=== PATIENT | female | born 1965 | race Caucasian/White ===

== ENCOUNTER → 2018-06-18 17:26 | Outpatient (CLI) | payer OTHER, SELFPAY ==
[2018-06-18 18:50] LABS: Basophils # 0.1 K/mm3 (0-0.2); Eosinophils # 0.2 K/mm3 (0.0-0.4); Eosinophils % 2.3 % (0.1-12.0); Hematocrit 49.1 % (37.0-47.0); Hemoglobin 15.5 g/dL (12.2-16.2); Lymphocytes # 2.6 K/mm3 (0.7-4.5); Lymphocytes % 29.4 % (10-50); Mean Corpuscular HGB Conc 31.7 g/dL (31.8-35.4); Mean Corpuscular Hemoglobin 27.5 pg (27.0-31.2); Mean Corpuscular Volume 86.7 fl (81-99); Mean Platelet Volume 9.8 fl (7.4-10.4); Monocytes # 0.4 K/mm3 (0.1-1.0); Monocytes % 4.1 % (1.7-9.3); Neutrophils # 5.6 K/mm3 (1.8-7.8); Neutrophils % 63.1 % (37.0-80.0); Platelet Count 267 K/mm3 (142-424); Red Blood Count 5.66 M/mm3 (4.20-5.40); Red Cell Distribution Width 13.9 % (11.5-17.5); White Blood Count 8.9 K/mm3 (4.8-10.8)
[2018-06-18 19:10] LABS: Alanine Aminotransferase 23 U/L (12-78); Albumin Level 4.3 gm/dL (3.4-5.0); Albumin/Globulin Ratio 1.2 (1.1-1.8); Alkaline Phosphatase 93 U/L (46-116); Anion Gap 15.3 mEq/L (5-15); Aspartate Amino Transferase 7 U/L (15-37); Bilirubin,Total 0.3 mg/dL (0.2-1.0); Blood Urea Nitrogen 13 mg/dL (7-18); C-Reactive Protein 0.7 mg/L (0.0-0.9); Calcium 9.2 mg/dL (8.5-10.1); Carbon Dioxide 29 mmol/L (21.0-32.0); Chloride 100 mmol/L (98-107); Cholesterol 202 mg/dL (140-200); Creatinine,Serum 0.73 mg/dL (0.55-1.02); Estimated Glomerular Filt Rate 83 ml/min (>60); Free T4 (Free Thyroxine) 1.04 ng/dl (0.76-1.46); GFR (African American) 101 ML/MIN (>60); Globulin 3.5 gm/dl (1.3-3.2); Glucose 96 mg/dL (74-106); HDL Cholesterol 29 mg/dL (29-89); LDL Cholesterol 127 mg/dL (0-130); Potassium 4.3 mmoL/L (3.5-5.1); Sodium 140 mmol/L (136-145); Total Protein,Serum 7.8 gm/dL (6.4-8.2); Triglycerides 232 mg/dL (30-200); VLDL Cholesterol 46 mg/dL (0-40)
[2018-06-18 19:45] LABS: Erythrocyte Sedimentation Rate 9 mm/hr (0-30)
[2018-06-22 09:33] LABS: Vitamin D 25 Hydroxy 10.1 ng/mL (30.0-100.0)
[2018-06-22 10:33] LABS: Anti-Cyclic Citrullinated Pept 10 units (0-19)
== END ==
PROVIDERS: Visit Provider Physician Assistant
DX: M25.9 Joint disorder, unspecified (principal); R53.83 Other fatigue; E55.9 Vitamin D deficiency, unspecified
CPT/HCPCS: 80053; 80061; 82652; 84439; 84443; 85025; 85651; 86140; 86200; 86431

== ENCOUNTER → 2019-11-04 15:31 | Outpatient (CLI) | payer OTHER, SELFPAY ==
[2019-11-04 16:31] LABS: Chloride 99 mmol/L (98-107)
[2019-11-04 16:32] LABS: Potassium 4.4 mmoL/L (3.5-5.1)
[2019-11-04 16:34] LABS: Alanine Aminotransferase 18 U/L (12-78); Alkaline Phosphatase 68 U/L (38-126); Aspartate Amino Transferase 25 U/L (14-36); Bilirubin,Total 0.3 mg/dl (0.2-1.3); Blood Urea Nitrogen 15 mg/dl (7-17); Estimated Glomerular Filt Rate 75 ml/min (>60); GFR (African American) 90 ML/MIN (>60)
[2019-11-04 16:35] LABS: Albumin Level 4.5 g/dl (3.5-5.0); Albumin/Globulin Ratio 1.5 (1.1-1.8); Calcium 10.2 mg/dl (8.4-10.2); Carbon Dioxide 30 mmol/L (22.0-30.0); Chol/HDL Ratio 7.2 (1-3.5); Cholesterol 217 mg/dl (140-200); Glucose 110 mg/dl (74-100); HDL Cholesterol 30 mg/dl (40-60); Total Protein,Serum 7.5 g/dl (6.3-8.2); Triglycerides 195 mg/dl (30-150); VLDL Cholesterol 39 mg/dL (0-40)
[2019-11-04 16:46] LABS: Direct LDL Cholesterol 180.07 mg/dL (100-129)
[2019-11-04 17:14] LABS: Anion Gap 12.4 mEq/L (5-15); Sodium 137 mmol/L (136-145)
== END ==
LOC: LAB 15:34 → LAB.DROPOF 15:36
PROVIDERS: Visit Provider Physician Assistant
DX: M06.9 Rheumatoid arthritis, unspecified (principal)
CPT/HCPCS: 80053; 80061; 82652; 84443

== ENCOUNTER → 2019-11-12 16:02 | Outpatient (CLI) | payer OTHER, SELFPAY ==
[2019-11-12 16:15] LABS: Basophils # 0.3 K/mm3 (0-0.2); Basophils % 2.9 % (0.1-2.0); Eosinophils # 0.2 K/mm3 (0.0-0.4); Eosinophils % 2.5 % (0.1-12.0); Hematocrit 43.3 % (37.0-47.0); Hemoglobin 14.3 g/dL (12.2-16.2); Lymphocytes # 2.4 K/mm3 (0.7-4.5); Lymphocytes % 26.1 % (10-50); Mean Corpuscular Hemoglobin 27.9 pg (27.0-31.2); Mean Corpuscular Volume 84.6 fl (81-99); Mean Platelet Volume 9.1 fl (7.4-10.4); Monocytes # 0.4 K/mm3 (0.1-1.0); Neutrophils # 5.9 K/mm3 (1.8-7.8); Neutrophils % 64.5 % (37.0-80.0); Platelet Count 260 K/mm3 (142-424); Red Blood Count 5.12 M/mm3 (4.20-5.40); Red Cell Distribution Width 14.5 % (11.5-17.5); White Blood Count 9.1 K/mm3 (4.8-10.8)
== END ==
PROVIDERS: Visit Provider Physician Assistant
DX: I10 Essential (primary) hypertension (principal)
CPT/HCPCS: 85025

== ENCOUNTER → 2020-01-05 12:06 | Outpatient (CLI) | payer OTHER, SELFPAY ==
--- NOTE | 2020-01-05 12:13 | XR_ITS ---
PROCEDURE: XR CHEST 2V CLINICAL HISTORY: PICC placement COMPARISON: CXR CHEST(2 VIEWS-NOT PORTABLE) from 09/13/2015 FINDINGS: Right upper extremity PICC line is present. The tip is in the region of the superior vena cava/right atrial junction. Normal heart size. Mediastinal widening consistent with mediastinal adenopathy. Right upper lobe mass is present posteriorly measuring 6 cm. Left lung is clear. No acute bony findings. IMPRESSION: Right upper lobe mass with extensive mediastinal adenopathy consistent with carcinoma. PICC line is present with tip in the region the caval atrial junction Dictated by: Rommel áVsquez MD 01/05/2020 14:22 Electronically signed by Rommel Vásquez MD in [place] 01/05/2020 14:22
== END ==
PROVIDERS: PCP Emergency Medicine; Visit Provider Physician Assistant
DX: Z95.828 Presence of other vascular implants and grafts (principal)
CPT/HCPCS: 71046

== ENCOUNTER → 2020-01-26 09:45 | Outpatient (CLI) | payer OTHER, SELFPAY ==
[2020-01-26 09:47] LABS: Adenovirus F 40/41, stool Not Detected (NotDetected); Astrovirus Not Detected (NotDetected); Campylobacter Not Detected (NotDetected); Clostridium Difficile A/B, PCR Not Detected (NotDetected); Cryptosporidium Not Detected (NotDetected); Cyclospora Cayetanesis Not Detected (NotDetected); Entamoeba histolytica Not Detected (NotDetected); Enteroaggregative E coli Not Detected (NotDetected); Enteropathogenic E coli Not Detected (NotDetected); Enterotoxigenic E coli Not Detected (NotDetected); Giardia lamblia Not Detected (NotDetected); Norovirus Not Detected (NotDetected); Plesimonas Shigalloides, PCR Not Detected (NotDetected); Rotavirus A Not Detected (NotDetected); Salmonella, PCR Not Detected (NotDetected); Sapovirus Not Detected (NotDetected); Shiga-like toxin E coli Not Detected (NotDetected); Shigella Enterovasive E coli Not Detected (NotDetected); Vibrio Cholerae Not Detected (NotDetected); Vibrio, PCR Not Detected (NotDetected); Yersinia Entercolitica, PCR Not Detected (NotDetected)
== END ==
PROVIDERS: Visit Provider Physician Assistant
DX: R19.7 Diarrhea, unspecified (principal)
CPT/HCPCS: 87507

== ENCOUNTER → 2020-10-19 13:46 | Outpatient (CLI) | payer OTHER, SELFPAY ==
[2020-10-19 14:00] LABS: Chloride 103 mmol/L (98-107); Potassium 4.1 mmoL/L (3.5-5.1); Sodium 140 mmol/L (136-145)
[2020-10-19 14:02] LABS: Alanine Aminotransferase 10 U/L (12-78); Blood Urea Nitrogen 12 mg/dl (7-17); Estimated Glomerular Filt Rate 104 ml/min (>60); GFR (African American) 126 ML/MIN (>60)
[2020-10-19 14:03] LABS: Albumin Level 4.5 g/dl (3.5-5.0); Albumin/Globulin Ratio 1.6 (1.1-1.8); Alkaline Phosphatase 82 U/L (38-126); Anion Gap 9.1 mEq/L (5-15); Aspartate Amino Transferase 19 U/L (14-36); Bilirubin,Total 0.4 mg/dl (0.2-1.3); Carbon Dioxide 32 mmol/L (22.0-30.0); Cholesterol 221 mg/dl (140-200); Globulin 2.8 g/dL (1.3-3.2); Total Protein,Serum 7.3 g/dl (6.3-8.2); Triglycerides 199 mg/dl (30-150); VLDL Cholesterol 40 mg/dL (0-40)
[2020-10-19 14:06] LABS: Calcium 9.8 mg/dl (8.4-10.2); Chol/HDL Ratio 9.6 (1-3.5); Glucose 84 mg/dl (74-100); HDL Cholesterol 23 mg/dl (40-60)
[2020-10-19 14:11] LABS: Basophils % 0.6 % (0.1-2.0); Eosinophils # 0.2 K/mm3 (0.0-0.4); Eosinophils % 2.2 % (0.1-12.0); Hematocrit 42.2 % (37.0-47.0); Hemoglobin 13.7 g/dL (12.2-16.2); Lymphocytes # 1.3 K/mm3 (0.7-4.5); Lymphocytes % 18.9 % (10-50); Mean Corpuscular HGB Conc 32.4 g/dL (31.8-35.4); Mean Corpuscular Volume 89.4 fl (81-99); Mean Platelet Volume 8.7 fl (7.4-10.4); Monocytes # 0.3 K/mm3 (0.1-1.0); Monocytes % 4.6 % (1.7-9.3); Neutrophils # 5.1 K/mm3 (1.8-7.8); Neutrophils % 73.8 % (37.0-80.0); Platelet Count 283 K/mm3 (142-424); Red Blood Count 4.72 M/mm3 (4.20-5.40); Red Cell Distribution Width 14.9 % (11.5-17.5); White Blood Count 6.9 K/mm3 (4.8-10.8)
[2020-10-19 14:14] LABS: Direct LDL Cholesterol 156.48 mg/dL (100-129)
[2020-10-19 14:23] LABS: T4 (Thyroxine) 7.9 ug/dl (5.53-11.0)
[2020-10-19 14:37] LABS: Thyroid Stimulating Hormone 1.79 uIU/mL (0.465-4.68)
== END ==
PROVIDERS: Visit Provider Nurse Practitioner Family
DX: Z00.00 Encounter for general adult medical examination without abnormal findings (principal); E78.5 Hyperlipidemia, unspecified; I10 Essential (primary) hypertension; E55.9 Vitamin D deficiency, unspecified
CPT/HCPCS: 80053; 80061; 82306; 84436; 84443; 85025

== ENCOUNTER → 2021-02-01 14:34 | Outpatient (CLI) | payer OTHER, SELFPAY ==
[2021-02-01 14:51] LABS: Alanine Aminotransferase 15 U/L (12-78); Albumin Level 4.5 g/dl (3.5-5.0); Albumin/Globulin Ratio 1.7 (1.1-1.8); Alkaline Phosphatase 67 U/L (38-126); Anion Gap 13.1 mEq/L (5-15); Aspartate Amino Transferase 19 U/L (14-36); Bilirubin,Total 0.5 mg/dl (0.2-1.3); Blood Urea Nitrogen 8 mg/dl (7-17); Calcium 9.7 mg/dl (8.4-10.2); Carbon Dioxide 29 mmol/L (22.0-30.0); Chloride 100 mmol/L (98-107); Chol/HDL Ratio 10.1 (1-3.5); Cholesterol 212 mg/dl (140-200); Estimated Glomerular Filt Rate 104 ml/min (>60); GFR (African American) 126 ML/MIN (>60); Globulin 2.6 g/dL (1.3-3.2); Glucose 159 mg/dl (74-100); HDL Cholesterol 21 mg/dl (40-60); Potassium 4.1 mmoL/L (3.5-5.1); Sodium 138 mmol/L (136-145); Total Protein,Serum 7.1 g/dl (6.3-8.2); Triglycerides 180 mg/dl (30-150); VLDL Cholesterol 36 mg/dL (0-40)
[2021-02-01 15:03] LABS: Direct LDL Cholesterol 157.05 mg/dL (100-129)
[2021-02-01 15:06] LABS: Basophils # 0.1 K/mm3 (0-0.2); Basophils % 1.3 % (0.1-2.0); Eosinophils # 0.1 K/mm3 (0.0-0.4); Eosinophils % 1.2 % (0.1-12.0); Hematocrit 41.1 % (37.0-47.0); Lymphocytes # 1.3 K/mm3 (0.7-4.5); Lymphocytes % 19.6 % (10-50); Mean Corpuscular HGB Conc 34.1 g/dL (31.8-35.4); Mean Corpuscular Hemoglobin 28.9 pg (27.0-31.2); Mean Corpuscular Volume 84.9 fl (81-99); Mean Platelet Volume 8.8 fl (7.4-10.4); Monocytes # 0.2 K/mm3 (0.1-1.0); Monocytes % 3.2 % (1.7-9.3); Neutrophils % 74.7 % (37.0-80.0); Platelet Count 252 K/mm3 (142-424); Red Blood Count 4.84 M/mm3 (4.20-5.40); Red Cell Distribution Width 15.5 % (11.5-17.5); White Blood Count 6.7 K/mm3 (4.8-10.8)
[2021-02-01 15:08] LABS: 25-OH Vitamin D, Total 65.6 ng/mL (30-100)
[2021-02-01 15:23] LABS: Thyroid Stimulating Hormone 1.01 uIU/mL (0.465-4.68)
[2021-02-01 16:10] LABS: Hemoglobin A1C 5.9 % (4.0-6.0)
== END ==
PROVIDERS: Visit Provider Nurse Practitioner Family
DX: Z00.00 Encounter for general adult medical examination without abnormal findings (principal); R73.09 Other abnormal glucose; E66.3 Overweight; Z68.34 Body mass index [BMI] 34.0-34.9, adult; Z79.899 Other long term (current) drug therapy
CPT/HCPCS: 80053; 80061; 82306; 83036; 84443; 85025

== ENCOUNTER → 2021-03-09 09:45 | Outpatient (CLI) | payer OTHER, SELFPAY | PROVIDERS: Visit Provider Surgery | DX: Z20.822 Contact with and (suspected) exposure to COVID-19 (principal) | CPT/HCPCS: U0003 ==

== ENCOUNTER 2021-06-27 09:04 | Emergency (ER) | payer OTHER, SELFPAY ==
--- NOTE | 2021-06-27 | ECG_ITS ---
APPROVED REPORT Exam: Resting ECG HR:104 bpm ECG Measurements Heart Rate 104 AXES SD 174 P 75 QRSd 96 QRS 74 QT 350 T 70 QTc 460 Conclusion Sinus tachycardia with frequent premature ventricular complexes Possible Left atrial enlargement Low voltage QRS Incomplete right bundle branch block Abnormal ECG Electronically signed by : Liborio Wakefield MD 06/30/2021 08:49:25
--- NOTE | 2021-06-27 09:24 | XR_ITS ---
PROCEDURE: XR CHEST PORTABLE CLINICAL HISTORY: Chest Pain COMPARISON: CR CXR CHEST(2 VIEWS-NOT PORTABLE) from 09/13/2015 CR XR CHEST 2V from 01/05/2020 FINDINGS: The cardiomediastinal silhouette and pulmonary vascularity are within normal limits. Mild scarring in the right upper lobe with mild prominence of the suprahilar region on the right. No lobar consolidation or collapse. No acute bony abnormalities. IMPRESSION: Mild prominence of the suprahilar region on the right. This could be vascular in nature. Upright PA and lateral chest may provide further evaluation. Previously there was an area of lobar pneumonia in the right upper lobe posteriorly which has resolved with some mild scarring in the right upper lobe. Dictated by: Rommel Vásquez MD 06/27/2021 10:27 Rommel Vásquez MD in [place] 06/27/2021 10:27
[2021-06-27 09:25] VITALS: BP 115/63; PULSE 105; RESP 18; TEMP 36.7; O2SAT 96; BMI 32.1
--- NOTE | 2021-06-27 09:25 | PC.NURSE ---
Called respitory for treatment
[2021-06-27 09:30] VITALS: BP 119/59; PULSE 66; O2SAT 92
--- NOTE | 2021-06-27 09:34 | PC.NURSE ---
Called RAD for chest xray spoke with marija
--- NOTE | 2021-06-27 09:35 | PC.NURSE ---
RT giving breathing treatment
[2021-06-27 09:48] LABS: Basophils # 0.1 K/mm3 (0-0.2); Basophils % 0.6 % (0.1-2.0); Eosinophils # 0.1 K/mm3 (0.0-0.4); Eosinophils % 1.8 % (0.1-12.0); Hematocrit 39.8 % (37.0-47.0); Hemoglobin 13.5 g/dL (12.2-16.2); Lymphocytes # 1.4 K/mm3 (0.7-4.5); Lymphocytes % 16.8 % (10-50); Mean Corpuscular Hemoglobin 29.6 pg (27.0-31.2); Mean Corpuscular Volume 86.9 fl (81-99); Mean Platelet Volume 8.2 fl (7.4-10.4); Monocytes # 0.4 K/mm3 (0.1-1.0); Neutrophils # 6.2 K/mm3 (1.8-7.8); Neutrophils % 75.9 % (37.0-80.0); Platelet Count 308 K/mm3 (142-424); Red Blood Count 4.58 M/mm3 (4.20-5.40); Red Cell Distribution Width 14.2 % (11.5-17.5); White Blood Count 8.2 K/mm3 (4.8-10.8)
[2021-06-27 09:49] LABS: Coronavirus 19, PCR Not Detected (NotDetected); Influenza A, PCR Not Detected (NotDetected); Influenza B, PCR Not Detected (NotDetected)
[2021-06-27 10:01] VITALS: BP 127/76; PULSE 117; O2SAT 90
--- NOTE | 2021-06-27 10:02 | PC.NURSE ---
RAD in room from chest xray
--- NOTE | 2021-06-27 10:19 | HMH.EDSOB ---
ED Disposition Clinical Impression: Acute exacerbation of chronic obstructive airways disease Disposition: Home, Self-Care Condition on Discharge: Fair Prescriptions: predniSONE [Deltasone 20mg tablet] 40 mg PO DAILY 5 Days #10 tab Transmission Status: Pending to [facility] Doxycycline Hyclate [Doxycycline Hyclate 100mg Tablet] 100 mg PO BID 5 Days #10 tab Transmission Status: Pending to [facility] Referrals: Bishop Aguilar APRN [Primary Care Provider] - - Critical Care Critical Care Time: No Attestation: On 06/27/21, the high probability of a clinically significant, sudden or life threatening deterioration of the following system(s) required my full and direct attention, intervention and personal management. The time I documented below is in addition to time spent performing reported procedures but includes the following listed in this critical care notation. Medical Decision Making - Medical Records Medical records reviewed: Yes: I reviewed the patient's medical records. - Jonathon Inquiry Pt receiving controlled substance: No Jonathon was queried for this patient: No Vital Signs: 06/27/21 09:25 06/27/21 09:30 06/27/21 10:01 Temperature 98.0 F Temperature Source Oral Pulse Rate 66 117 H Pulse Rate [Right Radial] 105 H Respiratory Rate 18 Blood Pressure 119/59 L 127/76 Blood Pressure [Right Arm] 115/63 Blood Pressure Mean 79 93 Blood Pressure Mean [Right Arm] 80 Blood Pressure Source [Right Arm] Automatic Cuff Blood Pressure Position [Right Arm] Sitting 02 Sat by Pulse Oximetry 96 92 L 90 L Oxygen Delivery Method Room Air - Lab Data Lab Results 06/27/21 09:15: WBC 8.2, RBC 4.58, Hgb 13.5, Hct 39.8, MCV 86.9, MCH 29.6, MCHC 34.0, RDW 14.2, Plt Count 308, MPV 8.2, Neut % (Auto) 75.9, Lymph % (Auto) 16.8, Franklin % (Auto) 5.0, Eos % (Auto) 1.8, Baso % (Auto) 0.6, Neut # (Auto) 6.2, Lymph # (Auto) 1.4, Franklin # (Auto) 0.4, Eos # (Auto) 0.1, Baso # (Auto) 0.1 06/27/21 09:15: Sodium 135 L, Potassium 3.4 L, Chloride 98, Carbon Dioxide 33 H, Anion Gap 7.4, BUN 11, Creatinine 0.70, Estimated Creat Clear 113, Estimated GFR 87, Est GFR ( Amer) 105, Glucose 102 H, Calcium 9.8, Total Bilirubin 0.2, AST 21, ALT 13, Alkaline Phosphatase 90, Troponin I < 0.01, Total Protein 7.5, Albumin 4.3, Globulin 3.2, Albumin/Globulin Ratio 1.3 06/27/21 09:15: SARS-CoV-2 (PCR) Not detected, Influenza A Untype (PCR) Not detected, Influenza Type B (PCR) Not detected Result diagrams: 06/27/21 09:15 06/27/21 09:15 Orders (Tests/Meds): ORDERS Category Date Time Status Troponin I Q3H Lab 06/27/21 12:30 Ordered Troponin I Q3H Lab 06/27/21 15:30 Ordered Medical Decision Narrative: Patient is a 56-year-old female with past medical history of lung cancer status post chemotherapy in remission, COPD, diabetes, hypertension presenting to the ED for shortness of breath and a increased cough. Patient is awake, alert, not in acute respiratory distress. Patient is hemodynamically stable, afebrile. Physical exam remarkable for mild expiratory wheezes bilaterally otherwise physical exam is benign. Includes but is not limited to COPD exacerbation, pneumonia, viral pneumonia, low concern for a pulmonary embolism. Get patient is given neb which greatly helps patient's symptoms. Patient states that she is feeling much better. Basic lab work is unremarkable, chest x-ray shows perihilar thickening otherwise is benign. Patient is written for 5-day course of steroid and antibiotics. She is to follow-up with her primary care physician on Friday. Resp/SOB HPI - General Chief Complaint: Shortness of Breath/Dyspnea Stated Complaint: cough,lung pain Time Seen by Provider: 06/27/21 10:19 Mode of Arrival: Ambulatory Limitations: No Limitations Description of Symptoms (Recalled from ER Triage Doc. by RN): Pt has a hx of lung cancer and is in remission. She stated that a wk she s
[2021-06-27 10:35] LABS: Alanine Aminotransferase 13 U/L (12-78); Albumin Level 4.3 g/dl (3.5-5.0); Albumin/Globulin Ratio 1.3 (1.1-1.8); Alkaline Phosphatase 90 U/L (38-126); Anion Gap 7.4 mEq/L (5-15); Aspartate Amino Transferase 21 U/L (14-36); Bilirubin,Total 0.2 mg/dl (0.2-1.3); Blood Urea Nitrogen 11 mg/dl (7-17); Calcium 9.8 mg/dl (8.4-10.2); Carbon Dioxide 33 mmol/L (22.0-30.0); Chloride 98 mmol/L (98-107); Creatinine Clearance Estimated 113 mL/min (50-200); Estimated Glomerular Filt Rate 87 ml/min (>60); GFR (African American) 105 ML/MIN (>60); Globulin 3.2 g/dL (1.3-3.2); Glucose 102 mg/dl (74-100); Potassium 3.4 mmoL/L (3.5-5.1); Sodium 135 mmol/L (136-145); Total Protein,Serum 7.5 g/dl (6.3-8.2)
[2021-06-27 10:47] LABS: Troponin I < 0.01 ng/ml (0.00-0.034)
[2021-06-27 11:10] VITALS: BP 111/63; PULSE 104; RESP 18; TEMP 36.8; O2SAT 94
== END 2021-06-27 11:10 | disposition home or self-care (01) ==
PROVIDERS: Emergency Provider Emergency Medicine; PCP Nurse Practitioner Family
DX: J44.1 Chronic obstructive pulmonary disease with (acute) exacerbation (principal); E11.9 Type 2 diabetes mellitus without complications; I10 Essential (primary) hypertension
CPT/HCPCS: 71045; 80053; 84484; 85025; 93005; 99283; C9803; U0003; U0005

== ENCOUNTER → 2021-07-06 18:50 | Outpatient (CLI) | payer OTHER, SELFPAY ==
[2021-07-06 19:19] LABS: Basophils # 0.1 K/mm3 (0-0.2); Basophils % 0.7 % (0.1-2.0); Eosinophils # 0.2 K/mm3 (0.0-0.4); Eosinophils % 2.3 % (0.1-12.0); Hematocrit 40.8 % (37.0-47.0); Hemoglobin 13.7 g/dL (12.2-16.2); Lymphocytes # 1.6 K/mm3 (0.7-4.5); Lymphocytes % 16.8 % (10-50); Mean Corpuscular HGB Conc 33.7 g/dL (31.8-35.4); Mean Corpuscular Hemoglobin 29.5 pg (27.0-31.2); Mean Corpuscular Volume 87.6 fl (81-99); Mean Platelet Volume 8.8 fl (7.4-10.4); Monocytes # 0.3 K/mm3 (0.1-1.0); Monocytes % 3.5 % (1.7-9.3); Neutrophils # 7.1 K/mm3 (1.8-7.8); Neutrophils % 76.8 % (37.0-80.0); Platelet Count 362 K/mm3 (142-424); Red Blood Count 4.65 M/mm3 (4.20-5.40); Red Cell Distribution Width 14.8 % (11.5-17.5); White Blood Count 9.3 K/mm3 (4.8-10.8)
[2021-07-06 19:31] LABS: Alanine Aminotransferase 14 U/L (12-78); Albumin Level 4.2 g/dl (3.5-5.0); Albumin/Globulin Ratio 1.8 (1.1-1.8); Alkaline Phosphatase 76 U/L (38-126); Anion Gap 12.7 mEq/L (5-15); Aspartate Amino Transferase 23 U/L (14-36); Bilirubin,Total 0.2 mg/dl (0.2-1.3); Blood Urea Nitrogen 11 mg/dl (7-17); Calcium 9.5 mg/dl (8.4-10.2); Carbon Dioxide 30 mmol/L (22.0-30.0); Chloride 99 mmol/L (98-107); Chol/HDL Ratio 6.5 (1-3.5); Cholesterol 196 mg/dl (140-200); Estimated Glomerular Filt Rate 103 ml/min (>60); GFR (African American) 125 ML/MIN (>60); Globulin 2.4 g/dL (1.3-3.2); Glucose 113 mg/dl (74-100); HDL Cholesterol 30 mg/dl (40-60); Potassium 3.7 mmoL/L (3.5-5.1); Sodium 138 mmol/L (136-145); Total Protein,Serum 6.6 g/dl (6.3-8.2); Triglycerides 239 mg/dl (30-150); VLDL Cholesterol 48 mg/dL (0-40)
[2021-07-06 19:35] LABS: Hemoglobin A1C 5.9 % (4.0-6.0)
[2021-07-06 19:42] LABS: Direct LDL Cholesterol 150.31 mg/dL (100-129)
[2021-07-06 19:50] LABS: 25-OH Vitamin D, Total 62.5 ng/mL (30-100)
[2021-07-06 19:51] LABS: T4 (Thyroxine) 8.9 ug/dl (5.53-11.0)
[2021-07-06 20:04] LABS: Thyroid Stimulating Hormone 1.44 uIU/mL (0.465-4.68)
== END ==
PROVIDERS: Visit Provider Nurse Practitioner Family
DX: C34.90 Malignant neoplasm of unspecified part of unspecified bronchus or lung (principal); E55.9 Vitamin D deficiency, unspecified; E78.5 Hyperlipidemia, unspecified; I10 Essential (primary) hypertension; J44.9 Chronic obstructive pulmonary disease, unspecified; R73.03 Prediabetes
CPT/HCPCS: 80053; 80061; 82306; 83036; 84436; 84443; 85025

== ENCOUNTER → 2021-12-10 13:04 | Outpatient (CLI) | payer OTHER, SELFPAY ==
[2021-12-10 14:17] LABS: Basophils # 0.3 K/mm3 (0-0.2); Basophils % 3.7 % (0.1-2.0); Eosinophils # 0.1 K/mm3 (0.0-0.4); Hemoglobin 13.9 g/dL (12.2-16.2); Lymphocytes # 1.2 K/mm3 (0.7-4.5); Lymphocytes % 17.8 % (10-50); Mean Corpuscular Volume 87.8 fl (81-99); Mean Platelet Volume 8.5 fl (7.4-10.4); Monocytes # 0.3 K/mm3 (0.1-1.0); Monocytes % 3.8 % (1.7-9.3); Neutrophils # 4.8 K/mm3 (1.8-7.8); Neutrophils % 72.6 % (37.0-80.0); Platelet Count 306 K/mm3 (142-424); Red Blood Count 4.78 M/mm3 (4.20-5.40); Red Cell Distribution Width 15.1 % (11.5-17.5); White Blood Count 6.6 K/mm3 (4.8-10.8)
[2021-12-10 14:34] LABS: Alanine Aminotransferase 12 U/L (12-78); Albumin Level 4.3 g/dl (3.5-5.0); Albumin/Globulin Ratio 1.9 (1.1-1.8); Alkaline Phosphatase 75 U/L (38-126); Aspartate Amino Transferase 18 U/L (14-36); Blood Urea Nitrogen 11 mg/dl (7-17); Calcium 9.3 mg/dl (8.4-10.2); Carbon Dioxide 31 mmol/L (22.0-30.0); Chloride 101 mmol/L (98-107); Cholesterol 202 mg/dl (140-200); Estimated Glomerular Filt Rate 87 ml/min (>60); GFR (African American) 105 ML/MIN (>60); Globulin 2.3 g/dL (1.3-3.2); Glucose 102 mg/dl (74-100); HDL Cholesterol 25 mg/dl (40-60); Sodium 138 mmol/L (136-145); Total Protein,Serum 6.6 g/dl (6.3-8.2); Triglycerides 162 mg/dl (30-150); VLDL Cholesterol 32 mg/dL (0-40)
[2021-12-10 14:35] LABS: Bilirubin,Total < 0.1 mg/dl (0.2-1.3)
[2021-12-10 14:44] LABS: Direct LDL Cholesterol 157.85 mg/dL (100-129)
[2021-12-10 14:48] LABS: 25-OH Vitamin D, Total 74.7 ng/mL (30-100)
[2021-12-10 14:49] LABS: T4 (Thyroxine) 8.7 ug/dl (5.53-11.0)
[2021-12-10 15:02] LABS: Thyroid Stimulating Hormone 0.11 uIU/mL (0.465-4.68)
[2021-12-10 21:31] LABS: Hemoglobin A1C 5.9 % (4.0-6.0)
[2021-12-10 21:37] LABS: Chol/HDL Ratio 8.1 (1-3.5)
[2021-12-12 12:40] LABS: C-Peptide 2.3 ng/mL (1.1-4.4)
== END ==
PROVIDERS: PCP Nurse Practitioner Family; Visit Provider Nurse Practitioner Family
DX: R73.03 Prediabetes (principal); I10 Essential (primary) hypertension; E66.9 Obesity, unspecified; Z68.31 Body mass index [BMI] 31.0-31.9, adult
CPT/HCPCS: 80053; 80061; 82306; 83036; 84436; 84443; 84681; 85025

== ENCOUNTER 2022-07-31 09:17 | Emergency (ER) | payer OTHER, SELFPAY ==
[2022-07-31 09:32] VITALS: BP 154/94; PULSE 101; RESP 22; TEMP 36.8; O2SAT 94; BMI 30.9
--- NOTE | 2022-07-31 09:38 | XR_ITS ---
FINAL REPORT CLINICAL HISTORY: cough/soa COMPARISON: Report dated 06/27/2021 FINDINGS: SINGLE-VIEW CHEST The heart size is normal. There is right hilar and suprahilar prominence of uncertain significance but was mention on the prior report, may represent scar. There are mild right base opacities, may represent atelectasis or scar There is no pneumothorax. IMPRESSION: Right hilar and suprahilar prominence as detailed above. CT chest with contrast could further evaluate. Right base atelectasis or scar. Reviewed, Interpreted and Dictated by Dylan Vail III, MD Transcribed by Clau Tay Authenticated and [facility]
--- NOTE | 2022-07-31 10:10 | HMH.EDGENADL ---
Discharge Plan Disposition Patient Disposition: Home, Self-Care Condition: Good Prescriptions Prescriptions: New levofloxacin 750 mg tablet 750 mg PO DAILY 5 Days Qty: 5 0RF benzonatate 100 mg capsule 100 mg PO TID PRN (Reason: Cough) Qty: 10 0RF prednisone 20 mg tablet 20 mg PO BID Qty: 10 0RF No Action gabapentin 100 mg capsule 200 mg PO QHS vitamin B complex [Super B-50 Complex] Capsule 1 cap PO DAILY omega-3 fatty acids 1,000 mg capsule 2,000 mg PO BID cyclobenzaprine 10 mg tablet 10 mg PO TID PRN (Reason: unknown) Breo Ellipta 100-25 mcg/dose blister with device 1 inh INHALATION DAILY Qty: 28 2RF albuterol sulfate 90 mcg/actuation HFA aerosol inhaler See Rx Instructions .ROUTE .COMPLEX Qty: 18 0RF Dose Instruction: INHALE 2 PUFFS BY MOUTH EVERY 6 HOURS NEEDED FOR SHORTNESS OF BREATH OR WHEEZING Rx Instructions: INHALE 2 PUFFS BY MOUTH EVERY 6 HOURS NEEDED FOR SHORTNESS OF BREATH OR WHEEZING ergocalciferol (vitamin D2) 1,250 mcg (50,000 unit) capsule See Rx Instructions .ROUTE .COMPLEX Qty: 12 0RF Dose Instruction: TAKE ONE CAPSULE BY MOUTH ONCE A WEEK ON THE SAME DAY OF EACH WEEK Rx Instructions: TAKE ONE CAPSULE BY MOUTH ONCE A WEEK ON THE SAME DAY OF EACH WEEK cholecalciferol (vitamin D3) 25 mcg (1,000 unit) capsule 1,000 unit PO DAILY 90 Days Qty: 90 3RF Rx Instructions: administer with meals sertraline 25 mg tablet See Rx Instructions .ROUTE .COMPLEX Qty: 30 2RF Dose Instruction: TAKE ONE TABLET BY MOUTH ONCE A DAY WITH 50MG TABLET (TOTAL DOSE 75MG) Rx Instructions: TAKE ONE TABLET BY MOUTH ONCE A DAY WITH 50MG TABLET (TOTAL DOSE 75MG) cetirizine 10 mg tablet See Rx Instructions .ROUTE .COMPLEX Qty: 30 2RF Dose Instruction: TAKE ONE TABLET BY MOUTH ONCE A DAY Rx Instructions: TAKE ONE TABLET BY MOUTH ONCE A DAY lisinopril-hydrochlorothiazide 20-25 mg tablet See Rx Instructions .ROUTE .COMPLEX Qty: 30 2RF Dose Instruction: TAKE ONE TABLET BY MOUTH ONCE A DAY Rx Instructions: TAKE ONE TABLET BY MOUTH ONCE A DAY albuterol sulfate 2.5 mg /3 mL (0.083 %) solution for nebulization 2.5 mg IH Q6H PRN (Reason: shortness of breath or wheezing) Qty: 180 2RF metformin 500 mg tablet extended release 24 hr See Rx Instructions .ROUTE .COMPLEX Qty: 30 0RF Dose Instruction: TAKE 1 TABLET BY MOUTH EVERY DAY Rx Instructions: TAKE 1 TABLET BY MOUTH EVERY DAY sertraline 50 mg tablet See Rx Instructions .ROUTE .COMPLEX Qty: 30 0RF Dose Instruction: TAKE ONE TABLET BY MOUTH ONCE A DAY WITH 25MG (TOTAL DOSE 75MG) Rx Instructions: TAKE ONE TABLET BY MOUTH ONCE A DAY WITH 25MG (TOTAL DOSE 75MG) Referrals Follow up/Referrals: Bishop Aguilar APRN [Primary Care Provider] - See instructions Activity Restrictions/Add. Instructions Additional Instructions/Restrictions: Take antibiotic and prednisone as prescribed. Follow-up with primary care provider, call for appointment. Return emergency department if worsening symptoms. Clinical Impressions Clinical Impression: COVID-19 virus infection, Acute bronchitis Instructions Patient Instructions: DI for COVID-19 (Suspected or Confirmed ), DI for Acute Bronchitis Discharge ED Provider: Shin Kirkpatrick General Adult HPI General Chief complaint: Shortness of Breath/Dyspnea Stated complaint: SOA, RT lung pain Time Seen by Provider: 07/31/22 10:00 Mode of Arrival: Ambulatory Source of Information: Patient Limitations: No Limitations Description of Symptoms (Recalled from ER Triage Doc. by RN): pt to ed c/o cough and soa. pt reports she has been having respiratory symptoms x2 weeks. pt states she took a home covid test x6 days ago and it was positive. pt reports she has copd and her noral prn o2 at home has not been helping her breathe. History of Present Illness HPI narrative:
[2022-07-31 10:25] VITALS: BP 129/84; PULSE 92; O2SAT 92
[2022-07-31 10:30] VITALS: BP 133/97; PULSE 99; O2SAT 93
[2022-07-31 10:33] LABS: Basophils # 0.1 K/mm3 (0-0.2); Basophils % 0.7 % (0.1-2.0); Eosinophils # 0.1 K/mm3 (0.0-0.4); Hematocrit 38.3 % (37.0-47.0); Hemoglobin 12.6 g/dL (12.2-16.2); Lymphocytes # 0.9 K/mm3 (0.7-4.5); Lymphocytes % 12.5 % (10-50); Mean Corpuscular HGB Conc 32.9 g/dL (31.8-35.4); Mean Corpuscular Hemoglobin 29.3 pg (27.0-31.2); Mean Corpuscular Volume 89.1 fl (81-99); Mean Platelet Volume 8.7 fl (7.4-10.4); Monocytes # 0.3 K/mm3 (0.1-1.0); Monocytes % 4.6 % (1.7-9.3); Neutrophils # 5.6 K/mm3 (1.8-7.8); Neutrophils % 81.2 % (37.0-80.0); Platelet Count 283 K/mm3 (142-424); Red Cell Distribution Width 14.4 % (11.5-17.5); White Blood Count 6.9 K/mm3 (4.8-10.8)
[2022-07-31 10:35] LABS: Alanine Aminotransferase 23 U/L (12-78); Albumin Level 3.8 g/dl (3.5-5.0); Albumin/Globulin Ratio 1.2 (1.1-1.8); Alkaline Phosphatase 126 U/L (38-126); Anion Gap 9.2 mEq/L (5-15); Aspartate Amino Transferase 24 U/L (14-36); Bilirubin,Total 0.3 mg/dl (0.2-1.3); Blood Urea Nitrogen 6 mg/dl (7-17); Calcium 8.8 mg/dl (8.4-10.2); Carbon Dioxide 33 mmol/L (22.0-30.0); Chloride 100 mmol/L (98-107); Creatinine Clearance Estimated 125 mL/min (50-200); Estimated Glomerular Filt Rate 103 ml/min (>60); GFR (African American) 125 ML/MIN (>60); Globulin 3.3 g/dL (1.3-3.2); Glucose 96 mg/dl (74-100); Potassium 3.2 mmoL/L (3.5-5.1); Sodium 139 mmol/L (136-145); Total Protein,Serum 7.1 g/dl (6.3-8.2)
[2022-07-31 10:36] LABS: Lactic Acid 0.8 mmol/L (0.7-2.1)
--- NOTE | 2022-07-31 10:36 | PC.NURSE ---
rounded on pt at this time, given glass of ice water.
[2022-07-31 10:40] LABS: D-Dimer 1.02 ug/mL (0.0-0.5)
--- NOTE | 2022-07-31 10:44 | CT_ITS ---
FINAL REPORT CLINICAL HISTORY: pleuritic pain, elev d-dimer FINDINGS: Thin section axial CT images of the chest were obtained with contrast. 3D reformatted images were also obtained. This study was performed with techniques to keep radiation doses as low as reasonably achievable (ALARA). Individualized dose reduction techniques using automated exposure control or adjustment of mA and/or kV according to the patient''s size were employed. There is no evidence of pulmonary embolism. There is no evidence of thoracic aortic aneurysm or dissection. There is a small pericardial effusion. There is abnormal soft tissue in the mediastinum, right hilum, and medial right thorax of uncertain etiology, favor postinflammatory change management analyst neoplastic involvement. There is right peribronchial thickening. Multiple nodules are seen in the right lung, likely inflammatory or could represent mild bacterial/fungal diseases or other inflammatory process. There is a calcified granuloma in the left lower lobe. Limited images of the upper abdomen reveal a left adrenal nodule, likely an adenoma. IMPRESSION: No evidence of pulmonary embolism. Abnormal soft tissue in the mediastinum, right hilum, and medial right thorax of uncertain etiology, favor postinflammatory change management analyst neoplastic involvement. Reviewed, Interpreted and Dictated by Dylan Vail III, MD Transcribed by Clau Tay Authenticated and [facility]
[2022-07-31 11:08] LABS: Coronavirus 19, PCR Detected (NotDetected); Influenza A, PCR Not Detected (NotDetected); Influenza B, PCR Not Detected (NotDetected)
--- NOTE | 2022-07-31 11:37 | PC.NURSE ---
rounded on pt to see if they had any needs and pt asked to go to the bathroom. assisted her to the bathroom and then back to the room when done. pt had no other needs at this time.
[2022-07-31 12:45] VITALS: BP 112/76; PULSE 90; RESP 18; TEMP 36.7; O2SAT 95
== END 2022-07-31 12:45 | disposition home or self-care (01) ==
PROVIDERS: Emergency Provider Emergency Medicine; PCP Nurse Practitioner Family
DX: U07.1 COVID-19 (principal); J20.9 Acute bronchitis, unspecified; J44.9 Chronic obstructive pulmonary disease, unspecified; M79.7 Fibromyalgia; C34.90 Malignant neoplasm of unspecified part of unspecified bronchus or lung; I10 Essential (primary) hypertension; M32.9 Systemic lupus erythematosus, unspecified; R73.03 Prediabetes; E55.9 Vitamin D deficiency, unspecified; M06.9 Rheumatoid arthritis, unspecified; F17.210 Nicotine dependence, cigarettes, uncomplicated; Z20.822 Contact with and (suspected) exposure to COVID-19
CPT/HCPCS: 71045; 71275; 80053; 83605; 85025; 85378; 87040; 96374; 99285; C9803; J1956; Q9967; U0003; U0005

== ENCOUNTER → 2022-10-14 07:48 | Outpatient (CLI) | payer OTHER, SELFPAY ==
--- NOTE | 2022-10-14 07:57 | NM_ITS ---
APPROVED REPORT Exam: Nuclear Stress Test Indication: OBESITY, HYPERTENSION, DM, HYPERLIPIDEMIA, TOB USE, FM HX, C.P., SOB Patient Location: Outpatient Stress Tech: Fatmata Dallas [place] Tech:Alyson Strauss, DONAL RT (R)(N)(M) Ht: 5 ft 2 in Wt: 172 lbs Bra Size: D HR: 92 bpm BP: 162/90 mmHg BSA: 1.79 m2 TID: 1.33 BMI: 31.4 History: OBESITY, HYPERTENSION, DM, HYPERLIPIDEMIA, TOB USE, FM HX, C.P., SOB Procedure: Patient exercised on Lucho protocol 2:16 minutes and sec, resting heart rate 92 bpm, resting blood pressure 162/90 mmHg, with exercise maximum heart rate achived was 138 bpm which is 85 % of the maximum predicted heart rate and blood pressure was 199/95 mmHg. Test was stopped due to SOA, FATIGUE. Patient has Poor exercise capacity, achieved 4.6 METs of workload on treadmill, the blood pressure response to exercise was Adequate. Electrocardiogram Resting electrocardiogram shows sinus rhythm right ventricular conduction delay, with exercise there is less than 1.[address] segment depression noted from the baseline EKG. The EKG portion of the exercise Myoview is negative for ischemia. Cardiac Stress and Resting SPECT Images: Cardiac Stress and Resting SPECT images were obtained using technetium 99m Myoview 30.8 mCi stress and 9.93 mCi at rest. Gated SPECT analysis of segmental wall motion and calculation of the ejection fraction also done. Prone images were also obtained. Cardiac stress and rest SPECT images show uniform myocardial activity without segmental perfusion abnormality, computer derived ejection fraction is 60% with no regional wall motion abnormality, however there is transient ischemic dilatation of the left ventricle noted. Conclusion: 1. The EKG portion of the exercise Myoview is negative for ischemia, patient has poor exercise capacity achieved 4.6 METS of workload on treadmill, the blood pressure response to exercise was adequate, there was no exercise-induced chest discomfort. 2. No scintigraphic evidence of reversible ischemia seen at this level of exercise, computer derived ejection fraction is 60% with no regional wall motion abnormality, however there is transient ischemic dilatation of the left ventricle seen of questionable significance. 3. Likely normal exercise Myoview study however patient has very poor exercise tolerance. Clinical correlation is recommended. Electronically signed by : Sanya Lopez MD 10/14/2022 11:02:47
--- NOTE | 2022-10-14 08:51 | CA_ITS ---
APPROVED REPORT Exam: Exercise Treadmill Technologist: Fatmata Dallas Ht: 5 ft 2 in Wt: 176 lbs BSA: 1.81 m2 HR: 92 bpm BP: 162/90 mmHg Indications: Chest pain Medical History Medications: Simvastatin,,,,, Metformin,,,,, Gabapentin,,,,, Vitamin D3,,,,, Lisinopril/HCTZ,,,,, Albuterol,,,,, Sertraline,,,,, Vitamin D2,,,,, CetIRIZINE,,,,, OmeGA3,,,,, B COMPLEX,,,,, Cyclobenzeprine,,,,, Stress Test Details Test: Lucho HR Resting HR: 91 bpm Max Heart Rate (APMHR): 163.176258 bpm Max HR Achieved: 138 bpm Target HR (85% APMHR): 138.009321 bpm % of APMHR: 84.66 Recovery HR: 97 bpm BP Resting BP: 162.0/90.0 mmHg Max BP: 199.0/95.0 mmHg Recovery BP: 177.0/89.0 mmHg ECG Clinical Exercise duration: 02:16 min Highest Stage Achieved: Exercise capacity: 4.6 METs Stress ECG Conclusion Injected at 1:37 due to shortness of air, heart rate 133. Symptoms: Shortness of air Arrhythmias/Ectopy: Occasional PAC/PVC ST-T Changes: < 1.[address] changes Test Summary REST . . . . . . . Resting REST . . . . . . . Standing REST 16:26 0.0 0.0 91 . 162/ 90 . . Stage 1 01:00 10.0 1.7 119 . . . . Stage 1 . . . . . . . Myoview Injected Stage 1 02:00 10.0 1.7 135 . . . . Stage 1 02:16 10.0 1.7 135 . . . Stop exercise at 02:16 RECOVERY 01:00 0.0 0.0 129 . . . . RECOVERY 02:00 0.0 0.0 113 . . . . RECOVERY 03:00 0.0 0.0 105 . 199/ 95 . . RECOVERY 04:00 0.0 0.0 98 . 199/ 95 . . RECOVERY 04:13 0.0 0.0 98 . 177/ 89 . . Electronically signed by : Sanya Lopez MD 10/14/2022 10:53:41
--- NOTE | 2022-10-14 08:52 | CA_ITS ---
APPROVED REPORT EXAM: Comprehensive 2D, Doppler, and color-flow Echocardiogram Pesticide Chemist: Dina Mesa RDCS Ht: 5 ft 2 in Wt: 176lbs BSA: 1.81 BP: 133/70 mmHg Indications: CP,COPD,DM,SMOKER,SOA,ALFORD 2D Dimensions LVOT 1.90 cm (M/F) 1.5-2.5 M-Mode Dimensions RVDd 3.17 cm (0.9-2.6) LA Diam 2.69 cm (1.9-4.0) LVDd 4.15 cm (3.5-5.7) Ao Diam 2.96 cm (2.0-3.7) LVDs 2.90 cm (3.5-5.7) IVSd 0.76 cm (0.6-1.1) PWd 1.03 cm (0.6-1.1) EF (Teich) 57.90% FS 30.10% EDV (Teich) 76.40 mL TAPSE 2.18 (<1.7) ESV (Teich) 32.20 mL LV Diastology E Decel Time 130.00 (160-240 msec) E/A Ratio 0.8 MED E' 6.80 (< 7 cm/sec) E'/MED E' Ratio 8.69 (>14) LAT E' 10.80 (<10 cm/sec) E/LAT E' Ratio 5.47 (>14) Mitral Valve MV E Max Israel. 59.00 (40-130 cm/s) MV A Velocity 72.00 (40-130 cm/s) E/A Ratio 0.82 MV Decel. Time 130.00 (160-240 ms) MV PHT 38.00 ms Left Ventricle Technically difficult study because of the patient factors and poor acoustic windows. Left atrium is mildly enlarged, left ventricle is normal size, mild concentric left ventricular hypertrophy, estimated ejection fraction 50% with no obvious regional wall motion abnormality, endocardial surfaces are poorly visualized. Diastolic parameters are inconclusive. Right Ventricle Right atrium and right ventricular mildly enlarged with normal contractility, there is echodensity seen in the right ventricular chamber, whether this is an artifact or a thrombus cannot be determined by the study, clinical correlation is recommended. Contractility of the right ventricle is normal. Aortic Valve Aortic valve is minimally thickened and fibrosed there is no aortic stenosis aortic insufficiency. Mitral Valve Mitral valve is grossly normal, there is trace mitral regurgitation. Tricuspid Valve Tricuspid valve grossly normal, there is trace tricuspid regurgitation, tricuspid regurgitation jet plus is inadequate for calculation of the right ventricular systolic pressure. Pulmonic Valve Pulmonic valve is poorly visualized. Great Vessels Aortic root is normal size. Inferior vena cava is mildly dilated with less than 50% inspiratory collapse. Pericardium No significant pericardial effusion noted. Conclusion 1. Technically difficult study because of the patient factors and poor acoustic windows. Mild biatrial enlargement, normal left ventricular size, mild concentric left ventricular hypertrophy, estimated ejection fraction 50% with no regional wall motion abnormality, diastolic parameters are inconclusive. 2. Mildly enlarged right ventricle with normal contractility, echodensity as described above seen in right ventricle whether this represents thrombus or an artifact cannot be determined with this study. Clinical correlation is recommended. 3. Trace mitral and tricuspid regurgitation. 4. No significant pericardial effusion noted. 5. Inferior vena cava is mildly dilated with less than 50% inspiratory collapse. Electronically signed by : Sanya Lopez MD 10/15/2022 06:19:15
== END ==
LOC: RAD 07:49
PROVIDERS: PCP Nurse Practitioner Family; Visit Provider Physician Assistant
DX: R07.89 Other chest pain (principal)
CPT/HCPCS: 78452; 93017; 93306; A9503

== ENCOUNTER 2023-07-09 12:16 | Inpatient (IN) | payer OTHER, SELFPAY ==
[2023-07-09] VITALS (12 sets, daily range): BP systolic 109–152; BP diastolic 72–100; PULSE 52–93; RESP 14–23; TEMP 36.4–36.8; O2SAT 90–100; BMI 29.6; BMI 30.2; BMI 29.8
--- NOTE | 2023-07-09 12:16 | ECG_ITS ---
APPROVED REPORT Exam: Resting ECG HR:79 bpm ECG Measurements Heart Rate 79 AXES MI 196 P 57 QRSd 116 QRS 86 QT 375 T 63 QTc 409 Conclusion SINUS RHYTHM INDETERMINATE AXIS LOW QRS VOLTAGE IN PRECORDIAL LEADS [QRS DEFLECTION < 1.0 mV IN CHEST LEADS] MODERATE INTRAVENTRICULAR CONDUCTION DELAY [110+ ms QRS DURATION] BORDERLINE ECG UNCONFIRMED REPORT Electronically signed by : Liborio Wakefield MD 07/10/2023 19:48:14
--- NOTE | 2023-07-09 12:59 | XR_ITS ---
FINAL REPORT CLINICAL HISTORY: Shortness of breath COMPARISON: 07/31/2022 FINDINGS: The heart size is normal. The mediastinum is normal. Abnormal opacity in the right suprahilar region is stable. There is associated linear scarring. The left lung is clear. There are no pleural effusions. There is no pneumothorax. There is no osseous abnormality. IMPRESSION: Stable opacity right suprahilar region. Reviewed, Interpreted and Dictated by Azael Johnson MD Transcribed by Pau Heath Authenticated and . [facility]
--- NOTE | 2023-07-09 13:01 | ED_ITS ---
Discharge Plan Disposition Patient Disposition: Admitted Condition: Good Clinical Impressions Clinical Impression: Chest pain, Non-ST elevation MA (NSTEMI) Discharge ED Provider: Laurie Kim HPI <J Karl Triplett MD - Last Filed: 07/09/23 13:36> General Chief Complaint: Chest Pain Stated Complaint: Chest Pain Time Seen by Provider: 07/09/23 12:51 Mode of Arrival: Ambulatory Source of Information: Patient Limitations: No Limitations Description of Symptoms (Recalled from ER Triage Doc. by RN): c/o center chest pain that started about 1 hr prior to arrival, denies any soa, states pain got better aspirin. History of Present Illness HPI narrative: Patient is a 58-year-old female present today with chest pain. States the symptoms began suddenly in the substernal and epigastric region at about 11 AM lasted for 1 hour and have subsequently stopped. At the moment she denies any discomfort. During this episode she states that she was clammy and diaphoretic with no shortness of breath or exertional component to this or any radiation. Denies any history of coronary artery disease. Specifically denies any chest pain or shortness of breath at the moment. Had a stress test many years ago but has not had a recent stress or heart cath. Only other cardiopulmonary history she has is a history of lung cancer but has been in remission. Related Data Home Medications Medication Instructions Recorded Confirmed gabapentin 100 mg capsule 200 mg PO QHS 01/11/19 10/15/22 cyclobenzaprine 10 mg tablet 10 mg PO TID PRN unknown 10/19/20 10/15/22 omega-3 fatty acids 1,000 mg 2,000 mg PO BID 10/19/20 10/15/22 capsule vitamin B complex (Super B-50 1 cap PO DAILY 10/19/20 10/15/22 Complex capsule) cyclobenzaprine 5 mg tablet 5 mg PO DAILY 09/23/22 10/15/22 lisinopril 10 1 tab PO DAILY 09/23/22 10/15/22 mg-hydrochlorothiazide 12.5 mg tablet simvastatin 5 mg tablet 5 mg PO DAILY 09/23/22 10/15/22 Previous Rx's Medication Instructions Recorded albuterol sulfate 90 mcg/actuation See Rx Instructions .Route 11/27/20 aerosol inhaler .COMPLEX #18 grams fluticasone furoate 100 1 inh inhalation DAILY #28 ea 01/03/21 mcg-vilanterol 25 mcg/dose inhalation powder (Breo Ellipta) cholecalciferol (vitamin D3) 25 1,000 unit PO DAILY 90 days #90 10/04/21 mcg (1,000 unit) capsule caps ergocalciferol (vitamin D2) 1,250 See Rx Instructions .Route 10/04/21 mcg (50,000 unit) capsule .COMPLEX #12 caps sertraline 25 mg tablet See Rx Instructions .Route 10/22/21 .COMPLEX #30 tabs cetirizine 10 mg tablet See Rx Instructions .Route 11/22/21 .COMPLEX #30 tabs albuterol sulfate 2.5 mg/3 mL 2.5 mg (3 mL) inhalation Q6H PRN 12/21/21 (0.083 %) solution for nebulization shortness of breath or wheezing #180 mL metformin 500 mg tablet,extended See Rx Instructions .Route 01/17/22 release 24 hr .COMPLEX #30 tabs sertraline 50 mg tablet See Rx Instructions .Route 01/17/22 .COMPLEX #30 tabs Allergies Allergy/AdvReac Type Severity Reaction Status Date / Time atorvastatin Allergy Mild shortness Verified 10/15/22 12:13 of breath Sulfa (Sulfonamide Allergy Mild Verified 10/15/22 12:13 Antibiotics) [facility] <Amy Triplett MD - Last Filed: 07/09/23 13:36> [facility] Disclaimer: The information contained in this section may have been updated after the patient was seen, as this information can be updated by other users. Medical History COPD (chronic obstructive pulmonary disease) Fibromyalgia Hypertension Lupus Non-small cell lung cancer Pre-diabetes Rheumatoid arthritis Vitamin D deficiency Social History Smoking Status: Current every day smoker tobacco type: cigarettes packs per day : 1 alcohol intake: never substance use type: denies use current occupational status: other Travel in the last 8 weeks: None <Amy Triplett MD - Last Filed: 07/09/23 13:36> ROS Obtained: Yes All systems reviewed & no additional complaints except as documented Physical Exam <Amy Triplett MD - Last Filed: 07/09/23 13:36> General General appearance: alert Respiratory Respiratory exam: Present normal lung sounds bilaterally; Absent respiratory distress or wheezes Cardiovascular Cardiovascular exam: Present regular rate; Absent tachycardia Abdominal Exam Abdominal exam: Present soft; Absent distention or tenderness Neurological Exam Neurological exam: Present alert HEART Score <Amy Triplett MD - Last Filed: 07/09/23 13:36> HEART Score HEART Score assessment performed?: Yes History (anamnesis): Slightly suspicious ECG: Normal Age: 45-65 years Risk factors: 1-2 risk factors Troponin: </= normal limit HEART Score: 2 <Laurie Kim DO - Last Filed: 07/09/23 17:38> HEART Score HEART Score: 2 Critical Care <Amy Triplett MD - Last Filed: 07/09/23 13:36> Critical Care Time Critical Care Time: No Medical Decision Making <Amy Triplett MD - Last Filed: 07/09/23 13:36> Jonathon Inquiry Pt receiving controlled substance: No Vital Signs Vital Signs: 07/09/23 12:20 07/09/23 13:00 07/09/23 13:30 Temperature 98.2 F Temperature Source Oral Pulse Rate 80 89 Pulse Rate [Left Radial] 77 Respiratory Rate 18 14 21 Blood Pressure 109/78 L 129/83 Blood Pressure [Right Arm] 124/75 Blood Pressure Mean [Right Arm] 91 Blood Pressure Source [Right Arm] Automatic Cuff Blood Pressure Position [Right Arm] Sitting 02 Sat by Pulse Oximetry 100 99 92 L Oxygen Delivery Method Room Air 07/09/23 14:01 07/09/23 14:30 07/09/23 15:00 Temperature Temperature Source Pulse Rate 86 86 81 Pulse Rate [Left Radial] Respiratory Rate 21 21 20 Blood Pressure 136/83 133/89 139/83 Blood Pressure [Right Arm] Blood Pressure Mean [Right Arm] Blood Pressure Source [Right Arm] Blood Pressure Position [Right Arm] 02 Sat by Pulse Oximetry 91 L 90 L 94 L Oxygen Delivery Method 07/09/23 15:31 07/09/23 16:01 07/09/23 16:30 Temperature Temperature Source Pulse Rate 93 H 83 53 L Pulse Rate [Left Radial] Respiratory Rate 20 22 23 Blood Pressure 144/83 H 149/72 H 146/100 H Blood Pressure [Right Arm] Blood Pressure Mean [Right Arm] Blood Pressure Source [Right Arm] Blood Pressure Position [Right Arm] 02 Sat by Pulse Oximetry 92 L 92 L 91 L Oxygen Delivery Method 07/09/23 17:28 Temperature 98.2 F Temperature Source Pulse Rate 78 Pulse Rate [Left Radial] Respiratory Rate 20 Blood Pressure 145/75 H Blood Pressure [Right Arm] Blood Pressure Mean [Right Arm] Blood Pressure Source [Right Arm] Blood Pressure Position [Right Arm] 02 Sat by Pulse Oximetry Oxygen Delivery Method Room Air Lab Data Lab results reviewed: Yes I reviewed the patient's lab results. Labs: Lab Results 07/09/23 12:20: WBC 8.2, RBC 5.03, Hgb 14.3, Hct 43.0, MCV 85.5, MCH 28.4, MCHC 33.2, RDW 15.5, Plt Count 249, MPV 7.7, Neut % (Auto) 66.3, Lymph % (Auto) 27.6, Converse % (Auto) 4.2, Eos % (Auto) 1.6, Baso % (Auto) 0.3, Neut # (Auto) 5.4, Lymph # (Auto) 2.3, Converse # (Auto) 0.3, Eos # (Auto) 0.1, Baso # (Auto) 0.0, Sodium 138, Potassium 3.2 L, Chloride 99, Carbon Dioxide 29, Anion Gap 13.2, BUN 17, Creatinine 0.80, Estimated Creat Clear 91, Estimated GFR 74, Est GFR ( Amer) 89, Glucose 119 H, Calcium 9.2, Total Bilirubin 0.4, AST 31, ALT 22, Al kaline Phosphatase 76, Troponin I 0.02, Total Protein 7.8, Albumin 4.6, Globulin 3.2, Albumin/Globulin Ratio 1.4, Lipase 78 07/09/23 15:32: Troponin I 0.90 H 07/09/23 12:20 07/09/23 12:20 Response Orders (Tests/Meds): ED MEDICATIONS Generic Name Dose Route Start Last Admin Trade Name Freq PRN Reason Stop Dose Admin Enoxaparin Sodium 80 mg 07/09/23 17:00 Enoxaparin 80mg/0.8ml Syringe SQ 08/08/23 16:59 Q12H BETTIE Metoprolol Tartrate 25 mg 07/09/23 21:00 Metoprolol Tartrate 25mg Tablet PO 08/08/23 20:59 BID BETTIE Sodium Chloride 10 ml 07/09/23 12:28 07/09/23 16:35 Sodium Chloride 0.9% 10ml Flush Syringe IV 08/08/23 12:27 10 ml NEEDED PRN Administration Maintain IV Site Discontinued Medications Generic Name Dose Route Start Last Admin Trade Name Freq PRN Reason Stop Dose Admin Aspirin 243 mg 07/09/23 13:05 07/09/23 13:30 Aspirin 81mg Chewable Tablet PO 07/09/23 13:06 243 mg ONCE ONE Administration Potassium Chloride 40 meq 07/09/23 15:32 07/09/23 16:33 Potassium Chloride 20meq Tab PO 07/09/23 15:33 40 meq ONCE ONE Administration ORDERS Category Date Time Status Consult to Cardiology [CONS] Routine Cons 07/09/23 16:50 Active CXR --portable [XR chest portable] Stat Exams 07/09/23 12:59 Completed CBC w/Auto Diff [Complete Blood Count Auto Diff] Stat Lab 07/09/23 12:20 Completed CMP [Comprehensive Metabolic Panel] Stat Lab 07/09/23 12:20 Completed Lipase Stat Lab 07/09/23 12:20 Completed Trop I [Troponin I] Stat Lab 07/09/23 12:20 Completed Troponin I Q3H Lab 07/09/23 15:32 Completed Troponin I Q3H Lab 07/09/23 19:00 Ordered MDM Narrative Medical Decision Narrative: Asymptomatic 58-year-old presents today with 1 hour of epigastric/chest discomfort which has since resolved. This is not consistent with a pulmonary embolism will not further evaluate the patient with a D-dimer or CT PE. It is possible this was an acute myocardial injury or acute coronary syndrome but will require serial troponins to rule this out. EKG initially performed which I personally interpreted shows a ventricular rate of 79 normal axis no acute ischemic changes noted or any conduction abnormalities noted. This is nondiagnostic from emergency standpoint. Given the fact that the patient will require serial troponins for final disposition we will place the patient in observation status in the emergency department. Will reassess after initial workup is complete. She took 81 mg of aspirin prior to arrival. Will give an additional 3 baby aspirin's. X-ray performed in person interpreted which shows no acute cardiopulmonary emergency. Radiology read pending first troponin undetectably low second troponin will be drawn at 3:30 PM care will be transitioned to Dr. Laurie Kim at 3 PM. <Laurie Kim, DO - Last Filed: 07/09/23 17:38> Vital Signs Vital Signs: 07/09/23 12:20 07/09/23 13:00 07/09/23 13:30 Temperature 98.2 F Temperature Source Oral Pulse Rate 80 89 Pulse Rate [Left Radial] 77 Respiratory Rate 18 14 21 Blood Pressure 109/78 L 129/83 Blood Pressure [Right Arm] 124/75 Blood Pressure Mean [Right Arm] 91 Blood Pressure Source [Right Arm] Automatic Cuff Blood Pressure Position [Right Arm] Sitting 02 Sat by Pulse Oximetry 100 99 92 L Oxygen Delivery Method Room Air 07/09/23 14:01 07/09/23 14:30 07/09/23 15:00 Temperature Temperature Source Pulse Rate 86 86 81 Pulse Rate [Left Radial] Respiratory Rate 21 21 20 Blood Pressure 136/83 133/89 139/83 Blood Pressure [Right Arm] Blood Pressure Mean [Right Arm] Blood Pressure Source [Right Arm] Blood Pressure Position [Right Arm] 02 Sat by Pulse Oximetry 91 L 90 L 94 L Oxygen Delivery Method 07/09/23 15:31 07/09/23 16:01 07/09/23 16:30 Temperature Temperature Source Pulse Rate 93 H 83 53 L Pulse Rate [Left Radial] Respiratory Rate 20 22 23 Blood Pressure 144/83 H 149/72 H 146/100 H Blood Pressure [Right Arm] Blood Pressure Mean [Right Arm] Blood Pressure Source [Right Arm] Blood Pressure Position [Right Arm] 02 Sat by Pulse Oximetry 92 L 92 L 91 L Oxygen Delivery Method 07/09/23 17:28 Temperature 98.2 F Temperature Source Pulse Rate 78 Pulse Rate [Left Radial] Respiratory Rate 20 Blood Pressure 145/75 H Blood Pressure [Right Arm] Blood Pressure Mean [Right Arm] Blood Pressure Source [Right Arm] Blood Pressure Position [Right Arm] 02 Sat by Pulse Oximetry Oxygen Delivery Method Room Air Lab Data Labs: Lab Results 07/09/23 12:20: WBC 8.2, RBC 5.03, Hgb 14.3, Hct 43.0, MCV 85.5, MCH 28.4, MCHC 33.2, RDW 15.5, Plt Count 249, MPV 7.7, Neut % (Auto) 66.3, Lymph % (Auto) 27.6, Converse % (Auto) 4.2, Eos % (Auto) 1.6, Baso % (Auto) 0.3, Neut # (Auto) 5.4, Lymph # (Auto) 2.3, Converse # (Auto) 0.3, Eos # (Auto) 0.1, Baso # (Auto) 0.0, Sodium 138, Potassium 3.2 L, Chloride 99, Carbon Dioxide 29, Anion Gap 13.2, BUN 17, Creatinine 0.80, Estimated Creat Clear 91, Estimated GFR 74, Est GFR ( Amer) 89, Glucose 119 H, Calcium 9.2, Total Bilirubin 0.4, AST 31, ALT 22, Al kaline Phosphatase 76, Troponin I 0.02, Total Protein 7.8, Albumin 4.6, Globulin 3.2, Albumin/Globulin Ratio 1.4, Lipase 78 07/09/23 15:32: Troponin I 0.90 H Response Orders (Tests/Meds): ED MEDICATIONS Generic Name Dose Route Start Last Admin Trade Name Freq PRN Reason Stop Dose Admin Enoxaparin Sodium 80 mg 07/09/23 17:00 Enoxaparin 80mg/0.8ml Syringe SQ 08/08/23 16:59 Q12H BETTIE Metoprolol Tartrate 25 mg 07/09/23 21:00 Metoprolol Tartrate 25mg Tablet PO 08/08/23 20:59 BID BETTIE Sodium Chloride 10 ml 07/09/23 12:28 07/09/23 16:35 Sodium Chloride 0.9% 10ml Flush Syringe IV 08/08/23 12:27 10 ml NEEDED PRN Administration Maintain IV Site Discontinued Medications Generic Name Dose Route Start Last Admin Trade Name Freq PRN Reason Stop Dose Admin Aspirin 243 mg 07/09/23 13:05 07/09/23 13:30 Aspirin 81mg Chewable Tablet PO 07/09/23 13:06 243 mg ONCE ONE Administration Potassium Chloride 40 meq 07/09/23 15:32 07/09/23 16:33 Potassium Chloride 20meq Tab PO 07/09/23 15:33 40 meq ONCE ONE Administration ORDERS Category Date Time Status Consult to Cardiology [CONS] Routine Cons 07/09/23 16:50 Active CXR --portable [XR chest portable] Stat Exams 07/09/23 12:59 Completed CBC w/Auto Diff [Complete Blood Count Auto Diff] Stat Lab 07/09/23 12:20 Completed CMP [Comprehensive Metabolic Panel] Stat Lab 07/09/23 12:20 Completed Lipase Stat Lab 07/09/23 12:20 Completed Trop I [Troponin I] Stat Lab 07/09/23 12:20 Completed Troponin I Q3H Lab 07/09/23 15:32 Completed Troponin I Q3H Lab 07/09/23 19:00 Ordered ECG Data Tracing #2: Attestation: I reviewed this ECG and interpreted as documented below: ECG Narrative: Sinus rhythm with a ventricular rate of 91 bpm. Frequent PVCs noted. No changes in ST segments from prior EKG from arrival ECG initial impression date: 07/09/23 ECG initial impression time: 16:30 MDM Narrative Medical Decision Narrative: Asymptomatic 58-year-old presents today with 1 hour of epigastric/chest discomfort which has since resolved. This is not consistent with a pulmonary embolism will not further evaluate the patient with a D-dimer or CT PE. It is possible this was an acute myocardial injury or acute coronary syndrome but will require serial troponins to rule this out. EKG initially performed which I personally interpreted shows a ventricular rate of 79 normal axis no acute ischemic changes noted or any conduction abnormalities noted. This is nondiagnostic from emergency standpoint. Given the fact that the patient will require serial troponins for final disposition we will place the patient in observation status in the emergency department. Will reassess after initial workup is complete. She took 81 mg of aspirin prior to arrival. Will give an additional 3 baby aspirin's. X-ray performed in person interpreted which shows no acute cardiopulmonary emergency. Radiology read pending first troponin undetectably low second troponin will be drawn at 3:30 PM care will be transitioned to Dr. Laurie Kim at 3 PM. Julio, DO: On my assessment of the patient, she is resting company without concerns or complaints at this time. She states she is feeling much better. Troponin went from 0.02-0.9, consistent with NSTEMI. Repeat EKG was obtained that demonstrated frequent PVCs, but otherwise no acutely concerning ab normalities. I called and had an interactive discussion with Dr. Day with cardiology who advised starting the patient on 25 mg metoprolol tartrate twice daily as well as 1 mg/kg Lovenox twice daily. This was ordered. I called and had an interactive discussion with the hospitalist who agreed to admit the patient for further evaluation and management of NSTEMI. The patient was admitted in stable condition.
[2023-07-09 13:15] LABS: Chloride 99 mmol/L (98-107); Potassium 3.2 mmoL/L (3.5-5.1); Sodium 138 mmol/L (136-145)
[2023-07-09 13:17] LABS: Alanine Aminotransferase 22 U/L (12-78); Aspartate Amino Transferase 31 U/L (14-36); Blood Urea Nitrogen 17 mg/dl (7-17); Creatinine Clearance Estimated 91 mL/min (50-200); Estimated Glomerular Filt Rate 74 ml/min (>60); GFR (African American) 89 ML/MIN (>60)
[2023-07-09 13:18] LABS: Albumin Level 4.6 g/dl (3.5-5.0); Albumin/Globulin Ratio 1.4 (1.1-1.8); Alkaline Phosphatase 76 U/L (38-126); Anion Gap 13.2 mEq/L (5-15); Bilirubin,Total 0.4 mg/dl (0.2-1.3); Calcium 9.2 mg/dl (8.4-10.2); Carbon Dioxide 29 mmol/L (22.0-30.0); Globulin 3.2 g/dL (1.3-3.2); Glucose 119 mg/dl (74-100); Lipase 78 U/L (23-300); Total Protein,Serum 7.8 g/dl (6.3-8.2)
[2023-07-09 13:21] LABS: Basophils % 0.3 % (0.1-2.0); Eosinophils # 0.1 K/mm3 (0.0-0.4); Eosinophils % 1.6 % (0.1-12.0); Hemoglobin 14.3 g/dL (12.2-16.2); Lymphocytes # 2.3 K/mm3 (0.7-4.5); Lymphocytes % 27.6 % (10-50); Mean Corpuscular HGB Conc 33.2 g/dL (31.8-35.4); Mean Corpuscular Hemoglobin 28.4 pg (27.0-31.2); Mean Corpuscular Volume 85.5 fl (81-99); Mean Platelet Volume 7.7 fl (7.4-10.4); Monocytes # 0.3 K/mm3 (0.1-1.0); Monocytes % 4.2 % (1.7-9.3); Neutrophils # 5.4 K/mm3 (1.8-7.8); Neutrophils % 66.3 % (37.0-80.0); Platelet Count 249 K/mm3 (142-424); Red Blood Count 5.03 M/mm3 (4.20-5.40); Red Cell Distribution Width 15.5 % (11.5-17.5); White Blood Count 8.2 K/mm3 (4.8-10.8)
[2023-07-09 13:30] LABS: Troponin I 0.02 ng/ml (0.00-0.034)
[2023-07-09] MEDS: ASPIRIN 81MG CHEWABLE TABLET 243 MG PO (13:30)
--- NOTE | 2023-07-09 15:33 | PC.NURSE ---
checked on pt was given a water no other needs at this time, at bs
--- NOTE | 2023-07-09 16:23 | PC.NURSE ---
Dr. Kim notified of critical troponin result
--- NOTE | 2023-07-09 16:28 | ECG_ITS ---
APPROVED REPORT Exam: Resting ECG HR:91 bpm ECG Measurements Heart Rate 91 AXES NC 179 P 58 QRSd 110 QRS 89 QT 369 T 56 QTc 418 Conclusion SINUS RHYTHM WITH FREQUENT VENTRICULAR PREMATURE COMPLEXES LOW QRS VOLTAGE IN PRECORDIAL LEADS [QRS DEFLECTION < 1.0 mV IN CHEST LEADS] ABNORMAL RHYTHM ECG UNCONFIRMED REPORT Electronically signed by : Liborio Wakefield MD 07/10/2023 19:47:15
[2023-07-09] MEDS: POTASSIUM CHLORIDE 20MEQ TAB 40 MEQ PO (16:33)
[2023-07-09] MEDS: SODIUM CHLORIDE 0.9% 10ML FLUSH SYRINGE 10 ML IV (16:35)
--- NOTE | 2023-07-09 16:51 | PC.NURSE ---
admitting for NSTEMI, house aware
--- NOTE | 2023-07-09 17:22 | PC.NURSE ---
Gave report to Azael Hernandez RN on Med/Surg
[2023-07-09] MEDS: ENOXAPARIN 80MG/0.8ML SYRINGE 80 MG SQ (17:36)
--- NOTE | 2023-07-09 17:41 | PC.NURSE ---
arrived to floor from ED by w/c
--- NOTE | 2023-07-09 17:43 | PC.NURSE ---
Pt requesting dinner tray with soft foods, notified dietary to send tray to room [address]. Per Dr[address] Julio choi to have cardiac diet for dinner
--- NOTE | 2023-07-09 19:00 | PC.NURSE ---
PATIENT UNABLE TO COMPLETE MED REC. FAMILY TO BRING IN MEDICATION LIST
--- NOTE | 2023-07-09 19:39 | EXP.HP ---
History of Present Illness *Admission Date: 07/09/23 *Reason for visit:: CP *History of present illness: This is a 58-year-old female with PMHx of SLE, RA, COPD, longstanding heavy smoker and lung cancer s/p chemotherapy in remission presented today with chest pain that began suddenly in the substernal and epigastric region at about 11 AM. Patient stated she took a baby aspirin and pain have subsequently stopped after 1 hr. Patient decided to come to ER for evaluation. On arrival there was no symptoms. During this episode she stated that she was clammy and diaphoretic with no shortness of breath or exertional component to this or any radiation. Denied any history of coronary artery disease, however was seen as outpatient earlier this year for abnormal EKG and underwent stress test. Stated work up was inconclusive. Admitted for further investigation and management. [facility] Disclaimer: The information contained in this section may have been updated after the patient was seen, as this information can be updated by other users. Medical History COPD (chronic obstructive pulmonary disease) Fibromyalgia Hypertension Lupus Non-small cell lung cancer Pre-diabetes Rheumatoid arthritis Vitamin D deficiency Social History Smoking Status: Current every day smoker tobacco type: cigarettes packs per day: 1 alcohol intake: never substance use type: denies use current occupational status: other Travel in the last 8 weeks: None Review of Systems Review of Systems Review of systems:: pertinent systems reviewed and negative unless documented below Meds Home Medications and Allergies Home Medications Medication Instructions Recorded Confirmed Type vitamin B complex (Super B-50 1 cap PO DAILY 10/19/20 07/09/23 History Complex capsule) albuterol sulfate 90 mcg/actuation See Rx Instructions .Route 11/27/20 07/09/23 Rx aerosol inhaler .COMPLEX #18 grams fluticasone furoate 100 1 inh inhalation DAILY #28 ea 01/03/21 07/09/23 Rx mcg-vilanterol 25 mcg/dose inhalation powder (Breo Ellipta) cholecalciferol (vitamin D3) 25 1,000 unit PO DAILY 90 days #90 10/04/21 07/09/23 Rx mcg (1,000 unit) capsule caps ergocalciferol (vitamin D2) 1,250 See Rx Instructions .Route 10/04/21 07/09/23 Rx mcg (50,000 unit) capsule .COMPLEX #12 caps sertraline 25 mg tablet See Rx Instructions .Route 10/22/21 07/09/23 Rx .COMPLEX #30 tabs albuterol sulfate 2.5 mg/3 mL 2.5 mg (3 mL) inhalation Q6H PRN 12/21/21 07/09/23 Rx (0.083 %) solution for nebulization shortness of breath or wheezing #180 mL metformin 500 mg tablet,extended See Rx Instructions .Route 01/17/22 07/09/23 Rx release 24 hr .COMPLEX #30 tabs sertraline 50 mg tablet See Rx Instructions .Route 01/17/22 07/09/23 Rx .COMPLEX #30 tabs cyclobenzaprine 5 mg tablet 5 mg PO DAILY 09/23/22 07/09/23 History lisinopril 10 1 tab PO DAILY 09/23/22 07/09/23 History mg-hydrochlorothiazide 12.5 mg tablet simvastatin 5 mg tablet 5 mg PO DAILY 09/23/22 07/09/23 History ergocalciferol (vitamin D2) 1,250 1 unit PO WEEKLY 07/09/23 07/09/23 History mcg (50,000 unit) capsule sulfamethoxazole 800 1 tab PO BID 07/09/23 07/09/23 History mg-trimethoprim 160 mg tablet sulfamethoxazole 800 1 tab PO BID abscess 07/09/23 07/09/23 History mg-trimethoprim 160 mg tablet New Prescriptions to Start Prescriptions: Allergies Allergy/AdvReac Type Severity Reaction Status Date / Time atorvastatin Allergy Mild shortness Verified 10/15/22 12:13 of breath Sulfa (Sulfonamide Allergy Mild Verified 10/15/22 12:13 Antibiotics) Exam Data for Last 24 hours Vital signs and Labs for Last 24 Hours: Temp Pulse Resp BP Pulse Ox O2 Del Method 97.5 F L 87 18 152/93 H 92 L Room Air 07/09/23 17:41 07/09/23 17:41 07/09/23 17:41 07/09/23 17:41 07/09/23 17:41 07/09/23 17:41 Laboratory Results - last 24 hr 07/09/23 12:20: WBC 8.2, RBC 5.03, Hgb 14.3, Hct 43.0, MCV 85.5, MCH 28.4, MCHC 33.2, RDW 15.5, Plt Count 249, MPV 7.7, Neut % (Auto) 66.3, Lymph % (Auto) 27.6, [place] % (Auto) 4.2, Eos % (Auto) 1.6, Baso % (Auto) 0.3, Neut # (Auto) 5.4, Lymph # (Auto) 2.3, [place] # (Auto) 0.3, Eos # (Auto) 0.1, Baso # (Auto) 0.0, Sodium 138, Potassium 3.2 L, Chloride 99, Carbon Dioxide 29, Anion Gap 13.2, BUN 17, Creatinine 0.80, Estimated Creat Clear 91, Estimated GFR 74, Est GFR ( Amer) 89, Glucose 119 H, Calcium 9.2, Total Bilirubin 0.4, AST 31, ALT 22, Alkaline Phosphatase 76, Troponin I 0.02, Total Protein 7.8, Albumin 4.6, Globulin 3.2, Albumin/Globulin Ratio 1.4, Lipase 78 07/09/23 15:32: Troponin I 0.90 H I & O for Last 24 hours: Intake & Output 07/06/23 07/07/23 07/08/23 07/09/23 23:59 23:59 23:59 23:59 Weight 73.482 kg Constitutional Constitutional: mild distress, obese and cooperative *Routine HEENT Exam Head: Present normocephalic and atraumatic Eye: Present EOMI, PERRL and normal accommodation ENT: Present mucous membranes moist *Routine Neck Exam Neck: Present supple, full ROM and trachea midline *Routine Respiratory Exam Respiratory: Present normal respiratory effort, able to speak in complete sentences and symmetric chest movement *Routine Cardiovascular Exam Cardiovascular: Present RRR, Normal S1 and Normal S2 *Routine Abdominal Exam Abdominal: Present soft and normoactive bowel sounds; Absent organomegaly *Routine Rectal Exam Rectal:: deferred *Routine Genitalia Exam Genitalia:: deferred *Routine Extremities Exam Extremities: Present full ROM and pulses intact; Absent cyanosis, clubbing or edema *Routine Skin Exam Skin: Present intact, dry and warm *Routine Neurological Exam Neurological: Present alert, oriented X3, normal reflexes, moving all extremities and normal speech Routine Psychiatric Exam Psychiatric: Present normal thought process, cooperative, good judgment and anxious H&P: Result Imaging and Cardiology EKG: Status: image reviewed by me, Preliminary report and final report Chest x-ray: Status: image reviewed by me, Preliminary report and final report Assessment and Plan *Assessment and plan (1) Chest pain: Status: Acute Qualifiers: Chest pain type: unspecified Qualified Code(s): R07.9 - Chest pain, unspecified Category: Medical Code(s): R07.9 - Chest pain, unspecified (2) Non-ST elevation [place] (NSTEMI): Status: Acute Category: Medical Code(s): I21.4 - Non-ST elevation (NSTEMI) myocardial infarction (3) Abnormal electrocardiogram [ECG] [EKG]: Status: Acute Category: Medical Code(s): R94.31 - Abnormal electrocardiogram [ECG] [EKG] (4) Diabetes mellitus: Status: Acute Qualifiers: Diabetes mellitus complication status: with other specified complication Diabetes mellitus nursing home insulin use: unspecified nursing home insulin use status Diabetes mellitus type: type 2 Qualified Code(s): E11.69 - Type 2 diabetes mellitus with other specified complication Category: Medical Code(s): E11.9 - Type 2 diabetes mellitus without complications (5) COPD (chronic obstructive pulmonary disease): Status: Chronic Qualifiers: COPD type: unspecified COPD Qualified Code(s): J44.9 - Chronic obstructive pulmonary disease, unspecified Category: Medical Code(s): J44.9 - Chronic obstructive pulmonary disease, unspecified (6) Hyperlipidemia: Status: Acute Qualifiers: Hyperlipidemia type: unspecified Qualified Code(s): E78.5 - Hyperlipidemia, unspecified Category: Medical Code(s): E78.5 - Hyperlipidemia, unspecified (7) Non-small cell lung cancer: Status: Chronic Qualifiers: Laterality: unspecified laterality Qualified Code(s): C34.90 - Malignant neoplasm of unspecified part of unspecified bronchus or lung Category: Medical Code(s): C34.90 - Malignant neoplasm of unspecified part of unspecified bronchus or lung (8) On methotrexate therapy: Status: Acute Category: Medical Code(s): Z79.899 - Other long term care administrator (current) drug therapy (9) Tobacco use: Status: Acute Category: Social Hx Code(s): Z72.0 - Tobacco use Plan 58-year-old female with PMHx of SLE, RA, COPD, longstanding heavy smoker and lung cancer s/p chemotherapy in remission presented today with chest pain that began suddenly in the substernal and epigastric region. Pain lasted for about an hr and was accompanied with clammy and diaphoresis sensation. patient took an 81 mg aspirin. Three more was given on arrival. At ER EKG was obtained. There is no specific ischemic changes. Because strong cardiac family history and high cardiovascular risk patient admitted. Labs are unremarkable. Only mild hypokalemia. Initial troponin was normal, however, started increasing after the second of the serial of three. Discussed with ER and cardiology. Plan as follow: -chest pain. improved. elavated troponin. likely NSTEMI. to rule out ACS. abnormal EK. no ST changes. Admit patient for continuous cardiac telemetry cardiac consul serial troponin nitro SL and morphine PRN if CP EKG reviewed. May get STAT as needed if CP. Continuous monitoring including VS, HR and rhythms on aspirin, statin keep NPO after midnight for possible cardiac intervention in the morning -Hx of diabetes. monitor BS. obtain A1c -COPD: maximize O2 sat. Oxygen PRN resume home regimen Others chronic conditon. Reviewed and stables. Hx of lung cancer in remission -current tobacco user: Education provided on smoking cessation. no interesting in quitting. Refused nicotine patch Lovenox full dose. on protonix Full code
[2023-07-09 19:54] LABS: Troponin I 5.88 ng/ml (0.00-0.034)
--- NOTE | 2023-07-09 20:53 | ECG_ITS ---
APPROVED REPORT Exam: Resting ECG HR:86 bpm ECG Measurements Heart Rate 86 AXES ND 192 P 67 QRSd 110 QRS 91 QT 360 T 88 QTc 403 Conclusion SINUS RHYTHM WITH FREQUENT VENTRICULAR PREMATURE COMPLEXES BORDERLINE RIGHT AXIS DEVIATION [QRS AXIS > 90] LOW QRS VOLTAGE IN PRECORDIAL LEADS [QRS DEFLECTION < 1.0 mV IN CHEST LEADS] INCOMPLETE RIGHT BUNDLE BRANCH BLOCK [90+ ms QRS DURATION, TERMINAL R IN V1/V2, 40+ ms S IN I/aVL/V4/V5/V6] ABNORMAL RHYTHM ECG UNCONFIRMED REPORT Electronically signed by : Liborio Wakefield MD 07/10/2023 19:45:18
[2023-07-09] MEDS: METOPROLOL TARTRATE 25MG TABLET 25 MG PO (22:03)
[2023-07-09 22:52] LABS: Troponin I 9.83 ng/ml (0.00-0.034)
[2023-07-10] VITALS (22 sets, daily range): BP systolic 102–151; BP diastolic 57–88; PULSE 46–94; RESP 15–20; TEMP 36.4–37.2; O2SAT 92–98; BMI 29.9
[2023-07-10 03:46] LABS: Troponin I 8.75 ng/ml (0.00-0.034)
[2023-07-10 06:10] LABS: Basophils # 0.1 K/mm3 (0-0.2); Basophils % 0.8 % (0.1-2.0); Eosinophils # 0.1 K/mm3 (0.0-0.4); Eosinophils % 1.4 % (0.1-12.0); Hematocrit 41.6 % (37.0-47.0); Hemoglobin 14.3 g/dL (12.2-16.2); Lymphocytes # 1.5 K/mm3 (0.7-4.5); Lymphocytes % 23.1 % (10-50); Mean Corpuscular HGB Conc 34.4 g/dL (31.8-35.4); Mean Corpuscular Hemoglobin 28.7 pg (27.0-31.2); Mean Corpuscular Volume 83.3 fl (81-99); Mean Platelet Volume 8.4 fl (7.4-10.4); Monocytes # 0.3 K/mm3 (0.1-1.0); Monocytes % 4.9 % (1.7-9.3); Neutrophils # 4.6 K/mm3 (1.8-7.8); Neutrophils % 69.9 % (37.0-80.0); Platelet Count 218 K/mm3 (142-424); Red Blood Count 4.99 M/mm3 (4.20-5.40); Red Cell Distribution Width 15.7 % (11.5-17.5); White Blood Count 6.6 K/mm3 (4.8-10.8)
[2023-07-10 06:13] LABS: Chloride 104 mmol/L (98-107); Sodium 137 mmol/L (136-145)
[2023-07-10 06:16] LABS: Alanine Aminotransferase 20 U/L (12-78); Albumin Level 4.1 g/dl (3.5-5.0); Albumin/Globulin Ratio 1.5 (1.1-1.8); Alkaline Phosphatase 72 U/L (38-126); Aspartate Amino Transferase 69 U/L (14-36); Bilirubin,Total 0.5 mg/dl (0.2-1.3); Blood Urea Nitrogen 9 mg/dl (7-17); Carbon Dioxide 27 mmol/L (22.0-30.0); Cholesterol 202 mg/dl (140-200); Creatinine Clearance Estimated 102 mL/min (50-200); Estimated Glomerular Filt Rate 86 ml/min (>60); GFR (African American) 104 ML/MIN (>60); Globulin 2.8 g/dL (1.3-3.2); Hemoglobin A1C 6.1 % (4.0-6.0); INR 1.03 (0.9-1.1); Prothrombin Time 11.1 seconds (10.1-12.5); Total Protein,Serum 6.9 g/dl (6.3-8.2); Triglycerides 191 mg/dl (30-150); VLDL Cholesterol 38 mg/dL (0-40)
[2023-07-10 06:17] LABS: Calcium 8.7 mg/dl (8.4-10.2); Chol/HDL Ratio 8.8 (1-3.5); Glucose 103 mg/dl (74-100); HDL Cholesterol 23 mg/dl (40-60)
[2023-07-10 06:54] LABS: Direct LDL Cholesterol 136.14 mg/dL (100-129)
--- NOTE | 2023-07-10 08:30 | CA_ITS ---
APPROVED REPORT EXAM: Comprehensive 2D, Doppler, and color-flow Echocardiogram Porter Baggage: Zully Lutz RT(R) Ht: 5 ft 2 in Wt: 162lbs BSA: 1.75 BP: 143/59 mmHg Indications: NSTEMI, CP, HTN, hx lung ca, lupus, SOB 2D Dimensions LVEF (Schulz's) 45.90 % F: 54 - 74 LV Volume 70.00 mL F: 46 - 106 LV Volume Index 40.0 mL/m2 F: 29 - 61 LA Volume 18.80 mL LA Volume Index 10.74 mL/m2 (M/F) 16-34 EF AP4 36.30 % EF AP2 49.6 % EF BP 45.9 % GL Strain -8.4 % M-Mode Dimensions RVDd 2.09 cm (0.9-2.6) LA Diam 2.54 cm (1.9-4.0) LVDd 6.26 cm (3.5-5.7) LVDs 5.01 cm (3.5-5.7) IVSd 0.80 cm (0.6-1.1) PWd 0.96 cm (0.6-1.1) EF (Teich) 40.10% FS 20.00% EDV (Teich) 198.30 mL ESV (Teich) 118.80 mL Left Ventricle The left ventricle is normal size. The left ventricular systolic function is low normal. There is increased LV wall thickness. There is borderline global hypokinesis present. The left ventricular diastolic function is normal. LVEF is 50%. Right Ventricle The right ventricle is normal size. The right ventricular systolic function is normal. Atria The left atrium size is normal. The right atrium size is normal. There is no Doppler evidence of interatrial shunt. Aortic Valve The aortic valve opens well. There is no aortic valvular stenosis. Trace aortic regurgitation. Mitral Valve The mitral valve is normal in structure. No evidence of mitral valve stenosis. Trace mitral regurgitation. Tricuspid Valve The tricuspid valve leaflets are thin and pliable. Trace tricuspid regurgitation. There is insufficient TR jet to estimate RVSP. There is significant transvalvular flow across the tricuspid valve with respirophasic variation. Pulmonic Valve The pulmonary valve is normal in structure. Trace pulmonic regurgitation. Great Vessels The aortic root is normal in size. The ascending aorta is well-visualized. IVC is normal in size and collapses >50% with inspiration. Pericardium There is a small sized, anterior pericardial effusion. The largest pocket measures 0.5 cm in diastole. There are no echo indications of tamponade. Other Information Study Quality: Fair Conclusion Low normal LV systolic function (LVEF 50%). No significant valvular stenosis or regurgitation. Small sized, anterior pericardial effusion. The largest pocket measures 0.5 cm in diastole. There is significant transvalvular flow across the tricuspid valve with respirophasic variation, but otherwise no clear indications of tamponade. Serial assessment of limited TTE to evaluate for pericardial effusion progression is recommended. Electronically signed by : Kiara Garcia MD 07/14/2023 23:46:39
--- NOTE | 2023-07-10 08:48 | P.CONPHA_ITS ---
[facility] Pharmacy Heparin Dosing Demographic Data Admission date:: 07/10/23 Date: 07/10/23 Time: 08:49 Allergies Allergy/AdvReac Type Severity Reaction Status Date / Time atorvastatin Allergy Mild shortness Verified 10/15/22 12:13 of breath Sulfa (Sulfonamide Allergy Mild Verified 10/15/22 12:13 Antibiotics) Height: 1.57 m Weight: 73.7 kg Indication Medication therapy:: Heparin Current Active Problems (Updated 07/10/23 @ 09:21 by JON Jhaveri) History of lung cancer (Acute) Chest pain (Acute) Non-ST elevation [place] (NSTEMI) (Acute) Abnormal electrocardiogram [ECG] [EKG] (Acute) Diabetes mellitus (Acute) COPD (chronic obstructive pulmonary disease) (Chronic) Non-small cell lung cancer (Chronic) Hyperlipidemia (Acute) Tobacco use (Acute) SLE (systemic lupus erythematosus) (Acute) Hypertension (Chronic) On methotrexate therapy (Acute) CVA?: No Bleeding problem?: No Kidney disease?: No [place]?: Yes Desired PTT range:: 50-75 seconds Labs Anticoagulation Lab Results:: 07/09/23 07/10/23 12:20 05:45 Hgb 14.3 14.3 Hct 43.0 41.6 Plt Count 249 218 Monitoring Dose Monitor 1: Date: 07/10/23 Time: 08:49 PTT Result:: 31.7 Infusion Rate:: 900 UNITS/HR (18 ML/HR), BOLUS OF 4000 UNITS, PLT 218K Comment:: STOPPED IN HEMODIALYSIS TECHNICIAN Core Measures Is INR > or = 2 at discharge?: No Most Recent Labs:: Laboratory Results - last 24 hr 07/09/23 12:20: WBC 8.2, RBC 5.03, Hgb 14.3, Hct 43.0, MCV 85.5, MCH 28.4, MCHC 33.2, RDW 15.5, Plt Count 249, MPV 7.7, Neut % (Auto) 66.3, Lymph % (Auto) 27.6, Power % (Auto) 4.2, Eos % (Auto) 1.6, Baso % (Auto) 0.3, Neut # (Auto) 5.4, Lymph # (Auto) 2.3, Power # (Auto) 0.3, Eos # (Auto) 0.1, Baso # (Auto) 0.0, Sodium 138, Potassium 3.2 L, Chloride 99, Carbon Dioxide 29, Anion Gap 13.2, BUN 17, Creatinine 0.80, Estimated Creat Clear 91, Estimated GFR 74, Est GFR ( Amer) 89, Glucose 119 H, Calcium 9.2, Total Bilirubin 0.4, AST 31, ALT 22, Alkaline Phosphatase 76, Troponin I 0.02, Total Protein 7.8, Albumin 4.6, Globulin 3.2, Albumin/Globulin Ratio 1.4, Lipase 78 07/09/23 15:32: Troponin I 0.90 H 07/09/23 19:10: Troponin I 5.88 H 07/09/23 22:00: Troponin I 9.83 H 07/10/23 03:17: Troponin I 8.75 H 07/10/23 05:45: WBC 6.6, RBC 4.99, Hgb 14.3, Hct 41.6, MCV 83.3, MCH 28.7, MCHC 34.4, RDW 15.7, Plt Count 218, MPV 8.4, Neut % (Auto) 69.9, Lymph % (Auto) 23.1, Power % (Auto) 4.9, Eos % (Auto) 1.4, Baso % (Auto) 0.8, Neut # (Auto) 4.6, Lymph # (Auto) 1.5, Power # (Auto) 0.3, Eos # (Auto) 0.1, Baso # (Auto) 0.1, PT 11.1, INR 1.03, Sodium 137, Potassium 4.0 D, Chloride 104, Carbon Dioxide 27, Anion Gap 10.0, BUN 9 D, Creatinine 0.70, Estimated Creat Clear 102, Estimated GFR 86, Est GFR ( Amer) 104, Glucose 103 H, Hemoglobin A1c 6.1 H, Calcium 8.7, Total Bilirubin 0.5, AST 69 H D, ALT 20, Alkaline Phosphatase 72, Total Protein 6.9, Albumin 4.1 D, Globulin 2.8, Albumin/Globulin Ratio 1.5, T riglycerides 191 H, Cholesterol 202 H, LDL Cholesterol Direct 136.14 H, VLDL Cholesterol 38, HDL Cholesterol 23 L, Cholesterol/HDL Ratio 8.8 H If INR was < than 2.0 why was therapy stopped?: HEPARIN STOPPED Were Heparin and Warfarin started on the same day?: No If not, why?: HEPARIN STOPPED POST CATH
[2023-07-10] MEDS: HEPARIN SODIUM,PORCINE/D5W 500 ML 18 UNIT IV (08:53)
[2023-07-10] MEDS: HEPARIN SODIUM 5,000 UNIT/ML VIAL 4000 UNIT IV (08:53)
--- NOTE | 2023-07-10 09:04 | PC.NURSE ---
Home Medications Cintia Buckley Medication Instructions Recorded Confirmed vitamin B complex (Super B-50 1 cap PO DAILY 10/19/20 07/09/23 Complex capsule) cyclobenzaprine 5 mg tablet 5 mg PO DAILY 09/23/22 07/09/23 lisinopril 10 1 tab PO DAILY 09/23/22 07/09/23 mg-hydrochlorothiazide 12.5 mg tablet simvastatin 5 mg tablet 5 mg PO DAILY 09/23/22 07/09/23 ergocalciferol (vitamin D2) 1,250 1 unit PO WEEKLY 07/09/23 07/09/23 mcg (50,000 unit) capsule sulfamethoxazole 800 1 tab PO BID 07/09/23 07/09/23 mg-trimethoprim 160 mg tablet sulfamethoxazole 800 1 tab PO BID abscess 07/09/23 07/09/23 mg-trimethoprim 160 mg tablet Previous Rx's Medication Instructions Recorded albuterol sulfate 90 mcg/actuation See Rx Instructions .Route 11/27/20 aerosol inhaler .COMPLEX #18 grams fluticasone furoate 100 1 inh inhalation DAILY #28 ea 01/03/21 mcg-vilanterol 25 mcg/dose inhalation powder (Breo Ellipta) cholecalciferol (vitamin D3) 25 1,000 unit PO DAILY 90 days #90 10/04/21 mcg (1,000 unit) capsule caps ergocalciferol (vitamin D2) 1,250 See Rx Instructions .Route 10/04/21 mcg (50,000 unit) capsule .COMPLEX #12 caps sertraline 25 mg tablet See Rx Instructions .Route 10/22/21 .COMPLEX #30 tabs albuterol sulfate 2.5 mg/3 mL 2.5 mg (3 mL) inhalation Q6H PRN 12/21/21 (0.083 %) solution for nebulization shortness of breath or wheezing #180 mL metformin 500 mg tablet,extended See Rx Instructions .Route 01/17/22 release 24 hr .COMPLEX #30 tabs sertraline 50 mg tablet See Rx Instructions .Route 01/17/22 .COMPLEX #30 tabs
[2023-07-10 09:07] LABS: PTT Heparin (inpatient only) 31.7 Seconds (23.6-34.0)
[2023-07-10] MEDS: FLUTICASONE/SALMETEROL 250/50MCG DISKUS 1 PUFF IH ×2 (09:08→18:14)
--- NOTE | 2023-07-10 09:08 | IR_ITS ---
APPROVED REPORT Patient Location: Inpatient Energy Control Officer: DONAL Jacobs RT (R) PROCEDURES Left heart catheterization Left ventriculogram Selective coronary angiogram INDICATION Acute non-ST elevation myocardial infarction Informed consent was obtained prior to the procedure. COMPLICATIONS None Estimated Blood Loss: Less than 10 mls TECHNIQUE One percent lidocaine used to anesthetize the right anterior aspect of the wrist. The right radial artery was accessed via the Seldinger technique. A 6 Indian sheath was placed in the right radial artery. 2.5 mg of Verapamil, 800 mcg of nitroglycerin, 1mg Lidocaine and 5000 U Heparin were given through the arterial sheath. The papa catheter was also used to perform left heart catheterization, left ventriculogram and selective coronary angiogram. At the end of the procedure the sheath was removed good hemostasis was achieved using Traclet band, patient was transferred to the postop holding area in stable condition. ANGIOGRAPHIC RESULTS The left main artery Normal The left anterior descending artery Has proximal 10 to 20% stenoses with mid vessel diffuse 30% stenoses. A large first diagonal artery has proximal and mid vessel 30% stenosis with a distal thrombus. Distal to the thrombus is ZENA II flow. The circumflex artery Gives rise to a large ramus intermedius which has proximal 30 and 40% stenoses. The circumflex artery has proximal 30 to 40% stenoses The right coronary artery Is a dominant vessel and has mid vessel tandem 40% stenoses with distal diffuse 20% stenoses The CURRIE ventriculogram reveals Normal 65% The left ventricular end-diastolic pressure 10 mmHg IMPRESSION Diffuse moderate coronary disease as described above Active thrombus in the distal large first diagonal artery Normal ejection fraction Normal left ventricular diastolic pressure PLAN 1. Recommend 48 hours of Integrilin along with heparin 2. Continue dual antiplatelet therapy for 1 year 3. LDL less than 55 to be achieved with high intensity statin 4. Avoidance of tobacco products 5. Risk factor modification 6. Standard therapy for ischemic heart disease Electronically signed by : Rodo Day MD 07/10/2023 14:44:16
--- NOTE | 2023-07-10 09:16 | EXP.CARD.CON ---
History of Present Illness History of Present Illness Consult date: 07/10/23 Requesting physician: Laurie Kim Consult reason: chest pain Chief complaint: Chest pain History of present illness: 58-year-old white female without known cardiovascular disease previously seen in our office earlier this year with chest discomfort. She had normal echo but had a stress test with reduced exercise capacity so interpret was limited. She was kept on medical therapy at that time and advised to inform us with any symptom changes. Of note she also has history of lung cancer with what she states was a tumor pressing on the ventricle of her heart. This was treated with chemo and radiation at [facility]. Last seen 6 months ago and was told she was in remission and tumor was not visible. We are requesting records. Patient states she has had mild occasional episodic chest discomfort for several months. Yesterday while doing light housework she developed a severe epigastric chest tightness described as squeezing sensation with no radiation. She became diaphoretic and clammy. Symptoms lasted approximately 45 minutes and relieved with single dose of aspirin at home. She presented to the emergency room thinking she was having ND. EKG shows frequent PVCs. Troponin initially 0.02 then trended up to max of 9.8. She was admitted overnight for ACS observation. Her chest x-ray is clear. She denies any symptoms since admission. [facility] Disclaimer: The information contained in this section may have been updated after the patient was seen, as this information can be updated by other users. Medical History COPD (chronic obstructive pulmonary disease) Fibromyalgia Hypertension Lupus Non-small cell lung cancer Pre-diabetes Rheumatoid arthritis Vitamin D deficiency Social History Smoking Status: Current every day smoker tobacco type: cigarettes packs per day: 1 alcohol intake: never substance use type: denies use current occupational status: other Travel in the last 8 weeks: None Review of Systems Constitutional Constitutional: Denies fatigue and Denies weakness Eyes Eyes: Denies loss of vision ENT Ears, Nose, Mouth, and Throat: Denies hearing loss and Denies vertigo *Cardiovascular Cardiovascular: Reports chest pain, Denies dyspnea and Denies syncope *Respiratory Respiratory: Denies cough and Denies dyspnea *Gastrointestinal Gastrointestinal: Denies change in stool character, Denies nausea and Denies vomiting *Musculoskeletal Musculoskeletal: Denies muscle weakness Integumentary/Breasts Skin/Breast: Denies changing lesions *Neurologic Neurologic: Denies loss of vision, Denies syncope, Denies vertigo and Denies weakness Endocrine Endocrine: Denies fatigue Exam Data for Last 24 hours Vital signs and Labs for Last 24 Hours: Temp Pulse Resp BP Pulse Ox O2 Del Method 97.8 F 46 L 19 142/61 H 95 Room Air 07/10/23 08:00 07/10/23 08:00 07/10/23 08:00 07/10/23 08:00 07/10/23 09:09 07/10/23 09:09 Laboratory Results - last 24 hr 07/09/23 12:20: WBC 8.2, RBC 5.03, Hgb 14.3, Hct 43.0, MCV 85.5, MCH 28.4, MCHC 33.2, RDW 15.5, Plt Count 249, MPV 7.7, Neut % (Auto) 66.3, Lymph % (Auto) 27.6, [place] % (Auto) 4.2, Eos % (Auto) 1.6, Baso % (Auto) 0.3, Neut # (Auto) 5.4, Lymph # (Auto) 2.3, [place] # (Auto) 0.3, Eos # (Auto) 0.1, Baso # (Auto) 0.0, Sodium 138, Potassium 3.2 L, Chloride 99, Carbon Dioxide 29, Anion Gap 13.2, BUN 17, Creatinine 0.80, Estimated Creat Clear 91, Estimated GFR 74, Est GFR ( Amer) 89, Glucose 119 H, Calcium 9.2, Total Bilirubin 0.4, AST 31, ALT 22, Alkaline Phosphatase 76, Troponin I 0.02, Total Protein 7.8, Albumin 4.6, Globulin 3.2, Albumin/Globulin Ratio 1.4, Lipase 78 07/09/23 15:32: Troponin I 0.90 H 07/09/23 19:10: Troponin I 5.88 H 07/09/23 22:00: Troponin I 9.83 H 07/10/23 03:17: Troponin I 8.75 H 07/10/23 05:45: WBC 6.6, RBC 4.99, Hgb 14.3, Hct 41.6, MCV 83.3, MCH 28.7, MCHC 34.4, RDW 15.7, Plt Count 218, MPV 8.4, Neut % (Auto) 69.9, Lymph % (Auto) 23.1, [place] % (Auto) 4.9, Eos % (Auto) 1.4, Baso % (Auto) 0.8, Neut # (Auto) 4.6, Lymph # (Auto) 1.5, [place] # (Auto) 0.3, Eos # (Auto) 0.1, Baso # (Auto) 0.1, PT 11.1, INR 1.03, Sodium 137, Potassium 4.0 D, Chloride 104, Carbon Dioxide 27, Anion Gap 10.0, BUN 9 D, Creatinine 0.70, Estimated Creat Clear 102, Estimated GFR 86, Est GFR ( Amer) 104, Glucose 103 H, Hemoglobin A1c 6.1 H, Calcium 8.7, Total Bilirubin 0.5, AST 69 H D, ALT 20, Alkaline Phosphatase 72, Total Protein 6.9, Albumin 4.1 D, Globulin 2.8, Albumin/Globulin Ratio 1.5, Triglycerides 191 H, Cholesterol 202 H, LDL Cholesterol Direct 136.14 H, VLDL Cholesterol 38, HDL Cholesterol 23 L, Cholesterol/HDL Ratio 8.8 H 07/10/23 08:35: APTT 31.7 I & O for Last 24 hours: Intake & Output 07/07/23 07/08/23 07/09/23 07/10/23 23:59 23:59 23:59 23:59 Intake Total 120 / 120 Output Total 0 / 0 0 / 0 Balance 0 / 0 120 / 120 Weight 162 lb 0.001 oz 162 lb 7.691 oz Constitutional Constitutional: no acute distress and cooperative *Routine HEENT Exam Eye: Present PERRL *Routine Respiratory Exam Respiratory: Present CTA bilaterally; Absent accessory muscle use, wheezes or crackles *Routine Cardiovascular Exam Cardiovascular: Present RRR, Normal S1 and Normal S2; Absent murmur, gallop or rubs *Routine Abdominal Exam Abdominal: Present soft; Absent tenderness *Routine Extremities Exam Extremities: Present pulses intact; Absent cyanosis or edema *Routine Skin Exam Skin: Present intact; Absent erythema or wounds *Routine Neurological Exam Neurological: Present alert and oriented X3 Routine Psychiatric Exam Psychiatric: Present cooperative Meds Home Medications and Allergies Home Medications Medication Instructions Recorded Confirmed Type vitamin B complex (Super B-50 1 cap PO DAILY 10/19/20 07/10/23 History Complex capsule) cholecalciferol (vitamin D3) 25 1,000 unit PO DAILY 90 days #90 10/04/21 07/10/23 Rx mcg (1,000 unit) capsule caps albuterol sulfate 2.5 mg/3 mL 2.5 mg (3 mL) inhalation Q6H PRN 12/21/21 07/10/23 Rx (0.083 %) solution for nebulization shortness of breath or wheezing #180 mL cyclobenzaprine 5 mg tablet 5 mg PO DAILY 09/23/22 07/09/23 History lisinopril 10 1 tab PO DAILY 09/23/22 07/09/23 History mg-hydrochlorothiazide 12.5 mg tablet simvastatin 5 mg tablet 5 mg PO DAILY 09/23/22 07/09/23 History ergocalciferol (vitamin D2) 1,250 1 unit PO WEEKLY 07/09/23 07/10/23 History mcg (50,000 unit) capsule albuterol sulfate 90 mcg/actuation 2 puff inhalation Q6HP PRN 07/10/23 07/10/23 History aerosol inhaler Shortness Of Breath Or Wheezing metformin 500 mg tablet,extended 500 mg PO DAILY 07/10/23 07/10/23 History release 24 hr sertraline 25 mg tablet 25 mg PO DAILY 07/10/23 07/10/23 History sertraline 50 mg tablet 50 mg PO DAILY 07/10/23 07/10/23 History New Prescriptions to Start Prescriptions: Allergies Allergy/AdvReac Type Severity Reaction Status Date / Time atorvastatin Allergy Mild shortness Verified 10/15/22 12:13 of breath Sulfa (Sulfonamide Allergy Mild Verified 10/15/22 12:13 Antibiotics) Assessment and Plan *Assessment and plan (1) Non-ST elevation ND (NSTEMI): Status: Acute Category: Medical Code(s): I21.4 - Non-ST elevation (NSTEMI) myocardial infarction (2) History of lung cancer: Status: Acute Category: Medical Code(s): Z85.118 - Personal history of other malignant neoplasm of bronchus and lung (3) SLE (systemic lupus erythematosus): Status: Acute Qualifiers: Systemic lupus erythematosus organ involvement: unspecified Systemic lupus erythematosus type: unspecified Qualified Code(s): M32.9 - Systemic lupus erythematosus, unspecified Category: Medical Code(s): M32.9 - Systemic lupus erythematosus, unspecified (4) Hypertension: Status: Chronic Qualifiers: Hypertension type: essential hypertension Qualified Code(s): I10 - Essential (primary) hypertension Category: Medical Code(s): I10 - Essential (primary) hypertension Plan NSTEMI - sudden onset severe substernal/epigastric pressure with freq PVCs on EKG and rising serial Trop to max of 9.8 - currently symptom free - Start ASA, Effient, Heparin Drip, BB, MARTIN, Statin, Imdur - Check 2D ECHO - Pt agreeble to [facility] today Hx of Lung Cancer - details unclear, pt reports tumor was pressing against ventricle of her heart so not surgical candidate - she is s/p chemo/radiation at [facility] and was told 6 mo ago she was in remission with non visible tumor. CXR here is clear. ECHO here pending - will gather records from [facility] - well controlled here - MARTIN, BB Chol - increase to high dose statin SLE/RA - noted 07/10 summary: Agree with NSTEMI dx, meds adjusted, ECHO pending, plan for [facility] today
--- NOTE | 2023-07-10 09:43 | ECG_ITS ---
APPROVED REPORT Exam: Resting ECG HR:87 bpm ECG Measurements Heart Rate 87 AXES NC 197 P 67 QRSd 91 QRS 82 QT 342 T 88 QTc 386 Conclusion SINUS RHYTHM LOW QRS VOLTAGE IN PRECORDIAL LEADS [QRS DEFLECTION < 1.0 mV IN CHEST LEADS] INCOMPLETE RIGHT BUNDLE BRANCH BLOCK [90+ ms QRS DURATION, TERMINAL R IN V1/V2, 40+ ms S IN I/aVL/V4/V5/V6] SEPTAL MYOCARDIAL INFARCTION , OF INDETERMINATE AGE [40+ ms Q WAVE IN V1/V2] ABNORMAL ECG UNCONFIRMED REPORT Electronically signed by : Liborio Wakefield MD 07/10/2023 19:44:23
[2023-07-10] MEDS: PRASUGREL 10MG TAB 60 MG PO (09:57)
[2023-07-10] MEDS: METOPROLOL TARTRATE 25MG TABLET 25 MG PO ×2 (09:59→20:07)
[2023-07-10] MEDS: ISOSORBIDE MONO 30MG TAB.ER.24H 30 MG PO (09:59)
[2023-07-10] MEDS: ASPIRIN EC 81MG TABLET 81 MG PO (09:59)
[2023-07-10] MEDS: LISINOPRIL/HCTZ 10-12.5MG TABLET 1 EACH PO (09:59)
[2023-07-10] MEDS: CYCLOBENZAPRINE 10MG TABLET 5 MG PO (10:00)
--- NOTE | 2023-07-10 10:26 | HMH.PHAINT1 ---
Pharmacy Intervention Comments: Verified home med list with patient at bedside and with external pharmacy list.
[2023-07-10] MEDS: diphenhydrAMINE 50MG/ML VIAL 50 MG IV (14:13)
[2023-07-10] MEDS: VERAPAMIL 2.5MG/ML 2ML VIAL 2.5 MG IV (14:16)
[2023-07-10] MEDS: HEPARIN 1,000 UNITS/ML 10ML VIAL (CATH LAB) 10000 UNIT IV (14:16)
[2023-07-10] MEDS: LIDOCAINE 1% 10ML MDV 20 ML IJ (14:16)
[2023-07-10] MEDS: 0.9 % SODIUM CHLORIDE 500 ML 25 ML IV (14:17)
[2023-07-10] MEDS: NITROGLYCERIN 800MCG/8ML SYR (CATH LAB) 800 MCG IA (14:17)
[2023-07-10] MEDS: HEPARIN 1,000 UNITS/500ML NS (CATH LAB) 3000 UNIT IV (14:17)
[2023-07-10] MEDS: MIDAZOLAM HCL 1MG/1ML 5ML VIAL 1 MG IV (14:45)
[2023-07-10] MEDS: FENTANYL 100MCG/2ML VIAL 50 MCG IV (14:45)
[2023-07-10] MEDS: EPTIFIBATIDE 75MG/100ML BOTTLE 18 MG IV (15:39)
[2023-07-10] MEDS: EPTIFIBATIDE 75 MG/100 ML VIAL 11.7919999999999998 MG IV ×2 (15:45→20:07)
--- NOTE | 2023-07-10 16:40 | EXP.PN ---
Subjective *Date: 07/10/23 *Time: 16:40 Interval history: patient was seen and evaluated at the bedside. plan for cardiac cath today, No reported acute events overnight, denies chest pain, shortness of breath, nausea, vomiting, abdominal pain. Exam Data for Last 24 hours Vital signs and Labs for Last 24 Hours: Temp Pulse Resp BP Pulse Ox O2 Del Method 97.8 F 80 18 135/77 94 L Room Air 07/10/23 11:41 07/10/23 15:58 07/10/23 15:58 07/10/23 15:58 07/10/23 15:58 07/10/23 15:58 Laboratory Results - last 24 hr 07/09/23 19:10: Troponin I 5.88 H 07/09/23 22:00: Troponin I 9.83 H 07/10/23 03:17: Troponin I 8.75 H 07/10/23 05:45: WBC 6.6, RBC 4.99, Hgb 14.3, Hct 41.6, MCV 83.3, MCH 28.7, MCHC 34.4, RDW 15.7, Plt Count 218, MPV 8.4, Neut % (Auto) 69.9, Lymph % (Auto) 23.1, [place] % (Auto) 4.9, Eos % (Auto) 1.4, Baso % (Auto) 0.8, Neut # (Auto) 4.6, Lymph # (Auto) 1.5, [place] # (Auto) 0.3, Eos # (Auto) 0.1, Baso # (Auto) 0.1, PT 11.1, INR 1.03, Sodium 137, Potassium 4.0 D, Chloride 104, Carbon Dioxide 27, Anion Gap 10.0, BUN 9 D, Creatinine 0.70, Estimated Creat Clear 102, Estimated GFR 86, Est GFR ( Amer) 104, Glucose 103 H, Hemoglobin A1c 6.1 H, Calcium 8.7, Total Bilirubin 0.5, AST 69 H D, ALT 20, Alkaline Phosphatase 72, Total Protein 6.9, Albumin 4.1 D, Globulin 2.8, Albumin/Globulin Ratio 1.5, Triglycerides 191 H, Cholesterol 202 H, LDL Cholesterol Direct 136.14 H, VLDL Cholesterol 38, HDL Cholesterol 23 L, Cholesterol/HDL Ratio 8.8 H 07/10/23 08:35: APTT 31.7 I & O for Last 24 hours: Intake & Output 07/07/23 07/08/23 07/09/23 07/10/23 23:59 23:59 23:59 23:59 Intake Total 120 / 120 Output Total 0 / 0 0 / 0 Balance 0 / 0 120 / 120 Weight 73.482 kg 73.7 kg Constitutional Constitutional: no acute distress *Routine HEENT Exam Head: Present normocephalic Eye: Present EOMI and PERRL ENT: Present mucous membranes moist *Routine Neck Exam Neck: Present supple; Absent lymphadenopathy *Routine Respiratory Exam Respiratory: Present CTA bilaterally *Routine Cardiovascular Exam Cardiovascular: Present RRR *Routine Abdominal Exam Abdominal: Present soft and normoactive bowel sounds; Absent tenderness *Routine Extremities Exam Extremities: Absent cyanosis, clubbing or edema *Routine Skin Exam Skin: Present warm; Absent rash *Routine Neurological Exam Neurological: Present alert and oriented X3 Assessment and Plan *Assessment and plan (1) Chest pain: Status: Acute Qualifiers: Chest pain type: unspecified Qualified Code(s): R07.9 - Chest pain, unspecified Category: Medical Code(s): R07.9 - Chest pain, unspecified (2) Non-ST elevation [place] (NSTEMI): Status: Acute Category: Medical Code(s): I21.4 - Non-ST elevation (NSTEMI) myocardial infarction (3) Abnormal electrocardiogram [ECG] [EKG]: Status: Acute Category: Medical Code(s): R94.31 - Abnormal electrocardiogram [ECG] [EKG] (4) Diabetes mellitus: Status: Acute Qualifiers: Diabetes mellitus type: type 2 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 use: unspecified skilled nursing insulin use status Diabetes mellitus complication status: with other specified complication Qualified Code(s): E11.69 - Type 2 diabetes mellitus with other specified complication Category: Medical Code(s): E11.9 - Type 2 diabetes mellitus without complications (5) COPD (chronic obstructive pulmonary disease): Status: Chronic Qualifiers: COPD type: unspecified COPD Qualified Code(s): J44.9 - Chronic obstructive pulmonary disease, unspecified Category: Medical Code(s): J44.9 - Chronic obstructive pulmonary disease, unspecified (6) Hyperlipidemia: Status: Acute Qualifiers: Hyperlipidemia type: unspecified Qualified Code(s): E78.5 - Hyperlipidemia, unspecified Category: Medical Code(s): E78.5 - Hyperlipidemia, unspecified (7) Non-small cell lung cancer: Status: Chronic Qualifiers: Laterality: unspecified laterality Qualified Code(s): C34.90 - Malignant neoplasm of unspecified part of unspecified bronchus or lung Category: Medical Code(s): C34.90 - Malignant neoplasm of unspecified part of unspecified bronchus or lung (8) On methotrexate therapy: Status: Acute Category: Medical Code(s): Z79.899 - Other sales representative livestock (current) drug therapy (9) Tobacco use: Status: Acute Category: Social Hx Code(s): Z72.0 - Tobacco use Plan 58-year-old female with PMHx of SLE, RA, COPD, longstanding heavy smoker and lung cancer s/p chemotherapy in remission presented today with chest pain that began suddenly in the substernal and epigastric region. Pain lasted for about an hr and was accompanied with clammy and diaphoresis sensation. patient took an 81 mg aspirin. Three more was given on arrival. At ER EKG was obtained. There is no specific ischemic changes. Because strong cardiac family history and high cardiovascular risk patient admitted. Labs are unremarkable. Only mild hypokalemia. Initial troponin was normal, however, started increasing after the second of the serial of three. Discussed with ER and cardiology. Plan as follow: -chest pain. improved. elavated troponin. likely NSTEMI. to rule out ACS. abnormal EK. no ST changes. S/p cardiac cath plan for intergrilin gtt for 48 hrs -Hx of diabetes. monitor BS. ISS -COPD: maximize O2 sat. Oxygen PRN resume home regimen Others chronic conditon. Reviewed and stables. Hx of lung cancer in remission -current tobacco user: Education provided on smoking cessation. no interesting in quitting. Refused nicotine patch Lovenox full dose. on protonix Full code monitor inpatient per cardiology recs
[2023-07-10] MEDS: IOPAMIDOL-370 (76%);100ML BOTTLE 60 ML IV (17:24)
[2023-07-10 17:28] LABS: POC Glucose,Bedside 97 (70-110)
[2023-07-10] MEDS: PRAVASTATIN 40MG TAB 80 MG PO (20:07)
[2023-07-10 20:24] LABS: POC Glucose,Bedside 84 (70-110)
[2023-07-11] VITALS (12 sets, daily range): BP systolic 102–136; BP diastolic 48–81; PULSE 72–101; RESP 16–20; TEMP 36.5–37.1; O2SAT 91–98; BMI 24.5
[2023-07-11] MEDS: EPTIFIBATIDE 75 MG/100 ML VIAL 11.7919999999999998 MG IV (05:04)
--- NOTE | 2023-07-11 05:52 | PC.NURSE ---
Shift Summary: Pt AOx4 throughout shift. Integrilin gtt remained at 11.792 mL/hr throughout shift. R radial site maintained with gauze and Tegaderm. Denies any pain, numbness, or tingling or bleeding at site. VSS stable, no acute events or issues overnight.
[2023-07-11] MEDS: FLUTICASONE/SALMETEROL 250/50MCG DISKUS 1 PUFF IH (06:11)
[2023-07-11 06:26] LABS: POC Glucose,Bedside 102 (70-110)
[2023-07-11] MEDS: PRASUGREL 10MG TAB 10 MG PO (08:21)
[2023-07-11] MEDS: LISINOPRIL/HCTZ 10-12.5MG TABLET 1 EACH PO (08:21)
[2023-07-11] MEDS: CYCLOBENZAPRINE 10MG TABLET 5 MG PO (08:21)
[2023-07-11] MEDS: ISOSORBIDE MONO 30MG TAB.ER.24H 30 MG PO (08:21)
[2023-07-11] MEDS: ASPIRIN EC 81MG TABLET 81 MG PO (08:21)
[2023-07-11] MEDS: METOPROLOL TARTRATE 25MG TABLET 25 MG PO ×2 (08:22→20:49)
[2023-07-11 09:53] LABS: Basophils # 0.1 K/mm3 (0-0.2); Basophils % 0.6 % (0.1-2.0); Eosinophils # 0.1 K/mm3 (0.0-0.4); Eosinophils % 0.6 % (0.1-12.0); Hematocrit 42.4 % (37.0-47.0); Hemoglobin 14.3 g/dL (12.2-16.2); Lymphocytes # 1.5 K/mm3 (0.7-4.5); Lymphocytes % 17.8 % (10-50); Mean Corpuscular HGB Conc 33.7 g/dL (31.8-35.4); Mean Corpuscular Hemoglobin 28.6 pg (27.0-31.2); Mean Corpuscular Volume 84.7 fl (81-99); Mean Platelet Volume 8.5 fl (7.4-10.4); Monocytes # 0.3 K/mm3 (0.1-1.0); Monocytes % 4.2 % (1.7-9.3); Neutrophils # 6.2 K/mm3 (1.8-7.8); Neutrophils % 76.7 % (37.0-80.0); Platelet Count 227 K/mm3 (142-424); Red Cell Distribution Width 15.6 % (11.5-17.5); White Blood Count 8.1 K/mm3 (4.8-10.8)
[2023-07-11 10:04] LABS: Chloride 100 mmol/L (98-107)
[2023-07-11 10:05] LABS: Potassium 3.7 mmoL/L (3.5-5.1); Sodium 137 mmol/L (136-145)
[2023-07-11 10:08] LABS: Anion Gap 14.7 mEq/L (5-15); Blood Urea Nitrogen 14 mg/dl (7-17); Calcium 9.1 mg/dl (8.4-10.2); Carbon Dioxide 26 mmol/L (22.0-30.0); Creatinine Clearance Estimated 91 mL/min (50-200); Estimated Glomerular Filt Rate 74 ml/min (>60); GFR (African American) 89 ML/MIN (>60); Glucose 119 mg/dl (74-100)
[2023-07-11 11:09] LABS: POC Glucose,Bedside 109 (70-110)
--- NOTE | 2023-07-11 11:09 | EXP.CARD.PN ---
Subjective Subjective Date: 07/11/23 Time: 09:00 Principal diagnosis: Non-STEMI Interval history: This is a 58-year-old female who has a past medical history of COPD, lung cancer status postchemotherapy in remission, and rheumatoid arthritis. The patient had sudden onset of substernal chest pain and epigastric pain around 11 AM that persisted for approximately an hour. The patient came to the emergency department here was found to have a non-STEMI. She underwent left cardiac catheterization yesterday and was found to have moderate diffuse coronary artery disease with an active thrombus in the distal large first diagonal artery. The artery was too distal and too small to intervene on. She has been getting Integrilin since the left heart cath. She is also on dual antiplatelet therapy with Effient and aspirin. This morning she denies any chest pain or pressure. She denies any shortness of breath or edema. She denies any fever, chills, nausea, vomiting, diarrhea, PND or orthopnea. Exam Data for Last 24 hours Vital signs and Labs for Last 24 Hours: Temp Pulse Resp BP Pulse Ox O2 Del Method 97.9 F 86 16 110/59 L 95 Room Air 07/11/23 08:00 07/11/23 10:00 07/11/23 10:00 07/11/23 10:00 07/11/23 10:00 07/11/23 10:50 Laboratory Results - last 24 hr 07/10/23 17:21: POC Glucose 97 07/10/23 20:05: POC Glucose 84 07/11/23 06:17: POC Glucose 102 07/11/23 09:14: WBC 8.1, RBC 5.00, Hgb 14.3, Hct 42.4, MCV 84.7, MCH 28.6, MCHC 33.7, RDW 15.6, Plt Count 227, MPV 8.5, Neut % (Auto) 76.7, Lymph % (Auto) 17.8, [place] % (Auto) 4.2, Eos % (Auto) 0.6, Baso % (Auto) 0.6, Neut # (Auto) 6.2, Lymph # (Auto) 1.5, [place] # (Auto) 0.3, Eos # (Auto) 0.1, Baso # (Auto) 0.1, Sodium 137, Potassium 3.7, Chloride 100, Carbon Dioxide 26, Anion Gap 14.7, BUN 14 D, Creatinine 0.80, Estimated Creat Clear 91, Estimated GFR 74, Est GFR ( Amer) 89, Glucose 119 H, Calcium 9.1 I & O for Last 24 hours: Intake & Output 07/08/23 07/09/23 07/10/23 07/11/23 23:59 23:59 23:59 23:59 Intake Total 520 / 846 734 / 734 Output Total 0 / 0 0 / 0 0 / 0 Balance 0 / 0 520 / 846 734 / 734 Weight 162 lb 0.001 oz 162 lb 7.691 oz 165 lb 11.2 oz Constitutional Constitutional: no acute distress and average body habitus *Routine HEENT Exam Head: Present normocephalic and atraumatic ENT: Present mucous membranes moist *Routine Neck Exam Neck: Present supple, full ROM and normal carotid upstroke; Absent JVD, carotid bruit or lymphadenopathy *Routine Respiratory Exam Respiratory: Present CTA bilaterally, normal respiratory effort, able to speak in complete sentences and symmetric chest movement *Routine Cardiovascular Exam Cardiovascular: Present RRR, Normal S1 and Normal S2; Absent murmur or gallop *Routine Abdominal Exam Abdominal: Present soft and normoactive bowel sounds; Absent tenderness, distended or organomegaly *Routine Extremities Exam Extremities: Present full ROM, pulses intact and normal capillary refill; Absent cyanosis, clubbing or edema *Routine Skin Exam Skin: Present intact and warm; Absent erythema *Routine Neurological Exam Neurological: Present alert, oriented X3 and CN II-XII intact; Absent sensory deficit or motor deficit Routine Psychiatric Exam Psychiatric: Present normal affect Progress Note: A&P Assessment and plan (1) Non-ST elevation [place] (NSTEMI): Status: Acute (2) Abnormal electrocardiogram [ECG] [EKG]: Status: Acute (3) Diabetes mellitus: Status: Acute (4) COPD (chronic obstructive pulmonary disease): Status: Chronic (5) Hyperlipidemia: Status: Acute (6) Non-small cell lung cancer: Status: Chronic (7) On methotrexate therapy: Status: Acute (8) Tobacco use: Status: Acute (9) Coronary artery disease: Status: Acute Assessment and Plan Assessment and Plan for All Diagnoses:: Plan: 1. This is a 58-year-old female who presented to the emergency department was found to have a non-STEMI. The patient underwent left cardiac catheterization was found to have moderate diffuse coronary artery disease. She also had a thrombus in her distal first diagonal artery. This was too small and too distal to intervene on. The patient has been on Integrilin since left cardiac catheterization yesterday as well as dual antiplatelet therapy with Effient and aspirin. She denies any chest pain or pressure this morning. 2. Initially Dr. Day wanted the patient on an Integrilin drip for 48 hours post event. However after further review of the images the thrombus is very small and the Integrilin can be stopped 18 hours post heart cath. Will go ahead and stop the Integrilin drip at this time. 3. The patient will remain on Effient and aspirin for dual antiplatelet therapy for at least 1 year. 4. Coronary artery disease is likely stable at this time. 5. Her blood pressure is well-controlled. 6. Her LDL goal is less than 55. Her LDL is 136. We recommend stopping Zocor and switching her to atorvastatin 80 mg p.o. nightly. The patient is listed as having an atorvastatin allergy but she says that she is not aware that she is allergic to this medication and is willing to retry it at this time. 7. Continue lisinopril and metoprolol due to non-STEMI and CAD. 8. The patient does have COPD. Will defer management this to the hospitalist. 9. As mentioned above we will stop her Integrilin drip today. Continue Effient and aspirin. The patient can be discharged home tomorrow as long as her hospital stay is unremarkable overnight. Upon discharge tomorrow she will need to go home on the following cardiac medications: Aspirin 81 mg daily, Effient 10 mg daily, Imdur 30 mg daily, lisinopril HCT 10/12.51 tablet daily, metoprolol tartrate 25 mg p.o. twice daily and atorvastatin 80 mg p.o. nightly. Thank you for the opportunity to help participate in the care of this patient. All recommendations and orders are per Dr. Garcia.
--- NOTE | 2023-07-11 15:14 | PC.NURSE ---
PT IS RESTING IN BED. ALERT AND ORIENTED X4. PT STATES SHE FEELS GREAT AND IS WANTING TO GO HOME. INTEGRILIN DRIP WAS DC'D THIS MORNING. PT AMBULATES TO THE BATHROOM. LUNG SOUNDS CLEAR. ABDOMEN SOFT/NON TENDER WITH ACTIVE BOWEL SOUNDS. DRESSING NOTED TO THE RIGHT RADIAL CATH SITE. WILL CONTINUE TO MONITOR.
[2023-07-11 16:53] LABS: POC Glucose,Bedside 96 (70-110)
--- NOTE | 2023-07-11 17:25 | P.PN_ITS ---
Subjective *Date: 07/11/23 *Time: 17:25 Interval history: patient was seen and evaluated at the bedside. s/p cardiac cath, on integrillin gtt, No reported acute events overnight, denies chest pain, shortness of breath, nausea, vomiting, abdominal pain. Exam Data for Last 24 hours Vital signs and Labs for Last 24 Hours: Temp Pulse Resp BP Pulse Ox O2 Del Method 97.7 F 90 18 134/60 93 L Room Air 07/11/23 11:25 07/11/23 16:00 07/11/23 12:00 07/11/23 12:00 07/11/23 12:00 07/11/23 16:38 Laboratory Results - last 24 hr 07/10/23 17:21: POC Glucose 97 07/10/23 20:05: POC Glucose 84 07/11/23 06:17: POC Glucose 102 07/11/23 09:14: WBC 8.1, RBC 5.00, Hgb 14.3, Hct 42.4, MCV 84.7, MCH 28.6, MCHC 33.7, RDW 15.6, Plt Count 227, MPV 8.5, Neut % (Auto) 76.7, Lymph % (Auto) 17.8, [place] % (Auto) 4.2, Eos % (Auto) 0.6, Baso % (Auto) 0.6, Neut # (Auto) 6.2, Lymph # (Auto) 1.5, [place] # (Auto) 0.3, Eos # (Auto) 0.1, Baso # (Auto) 0.1, Sodium 137, Potassium 3.7, Chloride 100, Carbon Dioxide 26, Anion Gap 14.7, BUN 14 D, Creatinine 0.80, Estimated Creat Clear 91, Estimated GFR 74, Est GFR ( Amer) 89, Glucose 119 H, Calcium 9.1 07/11/23 11:03: POC Glucose 109 07/11/23 16:46: POC Glucose 96 I & O for Last 24 hours: Intake & Output 07/08/23 07/09/23 07/10/23 07/11/23 23:59 23:59 23:59 23:59 Intake Total 520 / 846 1214 / 1214 Output Total 0 / 0 0 / 0 0 / 0 Balance 0 / 0 520 / 846 1214 / 1214 Weight 73.482 kg 73.7 kg 75.16 kg Constitutional Constitutional: no acute distress *Routine HEENT Exam Head: Present normocephalic Eye: Present EOMI and PERRL ENT: Present mucous membranes moist *Routine Neck Exam Neck: Present supple; Absent lymphadenopathy *Routine Respiratory Exam Respiratory: Present CTA bilaterally *Routine Cardiovascular Exam Cardiovascular: Present RRR *Routine Abdominal Exam Abdominal: Present soft and normoactive bowel sounds; Absent tenderness *Routine Extremities Exam Extremities: Absent cyanosis, clubbing or edema *Routine Skin Exam Skin: Present warm; Absent rash *Routine Neurological Exam Neurological: Present alert and oriented X3 Assessment and Plan *Assessment and plan (1) Chest pain: Status: Acute Qualifiers: Chest pain type: unspecified Qualified Code(s): R07.9 - Chest pain, unspecified Category: Medical Code(s): R07.9 - Chest pain, unspecified (2) Non-ST elevation IA (NSTEMI): Status: Acute Category: Medical Code(s): I21.4 - Non-ST elevation (NSTEMI) myocardial infarction (3) Abnormal electrocardiogram [ECG] [EKG]: Status: Acute Category: Medical Code(s): R94.31 - Abnormal electrocardiogram [ECG] [EKG] (4) Diabetes mellitus: Status: Acute Qualifiers: Diabetes mellitus type: type 2 Diabetes mellitus intermediate insulin use: unspecified ocean transportation intermediary insulin use status Diabetes mellitus complication status: with other specified complication Qualified Code(s): E11.69 - Type 2 diabetes mellitus with other specified complication Category: Medical Code(s): E11.9 - Type 2 diabetes mellitus without complications (5) COPD (chronic obstructive pulmonary disease): Status: Chronic Qualifiers: COPD type: unspecified COPD Qualified Code(s): J44.9 - Chronic obstructive pulmonary disease, unspecified Category: Medical Code(s): J44.9 - Chronic obstructive pulmonary disease, unspecified (6) Hyperlipidemia: Status: Acute Qualifiers: Hyperlipidemia type: unspecified Qualified Code(s): E78.5 - Hyperlipidemia, unspecified Category: Medical Code(s): E78.5 - Hyperlipidemia, unspecified (7) Non-small cell lung cancer: Status: Chronic Qualifiers: Laterality: unspecified laterality Qualified Code(s): C34.90 - Malignant neoplasm of unspecified part of unspecified bronchus or lung Category: Medical Code(s): C34.90 - Malignant neoplasm of unspecified part of unspecified bronchus or lung (8) On methotrexate therapy: Status: Acute Category: Medical Code(s): Z79.899 - Other ocean transportation intermediary (current) drug therapy (9) Tobacco use: Status: Acute Category: Social Hx Code(s): Z72.0 - Tobacco use Plan 58-year-old female with PMHx of SLE, RA, COPD, longstanding heavy smoker and lung cancer s/p chemotherapy in remission presented today with chest pain that began suddenly in the substernal and epigastric region. Pain lasted for about an hr and was accompanied with clammy and diaphoresis sensation. patient took an 81 mg aspirin. Three more was given on arrival. At ER EKG was obtained. There is no specific ischemic changes. Because strong cardiac family history and high cardiovascular risk patient admitted. Labs are unremarkable. Only mild hypokalemia. Initial troponin was normal, however, started increasing after the second of the serial of three. Discussed with ER and cardiology. : - chest pain, improved. elavated troponin. likely NSTEMI. to rule out ACS. abnormal EK. no ST changes. S/p cardiac cath plan for intergrilin gtt for 48 hrs -Hx of diabetes. monitor BS. ISS -COPD: maximize O2 sat. Oxygen PRN resume home regimen Others chronic condition. Reviewed and stables. Hx of lung cancer in remission -current tobacco user: Education provided on smoking cessation. no interesting in quitting. Refused nicotine patch Lovenox full dose. on protonix Full code monitor inpatient per cardiology recs, plan for dc tomorrow
[2023-07-11 20:19] LABS: POC Glucose,Bedside 95 (70-110)
[2023-07-11] MEDS: ATORVASTATIN 40MG TABLET 80 MG PO (20:49)
[2023-07-12] VITALS: BP 99/58; PULSE 54; PULSE 79; RESP 17; TEMP 36.6; O2SAT 93
[2023-07-12 04:00] VITALS: BP 110/55; PULSE 48; PULSE 67; RESP 21; TEMP 36.8; O2SAT 100; BMI 24.5
--- NOTE | 2023-07-12 05:22 | PC.NURSE ---
Patient has rested well this shift with no complaints of pain or discomfort. Patient is Trigeminy on monitor no s/sx or complaints. Patient has ambulated to the bathroom independently with no complications. Vitals have been stable this shift. Oxygen decreased in the night while asleep 86% patient was placed on 2LNC, per patient report she uses 2-3lnc at home when needed. Patient had dose of atorvastatin this shift with no complications or s/sx of adverse reactions or allergic response. Patient states she never recalls being allergic to that medication. No acute changes noted.
[2023-07-12 07:39] VITALS: BP 106/58; PULSE 86; RESP 16; TEMP 36.6; O2SAT 94
[2023-07-12 07:44] LABS: Basophils % 0.5 % (0.1-2.0); Eosinophils # 0.1 K/mm3 (0.0-0.4); Eosinophils % 1.7 % (0.1-12.0); Hematocrit 42.4 % (37.0-47.0); Hemoglobin 14.4 g/dL (12.2-16.2); Lymphocytes # 1.2 K/mm3 (0.7-4.5); Lymphocytes % 21.4 % (10-50); Mean Corpuscular HGB Conc 33.8 g/dL (31.8-35.4); Mean Corpuscular Volume 82.8 fl (81-99); Mean Platelet Volume 8.7 fl (7.4-10.4); Monocytes # 0.3 K/mm3 (0.1-1.0); Monocytes % 4.7 % (1.7-9.3); Neutrophils # 4.1 K/mm3 (1.8-7.8); Neutrophils % 71.6 % (37.0-80.0); Platelet Count 201 K/mm3 (142-424); Red Blood Count 5.13 M/mm3 (4.20-5.40); Red Cell Distribution Width 15.7 % (11.5-17.5); White Blood Count 5.8 K/mm3 (4.8-10.8)
[2023-07-12 07:46] LABS: Chloride 102 mmol/L (98-107); Potassium 3.9 mmoL/L (3.5-5.1); Sodium 137 mmol/L (136-145)
[2023-07-12 07:49] LABS: Blood Urea Nitrogen 14 mg/dl (7-17); Creatinine Clearance Estimated 104 mL/min (50-200); Estimated Glomerular Filt Rate 86 ml/min (>60); GFR (African American) 104 ML/MIN (>60)
[2023-07-12 07:50] LABS: Anion Gap 10.9 mEq/L (5-15); Calcium 8.7 mg/dl (8.4-10.2); Carbon Dioxide 28 mmol/L (22.0-30.0); Glucose 107 mg/dl (74-100)
[2023-07-12] MEDS: PRASUGREL 10MG TAB 10 MG PO (08:51)
[2023-07-12] MEDS: ISOSORBIDE MONO 30MG TAB.ER.24H 30 MG PO (08:52)
[2023-07-12] MEDS: LISINOPRIL/HCTZ 10-12.5MG TABLET 1 EACH PO (08:52)
[2023-07-12] MEDS: CYCLOBENZAPRINE 10MG TABLET 5 MG PO (08:52)
[2023-07-12] MEDS: ASPIRIN EC 81MG TABLET 81 MG PO (08:52)
[2023-07-12] MEDS: METOPROLOL TARTRATE 25MG TABLET 25 MG PO (09:31)
--- NOTE | 2023-07-15 13:21 | SW/DCPLANNER ---
Follow up phone call w/ this patient: patient stated that she is doing well at home and does not have any needs/questions at this time. Patient did have a questions about [facility] store: all questions answered.
--- NOTE | 2023-07-24 19:08 | EXP.DC.SUM ---
General Admission date:: 07/10/23 Discharge date: 07/12/23 HPI HPI HPI: This is a 58-year-old female with PMHx of SLE, RA, COPD, longstanding heavy smoker and lung cancer s/p chemotherapy in remission presented today with chest pain that began suddenly in the substernal and epigastric region at about 11 AM. Patient stated she took a baby aspirin and pain have subsequently stopped after 1 hr. Patient decided to come to ER for evaluation. On arrival there was no symptoms. During this episode she stated that she was clammy and diaphoretic with no shortness of breath or exertional component to this or any radiation. Denied any history of coronary artery disease, however was seen as outpatient earlier this year for abnormal EKG and underwent stress test. Stated work up was inconclusive. Admitted for further investigation and management. Hospital Course Hospital Course Hospital Course: Patient was seen and evaluated at the bedside on the day of discharge. Patient is stable for discharge. Patient wishes to be discharged. All patient questions were answered and patient was given time to ask questions. Patient was discharged in stable condition. Patient understands that she can return to ER in case of any sudden changes in health. Total time spent on DC - 38 mins 58-year-old female with PMHx of SLE, RA, COPD, longstanding heavy smoker and lung cancer s/p chemotherapy in remission presented today with chest pain that began suddenly in the substernal and epigastric region. Pain lasted for about an hr and was accompanied with clammy and diaphoresis sensation. patient took an 81 mg aspirin. Three more was given on arrival. At ER EKG was obtained. There is no specific ischemic changes. Because strong cardiac family history and high cardiovascular risk patient admitted. Labs are unremarkable. Only mild hypokalemia. Initial troponin was normal, however, started increasing after the second of the serial of three. Discussed with ER and cardiology. : - chest pain, improved. elavated troponin. likely NSTEMI. to rule out ACS. abnormal EK. no ST changes. S/p cardiac cath plan for intergrilin gtt for 48 hrs -Hx of diabetes. monitor BS. ISS -COPD: maximize O2 sat. Oxygen PRN resume home regimen Others chronic condition. Reviewed and stables. Hx of lung cancer in remission -current tobacco user: Education provided on smoking cessation. no interesting in quitting. Refused nicotine patch Lovenox full dose. on protonix Full code ok to dc per cardiology Exam Data for Last 24 hours Vital signs and Labs for Last 24 Hours: Temp Pulse Resp BP Pulse Ox O2 Del Method O2 Flow Rate 97.9 F 86 16 106/58 L 94 L Room Air 2 07/12/23 07:39 07/12/23 07:39 07/12/23 07:39 07/12/23 07:39 07/12/23 07:39 07/12/23 07:39 07/12/23 05:00 Constitutional Constitutional: no acute distress *Routine HEENT Exam Head: Present normocephalic Eye: Present EOMI and PERRL ENT: Present mucous membranes moist *Routine Neck Exam Neck: Present supple; Absent lymphadenopathy *Routine Respiratory Exam Respiratory: Present CTA bilaterally *Routine Cardiovascular Exam Cardiovascular: Present RRR *Routine Abdominal Exam Abdominal: Present soft and normoactive bowel sounds; Absent tenderness *Routine Extremities Exam Extremities: Absent cyanosis, clubbing or edema *Routine Skin Exam Skin: Present warm; Absent rash *Routine Neurological Exam Neurological: Present alert and oriented X3 DS: Diagnosis Discharge Diagnosis (1) Chest pain: Status: Inactive Code(s): R07.9 - Chest pain, unspecified Qualifiers: Chest pain type: unspecified Qualified Code(s): R07.9 - Chest pain, unspecified (2) Non-ST elevation CT (NSTEMI): Status: Inactive Code(s): I21.4 - Non-ST elevation (NSTEMI) myocardial infarction (3) Abnormal electrocardiogram [ECG] [EKG]: Status: Inactive Code(s): R94.31 - Abnormal electrocardiogram [ECG] [EKG] (4) Diabetes mellitus: Status: Inactive Code(s): E11.9 - Type 2 diabetes mellitus without complications Qualifiers: Diabetes mellitus type: type 2 Diabetes mellitus terminal makeup operator insulin use: unspecified nursing home insulin use status Diabetes mellitus complication status: with other specified complication Qualified Code(s): E11.69 - Type 2 diabetes mellitus with other specified complication (5) COPD (chronic obstructive pulmonary disease): Status: Inactive Code(s): J44.9 - Chronic obstructive pulmonary disease, unspecified Qualifiers: COPD type: unspecified COPD Qualified Code(s): J44.9 - Chronic obstructive pulmonary disease, unspecified (6) Hyperlipidemia: Status: Inactive Code(s): E78.5 - Hyperlipidemia, unspecified Qualifiers: Hyperlipidemia type: unspecified Qualified Code(s): E78.5 - Hyperlipidemia, unspecified (7) Non-small cell lung cancer: Status: Inactive Code(s): C34.90 - Malignant neoplasm of unspecified part of unspecified bronchus or lung Qualifiers: Laterality: unspecified laterality Qualified Code(s): C34.90 - Malignant neoplasm of unspecified part of unspecified bronchus or lung (8) On methotrexate therapy: Status: Inactive Code(s): Z79.899 - Other terminal makeup operator (current) drug therapy (9) Tobacco use: Status: Inactive Code(s): Z72.0 - Tobacco use Meds Home Medications and Allergies Home Medications Medication Instructions Recorded Confirmed Type vitamin B complex (Super B-50 1 cap PO DAILY Supplement 10/19/20 07/10/23 History Complex capsule) albuterol sulfate 2.5 mg/3 mL 2.5 mg (3 mL) inhalation Q6H PRN 12/21/21 07/10/23 Rx (0.083 %) solution for nebulization shortness of breath or wheezing #180 mL cyclobenzaprine 5 mg tablet 5 mg PO DAILY MUSCLE SPASMS 09/23/22 07/10/23 History lisinopril 10 1 tab PO DAILY High Blood Pressure 09/23/22 07/10/23 History mg-hydrochlorothiazide 12.5 mg tablet ergocalciferol (vitamin D2) 1,250 1,250 mcg PO WEEKLY Supplement 07/09/23 07/10/23 History mcg (50,000 unit) capsule albuterol sulfate 90 mcg/actuation 2 puff inhalation Q6HP PRN 07/10/23 07/10/23 History aerosol inhaler Shortness Of Breath Or Wheezing cholecalciferol (vitamin D3) 25 1,000 unit PO DAILY Supplement 07/10/23 07/10/23 History mcg (1,000 unit) capsule metformin 500 mg tablet,extended 500 mg PO DAILY Diabetes 07/10/23 07/10/23 History release 24 hr sertraline 25 mg tablet 25 mg PO DAILY MOOD 07/10/23 07/10/23 History sertraline 50 mg tablet 50 mg PO DAILY MOOD 07/10/23 07/10/23 History aspirin 81 mg tablet,delayed 81 mg PO DAILY 30 days #30 tabs 07/12/23 Rx release isosorbide mononitrate 30 mg 30 mg PO DAILY 30 days #30 tabs 07/12/23 Rx tablet,extended release 24 hr metoprolol tartrate 25 mg tablet 25 mg PO BID 30 days #60 tabs 07/12/23 Rx prasugrel 10 mg tablet 10 mg PO DAILY 30 days #30 tabs 07/12/23 Rx pravastatin 40 mg tablet 80 mg PO HS 30 days #60 tabs 07/12/23 Rx New Prescriptions to Start Prescriptions: aspirin Denis,Irfan isosorbide mononitrate Denis,Irfan [facility]rolol [facility]rate [facility] Allergies Allergy/AdvReac Type Severity Reaction Status Date / Time atorvastatin Allergy Mild shortness Verified 10/15/22 12:13 of breath Sulfa (Sulfonamide Allergy Mild Verified 10/15/22 12:13 Antibiotics) Discharge Plan Disposition Patient Disposition: Home, Self-Care Condition: Good Discharge Order Discharge Orders: Discharge Order (Routine); Ordered 07/12/23 Ordered By: Dmia Barrios Follow up Plan Follow up with: Rodo Day MD [Staff Physician] - 1 week Prescriptions/Medication Reconciliation: New isosorbide mononitrate 30 mg Tablet Extended Release 24 Hr 30 mg PO DAILY 30 Days Qty: 30 0RF aspirin 81 mg Tablet,Delayed Release (Dr/Ec) 81 mg PO DAILY 30 Days Qty: 30 0RF metoprolol tartrate 25 mg Tablet 25 mg PO BID 30 Days Qty: 60 0RF prasugrel 10 mg Tablet 10 mg PO DAILY 30 Days Qty: 30 0RF pravastatin 40 mg Tablet 80 mg PO HS 30 Days Qty: 60 0RF Continued vitamin B complex [Super B-50 Complex] Capsule 1 cap PO DAILY lisinopril-hydrochlorothiazide 10-12.5 mg tablet 1 tab PO DAILY cyclobenzaprine 5 mg tablet 5 mg PO DAILY albuterol sulfate 2.5 mg /3 mL (0.083 %) solution for nebulization 2.5 mg IH Q6H PRN (Reason: shortness of breath or wheezing) Qty: 180 2RF ergocalciferol (vitamin D2) 1,250 mcg (50,000 unit) capsule 1,250 mcg PO WEEKLY Rx Instructions: Takes on Tuesdays sertraline 25 mg tablet 25 mg PO DAILY Rx Instructions: TAKE ONE TABLET BY MOUTH ONCE A DAY WITH 50MG TABLET (TOTAL DOSE 75MG) albuterol sulfate 90 mcg/actuation HFA aerosol inhaler 2 puff inhalation Q6HP PRN (Reason: Shortness Of Breath Or Wheezing) metformin 500 mg tablet extended release 24 hr 500 mg PO DAILY sertraline 50 mg tablet 50 mg PO DAILY Rx Instructions: TAKE ONE TABLET BY MOUTH ONCE A DAY WITH 25MG (TOTAL DOSE 75MG) cholecalciferol (vitamin D3) 25 mcg (1,000 unit) capsule 1,000 unit PO DAILY Discontinued simvastatin 5 mg tablet 5 mg PO DAILY Problem Reconciliation Problems Reviewed?: Yes Patient Discharge Instructions ACTIVITY: Ambulate as tolerated DIET: continue same diet Patient Instructions: DI for Heart Attack, DI for Angina Providers Primary Care Provider: Bishop Aguilar Admit Provider: Dima Barrios Attending Provider: Dima Barrios
== END 2023-07-12 10:20 | disposition home or self-care (01) | DRG 282 ==
LOC: ER 16:49 → 2ND 17:42
PROVIDERS: Internal Medicine; Nurse Practitioner Family; Physician Assistant; Student in an Organized Health Care Education/Training Program; Admitting Provider Internal Medicine; Emergency Provider Emergency Medicine; PCP Nurse Practitioner Family; Visit Provider Internal Medicine
PROC: 4A023N7 Measurement of Cardiac Sampling and Pressure, Left Heart, Percutaneous Approach (ICD-10-PCS; principal; 2023-07-10 10:30)
DX: I21.4 Non-ST elevation (NSTEMI) myocardial infarction (principal); J44.9 Chronic obstructive pulmonary disease, unspecified; M79.7 Fibromyalgia; I10 Essential (primary) hypertension; M32.9 Systemic lupus erythematosus, unspecified; M06.9 Rheumatoid arthritis, unspecified; Z85.118 Personal history of other malignant neoplasm of bronchus and lung; F17.210 Nicotine dependence, cigarettes, uncomplicated; E78.5 Hyperlipidemia, unspecified; Z71.6 Tobacco abuse counseling; E11.9 Type 2 diabetes mellitus without complications
CPT/HCPCS: 36415; 71045; 80048; 80053; 80061; 82962; 83036; 83690; 84484; 85025; 85610; 85730; 93005; 93306; 93458; 94640; 99152; 99285; C1769; J1327; J1644; Q9967

== ENCOUNTER 2023-08-07 11:10 | Outpatient (CLI) | payer OTHER, SELFPAY ==
--- NOTE | 2023-08-07 11:11 | CA_ITS ---
APPROVED REPORT EXAM: Limited 2D Echocardiogram Civil Manager: Mary Mosley CRT Ht: 5 ft 2 in Wt: 165lbs BSA: 1.76 BP: 119/75 mmHg Indications: Pericardial Effusion check, effusion on echo 07/10/23 remission Lung CA chemo and radiation Other Information Study Quality: Fair Conclusion This is a limited TTE to evaluate for pericardial effusion. Limited windows were obtained. There is a small sized, anterior pericardial effusion present. The largest pocket measures 0.4 cm in diastole. Spectral Doppler across the mitral and tricuspid valves is not performed in the study to evaluate for respirophasic variation. The IVC is normal in size and collapsibility. The interventricular septum is asynchronous. No clear evidence of systolic or diastolic RA or RV collapse, respectively. Compared to prior echo from 06/2023, the pericardial effusion size is unchanged. Electronically signed by : Kiara Garcia MD 08/08/2023 03:59:27
== END 2023-08-07 23:59 ==
LOC: RT 11:10
PROVIDERS: PCP Internal Medicine; Visit Provider Nurse Practitioner
DX: I31.39 Other pericardial effusion (noninflammatory) (principal); I21.4 Non-ST elevation (NSTEMI) myocardial infarction; I25.10 Atherosclerotic heart disease of native coronary artery without angina pectoris; I10 Essential (primary) hypertension; E11.9 Type 2 diabetes mellitus without complications; E78.5 Hyperlipidemia, unspecified; Z72.0 Tobacco use; Z79.84 Long term (current) use of oral hypoglycemic drugs; R94.31 Abnormal electrocardiogram [ECG] [EKG]
CPT/HCPCS: 93308

== ENCOUNTER 2023-11-14 08:15 | Outpatient (CLI) | payer OTHER, SELFPAY ==
--- NOTE | 2023-11-14 08:21 | US_ITS ---
FINAL REPORT CLINICAL HISTORY: ELEVATED LIVER ENZYMES COMPARISON: None FINDINGS: Sonographic images of the right upper quadrant were obtained. The pancreas is partially obscured. The liver is somewhat fatty infiltrated. The gallbladder appears normal without evidence of gallstones.There is no evidence of biliary ductal dilatation.The common duct measures 4mm. Limited images of the right kidney are unremarkable. IMPRESSION: Mild fatty liver. Reviewed, Interpreted and Dictated by Azael Johnson MD Transcribed by Pau Heath Authenticated and [facility]
== END 2023-11-14 23:59 | disposition home or self-care (01) ==
PROVIDERS: PCP Nurse Practitioner Family; Visit Provider Nurse Practitioner Family
DX: R74.8 Abnormal levels of other serum enzymes (principal)
CPT/HCPCS: 76705

== ENCOUNTER 2024-05-14 09:51 | Outpatient (CLI) | payer OTHER, SELFPAY ==
[2024-05-14 10:39] LABS: Alanine Aminotransferase 12 U/L (12-78); Albumin Level 4.2 g/dl (3.5-5.0); Alkaline Phosphatase 65 U/L (38-126); Aspartate Amino Transferase 18 U/L (14-36); Bilirubin,Direct 0.3 mg/dl (0.0-0.4); Bilirubin,Indirect 0.3 mg/dL (0.0-0.9); Bilirubin,Total 0.6 mg/dl (0.2-1.3); Bilirubin,Unconjugated 0.3 mg/dL (0.0-1.1); Chol/HDL Ratio 3.8 (1-3.5); Cholesterol 105 mg/dl (140-200); HDL Cholesterol 28 mg/dl (40-60); Total Protein,Serum 6.5 g/dl (6.3-8.2); Triglycerides 109 mg/dl (30-150); VLDL Cholesterol 22 mg/dL (0-40)
[2024-05-14 10:50] LABS: Direct LDL Cholesterol 61.11 mg/dL (100-129)
== END 2024-05-14 23:59 | disposition home or self-care (01) ==
LOC: LAB 09:52
PROVIDERS: Physician Assistant; PCP Nurse Practitioner Family; Visit Provider Physician Assistant
DX: E78.5 Hyperlipidemia, unspecified (principal); I25.10 Atherosclerotic heart disease of native coronary artery without angina pectoris; Z72.0 Tobacco use
CPT/HCPCS: 36415; 80061; 80076

== ENCOUNTER 2024-08-12 12:34 | Outpatient (CLI) | payer OTHER, SELFPAY ==
--- NOTE | 2024-08-12 12:38 | XR_ITS ---
FINAL REPORT TECHNIQUE: Right elbow 3 views CLINICAL HISTORY: elbow pain COMPARISON: None FINDINGS: RIGHT ELBOW: 3 images of the right elbow were obtained. There is no evidence of fracture or dislocation. The joint spaces are intact. There is prominent soft tissue swelling noted posterior to the olecranon. IMPRESSION: Prominent soft tissue swelling noted posterior to the olecranon, that may represent olecranon bursitis. Reviewed, Interpreted and Dictated by Azael Johnson MD Transcribed by Enma Mcgowan Authenticated and [facility]
== END 2024-08-12 23:59 | disposition home or self-care (01) ==
LOC: RAD 12:35
PROVIDERS: PCP Nurse Practitioner Family; Visit Provider Orthopaedic Surgery
DX: M25.521 Pain in right elbow (principal)
CPT/HCPCS: 73080

== ENCOUNTER 2024-10-11 09:55 | Outpatient (CLI) | payer OTHER, SELFPAY ==
[2024-10-11 11:22] LABS: Albumin Level 4.5 g/dl (3.5-5.0); Chloride 94 mmol/L (98-107); Potassium 3.8 mmoL/L (3.5-5.1); Sodium 134 mmol/L (136-145)
[2024-10-11 11:25] LABS: Alanine Aminotransferase 28 U/L (12-78); Albumin/Globulin Ratio 1.9 (1.1-1.8); Alkaline Phosphatase 78 U/L (38-126); Anion Gap 5.8 mEq/L (5-15); Aspartate Amino Transferase 25 U/L (14-36); Bilirubin,Total 0.5 mg/dl (0.2-1.3); Blood Urea Nitrogen 12 mg/dl (7-17); Calcium 9.7 mg/dl (8.4-10.2); Carbon Dioxide 38 mmol/L (22.0-30.0); Estimated Glomerular Filt Rate 73 ml/min (>60); GFR (African American) 89 ML/MIN (>60); Globulin 2.4 g/dL (1.3-3.2); Glucose 112 mg/dl (74-100); Total Protein,Serum 6.9 g/dl (6.3-8.2)
== END 2024-10-11 23:59 | disposition home or self-care (01) ==
PROVIDERS: PCP Nurse Practitioner Family; Visit Provider Nurse Practitioner Family
DX: E87.6 Hypokalemia (principal)
CPT/HCPCS: 36415; 80053

== ENCOUNTER 2024-11-02 19:13 | Inpatient (IN) | payer OTHER, SELFPAY ==
[2024-11-02] VITALS (13 sets, daily range): BP systolic 101–141; BP diastolic 58–116; PULSE 95–105; RESP 16–22; TEMP 36.7–36.8; O2SAT 96–99; BMI 27.8; BMI 29.0
[2024-11-02 19:39] LABS: Coronavirus 19, PCR Not Detected (NotDetected); Influenza A, PCR Not Detected (NotDetected); Influenza B, PCR Not Detected (NotDetected)
--- NOTE | 2024-11-02 19:39 | XR_ITS ---
PROCEDURE INFORMATION: Exam: XR Chest Exam date and time: 11/02/2024 7:47 PM Age: 59 years old Clinical indication: Cough and shortness of breath; Additional info: Cough, SOA TECHNIQUE: Imaging protocol: Radiologic exam of the chest. Views: 1 view. COMPARISON: CR XR CHEST PORTABLE 07/09/2023 1:03 PM FINDINGS: Lungs: Opacity in the medial right base may represent atelectasis or pneumonia.. Pleural spaces: Unremarkable. No pleural effusion. No pneumothorax. Heart/Mediastinum: Unremarkable. No cardiomegaly. Bones/joints: Unremarkable. IMPRESSION: Opacity in the medial right base may represent atelectasis or pneumonia..
[2024-11-02 19:41] LABS: Basophils % 0.2 % (0.1-2.0); Eosinophils % 0.2 % (0.1-12.0); Hematocrit 36.9 % (37.0-47.0); Hemoglobin 12.5 g/dL (12.2-16.2); Lymphocytes # 0.9 K/mm3 (0.7-4.5); Lymphocytes % 9.5 % (10-50); Mean Corpuscular HGB Conc 33.9 g/dL (31.8-35.4); Mean Corpuscular Hemoglobin 27.5 pg (27.0-31.2); Mean Corpuscular Volume 81.1 fl (81-99); Mean Platelet Volume 9.7 fl (7.4-10.4); Monocytes # 0.4 K/mm3 (0.1-1.0); Monocytes % 4.2 % (1.7-9.3); Neutrophils # 8.2 K/mm3 (1.8-7.8); Neutrophils % 85.2 % (37.0-80.0); Nucleated Red Blood Cells # 0 10^3/uL; Nucleated Red Blood Cells % 0 %; Platelet Count 318 K/mm3 (142-424); Red Blood Count 4.55 M/mm3 (4.20-5.40); Red Cell Distribution Width 15.5 % (11.5-17.5); White Blood Count 9.7 K/mm3 (4.8-10.8)
[2024-11-02 19:44] LABS: Albumin Level 4.3 g/dl (3.5-5.0); Chloride 81 mmol/L (98-107); Potassium 3.3 mmoL/L (3.5-5.1); Sodium 125 mmol/L (136-145)
[2024-11-02 19:47] LABS: Alanine Aminotransferase 30 U/L (12-78); Albumin/Globulin Ratio 1.2 (1.1-1.8); Alkaline Phosphatase 99 U/L (38-126); Anion Gap 14.3 mEq/L (5-15); Aspartate Amino Transferase 50 U/L (14-36); Bilirubin,Total 0.6 mg/dl (0.2-1.3); Blood Urea Nitrogen 18 mg/dl (7-17); Carbon Dioxide 33 mmol/L (22.0-30.0); Estimated Glomerular Filt Rate 86 ml/min (>60); GFR (African American) 104 ML/MIN (>60); Globulin 3.7 g/dL (1.3-3.2); Glucose 182 mg/dl (74-100)
[2024-11-02 19:51] LABS: C-Reactive Protein 79.4 mg/L (0-4)
[2024-11-02 19:52] LABS: Magnesium 2.1 mg/dl (1.6-2.3)
[2024-11-02 19:56] LABS: VBG Base Excess 5.7 mmol/L (-2.4-2.3); VBG HCO3 31.4 mmol/L (23-30); VBG Oxygen Saturation 67.2 % (50-70); VBG PH 7.35 mmol/L (7.31-7.41); VBG PO2 37.7 mmol/L (28-40); VBG Total CO2 33.2 mmol/L (23-27)
[2024-11-02 19:58] LABS: D-Dimer 0.97 ug/mL (0.0-0.5)
[2024-11-02 19:59] LABS: Lactate Venous 3.7 mmol/L (0.4-2.0); VBG PCO2 58.7 mmol/L (35-51)
[2024-11-02 20:02] LABS: NT Pro Brain Natriuretic Pep. 20800 pg/mL (0-125)
--- NOTE | 2024-11-02 20:03 | HMH.EDGENADL ---
Discharge Plan Disposition Patient Disposition: Admitted Condition: Good Clinical Impressions Clinical Impression: Acute and chronic respiratory failure, Pericardial effusion, Acute exacerbation of chronic obstructive pulmonary disease, Acute exacerbation of CHF (congestive heart failure), Hyponatremia, Hypokalemia, Pneumonia, Non-ST elevation DE (NSTEMI) Discharge ED Provider: Laurie Kim General Adult HPI General Chief complaint: Nausea/Vomiting/Diarrhea Stated complaint: Vomiting,SOA,poor appitite Time Seen by Provider: 11/02/24 19:21 Mode of Arrival: Wheelchair Source of Information: Patient and Relative Description of Symptoms (Recalled from ER Triage Doc. by RN): Patient to ED with N/D that started today. Patient recently dx with URI and currently taking amoxicillin. Patient complains of weakness x4days and decreased appetite. patient FSBS 191 History of Present Illness HPI narrative: This patient is a 59-year-old female with a history of prior lung cancer status post chemo and radiation in 2020, COPD on 4 L nasal cannula chronically, CAD, hypertension, hyperlipidemia, type 2 diabetes presenting to the emergency department for evaluation with concern for cough, shortness of breath, nausea, and vomiting. Patient states that she is been feeling bad since Friday with URI/cold symptoms that she was trying to treat initially [id number]. Her PCP called her in some amoxicillin for this, however she continues to feel worse. She states that overall she just feels very fatigued, short of breath, and nauseated. She is not been eating or drinking much. Related Data Home Medications ?Medication ?Instructions ?Recorded ?Confirmed albuterol sulfate 90 mcg/actuation 2 puff inhalation Q6HP PRN 07/10/23 08/12/24 aerosol inhaler Shortness Of Breath Or Wheezing metformin 500 mg tablet,extended 500 mg PO DAILY Diabetes 07/10/23 08/12/24 release 24 hr sertraline 25 mg tablet 25 mg PO DAILY MOOD 07/10/23 08/12/24 sertraline 50 mg tablet 50 mg PO DAILY MOOD 07/10/23 08/12/24 cyclobenzaprine 5 mg tablet 5 mg PO DAILY PRN MUSCLE SPASMS 05/24/24 08/12/24 Previous Rx's ?Medication ?Instructions ?Recorded albuterol sulfate 2.5 mg/3 mL 2.5 mg (3 mL) inhalation Q6H PRN 12/21/21 (0.083 %) solution for nebulization shortness of breath or wheezing #180 mL aspirin 81 mg tablet,delayed 81 mg PO DAILY 30 days #30 tabs 07/12/23 release isosorbide mononitrate 30 mg 30 mg PO DAILY 30 days #30 tabs 07/12/23 tablet,extended release 24 hr metoprolol tartrate 25 mg tablet 25 mg PO BID #60 tabs 02/19/24 clopidogrel 75 mg tablet See Rx Instructions .Route 09/08/24 .COMPLEX #30 tabs lisinopril 20 See Rx Instructions .Route 09/08/24 mg-hydrochlorothiazide 25 mg tablet .COMPLEX #30 tabs rosuvastatin 40 mg tablet See Rx Instructions .Route 09/08/24 .COMPLEX #30 tabs Allergies Allergy/AdvReac Type Severity Reaction Status Date / Time atorvastatin Allergy Mild shortness Verified 08/12/24 13:11 of breath Sulfa (Sulfonamide Allergy Mild Verified 08/12/24 13:11 Antibiotics) [facility] Disclaimer: The information contained in this section may have been updated after the patient was seen, as this information can be updated by other users. Medical History Pericardial effusion Coronary artery disease History of lung cancer Non-ST elevation DE (NSTEMI) Chest pain Abnormal electrocardiogram [ECG] [EKG] Dyspnea Atypical chest pain Family history of ischemic heart disease Acute bronchitis COVID-19 virus infection Acute exacerbation of chronic obstructive airways disease Pre-diabetes Diabetes mellitus Emphysema of lung COPD (chronic obstructive pulmonary disease) Non-small cell lung cancer Hyperlipidemia Hypertension SLE (systemic lupus erythematosus) Tobacco use Muscle strain of chest wall Vitamin D deficiency Rheumatoid arthritis Fibromyalgia Lupus Need for yzwqwjuenz-bwqsdbf-[id number] (Tdap) vaccine Tetanus Bilateral otitis media On methotrexate therapy Cough Social History Smoking Status: Current every day smoker tobacco type: cigarettes packs per day: 1 alcohol intake: never substance use type: denies use current occupational status: other Travel in the last 8 weeks: None Have you lived/traveled outside [place] in past 30 days?: No Contact w/someone who lives/traveled outside US past 30 days?: No Exposure to someone with infectious disease in past 14 days?: No Do you have a fever (greater than 100.4 F or 38 C)?: No Have you tested positive for COVID-19: No Exposed to someone with COVID-19 in past 14 days?: No Do you have a sore throat?: No Do you have a cough?: No Do you have any weakness?: No Do you have any diarrhea?: No Are you experiencing any unusual bleeding?: No Do you have any muscle aches/pain?: No Do you have any abdominal pain?: No Are you experiencing loss of taste or smell?: No Other Medical History Have you received the Flu Vaccine for this season: No Have you received the Pneumonia Vaccine: Yes ROS Obtained: Yes All systems reviewed & no additional complaints except as documented Physical Exam General General appearance: alert and in distress Comment: Ill-appearing Head Head exam: atraumatic and normocephalic Eye Eye exam: Present normal appearance, PERRL and EOMI ENT ENT exam: Present normal exam, normal oropharynx, mucous membranes moist and normal external ear exam Neck Neck exam: Present normal inspection, full ROM and trachea midline; Absent tenderness Chest Chest inspection: Present normal inspection and symmetric chest wall rise; Absent tenderness Respiratory Respiratory exam: Present respiratory distress, wheezes, accessory muscle use and prolonged expiratory phase; Absent stridor Cardiovascular Cardiovascular exam: Present regular rate and normal rhythm Abdominal Exam Abdominal exam: Present soft; Absent distention, tenderness or guarding Extremities Exam Extremities exam: Present normal inspection, full ROM and normal capillary refill; Absent tenderness or edema Back Exam Back exam: Present normal inspection and full ROM; Absent tenderness Neurological Exam Neurological exam: Present alert, oriented X3 and CN II-XII intact; Absent motor sensory deficit Psychiatric Psychiatric exam: Present normal affect and normal mood Skin Skin exam: Present warm and dry Medical Decision Making Medical Records Medical records reviewed: Yes I reviewed the patient's medical records. Screening: Per USPSTF and CDC recommendations, given the prevalence of disease in our region, it is our hospital?s policy to screen for HIV and viral Hepatitis for all patients aged 18 and over and those with ongoing risk factors. Jonathon Inquiry Pt receiving controlled substance: No Vital Signs: 11/02/24 19:30 11/02/24 19:46 11/02/24 20:00 Temperature Temperature Source Pulse Rate 99 H 95 H Pulse Rate [Right] 101 H Respiratory Rate 16 Blood Pressure 110/70 106/74 L Blood Pressure [Right Arm] 116/86 Blood Pressure Mean [Right Arm] 96 Blood Pressure Source Blood Pressure Position Blood Pressure Position [Right Arm] Sitting 02 Sat by Pulse Oximetry 99 96 99 Oxygen Delivery Method Nasal Cannula Oxygen Flow Rate (LPM) 4 11/02/24 20:20 11/02/24 20:45 11/02/24 21:15 Temperature Temperature Source Pulse Rate 98 H 100 H 105 H Pulse Rate [Right] Respiratory Rate 22 Blood Pressure 111/78 141/116 H Blood Pressure [Right Arm] Blood Pressure Mean [Right Arm] Blood Pressure Source Blood Pressure Position Blood Pressure Position [Right Arm] 02 Sat by Pulse Oximetry 98 99 Oxygen Delivery Method Oxygen Flow Rate (LPM) 11/02/24 21:20 11/02/24 21:30 11/02/24 22:00 Temperature Temperature Source Pulse Rate 103 H 105 H 103 H Pulse Rate [Right] Respiratory Rate 21 21 Blood Pressure 101/68 L 112/71 Blood Pressure [Right Arm] Blood Pressure Mean [Right Arm] Blood Pressure Source Blood Pressure Position Blood Pressure Position [Right Arm] 02 Sat by Pulse Oximetry 99 98 Oxygen Delivery Method Oxygen Flow Rate (LPM) 11/02/24 22:48 11/02/24 23:00 11/02/24 23:34 Temperature 98.2 F Temperature Source Oral Pulse Rate 103 H 98 H 100 H Pulse Rate [Right] Respiratory Rate 18 22 18 Blood Pressure 105/58 L 106/78 L 103/70 L Blood Pressure [Right Arm] Blood Pressure Mean [Right Arm] Blood Pressure Source Automatic Cuff Blood Pressure Position Sitting Blood Pressure Position [Right Arm] 02 Sat by Pulse Oximetry 96 97 Oxygen Delivery Method Nasal Cannula Oxygen Flow Rate (LPM) 4 Lab Data Lab results reviewed: Yes I reviewed the patient's lab results. Lab Results 11/02/24 19:23: SARS-CoV-2 (PCR) Not detected, Influenza A Untype (PCR) Not detected, Influenza Type B (PCR) Not detected 11/02/24 19:25: WBC 9.7, RBC 4.55, Hgb 12.5, Hct 36.9 L, MCV 81.1, MCH 27.5, MCHC 33.9, RDW 15.5, Plt Count 318, MPV 9.7, Neut % (Auto) 85.2 H, Lymph % (Auto) 9.5 L, [place] % (Auto) 4.2, Eos % (Auto) 0.2, Baso % (Auto) 0.2, Neut # (Auto) 8.2 H, Lymph # (Auto) 0.9, [place] # (Auto) 0.4, Eos # (Auto) 0.0, Baso # (Auto) 0.0, D-Dimer 0.97 H, Sodium 125 L, Potassium 3.3 L, Chloride 81 L, Carbon Dioxide 33 H, Anion Gap 14.3, BUN 18 H, Creatinine 0.70, Estimated GFR 86, Est GFR ( Amer) 104, Glucose 182 H, Calcium 9.0, Magnesium 2.1, Total Bilirubin 0.6, AST 50 H, ALT 30, Alkaline Phosphatase 99, Troponin I 0.57 H, C-Reactive Protein 79.4 H, NT-Pro-B Natriuret Pep 14636 H, Total Protein 8.0, Albumin 4.3, Globulin 3.7 H, Albumin/Globulin Ratio 1.2, Procalcitonin 0.105, TSH 1.35, Thyroxine (T4) 8.0, HCV Ab NICOLAS w/Rflx PCR Qn Negative, HIV Ag/Ab Combo Qual Negative 11/02/24 19:34: VBG pH 7.35, VBG pCO2 58.7 H, VBG pO2 37.7, VBG HCO3 31.4 H, VBG Total CO2 33.2 H, VBG O2 Saturation 67.2, VBG Base Excess 5.7 H, VBG Lactic Acid 3.7 H 11/02/24 22:37: Troponin I 0.60 H 11/02/24 19:25 11/02/24 19:25 Orders (Tests/Meds): ED MEDICATIONS Generic Name Dose Route Start Last Admin Trade Name Freq PRN Reason Stop Dose Admin Acetaminophen 650 mg 11/02/24 23:21 Acetaminophen 325mg Tab PO 12/02/24 23:20 Q4HP PRN Fever or Mild Pain (1-3) Albuterol/Ipratropium 3 ml 11/03/24 00:00 Ipratropium/Albuterol 3 Ml Neb 12/03/24 00:00 Q6RT BETTIE Enoxaparin Sodium 40 mg 11/03/24 09:00 Enoxaparin 40mg/0.4ml Syringe SUBCUT 12/03/24 08:59 DAILY BETTIE Furosemide 40 mg 11/02/24 23:31 11/02/24 23:40 Furosemide 40mg/4ml Vial IV 11/02/24 23:32 40 mg ONCE ONE Administration Insulin Human Lispro 0 unit 11/03/24 06:00 Humalog 100 Units/Ml 10ml Vial (Ssi) SUBCUT 12/03/24 05:59 ACHS [facility] Protocol Ondansetron HCl 4 mg 11/02/24 23:21 Ondansetron 4mg/2ml Vial IV 12/02/24 23:20 Q8HP PRN Nausea Pantoprazole Sodium 40 mg 11/03/24 21:00 Pantoprazole 40mg Tablet PO 12/03/24 20:59 HS [facility] Potassium Chloride 20 meq 11/02/24 23:36 Potassium Chloride 20meq Tab PO 11/02/24 23:37 ONCE ONE Sodium Chloride 10 ml 11/02/24 20:37 11/02/24 20:38 Sodium Chloride 0.9% 10ml Syr (Rad Only) IV 12/02/24 20:36 10 ml NEEDED PRN Administration Maintain IV Site Discontinued Medications Generic Name Dose Route Start Last Admin Trade Name Freq PRN Reason Stop Dose Admin Albuterol/Ipratropium 9 ml 11/02/24 19:39 11/02/24 20:28 Ipratropium/Albuterol 3 Ml [facility] 11/02/24 19:40 9 ml ONCE ONE Administration Albuterol/Ipratropium 3 ml 11/02/24 22:56 Ipratropium/Albuterol 3 Ml [facility] 11/02/24 22:57 ONCE ONE Potassium Chloride/Water 100 mls @ 100 mls/hr 11/02/24 19:50 11/02/24 20:59 Potassium Chloride 10meq/100ml Ivpb IV 11/02/24 20:49 100 mls/hr ONCE ONE Administration Magnesium Sulfate 2 gm in 50 mls @ 50 mls/hr 11/02/24 19:55 11/02/24 20:59 Magnesium Sulfate 2gm/50ml Premix IV 11/02/24 20:54 50 mls/hr ONCE ONE Administration Sodium Chloride 500 mls @ 999 mls/hr 11/02/24 20:05 11/02/24 21:00 Sod Chlor 0.9% 1000ml Bag IV 11/02/24 20:35 999 mls/hr .Q31M ONE Administration Ceftriaxone Sodium 2 gm/ 100 mls @ 200 mls/hr 11/02/24 21:19 11/02/24 22:04 Sodium Chloride IV 11/02/24 21:48 200 mls/hr ONCE ONE Administration Azithromycin 500 mg/ Sodium 250 mls @ 250 mls/hr 11/02/24 21:20 11/02/24 23:39 Chloride IV 11/02/24 21:21 250 mls/hr ONCE ONE Administration Iopamidol 70 ml 11/02/24 20:37 11/02/24 20:38 Iopamidol-370 (76%);100ml Bottle IV 11/02/24 20:38 70 ml ONCE ONE Administration Methylprednisolone Sodium Succinate 125 mg 11/02/24 19:39 11/02/24 20:59 Methylprednisolone Sod Succ 125mg Vial IV 11/02/24 19:40 125 mg ONCE ONE Administration Ondansetron HCl 4 mg 11/02/24 19:39 11/02/24 20:59 Ondansetron 4mg/2ml Vial IV 11/02/24 19:40 4 mg ONCE ONE Administration Sodium Chloride 50 ml 11/02/24 20:37 11/02/24 20:38 0.9 % Sodium Chloride 50 Ml Vial IV 11/02/24 20:38 50 ml ONCE ONE Administration ORDERS Category Date Time Status CT angio chest PE protocol Stat Cat Scan 11/02/24 20:04 Completed CXR --portable [XR chest portable] Stat Exams 11/02/24 19:39 Completed POCUS Point of Care (ER Only) Stat Exams 11/02/24 21:19 Completed BNP [NT Pro Brain Natriuretic Pep.] Stat Lab 11/02/24 19:25 Completed CRP [C-Reactive Protein] Stat Lab 11/02/24 19:25 Completed Complete Blood Count Auto Diff Stat Lab 11/02/24 19:25 Completed Comprehensive Metabolic Panel Stat Lab 11/02/24 19:25 Completed D-Dimer Stat Lab 11/02/24 19:25 Completed HIV Combo Stat Lab 11/02/24 19:25 Completed Hepatitis C Ab Qual. W/ RFX Stat Lab 11/02/24 19:25 Completed Magnesium Stat Lab 11/02/24 19:25 Completed Procalcitonin Stat Lab 11/02/24 19:25 Completed Rapid PCR Covid and Flu A/B Stat Lab 11/02/24 19:23 Completed T4 (Thyroxine) Stat Lab 11/02/24 19:25 Completed TSH [Thyroid Stimulating Hormone] Stat Lab 11/02/24 19:25 Completed Trop I [Troponin I] Stat Lab 11/02/24 19:25 Completed Troponin I Q3H Lab 11/02/24 22:37 Completed Troponin I Q3H Lab 11/03/24 01:45 Ordered Blood Culture Stat Micro 11/02/24 21:31 Ordered VBG [Venous Blood Gas] Stat RT 11/02/24 19:34 Completed ECG Data Tracing #1: I reviewed this ECG and interpreted as documented below: Sinus tachycardia with a ventricular to 100 bpm. Incomplete right bundle branch block. No acute ST changes concerning for STEMI ECG initial impression date: 11/02/24 ECG initial impression time: 20:26 Medical Decision Narrative: In summary, this patient is a 59-year-old female presenting to the Emergency Department for evaluation of cough, shortness of breath, nausea, vomiting, fatigue, poor appetite. Differential diagnoses considered include but are not limited to pneumonia, COPD exacerbation, CHF exacerbation, respiratory failure, gastroenteritis, PE, DKA, HHS. Ruling out the most morbid conditions drove assessment. It should be noted patient's history includes hypertension, hyperlipidemia, CAD, type 2 diabetes, COPD which likely are not at goal therapy. This complicates all aspects of care by increasing patient's risk for morbidity. I reviewed patient's past medical records and noted prior cardiology evaluations for CAD in the past. I also note that she has a history of prior pericardial effusion. On exam, the patient is in respiratory distress. She is ill-appearing. She is saturating well on her home oxygen but with accessory muscle use, tachypnea, wheezing. Workup included lab evaluation to evaluate for infectious, metabolic, cardiac derangements as a cause of her symptoms as well as chest x-ray and EKG. She was given DuoNebs x 3 as well as IV magnesium and steroids given her increased work of breathing with concern for COPD observation based on her current presentation. I independently interpreted chest x-ray prior to the radiologist read and noted for developing right-sided pneumonia as well as cardiomegaly. Please see their read for final interpretation. Labs were obtained that demonstrated reassuring CBC with no significant leukocytosis or anemia, D-dimer is elevated at 0.97. VBG demonstrates a compensated respiratory acidosis lactic acid mildly elevated. Patient has hyponatremia, which appears to be acute. She also has hypokalemia. Initial troponin is elevated with no STEMI noted on EKG. She does have a significantly elevated BNP. I administered a 500 cc bolus of IV fluids with running and IV potassium, but I did not give her any additional fluids because of concern for volume overload with elevated BNP. Given elevated D-dimer, I ordered a CT PE protocol. I independently interpreted CT prior to radiology read and noted pericardial effusion, pneumonia. I do not see PE. Please see radiology read for final interpretation. They note that the consolidation could be pneumonia versus mass, but in this clinical picture I favor pneumonia. Recommended follow-up to resolution. I performed a bedside cardiac ultrasound given the pericardial effusion, and she does have an effusion but no evidence of tamponade. She does have global hypokinesis as well. On reassessment, patient had initial great improvement after administration of interventions above, but she did develop some worsening shortness of breath on subsequent reassessments. Vitals remained stable on cardiac telemetry with no hypotension, hypoxia, or other acute concern. Given her elevated troponin concerning for NSTEMI, CHF exacerbation with elevated BNP, pneumonia with COPD exacerbation, and pericardial effusion, I feel she would benefit from admission to the hospital for cardiac evaluation, IV antibiotics, and further monitoring. I had an interactive discussion with the hospitalist who admitted the patient in stable condition. Procedures Limited Ultrasound Findings:: Limited cardiac ultrasound Indication: Shortness of Identified cardiac views: [-Cardiac parasternal long axis] [-Cardiac subxiphoid] Findings: [-Cardiac activity present -Gross wall motion abnormal, global hypokinesis -Pericardial effusion present, no tamponade -Right heart strain absent] Impression: -[From above] Images were saved to permanent archive The study was technically adequate CPT: 36007 This study was performed by me, and I personally interpreted all images/videos. Based on my clinical judgement, these images were adequate and did not necessitate further imaging. Critical Care Critical Care Time Critical Care Time: Yes Attestation: On 11/02/24, the high probability of a clinically significant, sudden or life threatening deterioration of the following system(s) required my full and direct attention, intervention and personal management. The time I documented below is in addition to time spent performing reported procedures but includes the following listed in this critical care notation. Total Time Total Critical Care Time: 45
--- NOTE | 2024-11-02 20:03 | PC.NURSE ---
Notified Denis Kim of critical ABG results
[2024-11-02 20:04] LABS: Troponin I 0.57 ng/ml (0.00-0.034)
--- NOTE | 2024-11-02 20:04 | CT_ITS ---
PROCEDURE INFORMATION: Exam: CTA Chest With Contrast Exam date and time: 11/02/2024 8:34 PM Age: 59 years old Clinical indication: Shortness of breath; Additional info: SOA TECHNIQUE: Imaging protocol: Computed tomographic angiography of the chest with contrast. Exam focused on the arteries. 3D rendering (Not supervised by radiologist): MIP and/or 3D reconstructed images were created by the technologist. Radiation optimization: All CT scans at this facility use at least one of these dose optimization techniques: automated exposure control; mA and/or kV adjustment per patient size (includes targeted exams where dose is matched to clinical indication); or iterative reconstruction. Contrast material: ISOVUE; Contrast volume: 70 ml; Contrast route: INTRAVENOUS (IV); COMPARISON: CT ANGIO CHEST PE PROTOCOL 07/31/2022 11:01 AM FINDINGS: Pulmonary arteries: No evidence of pulmonary embolus to the segmental level. Aorta: No aneurysm of the aorta. No dissection of the aorta. Lungs: Consolidation in the posterior aspect of the right upper lobe may represent pneumonia or malignancy. It measures 5.8 x 2.6 cm series 5, image 38. The mass appears to attenuate the bronchus series 5, image 45 is suggesting that there may be a malignancy. Pleural spaces: Unremarkable. No pneumothorax. No pleural effusion. Heart: Pericardial effusion of 15 mm.. Coronary arteries: Coronary artery calcifications may indicate coronary artery disease. Lymph nodes: Unremarkable. No enlarged lymph nodes. Bones/joints: Unremarkable. No acute fracture. Soft tissues: Unremarkable. IMPRESSION: 1. No evidence of pulmonary embolus to the segmental level. 2. No aneurysm of the aorta. 3. No dissection of the aorta. 4. Pericardial effusion of 15 mm.. 5. Consolidation in the posterior aspect of the right upper lobe may represent pneumonia or malignancy. It measures 5.8 x 2.6 cm series 5, image 38. The mass appears to attenuate the bronchus series 5, image 45 is suggesting that there may be a malignancy.
--- NOTE | 2024-11-02 20:04 | PC.NURSE ---
Critical called for troponin 0.57
[2024-11-02 20:18] LABS: Thyroid Stimulating Hormone 1.35 uIU/mL (0.465-4.68)
--- NOTE | 2024-11-02 20:24 | ECG_ITS ---
APPROVED REPORT Exam: Resting ECG HR:100 bpm ECG Measurements Heart Rate 100 AXES VA 201 P 50 QRSd 94 QRS 164 QT 290 T 78 QTc 347 Conclusion SINUS TACHYCARDIA INCOMPLETE RIGHT BUNDLE BRANCH BLOCK [90+ ms QRS DURATION, TERMINAL R IN V1/V2, 40+ ms S IN I/aVL/V4/V5/V6] POSSIBLE RIGHT VENTRICULAR HYPERTROPHY [SOME/ALL OF: PROMINENT R IN V1, LATE TRANSITION, RAD, WILFRED, SSS] ANTEROSEPTAL MYOCARDIAL INFARCTION , OF INDETERMINATE AGE [40+ ms Q WAVE IN V1-V4] No STEMI Electronically signed by : DEVAUGHN HACKETT, 11/02/2024 23:48:58
[2024-11-02] MEDS: IPRATROPIUM/ALBUTEROL 3 ML NEB 9 ML IH (20:28)
[2024-11-02] MEDS: SODIUM CHLORIDE 0.9% 10ML SYR (RAD ONLY) 10 ML IV (20:38)
[2024-11-02] MEDS: 0.9 % SODIUM CHLORIDE 50 ML VIAL IV (20:38)
[2024-11-02] MEDS: IOPAMIDOL-370 (76%);100ML BOTTLE 70 ML IV (20:38)
[2024-11-02 20:59] LABS: Procalcitonin 0.105 ng/mL (0.0-2.0)
[2024-11-02] MEDS: ONDANSETRON 4MG/2ML VIAL 4 MG IV (20:59)
[2024-11-02] MEDS: KCl 10mEq/100ml 100 ML 100 MEQ IV (20:59)
[2024-11-02] MEDS: MAGNESIUM SULFATE IN WATER 2 GM/50 ML PIGGYBACK IV (20:59)
[2024-11-02] MEDS: METHYLPREDNISOLONE SOD SUCC 125MG VIAL 125 MG IV (20:59)
[2024-11-02] MEDS: 0.9 % SODIUM CHLORIDE 1000ML 500 ML 999 ML IV (21:00)
[2024-11-02] MEDS: CEFTRIAXONE SODIUM 2 GM in 0.9 % SODIUM CHLORIDE 100 ML IV (22:04)
[2024-11-02 22:34] LABS: HIV Combo NEGATIVE (Negative)
[2024-11-02 22:42] LABS: Hepatitis C Ab Qual. W/ RFX NEGATIVE (Negative)
--- NOTE | 2024-11-02 23:12 | PC.NURSE ---
critical called from lab, troponin 0.60
--- NOTE | 2024-11-02 23:32 | PC.NURSE ---
Report called to OCTAVIO Her
[2024-11-02] MEDS: AZITHROMYCIN 500 MG in 0.9 % SODIUM CHLORIDE 250 ML 250 MG IV (23:39)
--- NOTE | 2024-11-02 23:39 | P.HP_ITS ---
<Statement entered by Romero Perez MD - 11/03/24 22:11> Rounded on patient after nurse practitioner. Personally examined and interviewed patient. Agree with exam findings and care plan as documented. Significantly wheezy on exam. Appears to have COPD exacerbation in conjunction with respiratory failure. Patient continues to smoke. Agree with antibiotics and breathing treatments. Will consider initiating steroids in the morning. History of Present Illness *Admission Date: 11/02/24 *Reason for visit:: Shortness of Breath *History of present illness: A 59-year-old female with a history of lung cancer (status post chemo and radiation, in remission since 2020), chronic obstructive pulmonary disease (COPD) on 2 L nasal cannula chronically, coronary artery disease (CAD), hypertension, hyperlipidemia, type 2 diabetes, and prior pericardial effusion presents to the emergency department for evaluation of cough, shortness of breath, nausea, vomiting, fatigue, and poor appetite. She reports symptoms began Friday with upper respiratory infection (URI)/cold-like symptoms, initially treated with [id number] medications. Her primary care physician (PCP) prescribed amoxicillin, but she continued to worsen, feeling fatigued, short of breath, and nauseated, with minimal eating or drinking. The history was obtained through interactive discussion with the patient, who is deemed reliable, and review of past medical records noting prior cardiology evaluations for CAD. On examination, the patient is in respiratory distress, ill-appearing, with accessory muscle use, tachypnea, and wheezing, saturating well on 4 L nasal cannula (vital signs not fully specified but stable for telemetry). Physical exam is otherwise unremarkable beyond respiratory findings. Bedside cardiac ultrasound performed by the ED provider shows a pericardial effusion without tamponade and global hypokinesis. Diagnostic workup includes labs, EKG, chest X-ray, and CTA chest (PE protocol). Labs show normal WBC (9.7), hemoglobin (12.5), creatinine (0.7), GFR (86), elevated glucose (182), low sodium (125), low potassium (3.3), low chloride (81), elevated CO2 (33), elevated troponin (0.57, later 0.60), elevated NT- proBNP (31357), elevated CRP (79.4), elevated AST (50), normal magnesium (2.1), and normal T4 (8.0). VBG shows pH 7.35, elevated pCO2 (58.7), elevated bicarbonate (31.4), and elevated lactate (3.7). Respiratory panel is negative for SARS-CoV-2, influenza A, and B. EKG, independently interpreted, shows sinus tachycardia (100 bpm), incomplete right bundle branch block, and no acute ST changes. Chest X-ray, independently interpreted, suggests developing right-sided pneumonia and cardiomegaly, pending radiology read. CTA chest, independently interpreted, shows no pulmonary embolism but a 15 mm pericardial effusion and right upper lobe consolidation (5.8 x 2.6 cm), possibly pneumonia or malignancy, with radiology noting potential mass but favoring pneumonia clinically. Treatments implemented in the emergency department include albuterol-ipratropium (DuoNeb) nebulizers x3, intravenous magnesium, and steroids for suspected COPD exacerbation and increased work of breathing, a 500 cc normal saline bolus, and 10 mEq IV potassium for hypokalemia. No additional fluids were given due to concern for volume overload (NT-proBNP 31671). On reassessment, the patient initially improved but later developed worsening shortness of breath, remaining stable on telemetry without hypotension or hypoxia. The patient was admitted to the hospitalist service in stable condition for further management. [facility] Disclaimer: The information contained in this section may have been updated after the patient was seen, as this information can be updated by other users. Medical History Pericardial effusion Coronary artery disease History of lung cancer Non-ST elevation [place] (NSTEMI) Chest pain Abnormal electrocardiogram [ECG] [EKG] Dyspnea Atypical chest pain Family history of ischemic heart disease Acute bronchitis COVID-19 virus infection Acute exacerbation of chronic obstructive airways disease Pre-diabetes Diabetes mellitus Emphysema of lung COPD (chronic obstructive pulmonary disease) Non-small cell lung cancer Hyperlipidemia Hypertension SLE (systemic lupus erythematosus) Tobacco use Muscle strain of chest wall Vitamin D deficiency Rheumatoid arthritis Fibromyalgia Lupus Need for eajatiuieq-hbjaemk-sjvlkepub (Tdap) vaccine Tetanus Bilateral otitis media On methotrexate therapy Cough Social History (Updated 11/03/24 @ 01:09 by Shila Spears RN) Smoking Status: Heavy tobacco smoker tobacco type: cigarettes packs per day: 1 alcohol intake: never substance use type: denies use current occupational status: other Travel in the last 8 weeks: None Have you lived/traveled outside [place] in past 30 days?: No Contact w/someone who lives/traveled outside US past 30 days?: No Exposure to someone with infectious disease in past 14 days?: No Do you have a fever (greater than 100.4 F or 38 C)?: No Have you tested positive for COVID-19: No Exposed to someone with COVID-19 in past 14 days?: No Do you have a sore throat?: No Do you have a cough?: No Do you have any weakness?: No Do you have any diarrhea?: No Are you experiencing any unusual bleeding?: No Do you have any muscle aches/pain?: No Do you have any abdominal pain?: No Are you experiencing loss of taste or smell?: No Other Medical History Have you received the Flu Vaccine for this season: No Have you received the Pneumonia Vaccine: Yes Review of Systems Review of Systems Review of systems (narrative): 13 point review of system negative except as listed in HPI Meds Home Medications and Allergies Home Medications ?Medication ?Instructions ?Recorded ?Confirmed ?Type albuterol sulfate 2.5 mg/3 mL 2.5 mg (3 mL) inhalation Q6H PRN 12/21/21 11/03/24 Rx (0.083 %) solution for nebulization shortness of breath or wheezing #180 mL albuterol sulfate 90 mcg/actuation 2 puff inhalation Q6HP PRN 07/10/23 11/03/24 History aerosol inhaler Shortness Of Breath Or Wheezing metformin 500 mg tablet,extended 500 mg PO DAILY Diabetes 07/10/23 11/03/24 History release 24 hr sertraline 25 mg tablet 25 mg PO DAILY MOOD 07/10/23 11/03/24 History sertraline 50 mg tablet 50 mg PO DAILY MOOD 07/10/23 11/03/24 History aspirin 81 mg tablet,delayed 81 mg PO DAILY 30 days #30 tabs 07/12/23 11/03/24 Rx release isosorbide mononitrate 30 mg 30 mg PO DAILY 30 days #30 tabs 07/12/23 11/03/24 Rx tablet,extended release 24 hr metoprolol tartrate 25 mg tablet 25 mg PO BID #60 tabs 02/19/24 11/03/24 Rx cyclobenzaprine 5 mg tablet 5 mg PO DAILY PRN MUSCLE SPASMS 05/24/24 11/03/24 History clopidogrel 75 mg tablet 75 mg PO DAILY 11/03/24 11/03/24 History lisinopril 20 25 tab PO DAILY 11/03/24 11/03/24 History mg-hydrochlorothiazide 25 mg tablet loratadine 10 mg tablet 10 mg PO DAILY Allergy Symptoms 11/03/24 11/03/24 History rosuvastatin 40 mg tablet 40 mg PO DAILY 11/03/24 11/03/24 History New Prescriptions to Start Prescriptions: Allergies Allergy/AdvReac Type Severity Reaction Status Date / Time atorvastatin Allergy Mild shortness Verified 08/12/24 13:11 of breath Sulfa (Sulfonamide Allergy Mild Verified 08/12/24 13:11 Antibiotics) Exam Data for Last 24 hours Vital signs and Labs for Last 24 Hours: Temp Pulse Resp BP Pulse Ox O2 Del Method O2 Flow Rate 98.2 F 100 H 18 103/70 L 97 Nasal Cannula 4 11/02/24 23:34 11/02/24 23:34 11/02/24 23:34 11/02/24 23:34 11/02/24 23:00 11/02/24 23:34 11/02/24 23:34 Laboratory Results - last 24 hr 11/02/24 19:23: SARS-CoV-2 (PCR) Not detected, Influenza A Untype (PCR) Not detected, Influenza Type B (PCR) Not detected 11/02/24 19:25: WBC 9.7, RBC 4.55, Hgb 12.5, Hct 36.9 L, MCV 81.1, MCH 27.5, MCHC 33.9, RDW 15.5, Plt Count 318, MPV 9.7, Neut % (Auto) 85.2 H, Lymph % (Auto) 9.5 L, [place] % (Auto) 4.2, Eos % (Auto) 0.2, Baso % (Auto) 0.2, Neut # (Auto) 8.2 H, Lymph # (Auto) 0.9, [place] # (Auto) 0.4, Eos # (Auto) 0.0, Baso # (Auto) 0.0, D-Dimer 0.97 H, Sodium 125 L, Potassium 3.3 L, Chloride 81 L, Carbon Dioxide 33 H, Anion Gap 14.3, BUN 18 H, Creatinine 0.70, Estimated GFR 86, Est GFR ( Amer) 104, Glucose 182 H, Calcium 9.0, Magnesium 2.1, Total Bilirubin 0.6, AST 50 H, ALT 30, Alkaline Phosphatase 99, Troponin I 0.57 H, C-R eactive Protein 79.4 H, NT-Pro-B Natriuret Pep 91220 H, Total Protein 8.0, Albumin 4.3, Globulin 3.7 H, Albumin/Globulin Ratio 1.2, Procalcitonin 0.105, TSH 1.35, Thyroxine (T4) 8.0, HCV Ab NICOLAS w/Rflx PCR Qn Negative, HIV Ag/Ab Combo Qual Negative 11/02/24 19:34: VBG pH 7.35, VBG pCO2 58.7 H, VBG pO2 37.7, VBG HCO3 31.4 H, VBG Total CO2 33.2 H, VBG O2 Saturation 67.2, VBG Base Excess 5.7 H, VBG Lactic Acid 3.7 H 11/02/24 22:37: Troponin I 0.60 H I & O for Last 24 hours: Intake & Output 10/30/24 10/31/24 11/01/24 11/02/24 23:59 23:59 23:59 23:59 Weight 68.946 kg Constitutional Constitutional: mild distress, obese and chronically ill appearing *Routine HEENT Exam Head: Present normocephalic Eye: Present EOMI and PERRL ENT: Present mucous membranes moist *Routine Neck Exam Neck: Present supple; Absent lymphadenopathy *Routine Respiratory Exam Respiratory: Present accessory muscle use, wheezes and diminished air movement *Routine Cardiovascular Exam Cardiovascular: Present RRR *Routine Abdominal Exam Abdominal: Present soft and normoactive bowel sounds; Absent tenderness *Routine Rectal Exam Rectal:: deferred *Routine Genitalia Exam Genitalia:: deferred *Routine Extremities Exam Extremities: Absent cyanosis, clubbing or edema *Routine Skin Exam Skin: Present warm; Absent rash *Routine Neurological Exam Neurological: Present alert and oriented X3 Assessment and Plan *Assessment and plan (1) Non-ST elevation [place] (NSTEMI): Status: Acute Category: Medical Code(s): I21.4 - Non-ST elevation (NSTEMI) myocardial infarction (2) Pneumonia: Status: Acute Category: Medical Code(s): J18.9 - Pneumonia, unspecified organism (3) Hypokalemia: Status: Acute Category: Medical Code(s): E87.6 - Hypokalemia (4) Hyponatremia: Status: Acute Category: Medical Code(s): E87.1 - Hypo-osmolality and hyponatremia (5) Acute exacerbation of CHF (congestive heart failure): Status: Acute Category: Medical Code(s): I50.9 - Heart failure, unspecified (6) Acute exacerbation of chronic obstructive pulmonary disease: Status: Acute Category: Medical Code(s): J44.1 - Chronic obstructive pulmonary disease with (acute) exacerbation (7) Pericardial effusion: Status: Acute Category: Medical Code(s): I31.39 - Other pericardial effusion (noninflammatory) (8) Acute and chronic respiratory failure: Status: Acute Category: Medical Code(s): J96.20 - Acute and chronic respiratory failure, unspecified whether with hypoxia or hypercapnia (9) Diabetes mellitus: Status: Acute Qualifiers: Diabetes mellitus complication status: with other specified complication Diabetes mellitus snf insulin use: unspecified snf insulin use status Diabetes mellitus type: type 2 Qualified Code(s): E11.69 - Type 2 diabetes mellitus with other specified complication Category: Medical Code(s): E11.9 - Type 2 diabetes mellitus without complications (10) Tobacco use: Status: Acute Category: Social Hx Code(s): Z72.0 - Tobacco use (11) Hypertension: Status: Acute Qualifiers: Hypertension type: essential hypertension Qualified Code(s): I10 - Essential (primary) hypertension Category: Medical Code(s): I10 - Essential (primary) hypertension (12) Hyperlipidemia: Status: Acute Qualifiers: Hyperlipidemia type: unspecified Qualified Code(s): E78.5 - Hyperlipidemia, unspecified Category: Medical Code(s): E78.5 - Hyperlipidemia, unspecified (13) Coronary artery disease: Status: Chronic Qualifiers: Associated angina: without angina Coronary Disease-Associated Artery/Lesion type: [place] artery [place] vs. transplanted heart: [place] heart Qualified Code(s): I25.10 - Atherosclerotic heart disease of [place] coronary artery without angina pectoris Category: Medical Code(s): I25.10 - Atherosclerotic heart disease of [place] coronary artery without angina pectoris Plan * COPD Exacerbation: Cough, shortness of breath, wheezing, accessory muscle use, tachypnea, on 4 L nasal cannula, with CTA showing right upper lobe consolidation, negative respiratory panel. * Continue albuterol-ipratropium nebulizer every 4?6 hours as needed. * Continue steroids (e.g., prednisone 40 mg oral daily for 5 days or methylprednisolone 125 mg IV x1, then oral). * Maintain 4 L nasal cannula, titrating to saturation >92; monitor respiratory rate every 2 hours. * Order sputum culture and Gram stain to guide antibiotic therapy. * Consult pulmonology for COPD management and consolidation evaluation. * Recheck VBG in 6 hours for pCO2 (58.7) and lactate (3.7). * Right Upper Lobe Pneumonia (Presumed): CTA showing 5.8 x 2.6 cm consolidation, favored as pneumonia over malignancy, in a patient with lung cancer remission since 2020. * Continue ceftriaxone 1 g IV daily and azithromycin 500 mg IV daily, incorporating prior amoxicillin course. * Obtain sputum culture; consider levofloxacin if no response in 48 hours. * Monitor for fever, worsening cough, or hemoptysis every 4 hours. * Consult infectious disease if no improvement or atypical pathogens suspected. * Order follow-up chest CT in 6?8 weeks to ensure resolution. * Consult oncology to rule out malignancy recurrence. * Heart Failure Exacerbation with Pericardial Effusion: Elevated NT-proBNP (91831), troponin (0.55), 15 mm effusion on CTA, global hypokinesis, no tamponade, with nausea, fatigue, poor appetite. * Administer furosemide 40 mg IV daily for volume overload, holding if BP <100 systolic. * Replace potassium with 20 mEq potassium chloride IV over 2 hours with furosemide, then 20 mEq oral; recheck potassium and magnesium (2.1) in 4 hours (~3:35 AM, post-11:35 PM dose) to maintain >3.5. * Order echocardiogram to assess effusion, tamponade risk, and ejection fraction. * Monitor daily weights, input/output, edema every 8 hours; restrict sodium to 2 g/day. * Consult cardiology for effusion management and heart failure optimization. * Recheck NT-proBNP in 12 hours. * Non-ST Elevation Myocardial Infarction (NSTEMI, Suspected): Troponin 0.55 (down from 0.60), no STEMI on EKG (sinus tachycardia, incomplete RBBB), likely demand ischemia from heart failure (NT-proBNP 88151) or respiratory distress, in a patient with CAD, no chest pain. * Trend troponin every 6 hours to confirm downward trend; repeat EKG if chest pain, dyspnea, or new symptoms. * Continue aspirin 81 mg oral daily (verify home use) for CAD secondary prevention; hold additional anticoagulation due to stable troponin, pericardial effusion (15 mm), and no clear ACS evidence. * Monitor for chest pain, ischemic symptoms, or EKG changes every 4 hours; notify cardiology if troponin rises above 1.[address] changes occur. * Consult cardiology for NSTEMI evaluation defer heparin unless ACS confirmed. * Maintain telemetry for arrhythmia monitoring, given CAD and heart failure. * Hyperglycemia (Glucose 182): Elevated glucose, stress-induced, no DKA/HHS (pH 7.35, negative ketones). * Verify home diabetes medications (e.g., metformin, insulin); hold oral agents due to nausea/vomiting. * Administer sliding-scale insulin (e.g., aspart 4 units subcutaneous) for glucose >180. * Monitor glucose every 6 hours; order hemoglobin A1c. * Recheck glucose with morning labs. * Hyponatremia (Sodium 125): Severe hyponatremia, likely dilutional from heart failure or SIADH, with nausea, fatigue. * Restrict free water to 1 L/day; hold further IV fluids beyond furosemide needs. * Recheck sodium every 6 hours, targeting correction <8 daily. * Order serum osmolality, urine sodium, urine osmolality for SIADH vs. heart failure. * Hypokalemia (Potassium 3.3): Mild hypokalemia, likely from vomiting or heart failure, received 10 mEq IV potassium in ED, at risk with furosemide. * Administer 20 mEq potassium chloride IV over 2 hours with furosemide 40 mg IV, then 20 mEq oral. * Recheck potassium in 4 hours (~3:35 AM) until >3.5; repeat 20 mEq oral if <3.5. * Monitor EKG for hypokalemia changes if potassium falls below 3.0; obtain stat EKG if <2.8. * Administer magnesium sulfate 2 g IV if potassium replacement ineffective or magnesium <2.0 (currently 2.1). * Hypertension and Hyperlipidemia: Chronic, likely not optimized, no acute crisis. * Verify home antihypertensive and statin; hold antihypertensives if BP <110 systolic. * Monitor BP every 4 hours, targeting <140/90 once stable. * History of Lung Cancer in Remission: Remission since 2020, consolidation raises recurrence concern. * Consult oncology urgently for evaluation; compare with prior imaging. * Monitor for weight loss, night sweats, symptoms every 8 hours. * Coordinate with [facility] for records. * Nausea, Vomiting, Poor Appetite: Likely from heart failure, infection, or gastroenteritis, no diarrhea. * Continue ondansetron 4 mg IV every 8 hours as needed. * Offer small, frequent meals; consult dietitian for support. * Monitor for dehydration or worsening appetite every 8 hours. * Consult gastroenterology if vomiting persists. Additional Orders: * Admit to medical-surgical floor with telemetry for respiratory distress, heart failure, NSTEMI. * Maintain 4 L nasal cannula, titrating to saturation >92. * Check vitals every 4 hours, including glucose every 6 hours. * Offer acetaminophen 650 mg oral every 6 hours as needed; avoid NSAIDs. * Educate patient and family on COPD, heart failure, pneumonia, malignancy concerns. * Arrange follow-up with cardiology, pulmonology * Expedite chest X-ray, sputum culture
[2024-11-02] MEDS: FUROSEMIDE 40MG/4ML VIAL 40 MG IV (23:40)
--- NOTE | 2024-11-02 23:51 | PC.NURSE ---
Patient arrived to floor via wheelchair from ED at 23:49.
[2024-11-02 23:56] LABS: Reflex Lactic Add Lactic Reflex
[2024-11-03] VITALS (12 sets, daily range): BP systolic 92–104; BP diastolic 54–80; PULSE 78–105; RESP 19–22; TEMP 36.6–36.7; O2SAT 93–99
[2024-11-03] MEDS: IPRATROPIUM/ALBUTEROL 3 ML NEB IH ×5 (00:04→18:31)
[2024-11-03] MEDS: POTASSIUM CHLORIDE 20MEQ TAB 20 MEQ PO ×2 (00:28→09:16)
[2024-11-03 01:29] LABS: Lactic Acid Follow Up (RFLX 1) 1.3 mmol/L (0.7-2.1)
[2024-11-03 02:20] LABS: Troponin I 0.55 ng/ml (0.00-0.034)
--- NOTE | 2024-11-03 02:22 | PC.NURSE ---
Pt. had critical lab result Tropinin 0.55. Luz Marina Rodríguez contacted Giovanni Phan APRN with result.
[2024-11-03] MEDS: humaLOG 100 UNITS/ML 10ML VIAL (SSI) SUBCUT ×2 (05:49→20:32)
[2024-11-03 05:57] LABS: Lactate Venous 1.4 mmol/L (0.4-2.0); VBG Base Excess 3.8 mmol/L (-2.4-2.3); VBG HCO3 27.8 mmol/L (23-30); VBG Oxygen Saturation 99.3 % (50-70); VBG PCO2 41.1 mmol/L (35-51); VBG PH 7.45 mmol/L (7.31-7.41); VBG Total CO2 29.1 mmol/L (23-27)
--- NOTE | 2024-11-03 05:58 | PC.NURSE ---
This patient was admitted overnight from the ED with CHF, COPD exacerbation, and pneumonia. Pt. states that she has been feeling sick for 4-5 days, felt weak, had some nausea, and vomiting. when admitted to floor. Pt. had audible wheezes, , lung sounds with inspiratory/expiratory wheezes. Pt. on 3.5 liters of o2 per NC. Pt. has hx. of lung cancer and has been in remission. Pt. sob but able to speak in sentences. Pt. was given lasix in the ED, purewick placed on patient with good urine output. Pt.slept well but awoke coughing. Personal items and call loredo in reach.
[2024-11-03] MEDS: SODIUM CHLORIDE 3% 15ML NEB 3 ML IH (06:18)
[2024-11-03 06:27] LABS: Basophils % 0.1 % (0.1-2.0); Hemoglobin 11.6 g/dL (12.2-16.2); Lymphocytes # 0.6 K/mm3 (0.7-4.5); Lymphocytes % 6.5 % (10-50); Mean Corpuscular HGB Conc 33.1 g/dL (31.8-35.4); Mean Corpuscular Hemoglobin 27.4 pg (27.0-31.2); Mean Corpuscular Volume 82.5 fl (81-99); Mean Platelet Volume 9.9 fl (7.4-10.4); Monocytes # 0.2 K/mm3 (0.1-1.0); Monocytes % 2.6 % (1.7-9.3); Neutrophils # 7.6 K/mm3 (1.8-7.8); Neutrophils % 89.7 % (37.0-80.0); Nucleated Red Blood Cells # 0 10^3/uL; Nucleated Red Blood Cells % 0 %; Platelet Count 251 K/mm3 (142-424); Red Blood Count 4.24 M/mm3 (4.20-5.40); Red Cell Distribution Width 15.3 % (11.5-17.5); Red Cell Distribution Width-SD 46.5 fL; White Blood Count 8.5 K/mm3 (4.8-10.8)
[2024-11-03 06:30] LABS: POC Glucose,Bedside 152 (70-110)
--- NOTE | 2024-11-03 07:44 | HMH.PHAINT1 ---
Pharmacy Intervention Comments: HOME MEDICATION LIST VERIFIED USING LIST FROM OUTPATIENT PHARMACY AND PT INTERVIEW
[2024-11-03] MEDS: NICOTINE 21MG/24HR PATCH 21 MG TD (09:15)
[2024-11-03] MEDS: NYSTATIN TOPICAL POWDER 30GM TP ×4 (09:15→20:32)
[2024-11-03] MEDS: ASPIRIN EC 81MG TABLET 81 MG PO (09:15)
[2024-11-03] MEDS: SERTRALINE 50MG TABLET 75 MG PO (09:15)
[2024-11-03] MEDS: METHYLPREDNISOLONE SOD SUCC 40MG VIAL 40 MG IV ×2 (09:16→20:32)
[2024-11-03] MEDS: CLOPIDOGREL 75MG TAB 75 MG PO (09:18)
[2024-11-03] MEDS: FUROSEMIDE 40MG/4ML VIAL 40 MG IV ×2 (09:32→15:36)
[2024-11-03] MEDS: METOPROLOL TARTRATE 25MG TABLET 25 MG PO ×2 (09:32→20:32)
--- NOTE | 2024-11-03 09:42 | CA_ITS ---
APPROVED REPORT EXAM: Comprehensive 2D, Doppler, and color-flow Echocardiogram Interactive Account Manager: Chelsea Georges RVT Ht: 5 ft 1 in Wt: 163lbs BSA: 1.73 BP: 114/62 mmHg Indications: SOA,PNEUMONIA,COPD,CHF,SMOKER,LUNG CA WITH CHEMO/RADIATION,PERICARDIAL EFFUSION 2D Dimensions IVSd 0.92 cm F: 0.6-1.0 LVEF (Schulz's) 35.20 % F: 54 - 74 PWd 1.27 cm F: 0.6 - 1.0 LV Volume 100.20 mL F: 46 - 106 LVDd 4.71 cm F: 3.9 - 5.3 LV Volume Index 57.9 mL/m2 F: 29 - 61 LVDs 3.79 cm F: 2.2 - 3.5 LA Volume 28.70 mL Left Atrium 2.70 cm F: 2.7 - 3.8 LA Volume Index 16.59 mL/m2 (M/F) 16-34 LVOT 2.36 cm (M/F) 1.5-2.5 EF AP4 40.70 % EF AP2 32.6 % EF BP 35.2 % GL Strain -6.3 % M-Mode Dimensions RVDd 2.32 cm (0.9-2.6) LVDd 4.71 cm (3.5-5.7) Ao Diam 3.05 cm (2.0-3.7) LVDs 3.79 cm (3.5-5.7) IVSd 0.87 cm (0.6-1.1) PWd 0.46 cm (0.6-1.1) FS 19.50% EDV (Teich) 93.40 mL TAPSE 1.68 (<1.7) LV Diastology E Decel Time 150 (160-240 msec) E/A Ratio 0.5 MED E' 8.6 (>= 7 cm/sec) E'/MED E' Ratio 3.56 (<= 14) LAT E' 13.8 (>= 10 cm/sec) E/LAT E' Ratio 2.22 (<= 14) Aortic Valve LVOT Max 88.0 (70-110 cm/s) STELLA Index 2.54 cm2/m2 LVOT VTI 13.17 cm AoV Peak [place]. 85.0 (50-130 cm/s) AO Peak GR. 2.80 mmHg AO Mean GR. 1.70 (<5 mmHg) AO VTI 13.1 (18-25 cm) STELLA (VTI) 4.39 (2.5-4.5 cm2) Mitral Valve MV E Max [place]. 31.0 (40-130 cm/s) MV A Velocity 68.0 (40-130 cm/s) E/A Ratio 0.45 MV Decel. Time 150 (160-240 ms) Tricuspid Valve TR P. Velocity 217.00 cm/s RAP Estimate 10.00 mmHg RVSP 28.80 mmHg Left Ventricle The left ventricle is normal size. Left ventricular systolic function is moderate to severely decreased. There is increased LV wall thickness. Proximal septal thickening is noted. There is moderate to severe global hypokinesis present. The mid to distal septal, inferoseptal, and anteroseptal, as well as the LV apical LV pastrana are nearly akinetic. Grade 1 diastolic dysfunction is present. LVEF is 30%. Right Ventricle The right ventricle is mildly dilated. Right ventricle is borderline hypokinetic. Atria The left atrium size is normal. The right atrium size is normal. There is no Doppler evidence of interatrial shunt. Aortic Valve The aortic valve is normal in structure. There is no aortic valvular stenosis. Trace aortic regurgitation. Trace mitral regurgitation. Mitral Valve The mitral valve is normal in structure. No evidence of mitral valve stenosis. Tricuspid Valve Tricuspid valve is grossly normal in structure and function. Trace tricuspid regurgitation. There is insufficient TR jet to estimate RVSP. Pulmonic Valve The pulmonary valve is normal in structure. Trace pulmonic regurgitation. Great Vessels The aortic root is normal in size. IVC is normal in size and collapses >50% with inspiration. Pericardium There is a small sized, circumferential pericardial effusion present. The largest pocket measures 0.6 centimeters in diastole noted posteriorly. No echo indications of tamponade. Other Information Study Quality: Fair Conclusion Moderate to severe global reduction in LV systolic function (LVEF 30%). The mid to distal septal, inferoseptal, and anteroseptal, as well as the LV apical LV pastrana are nearly akinetic. Mild RV dilation with borderline reduction in RV function. No significant valvular stenosis or regurgitation. Small sized, circumferential pericardial effusion present. The largest pocket measures 0.6 centimeters in diastole noted posteriorly . No echo indications of tamponade. In the setting of new reduction in LV systolic function and wall motion abnormalities, further inpatient evaluation for ischemia is recommended, if clinically feasible. Electronically signed by : Kiara Garcia MD 11/03/2024 12:22:44
[2024-11-03 10:49] LABS: POC Glucose,Bedside 127 (70-110)
[2024-11-03 11:05] LABS: Chloride 85 mmol/L (98-107)
[2024-11-03 11:06] LABS: Potassium 3.4 mmoL/L (3.5-5.1); Sodium 127 mmol/L (136-145)
[2024-11-03 11:08] LABS: Anion Gap 13.4 mEq/L (5-15); Blood Urea Nitrogen 17 mg/dl (7-17); Carbon Dioxide 32 mmol/L (22.0-30.0); Creatinine Clearance Estimated 101 mL/min (50-200); Estimated Glomerular Filt Rate 86 ml/min (>60); GFR (African American) 104 ML/MIN (>60)
[2024-11-03 11:09] LABS: Chol/HDL Ratio 3.8 (1-3.5); Cholesterol 96 mg/dl (140-200); Glucose 139 mg/dl (74-100); HDL Cholesterol 25 mg/dl (40-60); Magnesium 2.3 mg/dl (1.6-2.3); Triglycerides 91 mg/dl (30-150); VLDL Cholesterol 18 mg/dL (0-40)
[2024-11-03 11:20] LABS: Direct LDL Cholesterol 58.89 mg/dL (100-129)
--- NOTE | 2024-11-03 11:36 | P.CONCA_ITS ---
History of Present Illness History of Present Illness Consult date: 11/03/24 Requesting physician: Romero Perez Consult reason: congestive heart failure Chief complaint: SOA History of present illness: 59-year-old white female established patient of our office with history of CAD status post NSTEMI with thrombus to Diagonal branch too small for intervention June 2023. Also has a history of chronic mild pericardial effusion 2022 in the setting of chemotherapy and radiation. She has lung cancer and is in remission as of June 2024-this is treated by [facility]. She is currently scheduled for once yearly follow-up visits with them. She continues to smoke up to 2 packs/day and she presented to the emergency room yesterday with worsening URI symptoms and severe shortness of breath and respiratory distress with accessory muscle use, tachypnea, wheezing and requiring 4 L nasal cannula. She was admitted for COPD exacerbation with right upper lobe pneumonia versus consolidation with a 5.8 x 2.6 cm consolidation noted on CT. We are consulted for pericardial effusion of 15 mm noted on CTA and elevated troponin of 0.60 then 0.55. EKG showed sinus tach with incomplete right bundle branch b lock but no acute ischemia or ectopy. NT proBNP 20,800. [facility] Disclaimer: The information contained in this section may have been updated after the patient was seen, as this information can be updated by other users. Medical History Pericardial effusion Coronary artery disease History of lung cancer Non-ST elevation NV (NSTEMI) Chest pain Abnormal electrocardiogram [ECG] [EKG] Dyspnea Atypical chest pain Family history of ischemic heart disease Acute bronchitis COVID-19 virus infection Acute exacerbation of chronic obstructive airways disease Pre-diabetes Diabetes mellitus Emphysema of lung COPD (chronic obstructive pulmonary disease) Non-small cell lung cancer Hyperlipidemia Hypertension SLE (systemic lupus erythematosus) Tobacco use Muscle strain of chest wall Vitamin D deficiency Rheumatoid arthritis Fibromyalgia Lupus Need for [id number] (Tdap) vaccine Tetanus Bilateral otitis media On methotrexate therapy Cough Social History Smoking Status: Heavy tobacco smoker tobacco type: cigarettes packs per day: 1 alcohol intake: never substance use type: denies use current occupational status: other Travel in the last 8 weeks: None Have you lived/traveled outside [place] in past 30 days?: No Contact w/someone who lives/traveled outside US past 30 days?: No Exposure to someone with infectious disease in past 14 days?: No Do you have a fever (greater than 100.4 F or 38 C)?: No Have you tested positive for COVID-19: No Exposed to someone with COVID-19 in past 14 days?: No Do you have a sore throat?: No Do you have a cough?: No Do you have any weakness?: No Do you have any diarrhea?: No Are you experiencing any unusual bleeding?: No Do you have any muscle aches/pain?: No Do you have any abdominal pain?: No Are you experiencing loss of taste or smell?: No Review of Systems Constitutional Constitutional: Reports fatigue and Reports weakness Eyes Eyes: Denies loss of vision ENT Ears, Nose, Mouth, and Throat: Denies hearing loss and Denies vertigo *Cardiovascular Cardiovascular: Denies chest pain, Reports dyspnea and Denies syncope *Respiratory Respiratory: Reports cough, Reports dyspnea and Reports wheezing *Gastrointestinal Gastrointestinal: Denies change in stool character, Denies nausea and Denies vomiting *Musculoskeletal Musculoskeletal: Denies muscle weakness Integumentary/Breasts Skin/Breast: Denies changing lesions *Neurologic Neurologic: Denies loss of vision, Denies syncope, Denies vertigo and Reports weakness Endocrine Endocrine: Reports fatigue Allergic/Immunologic Allergic/Immunologic: Reports wheezing Exam Data for Last 24 hours Vital signs and Labs for Last 24 Hours: Temp Pulse Resp BP Pulse Ox O2 Del Method O2 Flow Rate 98 F 82 19 100/80 L 93 L Nasal Cannula 3.5 11/03/24 07:28 11/03/24 11:03 11/03/24 07:28 11/03/24 07:28 11/03/24 07:28 11/03/24 11:00 11/03/24 11:00 Laboratory Results - last 24 hr 11/02/24 19:23: SARS-CoV-2 (PCR) Not detected, Influenza A Untype (PCR) Not detected, Influenza Type B (PCR) Not detected 11/02/24 19:25: WBC 9.7, RBC 4.55, Hgb 12.5, Hct 36.9 L, MCV 81.1, MCH 27.5, MCHC 33.9, RDW 15.5, Plt Count 318, MPV 9.7, Neut % (Auto) 85.2 H, Lymph % (Auto) 9.5 L, Summit % (Auto) 4.2, Eos % (Auto) 0.2, Baso % (Auto) 0.2, Neut # (Auto) 8.2 H, Lymph # (Auto) 0.9, Summit # (Auto) 0.4, Eos # (Auto) 0.0, Baso # (Auto) 0.0, D-Dimer 0.97 H, Sodium 125 L, Potassium 3.3 L, Chloride 81 L, Carbon Dioxide 33 H, Anion Gap 14.3, BUN 18 H, Creatinine 0.70, Estimated GFR 86, Est GFR ( Amer) 104, Glucose 182 H, Calcium 9.0, Magnesium 2.1, Total Bilirubin 0.6, AST 50 H, ALT 30, Alkaline Phosphatase 99, Troponin I 0.57 H, C- Reactive Protein 79.4 H, NT-Pro-B Natriuret Pep 75847 H, Total Protein 8.0, Albumin 4.3, Globulin 3.7 H, Albumin/Globulin Ratio 1.2, Procalcitonin 0.105, TSH 1.35, Thyroxine (T4) 8.0, HCV Ab NICOLAS w/Rflx PCR Qn Negative, HIV Ag/Ab Combo Qual Negative 11/02/24 19:34: VBG pH 7.35, VBG pCO2 58.7 H, VBG pO2 37.7, VBG HCO3 31.4 H, VBG Total CO2 33.2 H, VBG O2 Saturation 67.2, VBG Base Excess 5.7 H, VBG Lactic Acid 3.7 H 11/02/24 22:37: Troponin I 0.60 H 11/03/24 01:00: Lactate 1.3, Troponin I 0.55 H 11/03/24 04:15: Urine Sodium 71.0 11/03/24 05:39: POC Glucose 152 H 11/03/24 05:40: WBC 8.5, RBC 4.24, Hgb 11.6 L, Hct 35.0 L, MCV 82.5, MCH 27.4, MCHC 33.1, RDW 15.3, Plt Count 251, MPV 9.9, Neut % (Auto) 89.7 H, Lymph % (Auto) 6.5 L, Summit % (Auto) 2.6, Eos % (Auto) 0.0 L, Baso % (Auto) 0.1, Neut # (Auto) 7.6, Lymph # (Auto) 0.6 L, Summit # (Auto) 0.2, Eos # (Auto) 0.0, Baso # (Auto) 0.0, VBG pH 7.45 H, VBG pCO2 41.1, VBG pO2 172.0 H, VBG HCO3 27.8, VBG Total CO2 29.1 H, VBG O2 Saturation 99.3 H, VBG Base Excess 3.8 H, VBG Lactic Acid 1.4, Sodium 127 L, Potassium 3.4 L, Chloride 85 L, Carbon Dioxide 32 H, Anion Gap 13.4, BUN 17, Creatinine 0.70, Estimated Creat Clear 101, Estimated GFR 86, Est GFR ( Amer) 104, Glucose 139 H D, Calcium 8.0 L, Phosphorus 3.0, Magnesium 2.3, Triglycerides 91, Cholesterol 96 L, LDL Cholesterol Direct 58.89 L, VLDL Cholesterol 18, HDL Cholesterol 25 L, Cholesterol/HDL Ratio 3.8 H 11/03/24 10:42: POC Glucose 127 H I & O for Last 24 hours: Intake & Output 10/31/24 11/01/24 11/02/24 11/03/24 23:59 23:59 23:59 23:59 Intake Total 1360 / 1360 Output Total 600 / 600 Balance 760 / 760 Weight 158 lb 1.6 oz 163 lb 3.2 oz Meds Home Medications and Allergies Home Medications ?Medication ?Instructions ?Recorded ?Confirmed ?Type albuterol sulfate 90 mcg/actuation 2 puff inhalation Q6HP PRN 07/10/23 11/03/24 History aerosol inhaler Shortness Of Breath Or Wheezing metformin 500 mg tablet,extended 500 mg PO DAILY 07/10/23 11/03/24 History release 24 hr sertraline 25 mg tablet 25 mg PO DAILY MOOD 07/10/23 11/03/24 History sertraline 50 mg tablet 50 mg PO DAILY MOOD 07/10/23 11/03/24 History aspirin 81 mg tablet,delayed 81 mg PO DAILY 30 days #30 tabs 07/12/23 11/03/24 Rx release metoprolol tartrate 25 mg tablet 25 mg PO BID #60 tabs 02/19/24 11/03/24 Rx cyclobenzaprine 5 mg tablet 5 mg PO HS PRN muscle spasms 05/24/24 11/03/24 History clopidogrel 75 mg tablet 75 mg PO DAILY 11/03/24 11/03/24 History lisinopril 20 1 tab PO DAILY 20/25MG 11/03/24 11/03/24 History mg-hydrochlorothiazide 25 mg tablet loratadine 10 mg tablet 10 mg PO DAILY Allergy Symptoms 11/03/24 11/03/24 History rosuvastatin 40 mg tablet 40 mg PO DAILY 11/03/24 11/03/24 History New Prescriptions to Start Prescriptions: Allergies Allergy/AdvReac Type Severity Reaction Status Date / Time atorvastatin Allergy Mild shortness Verified 08/12/24 13:11 of breath Sulfa (Sulfonamide Allergy Mild Verified 08/12/24 13:11 Antibiotics) Assessment and Plan *Assessment and plan (1) Acute on chronic hypoxic respiratory failure: Status: Acute Category: Medical Code(s): J96.21 - Acute and chronic respiratory failure with hypoxia (2) Non-ST elevation NV (NSTEMI): Status: Acute Category: Medical Code(s): I21.4 - Non-ST elevation (NSTEMI) myocardial infarction (3) Pericardial effusion: Status: Acute Category: Medical Code(s): I31.39 - Other pericardial effusion (noninflammatory) (4) Lung mass: Status: Acute Category: Medical Code(s): R91.8 - Other nonspecific abnormal finding of lung field Plan Pericardial Effusion - 15mm on CT here - noted chronically since 2022, will repeat ECHO to check status CAD with elevated Trop - NSTEMI with small vessel dz noted on [facility] 2022 - here with Trop 0.6 then down in setting of acute hypoxic resp failure - likely demand ischemia/type II NV - she denies anginal CP - EKG - SR with RBBB, no significant ST changes - check 2D ECHO for WMA - Cont DAPT, BB. Allergy to statin. Acute on Chronic Hypoxic Resp Failure - COPD, ongoing tob use at 2ppd, lung cancer in remission - hypoxic here, proBNP 20k, large RUL consolidation here - PNA vs Ca - Cont O2 NC, antibiotics, obtain records from [facility] pending Htn - low here, dose adjust home meds as needed Hyponatremia - urine and serum Na consistent with SIADH - w/u in progress ADDENDUM: ECHO shows new moderate to severe global LV dysfunction with EF 30%. She has regional wall motion abnormality with mid to distal septal, inferoseptal, and anteroseptal, LV and apical LV pastrana nearly akinetic. Small size circumferential pericardial effusion without tamponade. Given these findings elevated troponin and severe dyspnea, we will arrange inpatient heart cath tomorrow to evaluate for worsening ischemia. Add Lovenox.
--- NOTE | 2024-11-03 11:59 | HMH.PTEV ---
Physical Therapy Evaluation Rehab PT IP Evaluation Start: 11/03/24 07:10 Freq: ONCE Status: Active Protocol: Document 11/03/24 11:45 JOSE (Rec: 11/03/24 11:58 JOSE [id number]) Subjective/History History History A 59-year-old female with a history of lung cancer (status post chemo and radiation, in remission since 2020), chronic obstructive pulmonary disease (COPD) on 2 L nasal cannula chronically, coronary artery disease (CAD), hypertension, hyperlipidemia, type 2 diabetes, and prior pericardial effusion. Pt was admitted for CHF, COPD, and pneumonia. 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 She is independent with mobility and has a walker and wheelchair at home for use when she is feeling weak. Subjective Subjective Patient presents sitting up in bed on nasal cannula. Pt is willing to walk around with therapy this morning. Pt was left in bedside chair with call light and personal items within reach. [facility] How much help from another person do you currently need... Turning from your back to your side None while in a flat bed without using bedrails? Moving from lying on back to sitting on None the side of a flat bed without using bedrails? Moving to and from a bed to a chair ( None including a wheelchair)? Standing up from a chair using your arms None ? (e.g., wheelchair, bedside chair) Walking in hospital room? None Climbing 3-5 steps with a railing? None Mobility Score 24 Mobility Level [facility] Mobility Calculator Mobility 8 Walk 250 feet or more Rehab PT IP Eval Objective Appearance Patient Behavior Appropriate,Cooperative Patient Orientation Person,Place,Time Difficulty following instructions none Speech Pattern Clear,Appropriate Ambulation Patient Able to Ambulate Yes Ambulation Observation IP General Gait Pattern Observation Wide Based Gait Ambulation Distance (feet) 10 Ambulation Assistive Device Rolling Walker Ambulation Ability Contact Guard/Hand Hold Balance Ability to Arise Able, uses arms to help Sitting Balance Steady, safe Standing Balance Steady, wide stance Dynamic Sitting Balance Ability Normal Dynamic Standing Balance Ability Good Transfers Bed Transfer Ability Independent Chair Transfer Ability Contact Guard/Hand Hold Sit to Stand Bed Transfer Ability Contact Guard/Hand Hold Sit to Stand Chair Transfer Ability Contact Guard/Hand Hold Rehab PT IP prob,goals,plan Problems Date of Evaluation: 11/03/24 PT IP Problems Transfers,Gait,Balance Rehab Potential Rehab Potential Good Equipment Needs Assistive Devices Rolling / Wheeled Walker Plan PT Intervention Plan Transfers,Gait,Balance, Therapeutic Exercise PT Plan Frequency Daily Duration LOS Discharge Goals Bed Transfer Ability Independent Sit to Stand Chair Transfer Ability Supervision/Stand by Ambulation Distance (feet) 50 Discharge Plan PT Discharge Plan Patient is currently most appropriate to return home with once medically stable for d/c. Pt was able to ambulate 10 feet in room, but was easily fatigued and SOA. Skilled acute therapy is currently indicated to improve LE strength, standing balance , and walking endurance to allow pt to return to [facility] with all ADLs and walking household and community distances. Eval Complexity Eval Charge Codes 25139 - High Complexity PHYSICIAN CERTIFICATION: I certify the specified therapy services for Cintia Buckley are required, authorized, and reviewed every 30 days.
[2024-11-03] MEDS: ENOXAPARIN 80MG/0.8ML SYRINGE 75 MG SUBCUT (14:41)
[2024-11-03] MEDS: POTASSIUM CHLORIDE 20MEQ TAB 40 MEQ PO ×2 (15:36→20:31)
[2024-11-03 15:48] LABS: POC Glucose,Bedside 154 (70-110)
--- NOTE | 2024-11-03 16:53 | PC.NURSE ---
PT IS RESTING IN BED. ALERT AND ORIENTED X4. EATING AND DRINKING FAIR. TOLERATED SITTING UP IN THE CHAIR FOR SEVERAL HOURS THIS SHIFT. STAFF ASSISTED PT WITH BATH AND LINEN CHANGE. O2 SATURATION HAS MAINTAINED 92-97% ON 3 L NC. LUNG SOUNDS HAVE SCATTERED WHEEZES WITH BILATERAL CRACKLES (BASES). REDNESS NOTED TO ABDOMINAL FOLD AND UNDER BREAST. NYSTATIN POWDER APPLIED. PURWICK IN PLACE. 700 ML'S UOP EMPTIED FROM CANISTER EARLY THIS AFTERNOON. WILL CONTINUE TO MONITOR.
--- NOTE | 2024-11-03 19:52 | EXP.ACUTE.PN ---
Subjective *Date: 11/03/24 *Time: 22:24 Interval history: Wheezy on exam this morning. Requiring 3-1/2 L. Denies productive cough. Denies chest pain. Has been more short of breath for several days. Continues to smoke 2 packs a day. Afebrile. Tolerating p.o. intake. In bedside chair on exam Medical Exam Vital signs and Labs for Last 24 Hours: Vital Signs Temp Pulse Pulse Resp BP BP Pulse Ox 11/03/24 19:45 97.8 F 95 H 22 104/79 L 96 11/03/24 18:31 92 H 11/03/24 18:31 96 H 11/03/24 18:31 96 11/03/24 18:22 11/03/24 16:58 11/03/24 16:00 90 11/03/24 16:00 98.0 F 91 H 20 97/54 L 96 11/03/24 14:50 11/03/24 13:00 11/03/24 12:00 90 11/03/24 12:00 98.1 F 82 19 92/72 L 99 11/03/24 11:03 82 11/03/24 11:03 89 11/03/24 11:00 11/03/24 08:30 11/03/24 08:00 100 H 11/03/24 08:00 11/03/24 07:28 98 F 105 H 19 100/80 L 93 L 11/03/24 07:00 11/03/24 06:17 78 11/03/24 05:00 11/03/24 04:00 85 11/03/24 03:00 11/03/24 01:00 11/03/24 00:16 103 H 11/03/24 00:16 97 H 11/03/24 00:15 11/03/24 00:10 95 H 11/02/24 23:55 98.0 F 99 H 17 105/69 L 97 11/02/24 23:34 98.2 F 100 H 18 103/70 L 11/02/24 23:00 98 H 22 106/78 L 97 11/02/24 22:48 103 H 18 105/58 L 96 11/02/24 22:00 103 H 21 112/71 98 11/02/24 21:30 105 H 21 101/68 L 99 11/02/24 21:20 103 H 11/02/24 21:15 105 H 22 141/116 H 99 11/02/24 20:45 100 H 11/02/24 20:20 98 H 111/78 98 11/02/24 20:00 95 H 106/74 L 99 O2 Del Method O2 Flow Rate 11/03/24 19:45 Nasal Cannula 3.5 11/03/24 18:31 11/03/24 18:31 11/03/24 18:31 Nasal Cannula 3 11/03/24 18:22 Nasal Cannula 3 11/03/24 16:58 Nasal Cannula 3 11/03/24 16:00 11/03/24 16:00 Nasal Cannula 3 11/03/24 14:50 Nasal Cannula 3 11/03/24 13:00 Nasal Cannula 3.5 11/03/24 12:00 11/03/24 12:00 Nasal Cannula 11/03/24 11:03 11/03/24 11:03 11/03/24 11:00 Nasal Cannula 3.5 11/03/24 08:30 Nasal Cannula 3.5 11/03/24 08:00 11/03/24 08:00 Nasal Cannula 3.5 11/03/24 07:28 11/03/24 07:00 Nasal Cannula 3.5 11/03/24 06:17 11/03/24 05:00 Nasal Cannula 3.5 11/03/24 04:00 11/03/24 03:00 Nasal Cannula 3.5 11/03/24 01:00 Nasal Cannula 11/03/24 00:16 11/03/24 00:16 11/03/24 00:15 Nasal Cannula 4 11/03/24 00:10 11/02/24 23:55 Nasal Cannula 4 11/02/24 23:34 Nasal Cannula 4 11/02/24 23:00 11/02/24 22:48 11/02/24 22:00 11/02/24 21:30 11/02/24 21:20 11/02/24 21:15 11/02/24 20:45 11/02/24 20:20 11/02/24 20:00 Intake and Output 11/03/24 11/03/24 11/03/24 07:59 15:59 23:59 Intake Total 1000 / 1750 630 / 1750 120 / 1750 Output Total 600 / 1300 700 / 1300 0 / 1300 Balance 400 / 450 -70 / 450 120 / 450 Intake: Intake, Oral Amount 630 / 750 120 / 750 Intake, Total IV Amount 1000 / 1000 0.9 % Sodium Chloride 1000ML 500 / 500 500 ml @ 999 mls/hr IV .Q31M ONE Rx#:[id number] Azithromycin 500 mg In 0.9 % 250 / 250 Sodium Chloride 250 ml @ 250 mls/hr IV ONCE ONE Rx#:[id number] Ceftriaxone Sodium 2 gm In 0.9 100 / 100 % Sodium Chloride 100 ml @ 200 mls/hr IV ONCE ONE Rx#:[id number] KCl 10mEq/100ml 100 ml @ 100 100 / 100 mls/hr IV ONCE ONE Rx#:[id number] Magnesium Sulfate in Water 2 gm 50 / 50 In 50 ml @ 50 mls/hr IV ONCE ONE Rx#:[id number] Output: Output, Urine Amount 600 / 1300 700 / 1300 0 / 1300 Other: Number of Unmeasured Voids 0 Weight 74.026 kg 74 kg Patient Weight 11/03/24 23:59 Weight 74 kg Laboratory Results - last 24 hr 11/02/24 19:23: SARS-CoV-2 (PCR) Not detected, Influenza A Untype (PCR) Not detected, Influenza Type B (PCR) Not detected 11/02/24 19:25: D-Dimer 0.97 H, Magnesium 2.1, Troponin I 0.57 H, C-Reactive Protein 79.4 H, NT-Pro-B Natriuret Pep 34009 H, Procalcitonin 0.105, TSH 1.35, Thyroxine (T4) 8.0, HCV Ab NICOLAS w/Rflx PCR Qn Negative, HIV Ag/Ab Combo Qual Negative 11/02/24 19:34: VBG pH 7.35, VBG pCO2 58.7 H, VBG pO2 37.7, VBG HCO3 31.4 H, VBG Total CO2 33.2 H, VBG O2 Saturation 67.2, VBG Base Excess 5.7 H, VBG Lactic Acid 3.7 H 11/02/24 22:37: Troponin I 0.60 H 11/03/24 01:00: Lactate 1.3, Troponin I 0.55 H 11/03/24 04:15: Urine Sodium 71.0 11/03/24 05:39: POC Glucose 152 H 11/03/24 05:40: WBC 8.5, RBC 4.24, Hgb 11.6 L, Hct 35.0 L, MCV 82.5, MCH 27.4, MCHC 33.1, RDW 15.3, Plt Count 251, MPV 9.9, Neut % (Auto) 89.7 H, Lymph % (Auto) 6.5 L, [place] % (Auto) 2.6, Eos % (Auto) 0.0 L, Baso % (Auto) 0.1, Neut # (Auto) 7.6, Lymph # (Auto) 0.6 L, [place] # (Auto) 0.2, Eos # (Auto) 0.0, Baso # (Auto) 0.0, VBG pH 7.45 H, VBG pCO2 41.1, VBG pO2 172.0 H, VBG HCO3 27.8, VBG Total CO2 29.1 H, VBG O2 Saturation 99.3 H, VBG Base Excess 3.8 H, VBG Lactic Acid 1.4, Sodium 127 L, Potassium 3.4 L, Chloride 85 L, Carbon Dioxide 32 H, Anion Gap 13.4, BUN 17, Creatinine 0.70, Estimated Creat Clear 101, Estimated GFR 86, Est GFR ( Amer) 104, Glucose 139 H D, Calcium 8.0 L, Phosphorus 3.0, Magnesium 2.3, Triglycerides 91, Cholesterol 96 L, LDL Cholesterol Direct 58.89 L, VLDL Cholesterol 18, HDL Cholesterol 25 L, Cholesterol/HDL Ratio 3.8 H 11/03/24 10:42: POC Glucose 127 H 11/03/24 15:38: POC Glucose 154 H I & O for Labs for Last 24 Hours: Intake & Output 10/31/24 11/01/24 11/02/24 11/03/24 23:59 23:59 23:59 23:59 Intake Total 1750 / 1750 Output Total 1300 / 1300 Balance 450 / 450 Weight 71.713 kg 74 kg Constitutional: Present mild distress, obese, chronically ill appearing and cooperative Head: Present atraumatic ENT: Present normal exam Respiratory: Present accessory muscle use, prolonged expiratory phase, rhonchi and wheezes; Absent crackles Cardiac: Present Reg Rate and Rhythm GI: Present soft and normal bowel sounds; Absent distention or tenderness Extremities: Present normal inspection and full ROM Skin: Present intact; Absent erythema Neuro: Present Grossly Intact, alert, awake, oriented x 3 and moves all extremities Assessment and Plan *Assessment and plan (1) Non-ST elevation AK (NSTEMI): Status: Acute Category: Medical Code(s): I21.4 - Non-ST elevation (NSTEMI) myocardial infarction (2) Pneumonia: Status: Acute Category: Medical Code(s): J18.9 - Pneumonia, unspecified organism (3) Hypokalemia: Status: Acute Category: Medical Code(s): E87.6 - Hypokalemia (4) Hyponatremia: Status: Acute Category: Medical Code(s): E87.1 - Hypo-osmolality and hyponatremia (5) Acute exacerbation of CHF (congestive heart failure): Status: Acute Category: Medical Code(s): I50.9 - Heart failure, unspecified (6) Acute exacerbation of chronic obstructive pulmonary disease: Status: Acute Category: Medical Code(s): J44.1 - Chronic obstructive pulmonary disease with (acute) exacerbation (7) Pericardial effusion: Status: Acute Category: Medical Code(s): I31.39 - Other pericardial effusion (noninflammatory) (8) Acute and chronic respiratory failure: Status: Acute Category: Medical Code(s): J96.20 - Acute and chronic respiratory failure, unspecified whether with hypoxia or hypercapnia (9) Diabetes mellitus: Status: Acute Qualifiers: Diabetes mellitus type: type 2 Diabetes mellitus intermediate insulin use: unspecified intermediate insulin use status Diabetes mellitus complication status: with other specified complication Qualified Code(s): E11.69 - Type 2 diabetes mellitus with other specified complication Category: Medical Code(s): E11.9 - Type 2 diabetes mellitus without complications (10) Tobacco use: Status: Acute Category: Social Hx Code(s): Z72.0 - Tobacco use (11) Hypertension: Status: Acute Qualifiers: Hypertension type: essential hypertension Qualified Code(s): I10 - Essential (primary) hypertension Category: Medical Code(s): I10 - Essential (primary) hypertension (12) Hyperlipidemia: Status: Acute Qualifiers: Hyperlipidemia type: unspecified Qualified Code(s): E78.5 - Hyperlipidemia, unspecified Category: Medical Code(s): E78.5 - Hyperlipidemia, unspecified (13) Coronary artery disease: Status: Chronic Qualifiers: Coronary Disease-Associated Artery/Lesion type: [place] artery [place] vs. transplanted heart: [place] heart Associated angina: without angina Qualified Code(s): I25.10 - Atherosclerotic heart disease of [place] coronary artery without angina pectoris Category: Medical Code(s): I25.10 - Atherosclerotic heart disease of [place] coronary artery without angina pectoris Plan 59-year-old female who presents with respiratory failure concerning for pneumonia/COPD exacerbation. Cardiology assisting due to NSTEMI. Echo showing new global reduction in EF. Plan for further intervention with heart cath in the morning. He continues to require patient management. Problems addressed as follows: COPD Exacerbation: Acute on chronic hypoxemic respiratory failure Right upper lobe pneumonia -Continue supplemental oxygen, goal sats greater 90%. Currently on 3 L. Continue DuoNebs scheduled every 6 hours, available every 4 as needed. Initiate steroids 40 mg prednisone daily. - Continue azithromycin 500 mg daily and ceftriaxone 1 g daily. -Per my review of imaging, has air trapping. Significant wheeze on exam. - Sputum and blood cultures pending - Lesion concerning on chest imaging. Attempting to obtain records from [facility] to compare imaging. Will need follow-up with oncology as an outpatient given history of lung cancer Hyponatremia SIADH - Urine sodium 71, consistent with SIADH. Will fluid restrict less than 1500 cc. Aggressive diuresis with Lasix 40 mg IV twice daily. Monitor for improvement with serial sodium every 12 hours. Correct 8 to 10 mEq a day. - Sodium improved on morning labs to 127, chloride 85. Kidney function normal with BUN 17, creatinine 0.7. - Repeat CBC, CMP, magnesium ordered for the morning Acute HFrEF Pericardial effusion CAD NSTEMI - BNP elevated to 20,000. Troponin plateaued 0.55. 15 mm effusion on CTA. Cardiology consulted - No signs of tamponade on echo. Echo does show global reduction in EF at 30% however. Cardiology recommends therapeutic anticoagulation with Lovenox 1 mg/kg twice daily - Ischemic workup scheduled for the morning. Patient undergoing heart cath to evaluate for etiology of her global reduction in EF - Continue DAPT therapy and metoprolol tartrate 25mg BID Hyperglycemia: Suspect diabetes. - A1c pending. Continue fingersticks ACHS. Initiate sliding scale. - Morning glucose 139 -Will consider Jardiance prior to discharge for dual benefit with heart failure and suspected diabetes. History of Lung Cancer in Remission: Remission since 2020, consolidation raises recurrence concern. -Consider oncology consult as outpatient. - Monitor for weight loss, night sweats, or other B symptoms. - coordinate with [facility] for records. Full code Therapeutic Lovenox Cardiac diet
[2024-11-03 20:14] LABS: POC Glucose,Bedside 159 (70-110)
[2024-11-03] MEDS: CEFTRIAXONE 1 GM 1 GM in 0.9 % SODIUM CHLORIDE 50 ML IV (20:32)
[2024-11-03] MEDS: PANTOPRAZOLE 40MG TABLET 40 MG PO (20:32)
[2024-11-03] MEDS: AZITHROMYCIN 500 MG in 0.9 % SODIUM CHLORIDE 250 ML 250 MG IV (21:06)
[2024-11-04] VITALS (33 sets, daily range): BP systolic 81–142; BP diastolic 40–75; PULSE 70–99; RESP 16–22; TEMP 36.4–36.8; O2SAT 90–100; BMI 28.8
[2024-11-04] MEDS: IPRATROPIUM/ALBUTEROL 3 ML NEB IH ×7 (00:48→23:02)
--- NOTE | 2024-11-04 01:24 | XR_ITS ---
PROCEDURE INFORMATION: Exam: XR Chest Exam date and time: 11/04/2024 1:28 AM Age: 59 years old Clinical indication: Other: Respiratory distress TECHNIQUE: Imaging protocol: Radiologic exam of the chest. Views: 1 view. Total images: 1 COMPARISON: CT ANGIO CHEST PE PROTOCOL 11/02/2024 8:34 PM FINDINGS: Lungs: Spiculated irregular area of consolidation in the right medial upper lobe/right suprahilar region concerning for malignancy. Mild emphysematous changes. No pulmonary vascular congestion or interstitial edema. No acute superimposed parenchymal process. Pleural spaces: Trace right pleural effusion. No pneumothorax. Heart/Mediastinum: Enlarged cardiac silhouette, stable from prior radiograph, compatible with pericardial effusion confirmed by recent chest CT. No mediastinal widening. Prominent right epicardial fat pad. Vasculature: Atherosclerotic aortic arch. Bones/joints: Stable osseous structures. IMPRESSION: 1. Stable chest radiograph. 2. Spiculated irregular area of consolidation medial right upper lobe/right hilum concerning for malignancy. Findings correspond wall with chest CT November 02, 2024. 3. Enlarged cardiac silhouette with known pericardial effusion shown by recent CT. 4. Trace right pleural effusion. 5. No acute superimposed process.
[2024-11-04 01:29] LABS: ABG HCO3 37.9 mmhg (22.0-26.0); ABG Oxygen Saturation 94 % (90-100); ABG PH 7.21 mmol/L (7.35-7.45); ABG PO2 85.8 mmhg (80-100); ABG TCO2 40.9 mmhg (23-27)
[2024-11-04 02:16] LABS: Basophils % 0.2 % (0.1-2.0); Eosinophils % 0.1 % (0.1-12.0); Hematocrit 38.2 % (37.0-47.0); Hemoglobin 12.3 g/dL (12.2-16.2); Lymphocytes # 0.7 K/mm3 (0.7-4.5); Lymphocytes % 4.7 % (10-50); Mean Corpuscular HGB Conc 32.2 g/dL (31.8-35.4); Mean Corpuscular Hemoglobin 27.5 pg (27.0-31.2); Mean Corpuscular Volume 85.3 fl (81-99); Mean Platelet Volume 9.9 fl (7.4-10.4); Monocytes # 0.5 K/mm3 (0.1-1.0); Monocytes % 3.3 % (1.7-9.3); Neutrophils # 12.9 K/mm3 (1.8-7.8); Nucleated Red Blood Cells # 0 10^3/uL; Nucleated Red Blood Cells % 0 %; Platelet Count 289 K/mm3 (142-424); Red Blood Count 4.48 M/mm3 (4.20-5.40); Red Cell Distribution Width 15.6 % (11.5-17.5); White Blood Count 14.2 K/mm3 (4.8-10.8)
[2024-11-04 02:20] LABS: MANUAL DIFFERENTIAL MANUAL DIFFERENTIAL (MANUAL DIFF)
[2024-11-04 02:23] LABS: Anion Gap 14.5 mEq/L (5-15); Blood Urea Nitrogen 24 mg/dl (7-17); Calcium 7.8 mg/dl (8.4-10.2); Carbon Dioxide 30 mmol/L (22.0-30.0); Chloride 84 mmol/L (98-107); Creatinine Clearance Estimated 88 mL/min (50-200); Estimated Glomerular Filt Rate 73 ml/min (>60); GFR (African American) 89 ML/MIN (>60); Glucose 145 mg/dl (74-100); Potassium 4.5 mmoL/L (3.5-5.1); Sodium 124 mmol/L (136-145)
[2024-11-04 02:30] LABS: Allen's Test Patient Unable; Oxygen 3LNC %; Source Right Radial
[2024-11-04 02:31] LABS: ABG PCO2 96.9 mmhg (35.0-45.0)
--- NOTE | 2024-11-04 02:58 | PC.NURSE ---
This nurse was alerted that pt was acting different then previously in the shift. On arrival pt was more drowsy and was less responsive to verbal commands. Vitals were taken and sugar was checked. An ABG was taken which revealed a CO2 of 96. Pt was placed of Bipap and a chest xray and other labs were taken. Pt was then upgraded to step-down and pt care. Pt was moved to room 216 and care was transferred to [facility] [place].
[2024-11-04] MEDS: ENOXAPARIN 80MG/0.8ML SYRINGE 75 MG SUBCUT ×2 (03:05→16:14)
[2024-11-04 03:07] LABS: Lactate Venous 1.1 mmol/L (0.4-2.0); VBG HCO3 32.6 mmol/L (23-30); VBG PH 7.29 mmol/L (7.31-7.41); VBG PO2 51.8 mmol/L (28-40); VBG Total CO2 34.8 mmol/L (23-27)
[2024-11-04 03:11] LABS: VBG PCO2 70.1 mmol/L (35-51)
[2024-11-04 03:12] LABS: Lymphocytes % 5 % (10-50); Monocytes % 1 % (2-9); Neutrophils % 94 % (42-76); Platelet Estimate Normal; Stomatocytes 1+; Total Cells Counted 100
[2024-11-04 06:01] LABS: POC Glucose,Bedside 127 (70-110)
[2024-11-04 06:10] LABS: Basophils % 0.1 % (0.1-2.0); Hematocrit 37.7 % (37.0-47.0); Lymphocytes # 0.9 K/mm3 (0.7-4.5); Lymphocytes % 6.1 % (10-50); Mean Corpuscular HGB Conc 31.8 g/dL (31.8-35.4); Mean Corpuscular Hemoglobin 27.4 pg (27.0-31.2); Mean Corpuscular Volume 86.1 fl (81-99); Monocytes # 0.6 K/mm3 (0.1-1.0); Monocytes % 4.2 % (1.7-9.3); Neutrophils # 12.4 K/mm3 (1.8-7.8); Nucleated Red Blood Cells # 0 10^3/uL; Nucleated Red Blood Cells % 0 %; Platelet Count 278 K/mm3 (142-424); Red Blood Count 4.38 M/mm3 (4.20-5.40); Red Cell Distribution Width 15.9 % (11.5-17.5); Red Cell Distribution Width-SD 49.3 fL
[2024-11-04 06:11] LABS: Lactate Venous 1.9 mmol/L (0.4-2.0); VBG Base Excess 8.4 mmol/L (-2.4-2.3); VBG HCO3 33.1 mmol/L (23-30); VBG Oxygen Saturation 98.4 % (50-70); VBG PH 7.41 mmol/L (7.31-7.41); VBG PO2 105.3 mmol/L (28-40); VBG Total CO2 34.8 mmol/L (23-27)
[2024-11-04 06:16] LABS: Chloride 86 mmol/L (98-107); Potassium 4.4 mmoL/L (3.5-5.1); Sodium 126 mmol/L (136-145)
[2024-11-04 06:18] LABS: VBG PCO2 54.1 mmol/L (35-51)
[2024-11-04 06:19] LABS: Anion Gap 9.4 mEq/L (5-15); Blood Urea Nitrogen 23 mg/dl (7-17); Calcium 8.1 mg/dl (8.4-10.2); Carbon Dioxide 35 mmol/L (22.0-30.0); Creatinine Clearance Estimated 85 mL/min (50-200); Estimated Glomerular Filt Rate 73 ml/min (>60); GFR (African American) 89 ML/MIN (>60); Glucose 118 mg/dl (74-100)
--- NOTE | 2024-11-04 06:31 | PC.NURSE ---
Pt laying in bed on her left side. pt is on bipap at this time. Pt gluoces is 127 no insulin needed at this time. pt is npo for heart cath procedure today. consent has been signed but the checklist has not been completed due to pt declining during the night and was transferred from med surg room 210 to step down room 216. pt was found with altered level of conciousness, and not responding to staff. abg was obtained and pt ph was 7.21 and CO2 was 96.9. pts new vbg is ph 7.41 and co2 is 54.1. pt has a 20g in the right upper arm that was ultasound guided. pt has a purewick. pt does have redness under her breast and under her abdominal skin folds, nystatin powder is in the room.
[2024-11-04 06:55] LABS: Hemoglobin A1C 6.2 % (4.0-6.0)
[2024-11-04] MEDS: SODIUM CHLORIDE 0.9% 10ML FLUSH SYRINGE 10 ML IV ×2 (08:50→16:15)
--- NOTE | 2024-11-04 08:50 | PC.NURSE ---
Pt taken off BIPAP @ 0850 and placed on 3 L O2 per nasal cannula to take meds. Pt tolerating nasal cannula well, sat maintaining > 90%.
[2024-11-04] MEDS: ISOSORBIDE MONO 30MG TAB.ER.24H 30 MG PO (08:51)
[2024-11-04] MEDS: CLOPIDOGREL 75MG TAB 75 MG PO (08:52)
[2024-11-04] MEDS: SERTRALINE 50MG TABLET 75 MG PO (08:52)
[2024-11-04] MEDS: FUROSEMIDE 40MG/4ML VIAL 40 MG IV ×2 (08:52→16:14)
[2024-11-04] MEDS: METHYLPREDNISOLONE SOD SUCC 40MG VIAL 40 MG IV ×2 (08:52→20:44)
[2024-11-04] MEDS: POTASSIUM CHLORIDE 20MEQ TAB 20 MEQ PO (08:52)
[2024-11-04] MEDS: METOPROLOL TARTRATE 25MG TABLET 25 MG PO ×2 (08:52→20:44)
[2024-11-04] MEDS: ASPIRIN EC 81MG TABLET 81 MG PO (08:52)
[2024-11-04] MEDS: NICOTINE 21MG/24HR PATCH 21 MG TD (08:53)
[2024-11-04] MEDS: NYSTATIN TOPICAL POWDER 30GM TP ×4 (08:53→20:44)
[2024-11-04 10:20] LABS: Lactate Venous 1.5 mmol/L (0.4-2.0); VBG Base Excess 8.2 mmol/L (-2.4-2.3); VBG HCO3 34.1 mmol/L (23-30); VBG Oxygen Saturation 78.8 % (50-70); VBG PH 7.33 mmol/L (7.31-7.41); VBG PO2 44.1 mmol/L (28-40); VBG Total CO2 36.1 mmol/L (23-27)
[2024-11-04 11:19] LABS: POC Glucose,Bedside 117 (70-110)
--- NOTE | 2024-11-04 12:00 | IR_ITS ---
APPROVED REPORT Patient Location: Inpatient PROCEDURES Left heart catheterization Left ventriculogram Selective coronary angiogram INDICATION Acute non-ST elevation myocardial infarction Informed consent was obtained prior to the procedure. COMPLICATIONS NONE Estimated Blood Loss: LESS THAN 10 ML TECHNIQUE One percent lidocaine used to anesthetize the right anterior aspect of the wrist. The right radial artery was accessed via the Seldinger technique. A 6 [place] sheath was placed in the right radial artery. 2.5 mg of Verapamil, 800 mcg of nitroglycerin, 1mg Lidocaine and 5000 U Heparin were given through the arterial sheath. The 6 [place] JL 3 guide catheter was also used to perform left heart catheterization, left ventriculogram and selective coronary angiogram. At the end of the procedure the sheath was removed good hemostasis was achieved using Traclet band, patient was transferred to the postop holding area in stable condition. ANGIOGRAPHIC RESULTS The left main artery Normal The left anterior descending artery Is proximally normal and has mid vessel diffuse 40 and 50% stenoses. There is a large first diagonal artery which has proximal and mid vessel 40 to 50% stenosis The circumflex artery Is a large dominant vessel giving rise to large ramus intermedius which has proximal and mid vessel 30% stenoses. The circumflex artery itself has 30% stenosis The right coronary artery Is codominant and has ostial 30% stenosis with mid vessel 50% stenosis and a posterior descending artery which has a proximal concentric 50 to 60% stenosis The CURRIE ventriculogram reveals Reduced ejection fraction estimated at 35% with mid anterior apical hypokinesis The left ventricular end-diastolic pressure 15 mmHg IMPRESSION Diffuse moderate coronary artery disease as described above which is essentially unchanged from July 12 cardiac catheterization New onset cardiomyopathy characteristics suggestive of [place]ubo cardiomyopathy Normal LVEDP PLAN 1. Supportive care 2. Medical management at this time 3. Risk factor modification 4. At this point I do not believe revascularization will be beneficial. If clinical history is suggestive, I would consider Takotsubo cardiomyopathy as diagnosis Electronically signed by : Rodo Day MD 11/04/2024 14:28:56
--- NOTE | 2024-11-04 12:22 | EXP.CARD.PN ---
Subjective Subjective Date: 11/04/24 Time: 09:30 Interval history: Pt had hypoxic/hypercapnic episode overnight requiring Bipap. She had transient AMS with this but is A/O this morning and agreeable to proceed with cath. She can lay flat without symptoms. No chest pains at this time. Exam Data for Last 24 hours Vital signs and Labs for Last 24 Hours: Temp Pulse Resp BP Pulse Ox O2 Del Method O2 Flow Rate 97.6 F 76 18 109/70 L 95 Nasal Cannula 3 11/04/24 08:00 11/04/24 11:33 11/04/24 08:39 11/04/24 08:39 11/04/24 08:39 11/04/24 11:00 11/04/24 11:00 FiO2 35 11/04/24 08:00 Laboratory Results - last 24 hr 11/03/24 15:38: POC Glucose 154 H 11/03/24 19:59: POC Glucose 159 H 11/04/24 01:18: Specimen Source Right radial, O2 % 3lnc, ABG pH 7.21 L*, ABG pCO2 96.9 H, ABG pO2 85.8, ABG HCO3 37.9 H, ABG Total CO2 40.9 H, ABG O2 Saturation 94, ABG Base Excess 10.0 H, Rommel Test Patient unable 11/04/24 01:57: WBC 14.2 H D, RBC 4.48, Hgb 12.3, Hct 38.2, MCV 85.3, MCH 27.5, MCHC 32.2, RDW 15.6, Plt Count 289, MPV 9.9, Neut % (Auto) 91.0 H, Lymph % (Auto) 4.7 L, [place] % (Auto) 3.3, Eos % (Auto) 0.1, Baso % (Auto) 0.2, Neut # (Auto) 12.9 H, Lymph # (Auto) 0.7, [place] # (Auto) 0.5, Eos # (Auto) 0.0, Baso # (Auto) 0.0, Total Counted 100, Neutrophils % (Manual) 94 H, Lymphocytes % (Manual) 5 L, Monocytes % (Manual) 1 L, Platelet Estimate Normal, Stomatocytes 1+, Sodium 124 L, Potassium 4.5 D, Chloride 84 L, Carbon Dioxide 30, Anion Gap 14.5, BUN 24 H D, Creatinine 0.80, Estimated Creat Clear 88, Estimated GFR 73, Est GFR ( Amer) 89, Glucose 145 H, Calcium 7.8 L 11/04/24 03:00: VBG pH 7.29 L, VBG pCO2 70.1 H, VBG pO2 51.8 H, VBG HCO3 32.6 H, VBG Total CO2 34.8 H, VBG O2 Saturation 83.0 H, VBG Base Excess 6.0 H, VBG Lactic Acid 1.1 11/04/24 05:45: WBC 14.0 H, RBC 4.38, Hgb 12.0 L, Hct 37.7, MCV 86.1, MCH 27.4, MCHC 31.8, RDW 15.9, Plt Count 278, MPV 10.0, Neut % (Auto) 89.0 H, Lymph % (Auto) 6.1 L, [place] % (Auto) 4.2, Eos % (Auto) 0.0 L, Baso % (Auto) 0.1, Neut # (Auto) 12.4 H, Lymph # (Auto) 0.9, [place] # (Auto) 0.6, Eos # (Auto) 0.0, Baso # (Auto) 0.0, VBG pH 7.41, VBG pCO2 54.1 H, VBG pO2 105.3 H, VBG HCO3 33.1 H, VBG Total CO2 34.8 H, VBG O2 Saturation 98.4 H, VBG Base Excess 8.4 H, VBG Lactic Acid 1.9, Sodium 126 L, Potassium 4.4, Chloride 86 L, Carbon Dioxide 35 H, Anion Gap 9.4, BUN 23 H, Creatinine 0.80, Estimated Creat Clear 85, Estimated GFR 73, Est GFR ( Amer) 89, Glucose 118 H, Hemoglobin A1c 6.2 H, Calcium 8.1 L 11/04/24 05:54: POC Glucose 127 H 11/04/24 07:30: VBG pH 7.33, VBG pCO2 66.0 H, VBG pO2 44.1 H, VBG HCO3 34.1 H, VBG Total CO2 36.1 H, VBG O2 Saturation 78.8 H, VBG Base Excess 8.2 H, VBG Lactic Acid 1.5 11/04/24 11:11: POC Glucose 117 H I & O for Last 24 hours: Intake & Output 11/01/24 11/02/24 11/03/24 11/04/24 23:59 23:59 23:59 23:59 Intake Total 2049 / 2049 Output Total 1300 / 1450 800 / 800 Balance 750 / 600 -800 / -800 Weight 158 lb 1.6 oz 163 lb 2.273 oz 156 lb 6.4 oz Microbiology Reports for the Last 24 Hours: Microbiology 11/03/24 01:00 Blood Blood Culture - Preliminary NO GROWTH AFTER 24 HOURS 11/02/24 21:24 Blood Blood Culture - Preliminary NO GROWTH AFTER 24 HOURS Constitutional Constitutional: no acute distress and cooperative *Routine HEENT Exam Eye: Present PERRL *Routine Respiratory Exam Respiratory: Present CTA bilaterally; Absent accessory muscle use, wheezes or crackles Comments: mild wheezing throughout *Routine Cardiovascular Exam Cardiovascular: Present RRR, Normal S1 and Normal S2; Absent murmur, gallop or rubs *Routine Abdominal Exam Abdominal: Present soft; Absent tenderness *Routine Extremities Exam Extremities: Present pulses intact; Absent cyanosis or edema *Routine Skin Exam Skin: Present intact; Absent erythema or wounds *Routine Neurological Exam Neurological: Present alert and oriented X3 Routine Psychiatric Exam Psychiatric: Present cooperative Progress Note: A&P Assessment and plan (1) Non-ST elevation [place] (NSTEMI): Status: Acute (2) Pneumonia: Status: Acute (3) Hypokalemia: Status: Acute (4) Hyponatremia: Status: Acute (5) Acute exacerbation of CHF (congestive heart failure): Status: Acute (6) Acute exacerbation of chronic obstructive pulmonary disease: Status: Acute (7) Pericardial effusion: Status: Acute (8) Acute and chronic respiratory failure: Status: Acute (9) Diabetes mellitus: Status: Acute (10) Tobacco use: Status: Acute (11) Hypertension: Status: Acute (12) Hyperlipidemia: Status: Acute (13) Coronary artery disease: Status: Chronic Assessment and Plan Assessment and Plan for All Diagnoses:: CAD with NSTEMI - NSTEMI with small vessel dz noted on [facility] 2022 - here with Trop 0.6 then trending down but new WMA and EF 30% - she denies anginal CP but having class 4 anginal equivalent dyspnea - EKG - SR with RBBB, no significant ST changes - Cont DAPT, Lovenox, BB Allergy to statin. - [facility] today HFrEF - new dx this admission with EF 30% and WMA in setting of elevated Trop and hypoxia - ECHO here: Moderate to severe global LV dysfunction with EF 30%, regional wall motion abnormality with mid to distal septal, inferoseptal, and anteroseptal LV and apical LV pastrana nearly akinetic. Small size circumferential pericardial effusion without tamponade - Pt euvolemic on exam - ProBNP 20k on admission, no edema or effusio noted on chest imaging, no perpheral swelling - [facility] today to eval for new ichemia - GDMT on hold due to hypotension and PNA on antibiotics Pericardial Effusion - 15mm on CT here - noted chronically since 2022, will repeat ECHO to check status Acute on Chronic Hypoxic Resp Failure - COPD, ongoing tob use at 2ppd, lung cancer in remission - hypoxic here, proBNP 20k, large RUL consolidation here - PNA vs Ca - Cont O2 NC, antibiotics, obtain records from [facility] - [place], ECHO pending - hypoxia/hypercarbia overnight requiring bipap with brief AMS, improved this morning on nasal canula Htn - low here, dose adjust home meds as needed Hyponatremia - urine and serum Na consistent with SIADH - continue fluid restriction/diuretics
[2024-11-04] MEDS: diphenhydrAMINE 50MG/ML VIAL 50 MG IV (13:46)
[2024-11-04] MEDS: NITROGLYCERIN 800MCG/8ML SYR (CATH LAB) 800 MCG IA (13:46)
[2024-11-04] MEDS: VERAPAMIL 2.5MG/ML 2ML VIAL 2.5 MG IV (13:46)
[2024-11-04] MEDS: HEPARIN 1,000 UNITS/ML 10ML VIAL (CATH LAB) 5000 UNIT IV (13:47)
[2024-11-04] MEDS: LIDOCAINE 1% 10ML MDV 10 ML IJ (13:47)
[2024-11-04] MEDS: 0.9 % SODIUM CHLORIDE 500 ML 25 ML IV (13:47)
[2024-11-04] MEDS: HEPARIN 1,000 UNITS/500ML NS (CATH LAB) 3000 UNIT IV (13:47)
[2024-11-04] MEDS: FENTANYL 100MCG/2ML VIAL 50 MCG IV (13:48)
[2024-11-04] MEDS: MIDAZOLAM HCL 1MG/ML 5ML VIAL 1 MG IV (13:48)
[2024-11-04] MEDS: IOPAMIDOL-370 (76%);100ML BOTTLE 50 ML IV (15:00)
[2024-11-04 16:26] LABS: POC Glucose,Bedside 127 (70-110)
--- NOTE | 2024-11-04 17:46 | EXP.ACUTE.PN ---
Subjective *Date: 11/04/24 *Time: 17:46 Interval history: Had episode of confusion overnight. Found to be hypercapnic. Wore BiPAP and did well. Blood gas improved this morning. More alert and oriented. Denies chest pain or shortness of breath. Cardiology still planning for left heart cath. Medical Exam Vital signs and Labs for Last 24 Hours: Vital Signs Temp Pulse Pulse Resp BP Pulse Ox O2 Del Method 11/04/24 17:00 Nasal Cannula 11/04/24 16:35 83 19 101/63 L 94 L Room Air 11/04/24 16:05 85 17 94/56 L 94 L Nasal Cannula 11/04/24 15:35 84 18 119/61 91 L Nasal Cannula 11/04/24 15:21 94 L Nasal Cannula 11/04/24 15:20 86 19 95/69 L 91 L Nasal Cannula 11/04/24 15:05 87 17 108/75 L 94 L Nasal Cannula 11/04/24 15:00 Nasal Cannula 11/04/24 14:50 97.6 F 83 17 92/68 L 96 Nasal Cannula 11/04/24 14:35 85 16 81/50 L 94 L Nasal Cannula 11/04/24 14:30 84 21 82/51 L 92 L Nasal Cannula 11/04/24 14:25 86 21 82/51 L 92 L Nasal Cannula 11/04/24 14:20 92 H 19 86/56 L 92 L Nasal Cannula 11/04/24 14:20 92 H 92 H 19 86/56 L 92 L Nasal Cannula 11/04/24 13:00 Nasal Cannula 11/04/24 12:00 80 11/04/24 11:33 76 11/04/24 11:33 79 11/04/24 11:00 Nasal Cannula 11/04/24 09:00 Nasal Cannula 11/04/24 08:39 83 18 109/70 L 95 Nasal Cannula 11/04/24 08:00 80 11/04/24 08:00 97.6 F 11/04/24 08:00 79 18 109/70 L 97 BiPAP 11/04/24 08:00 18 97 BiPAP 11/04/24 06:53 BiPAP 11/04/24 06:17 77 11/04/24 06:17 77 11/04/24 06:17 11/04/24 05:00 BiPAP 11/04/24 04:00 70 11/04/24 03:00 BiPAP 11/04/24 02:12 89 11/04/24 02:12 92 H 11/04/24 02:00 99 H 93 L BiPAP 11/04/24 01:38 11/04/24 01:00 Nasal Cannula 11/04/24 00:48 77 11/04/24 00:48 81 11/04/24 00:48 Nasal Cannula 11/04/24 00:00 80 11/04/24 00:00 97.6 F 81 19 87/57 L 100 Nasal Cannula 11/03/24 23:00 Nasal Cannula 11/03/24 21:00 Nasal Cannula 11/03/24 20:00 100 H 11/03/24 20:00 Nasal Cannula 11/03/24 19:45 97.8 F 95 H 22 104/79 L 96 Nasal Cannula 11/03/24 18:31 92 H 11/03/24 18:31 96 H 11/03/24 18:31 96 Nasal Cannula 11/03/24 18:22 Nasal Cannula O2 Flow Rate FiO2 11/04/24 17:00 3 11/04/24 16:35 3 11/04/24 16:05 3 11/04/24 15:35 3 11/04/24 15:21 3 11/04/24 15:20 3 11/04/24 15:05 3 11/04/24 15:00 4 11/04/24 14:50 4 11/04/24 14:35 4 11/04/24 14:30 4 11/04/24 14:25 4 11/04/24 14:20 4 11/04/24 14:20 4 11/04/24 13:00 3 11/04/24 12:00 11/04/24 11:33 11/04/24 11:33 11/04/24 11:00 3 11/04/24 09:00 3 11/04/24 08:39 3 11/04/24 08:00 11/04/24 08:00 11/04/24 08:00 35 11/04/24 08:00 35 11/04/24 06:53 11 11/04/24 06:17 11/04/24 06:17 11/04/24 06:17 35 11/04/24 05:00 11 11/04/24 04:00 11/04/24 03:00 11 11/04/24 02:12 11/04/24 02:12 11/04/24 02:00 11/04/24 01:38 35 11/04/24 01:00 3.5 11/04/24 00:48 11/04/24 00:48 11/04/24 00:48 11/04/24 00:00 11/04/24 00:00 3.5 11/03/24 23:00 3.5 11/03/24 21:00 3.5 11/03/24 20:00 11/03/24 20:00 3.5 11/03/24 19:45 3.5 11/03/24 18:31 11/03/24 18:31 11/03/24 18:31 3 11/03/24 18:22 3 Intake and Output 11/04/24 11/04/24 11/04/24 07:59 15:59 23:59 Output Total 450 / 1200 750 / 1200 Balance -450 / -1200 -750 / -1200 Output: Output, Urine Amount 450 / 1200 750 / 1200 Other: Number of Unmeasured Voids 1 Weight 70.942 kg Patient Weight 11/04/24 23:59 Weight 70.942 kg Laboratory Results - last 24 hr 11/03/24 19:59: POC Glucose 159 H 11/04/24 01:18: Specimen Source Right radial, O2 % 3lnc, ABG pH 7.21 L*, ABG pCO2 96.9 H, ABG pO2 85.8, ABG HCO3 37.9 H, ABG Total CO2 40.9 H, ABG O2 Saturation 94, ABG Base Excess 10.0 H, Rommel Test Patient unable 11/04/24 01:57: WBC 14.2 H D, RBC 4.48, Hgb 12.3, Hct 38.2, MCV 85.3, MCH 27.5, MCHC 32.2, RDW 15.6, Plt Count 289, MPV 9.9, Neut % (Auto) 91.0 H, Lymph % (Auto) 4.7 L, [place] % (Auto) 3.3, Eos % (Auto) 0.1, Baso % (Auto) 0.2, Neut # (Auto) 12.9 H, Lymph # (Auto) 0.7, [place] # (Auto) 0.5, Eos # (Auto) 0.0, Baso # (Auto) 0.0, Total Counted 100, Neutrophils % (Manual) 94 H, Lymphocytes % (Manual) 5 L, Monocytes % (Manual) 1 L, Platelet Estimate Normal, Stomatocytes 1+, Sodium 124 L, Potassium 4.5 D, Chloride 84 L, Carbon Dioxide 30, Anion Gap 14.5, BUN 24 H D, Creatinine 0.80, Estimated Creat Clear 88, Estimated GFR 73, Est GFR ( Amer) 89, Glucose 145 H, Calcium 7.8 L 11/04/24 03:00: VBG pH 7.29 L, VBG pCO2 70.1 H, VBG pO2 51.8 H, VBG HCO3 32.6 H, VBG Total CO2 34.8 H, VBG O2 Saturation 83.0 H, VBG Base Excess 6.0 H, VBG Lactic Acid 1.1 11/04/24 05:45: WBC 14.0 H, RBC 4.38, Hgb 12.0 L, Hct 37.7, MCV 86.1, MCH 27.4, MCHC 31.8, RDW 15.9, Plt Count 278, MPV 10.0, Neut % (Auto) 89.0 H, Lymph % (Auto) 6.1 L, [place] % (Auto) 4.2, Eos % (Auto) 0.0 L, Baso % (Auto) 0.1, Neut # (Auto) 12.4 H, Lymph # (Auto) 0.9, [place] # (Auto) 0.6, Eos # (Auto) 0.0, Baso # (Auto) 0.0, VBG pH 7.41, VBG pCO2 54.1 H, VBG pO2 105.3 H, VBG HCO3 33.1 H, VBG Total CO2 34.8 H, VBG O2 Saturation 98.4 H, VBG Base Excess 8.4 H, VBG Lactic Acid 1.9, Sodium 126 L, Potassium 4.4, Chloride 86 L, Carbon Dioxide 35 H, Anion Gap 9.4, BUN 23 H, Creatinine 0.80, Estimated Creat Clear 85, Estimated GFR 73, Est GFR ( Amer) 89, Glucose 118 H, Hemoglobin A1c 6.2 H, Calcium 8.1 L 11/04/24 05:54: POC Glucose 127 H 11/04/24 07:30: VBG pH 7.33, VBG pCO2 66.0 H, VBG pO2 44.1 H, VBG HCO3 34.1 H, VBG Total CO2 36.1 H, VBG O2 Saturation 78.8 H, VBG Base Excess 8.2 H, VBG Lactic Acid 1.5 11/04/24 11:11: POC Glucose 117 H 11/04/24 16:18: POC Glucose 127 H I & O for Labs for Last 24 Hours: Intake & Output 11/01/24 11/02/24 11/03/24 11/04/24 23:59 23:59 23:59 23:59 Intake Total 2049 / 2049 Output Total 1300 / 1450 1200 / 1200 Balance 750 / 600 -1200 / -1200 Weight 71.713 kg 74 kg 70.942 kg Microbiology Reports for the Last 24 Hours: Microbiology 11/03/24 12:47 Sputum - Expectorated Sputum Gram Stain - Final 11/03/24 01:00 Blood Blood Culture - Preliminary NO GROWTH AFTER 24 HOURS 11/02/24 21:24 Blood Blood Culture - Preliminary NO GROWTH AFTER 24 HOURS Constitutional: Present mild distress, obese, chronically ill appearing and cooperative Head: Present atraumatic ENT: Present normal exam Respiratory: Present accessory muscle use, prolonged expiratory phase, rhonchi and wheezes; Absent crackles Cardiac: Present Reg Rate and Rhythm GI: Present soft and normal bowel sounds; Absent distention or tenderness Extremities: Present normal inspection and full ROM Skin: Present intact; Absent erythema Neuro: Present Grossly Intact, alert, awake, oriented x 3 and moves all extremities Assessment and Plan *Assessment and plan (1) Non-ST elevation PA (NSTEMI): Status: Acute Category: Medical Code(s): I21.4 - Non-ST elevation (NSTEMI) myocardial infarction (2) Pneumonia: Status: Acute Category: Medical Code(s): J18.9 - Pneumonia, unspecified organism (3) Hypokalemia: Status: Acute Category: Medical Code(s): E87.6 - Hypokalemia (4) Hyponatremia: Status: Acute Category: Medical Code(s): E87.1 - Hypo-osmolality and hyponatremia (5) Acute exacerbation of CHF (congestive heart failure): Status: Acute Qualifiers: Heart failure type: systolic Qualified Code(s): I50.23 - Acute on chronic systolic (congestive) heart failure Category: Medical Code(s): I50.9 - Heart failure, unspecified (6) Acute exacerbation of chronic obstructive pulmonary disease: Status: Acute Category: Medical Code(s): J44.1 - Chronic obstructive pulmonary disease with (acute) exacerbation (7) Pericardial effusion: Status: Acute Category: Medical Code(s): I31.39 - Other pericardial effusion (noninflammatory) (8) Acute and chronic respiratory failure: Status: Acute Category: Medical Code(s): J96.20 - Acute and chronic respiratory failure, unspecified whether with hypoxia or hypercapnia (9) Diabetes mellitus: Status: Acute Qualifiers: Diabetes mellitus type: type 2 Diabetes mellitus retirement insulin use: unspecified retirement insulin use status Diabetes mellitus complication status: with other specified complication Qualified Code(s): E11.69 - Type 2 diabetes mellitus with other specified complication Category: Medical Code(s): E11.9 - Type 2 diabetes mellitus without complications (10) Tobacco use: Status: Acute Category: Social Hx Code(s): Z72.0 - Tobacco use (11) Hypertension: Status: Acute Qualifiers: Hypertension type: essential hypertension Qualified Code(s): I10 - Essential (primary) hypertension Category: Medical Code(s): I10 - Essential (primary) hypertension (12) Hyperlipidemia: Status: Acute Qualifiers: Hyperlipidemia type: unspecified Qualified Code(s): E78.5 - Hyperlipidemia, unspecified Category: Medical Code(s): E78.5 - Hyperlipidemia, unspecified (13) Coronary artery disease: Status: Chronic Qualifiers: Coronary Disease-Associated Artery/Lesion type: [place] artery [place] vs. transplanted heart: [place] heart Associated angina: without angina Qualified Code(s): I25.10 - Atherosclerotic heart disease of [place] coronary artery without angina pectoris Category: Medical Code(s): I25.10 - Atherosclerotic heart disease of [place] coronary artery without angina pectoris Plan 59-year-old female who presents with respiratory failure concerning for pneumonia/COPD exacerbation. Cardiology assisting due to NSTEMI. Echo showing new global reduction in EF. Had episode of hypercapnic failure overnight necessitating BiPAP. Showing some improvement this morning. Continues to require inpatient management. Going for left heart cath today. Problems addressed as follows: COPD Exacerbation: Acute on chronic hypoxemic respiratory failure with hypercapnia Right upper lobe pneumonia -Continue supplemental oxygen, goal sats greater 90%. Wore BiPAP overnight due to hypercapnic failure with pH of 7.21 on VBG and PCO2 of 96. Improved this morning. Reevaluate for need for BiPAP tonight. If mentating normally, will hold on BiPAP and repeat blood gas in the morning to evaluate for possible need at discharge for BiPAP. Otherwise continue supplemental oxygen. Currently on 3 L. - Continue DuoNebs scheduled every 6 hours, available every 4 as needed. steroids 40 mg prednisone daily. - Continue azithromycin 500 mg daily and ceftriaxone 1 g daily. - Sputum and blood cultures pending - Lesion concerning on chest imaging. Attempting to obtain records from [facility] to compare imaging. Will need follow-up with oncology as an outpatient given history of lung cancer Hyponatremia SIADH - Urine sodium 71, consistent with SIADH. Will fluid restrict less than 1500 cc. Continue diuresis with Lasix 40 mg IV twice daily. Monitor for improvement with serial sodium every 12 hours. Correct 8 to 10 mEq a day. -Sodium 126 this morning. Chloride 86. No significant change since admission. Given her heart failure, contraindication for sodium supplementation. - Kidney function remains normal with BUN 23, creatinine 0.8. - Repeat CBC, CMP, magnesium ordered for the morning Acute HFrEF Pericardial effusion CAD NSTEMI - BNP elevated to 20,000. Troponin plateaued 0.55. 15 mm effusion on CTA. - Diffuse moderate disease on left heart cath. No stents placed. Unchanged from July 12 cath. Does have concern for cardiomyopathy suggestive of Takotsubo. Ventriculogram showing EF of 35% during the procedure. - Formal echo obtained with moderate to severe reduction in LV function with EF of 30%. - Discussed case with cardiology, recommend continuing Lovenox 1 mg/kg twice daily. Continue Lasix 40 mg IV twice daily for elevated BNP/volume overload. - Continue DAPT therapy and metoprolol tartrate 25mg BID Hyperglycemia: Suspect diabetes. - A1c 6.2, prediabetic. Continue fingersticks ACHS with sliding scale insulin. Morning glucose 118. - Initiate Jardiance 10 mg daily History of Lung Cancer in Remission: Remission since 2020, consolidation raises recurrence concern. -Consider oncology consult as outpatient. - Monitor for weight loss, night sweats, or other B symptoms. - coordinate with [facility] for records. Full code Therapeutic Lovenox Cardiac diet
[2024-11-04 19:46] LABS: POC Glucose,Bedside 143 (70-110)
[2024-11-04] MEDS: CEFTRIAXONE 1 GM 1 GM in 0.9 % SODIUM CHLORIDE 50 ML IV (20:44)
[2024-11-04] MEDS: AZITHROMYCIN 250MG TABLET 500 MG PO (20:44)
[2024-11-04] MEDS: PANTOPRAZOLE 40MG TABLET 40 MG PO (20:44)
[2024-11-05] VITALS (15 sets, daily range): BP systolic 91–131; BP diastolic 48–78; PULSE 78–96; RESP 17–24; TEMP 36.5–36.9; O2SAT 90–96; BMI 28.8
[2024-11-05 02:08] LABS: Osmolality, Urine 278 mOsmol/kg (.)
[2024-11-05] MEDS: ENOXAPARIN 80MG/0.8ML SYRINGE 75 MG SUBCUT ×2 (03:33→14:25)
[2024-11-05] MEDS: IPRATROPIUM/ALBUTEROL 3 ML NEB IH ×4 (06:07→23:15)
[2024-11-05 06:24] LABS: Chloride 84 mmol/L (98-107)
[2024-11-05 06:25] LABS: Potassium 3.8 mmoL/L (3.5-5.1); Sodium 130 mmol/L (136-145)
[2024-11-05 06:27] LABS: Blood Urea Nitrogen 24 mg/dl (7-17); Creatinine Clearance Estimated 68 mL/min (50-200); Estimated Glomerular Filt Rate 57 ml/min (>60); GFR (African American) 69 ML/MIN (>60)
[2024-11-05 06:28] LABS: Calcium 8.1 mg/dl (8.4-10.2); Glucose 121 mg/dl (74-100)
[2024-11-05 06:29] LABS: Basophils % 0.2 % (0.1-2.0); Hematocrit 36.3 % (37.0-47.0); Hemoglobin 11.5 g/dL (12.2-16.2); Lymphocytes # 0.7 K/mm3 (0.7-4.5); Lymphocytes % 6.6 % (10-50); Mean Corpuscular HGB Conc 31.7 g/dL (31.8-35.4); Mean Corpuscular Hemoglobin 27.4 pg (27.0-31.2); Mean Corpuscular Volume 86.4 fl (81-99); Mean Platelet Volume 9.9 fl (7.4-10.4); Monocytes # 0.3 K/mm3 (0.1-1.0); Neutrophils # 9.8 K/mm3 (1.8-7.8); Neutrophils % 89.5 % (37.0-80.0); Nucleated Red Blood Cells # 0 10^3/uL; Nucleated Red Blood Cells % 0 %; Platelet Count 296 K/mm3 (142-424); Red Cell Distribution Width 15.9 % (11.5-17.5); Red Cell Distribution Width-SD 49.8 fL; White Blood Count 10.9 K/mm3 (4.8-10.8)
[2024-11-05 06:35] LABS: Anion Gap 12.8 mEq/L (5-15); Carbon Dioxide 37 mmol/L (22.0-30.0)
[2024-11-05 06:43] LABS: POC Glucose,Bedside 136 (70-110)
[2024-11-05] MEDS: SERTRALINE 50MG TABLET 75 MG PO (08:24)
[2024-11-05] MEDS: METOPROLOL TARTRATE 25MG TABLET 25 MG PO (08:24)
[2024-11-05] MEDS: METHYLPREDNISOLONE SOD SUCC 40MG VIAL 40 MG IV ×2 (08:25→21:18)
[2024-11-05] MEDS: FUROSEMIDE 40MG/4ML VIAL 40 MG IV ×2 (08:25→16:39)
[2024-11-05] MEDS: ISOSORBIDE MONO 30MG TAB.ER.24H 30 MG PO (08:25)
[2024-11-05] MEDS: ASPIRIN EC 81MG TABLET 81 MG PO (08:25)
[2024-11-05] MEDS: POTASSIUM CHLORIDE 20MEQ TAB 20 MEQ PO (08:25)
[2024-11-05] MEDS: EMPAGLIFLOZIN 10MG TABLET 10 MG PO (08:25)
[2024-11-05] MEDS: NYSTATIN TOPICAL POWDER 30GM TP ×3 (08:26→21:18)
[2024-11-05] MEDS: CLOPIDOGREL 75MG TAB 75 MG PO (08:26)
[2024-11-05 10:30] LABS: Lactate Venous 1.6 mmol/L (0.4-2.0); VBG Base Excess 14.4 mmol/L (-2.4-2.3); VBG HCO3 38.3 mmol/L (23-30); VBG Oxygen Saturation 97.9 % (50-70); VBG PH 7.46 mmol/L (7.31-7.41); VBG PO2 94.7 mmol/L (28-40)
[2024-11-05 10:32] LABS: VBG PCO2 55.6 mmol/L (35-51)
[2024-11-05 11:09] LABS: POC Glucose,Bedside 112 (70-110)
--- NOTE | 2024-11-05 12:42 | EXP.CARD.PN ---
Subjective Subjective Date: 11/05/24 Time: 09:30 Interval history: Left heart cath yesterday revealed nonobstructive disease and findings consistent with Takotsubo cardiomyopathy. Patient reports breathing slightly better this morning. Exam Data for Last 24 hours Vital signs and Labs for Last 24 Hours: Temp Pulse Resp BP Pulse Ox O2 Del Method O2 Flow Rate 97.9 F 84 17 119/65 97 Room Air 3 11/05/24 12:00 11/05/24 12:00 11/05/24 12:00 11/05/24 12:00 11/05/24 12:00 11/05/24 12:00 11/05/24 11:25 FiO2 35 11/04/24 08:00 Laboratory Results - last 24 hr 11/03/24 04:15: Urine Osmolality 278 11/04/24 16:18: POC Glucose 127 H 11/04/24 19:37: POC Glucose 143 H 11/05/24 05:25: WBC 10.9 H, RBC 4.20, Hgb 11.5 L, Hct 36.3 L, MCV 86.4, MCH 27.4, MCHC 31.7 L, RDW 15.9, Plt Count 296, MPV 9.9, Neut % (Auto) 89.5 H, Lymph % (Auto) 6.6 L, [place] % (Auto) 3.0, Eos % (Auto) 0.0 L, Baso % (Auto) 0.2, Neut # (Auto) 9.8 H, Lymph # (Auto) 0.7, [place] # (Auto) 0.3, Eos # (Auto) 0.0, Baso # (Auto) 0.0, Sodium 130 L, Potassium 3.8, Chloride 84 L, Carbon Dioxide 37 H, Anion Gap 12.8, BUN 24 H, Creatinine 1.00 D, Estimated Creat Clear 68, Estimated GFR 57 L, Est GFR ( Amer) 69 D, Glucose 121 H, Calcium 8.1 L 11/05/24 06:01: POC Glucose 136 H 11/05/24 10:12: VBG pH 7.46 H, VBG pCO2 55.6 H, VBG pO2 94.7 H, VBG HCO3 38.3 H, VBG Total CO2 40.0 H, VBG O2 Saturation 97.9 H, VBG Base Excess 14.4 H, VBG Lactic Acid 1.6 11/05/24 11:01: POC Glucose 112 H I & O for Last 24 hours: Intake & Output 11/02/24 11/03/24 11/04/24 11/05/24 23:59 23:59 23:59 23:59 Intake Total 2049 / 2049 260 / 260 420 / 420 Output Total 1300 / 1450 1650 / 1850 450 / 450 Balance 750 / 600 -1390 / -1590 -30 / -30 Weight 158 lb 1.6 oz 163 lb 2.273 oz 156 lb 6.4 oz 157 lb Microbiology Reports for the Last 24 Hours: Microbiology 11/03/24 01:00 Blood Blood Culture - Preliminary NO GROWTH AFTER 48 HOURS 11/02/24 21:24 Blood Blood Culture - Preliminary NO GROWTH AFTER 48 HOURS 11/03/24 12:47 Sputum - Expectorated Sputum Gram Stain - Final Constitutional Constitutional: no acute distress and cooperative *Routine HEENT Exam Eye: Present PERRL *Routine Respiratory Exam Respiratory: Present CTA bilaterally; Absent accessory muscle use, wheezes or crackles Comments: mild wheezing throughout *Routine Cardiovascular Exam Cardiovascular: Present RRR, Normal S1 and Normal S2; Absent murmur, gallop or rubs *Routine Abdominal Exam Abdominal: Present soft; Absent tenderness *Routine Extremities Exam Extremities: Present pulses intact; Absent cyanosis or edema *Routine Skin Exam Skin: Present intact; Absent erythema or wounds *Routine Neurological Exam Neurological: Present alert and oriented X3 Routine Psychiatric Exam Psychiatric: Present cooperative Progress Note: A&P Assessment and plan (1) Takotsubo cardiomyopathy: Status: Acute (2) Pneumonia: Status: Acute (3) Hypokalemia: Status: Acute (4) Hyponatremia: Status: Acute (5) Acute exacerbation of chronic obstructive pulmonary disease: Status: Acute (6) Pericardial effusion: Status: Acute (7) Acute and chronic respiratory failure: Status: Acute (8) Diabetes mellitus: Status: Acute (9) Tobacco use: Status: Acute (10) Hypertension: Status: Acute (11) Hyperlipidemia: Status: Acute (12) Coronary artery disease: Status: Chronic Assessment and Plan Assessment and Plan for All Diagnoses:: CAD with elevated trop - NSTEMI with small vessel dz noted on [facility] 2022 - here with Trop 0.6 then trending down but new WMA and EF 30% - she denies anginal CP but having class 4 anginal equivalent dyspnea - EKG - SR with RBBB, no significant ST changes - LHC - non obs dz. ECHO/LHC consistent with Takotsubo cardiomyopathy Plan: - Cont DAPT, Lovenox, BB Allergy to statin. Takotsubo cardiomyopathy, HFrEF - new dx this admission with EF 30% and WMA in setting of elevated Trop and hypoxia - ECHO here: Moderate to severe global LV dysfunction with EF 30%, regional wall motion abnormality with mid to distal septal, inferoseptal, and anteroseptal LV and apical LV pastrana nearly akinetic. Small size circumferential pericardial effusion without tamponade - Pt euvolemic on exam - ProBNP 20k on admission, no edema or effusion noted on chest imaging, no perpheral swelling - LHC here shows nonobstructive disease Plan: - pt agreeable to [facility] - cont to tx PNA - GDMT limited due to hypotension and acute illness - change Metoprolol and Imdur to Entresto. Hold Aldactone due to BP. Hold SGLT-2 due to infection - monitor volume status Pericardial Effusion - STABLE/CHRONIC - 15mm on CT here - noted chronically since 2022, will repeat ECHO to check status Acute on Chronic Hypoxic Resp Failure - COPD, ongoing tob use at 2ppd, lung cancer in remission - hypoxic here, proBNP 20k, large RUL consolidation here - PNA vs Ca - Cont O2 NC, antibiotics, obtain records from [facility] pending - hypoxia/hypercarbia overnight requiring bipap with brief AMS, improved this morning on nasal canula Plan: - cont tx of pneumonia - start GDMT for HF - O2 supplementation Htn - low here, dose adjust home meds as needed Hyponatremia - urine and serum Na consistent with SIADH Plan: - continue fluid restriction/diuretics
--- NOTE | 2024-11-05 14:45 | SW/DCPLANNER ---
Addendum entered by Lizbet Ramos 11/08/24 08:15: [facility] able to accept the patient. Angélica Schmitz Addendum entered by Lizbet Ramos 11/05/24 15:51: [facility] still hasnt heard anything back from patients auth yet. [facility] stated that they will let me know when they hear something. I will update when i hear back from [facility]. Gil Schmitz Original Note: Spoke with patient regarding home health services. Patient stated that she is interested in having home health. Patient stated that she has no preference. I sent patient's info to [facility] and [facility]. [facility] is unable to accept patient due to her insurance. I will update once i hear back from [facility]. Gil Schmitz
[2024-11-05 16:32] LABS: POC Glucose,Bedside 144 (70-110)
--- NOTE | 2024-11-05 18:39 | EXP.ACUTE.PN ---
Subjective *Date: 11/05/24 *Time: 21:59 Interval history: Remains alert and oriented this morning. Blood gas today shows stable VBG without hypercapnia. No nausea or vomiting. 3 L oxygen today. Still quite wheezy and weak. Therapy to evaluate today. Medical Exam Vital signs and Labs for Last 24 Hours: Vital Signs Temp Pulse Pulse Resp BP Pulse Ox O2 Del Method 11/05/24 18:18 91 H 11/05/24 18:18 96 H 11/05/24 18:18 91 L Nasal Cannula 11/05/24 17:00 Nasal Cannula 11/05/24 16:19 97.7 F 86 19 131/78 91 L Nasal Cannula 11/05/24 16:00 90 11/05/24 15:00 Nasal Cannula 11/05/24 13:00 Nasal Cannula 11/05/24 12:00 97.9 F 96 H 17 108/48 L 93 L Nasal Cannula 11/05/24 12:00 90 11/05/24 11:25 87 11/05/24 11:25 81 11/05/24 11:25 92 L Nasal Cannula 11/05/24 11:00 Nasal Cannula 11/05/24 10:00 86 21 100/59 L 93 L Nasal Cannula 11/05/24 09:06 Nasal Cannula 11/05/24 08:00 90 11/05/24 08:00 Nasal Cannula 11/05/24 08:00 98.5 F 92 H 19 106/74 L 96 Nasal Cannula 11/05/24 06:47 Nasal Cannula 11/05/24 06:07 90 11/05/24 06:07 90 11/05/24 06:07 90 L Nasal Cannula 11/05/24 06:00 91 H 24 113/72 90 L Nasal Cannula 11/05/24 05:00 Nasal Cannula 11/05/24 04:00 78 11/05/24 04:00 97.9 F 79 18 106/68 L 95 Nasal Cannula 11/05/24 03:00 Nasal Cannula 11/05/24 02:00 80 92 L Nasal Cannula 11/05/24 02:00 82 24 91/68 L 91 L Nasal Cannula 11/05/24 01:00 Nasal Cannula 11/05/24 00:00 84 11/05/24 00:00 98.1 F 94 H 22 106/58 L 91 L Nasal Cannula 11/04/24 23:03 81 11/04/24 23:03 84 11/04/24 23:00 Nasal Cannula 11/04/24 21:32 83 20 101/46 L 97 Nasal Cannula 11/04/24 21:13 82 11/04/24 21:13 85 11/04/24 21:00 Nasal Cannula 11/04/24 20:35 89 22 142/42 H 91 L Nasal Cannula 11/04/24 20:00 80 11/04/24 20:00 92 H 99 Nasal Cannula 11/04/24 20:00 98.3 F 97 H 22 105/74 L 92 L Nasal Cannula 11/04/24 19:35 90 22 101/70 L 99 Nasal Cannula 11/04/24 19:30 90 11/04/24 19:30 94 H 11/04/24 19:30 92 L Nasal Cannula 11/04/24 18:45 Nasal Cannula O2 Flow Rate 11/05/24 18:18 11/05/24 18:18 11/05/24 18:18 3 11/05/24 17:00 3 11/05/24 16:19 3 11/05/24 16:00 11/05/24 15:00 3 11/05/24 13:00 3 11/05/24 12:00 3 11/05/24 12:00 11/05/24 11:25 11/05/24 11:25 11/05/24 11:25 3 11/05/24 11:00 3 11/05/24 10:00 3 11/05/24 09:06 3 11/05/24 08:00 11/05/24 08:00 3 11/05/24 08:00 3 11/05/24 06:47 3 11/05/24 06:07 11/05/24 06:07 11/05/24 06:07 3 11/05/24 06:00 3 11/05/24 05:00 3 11/05/24 04:00 11/05/24 04:00 3 11/05/24 03:00 3 11/05/24 02:00 3 11/05/24 02:00 3 11/05/24 01:00 3 11/05/24 00:00 11/05/24 00:00 3 11/04/24 23:03 11/04/24 23:03 11/04/24 23:00 3 11/04/24 21:32 3 11/04/24 21:13 11/04/24 21:13 11/04/24 21:00 3 11/04/24 20:35 3 11/04/24 20:00 11/04/24 20:00 3 11/04/24 20:00 3 11/04/24 19:35 3 11/04/24 19:30 11/04/24 19:30 11/04/24 19:30 3 11/04/24 18:45 3 Intake and Output 11/05/24 11/05/24 11/05/24 07:59 15:59 23:59 Intake Total 420 / 965 335 / 965 210 / 965 Output Total 450 / 1800 1350 / 1800 Balance -30 / -835 335 / -835 -1140 / -835 Intake: Intake, Oral Amount 420 / 965 335 / 965 210 / 965 Output: Output, Urine Amount 450 / 1800 1350 / 1800 Other: Number of Unmeasured Voids 0 2 Weight 71.214 kg Patient Weight 11/05/24 23:59 Weight 71.214 kg Laboratory Results - last 24 hr 11/03/24 04:15: Urine Osmolality 278 11/04/24 19:37: POC Glucose 143 H 11/05/24 05:25: WBC 10.9 H, RBC 4.20, Hgb 11.5 L, Hct 36.3 L, MCV 86.4, MCH 27.4, MCHC 31.7 L, RDW 15.9, Plt Count 296, MPV 9.9, Neut % (Auto) 89.5 H, Lymph % (Auto) 6.6 L, [place] % (Auto) 3.0, Eos % (Auto) 0.0 L, Baso % (Auto) 0.2, Neut # (Auto) 9.8 H, Lymph # (Auto) 0.7, [place] # (Auto) 0.3, Eos # (Auto) 0.0, Baso # (Auto) 0.0, Sodium 130 L, Potassium 3.8, Chloride 84 L, Carbon Dioxide 37 H, Anion Gap 12.8, BUN 24 H, Creatinine 1.00 D, Estimated Creat Clear 68, Estimated GFR 57 L, Est GFR ( Amer) 69 D, Glucose 121 H, Calcium 8.1 L 11/05/24 06:01: POC Glucose 136 H 11/05/24 10:12: VBG pH 7.46 H, VBG pCO2 55.6 H, VBG pO2 94.7 H, VBG HCO3 38.3 H, VBG Total CO2 40.0 H, VBG O2 Saturation 97.9 H, VBG Base Excess 14.4 H, VBG Lactic Acid 1.6 11/05/24 11:01: POC Glucose 112 H 11/05/24 16:19: POC Glucose 144 H I & O for Labs for Last 24 Hours: Intake & Output 11/02/24 11/03/24 11/04/24 11/05/24 23:59 23:59 23:59 23:59 Intake Total 2050 / 2050 260 / 260 965 / 965 Output Total 1300 / 1450 1650 / 1850 1800 / 1800 Balance 750 / 600 -1390 / -1590 -835 / -835 Weight 71.713 kg 74 kg 70.942 kg 71.214 kg Microbiology Reports for the Last 24 Hours: Microbiology 11/03/24 01:00 Blood Blood Culture - Preliminary NO GROWTH AFTER 48 HOURS 11/02/24 21:24 Blood Blood Culture - Preliminary NO GROWTH AFTER 48 HOURS 11/03/24 12:47 Sputum - Expectorated Sputum Gram Stain - Final Constitutional: Present mild distress, obese, chronically ill appearing and cooperative Head: Present atraumatic ENT: Present normal exam Respiratory: Present accessory muscle use, prolonged expiratory phase, rhonchi and wheezes; Absent crackles Cardiac: Present Reg Rate and Rhythm GI: Present soft and normal bowel sounds; Absent distention or tenderness Extremities: Present normal inspection and full ROM Skin: Present intact; Absent erythema Neuro: Present Grossly Intact, alert, awake, oriented x 3 and moves all extremities Assessment and Plan *Assessment and plan (1) Non-ST elevation MN (NSTEMI): Status: Acute Category: Medical Code(s): I21.4 - Non-ST elevation (NSTEMI) myocardial infarction (2) Pneumonia: Status: Acute Category: Medical Code(s): J18.9 - Pneumonia, unspecified organism (3) Hypokalemia: Status: Acute Category: Medical Code(s): E87.6 - Hypokalemia (4) Hyponatremia: Status: Acute Category: Medical Code(s): E87.1 - Hypo-osmolality and hyponatremia (5) Acute exacerbation of CHF (congestive heart failure): Status: Acute Qualifiers: Heart failure type: systolic Qualified Code(s): I50.23 - Acute on chronic systolic (congestive) heart failure Category: Medical Code(s): I50.9 - Heart failure, unspecified (6) Acute exacerbation of chronic obstructive pulmonary disease: Status: Acute Category: Medical Code(s): J44.1 - Chronic obstructive pulmonary disease with (acute) exacerbation (7) Pericardial effusion: Status: Acute Category: Medical Code(s): I31.39 - Other pericardial effusion (noninflammatory) (8) Acute and chronic respiratory failure: Status: Acute Category: Medical Code(s): J96.20 - Acute and chronic respiratory failure, unspecified whether with hypoxia or hypercapnia (9) Diabetes mellitus: Status: Acute Qualifiers: Diabetes mellitus type: type 2 Diabetes mellitus long term care social worker insulin use: unspecified jail insulin use status Diabetes mellitus complication status: with other specified complication Qualified Code(s): E11.69 - Type 2 diabetes mellitus with other specified complication Category: Medical Code(s): E11.9 - Type 2 diabetes mellitus without complications (10) Tobacco use: Status: Acute Category: Social Hx Code(s): Z72.0 - Tobacco use (11) Hypertension: Status: Acute Qualifiers: Hypertension type: essential hypertension Qualified Code(s): I10 - Essential (primary) hypertension Category: Medical Code(s): I10 - Essential (primary) hypertension (12) Hyperlipidemia: Status: Acute Qualifiers: Hyperlipidemia type: unspecified Qualified Code(s): E78.5 - Hyperlipidemia, unspecified Category: Medical Code(s): E78.5 - Hyperlipidemia, unspecified (13) Coronary artery disease: Status: Chronic Qualifiers: Coronary Disease-Associated Artery/Lesion type: [place] artery [place] vs. transplanted heart: [place] heart Associated angina: without angina Qualified Code(s): I25.10 - Atherosclerotic heart disease of [place] coronary artery without angina pectoris Category: Medical Code(s): I25.10 - Atherosclerotic heart disease of [place] coronary artery without angina pectoris Plan 59-year-old female who presents with respiratory failure concerning for pneumonia/COPD exacerbation. Cardiology assisting due to NSTEMI. Echo showing new global reduction in EF. Had episode of hypercapnic failure overnight necessitating BiPAP. Showing some improvement this morning. Continues to require inpatient management. Left heart cath performed on 11/04. Nonocclusive disease. Showing improvement, anticipate discharge in the next day or 2. Problems addressed as follows: COPD Exacerbation: Acute on chronic hypoxemic respiratory failure with hypercapnia Right upper lobe pneumonia -Continue supplemental oxygen, goal sats greater 90%. Off BiPAP for over 24 hours. Repeat VBG this morning with pH 7.46, pCO2 55.6. - Wean oxygen as tolerated, currently on 3 L. - Continue DuoNebs scheduled every 6 hours, available every 4 as needed. steroids 40 mg prednisone daily. - Continue azithromycin 500 mg daily and ceftriaxone 1 g daily. - Sputum and blood cultures remain negative - Lesion concerning on chest imaging. Attempting to obtain records from [facility] to compare imaging. Will need follow-up with oncology as an outpatient given history of lung cancer Hyponatremia SIADH - Urine sodium 71, consistent with SIADH. Will fluid restrict less than 1500 cc. Continue diuresis with Lasix 40 mg IV twice daily. Monitor for improvement with serial sodium every 12 hours. Correct 8 to 10 mEq a day. -Sodium 130 this morning, chloride 84. BUN 24, creatinine 1.0. Showing improvement with diuresis and fluid restriction. - Repeat CBC, CMP, magnesium ordered for the morning Acute HFrEF Pericardial effusion CAD NSTEMI - BNP elevated to 20,000. Troponin plateaued 0.55. 15 mm effusion on CTA. - Diffuse moderate disease on left heart cath. No stents placed. Unchanged from July 12 cath. Does have concern for cardiomyopathy suggestive of Tak[place]ubo. Ventriculogram showing EF of 35% during the procedure. - Formal echo obtained with moderate to severe reduction in LV function with EF of 30%. - Discussed case with cardiology, recommend continuing Lovenox 1 mg/kg twice daily. Continue Lasix 40 mg IV twice daily for elevated BNP/volume overload. - Continue DAPT therapy and metoprolol tartrate 25mg BID Hyperglycemia: Suspect diabetes. - A1c 6.2, prediabetic. Continue fingersticks ACHS with sliding scale insulin. Morning glucose 121 - Initiate Jardiance 10 mg daily History of Lung Cancer in Remission: Remission since 2020, consolidation raises recurrence concern. -Consider oncology consult as outpatient. - Monitor for weight loss, night sweats, or other B symptoms. - coordinate with [facility] for records. Full code Therapeutic Lovenox Cardiac diet
[2024-11-05 21:02] LABS: POC Glucose,Bedside 118 (70-110)
[2024-11-05] MEDS: PANTOPRAZOLE 40MG TABLET 40 MG PO (21:18)
[2024-11-05] MEDS: AZITHROMYCIN 250MG TABLET 500 MG PO (21:18)
[2024-11-05] MEDS: CEFTRIAXONE 1 GM 1 GM in 0.9 % SODIUM CHLORIDE 50 ML IV (21:18)
[2024-11-06] VITALS: BP 109/70; PULSE 90; PULSE 94; RESP 19; TEMP 36.5; O2SAT 90
[2024-11-06 04:00] VITALS: BP 119/63; PULSE 84; PULSE 90; RESP 22; TEMP 36.7; O2SAT 90; BMI 29.6
[2024-11-06] MEDS: ENOXAPARIN 80MG/0.8ML SYRINGE 75 MG SUBCUT (04:02)
--- NOTE | 2024-11-06 04:21 | PC.NURSE ---
contacted nighttime provider chaim lopez for retention of urine. bladder scan showed>900 in the bladder, placed aldrich sterile insertion technique was used, specimen sent down to lab, pt tolerated well.
[2024-11-06 04:38] LABS: Appearance,Urine CLEAR (Clear); Bilirubin,Urine Negative (Negative); Blood, Urine 1+ (Negative); Color,Urine YELLOW (Yellow); Glucose,Urine (UA) 1+ (Negative); Ketones,Urine Negative (Negative); Leukocyte Esterase,Urine Negative (Negative); Microscopic, Urine URINE MICROSCOPIC (MICROSCOPIC); Nitrate,Urine Negative (Negative); Protein,Urine Negative (Negative); Specific Gravity, Urine 1.015 (1.005-1.030); Urobilinogen,Urine 0.2 EU/dl (0.2)
[2024-11-06 04:46] LABS: Squamous Epithelial Cell,Urine Occasional #/hpf (0-5)
[2024-11-06 06:26] VITALS: PULSE 101; PULSE 93; O2SAT 92
[2024-11-06] MEDS: IPRATROPIUM/ALBUTEROL 3 ML NEB IH ×2 (06:26→12:02)
[2024-11-06 07:42] LABS: Basophils % 0.1 % (0.1-2.0); Hematocrit 37.7 % (37.0-47.0); Lymphocytes % 9.4 % (10-50); Mean Corpuscular HGB Conc 31.8 g/dL (31.8-35.4); Mean Corpuscular Hemoglobin 27.3 pg (27.0-31.2); Mean Corpuscular Volume 85.9 fl (81-99); Mean Platelet Volume 9.6 fl (7.4-10.4); Monocytes # 0.6 K/mm3 (0.1-1.0); Monocytes % 5.5 % (1.7-9.3); Neutrophils # 8.8 K/mm3 (1.8-7.8); Neutrophils % 84.1 % (37.0-80.0); Nucleated Red Blood Cells # 0 10^3/uL; Nucleated Red Blood Cells % 0 %; Platelet Count 290 K/mm3 (142-424); Red Blood Count 4.39 M/mm3 (4.20-5.40); Red Cell Distribution Width 15.9 % (11.5-17.5); Red Cell Distribution Width-SD 50.1 fL; White Blood Count 10.5 K/mm3 (4.8-10.8)
[2024-11-06 07:46] LABS: Chloride 85 mmol/L (98-107)
[2024-11-06 07:47] LABS: Potassium 3.9 mmoL/L (3.5-5.1); Sodium 132 mmol/L (136-145)
[2024-11-06 07:49] LABS: Blood Urea Nitrogen 29 mg/dl (7-17); Creatinine Clearance Estimated 100 mL/min (50-200); Estimated Glomerular Filt Rate 86 ml/min (>60); GFR (African American) 104 ML/MIN (>60)
[2024-11-06 07:50] LABS: Calcium 8.3 mg/dl (8.4-10.2); Glucose 122 mg/dl (74-100)
[2024-11-06 07:57] LABS: Anion Gap 10.9 mEq/L (5-15); Carbon Dioxide 40 mmol/L (22.0-30.0)
[2024-11-06 08:00] VITALS: BP 107/87; PULSE 100; PULSE 110; RESP 22; TEMP 36.6; O2SAT 90
[2024-11-06] MEDS: CLOPIDOGREL 75MG TAB 75 MG PO (08:12)
[2024-11-06] MEDS: METHYLPREDNISOLONE SOD SUCC 40MG VIAL 40 MG IV (08:13)
[2024-11-06] MEDS: NYSTATIN TOPICAL POWDER 30GM TP ×2 (08:13→13:09)
[2024-11-06] MEDS: SACUBITRIL/VALSARTAN 24-26MG TABLET 1 EACH PO (08:13)
[2024-11-06] MEDS: FUROSEMIDE 40MG/4ML VIAL 40 MG IV (08:13)
[2024-11-06] MEDS: ASPIRIN EC 81MG TABLET 81 MG PO (08:13)
[2024-11-06] MEDS: SERTRALINE 50MG TABLET 75 MG PO (08:13)
[2024-11-06] MEDS: POTASSIUM CHLORIDE 20MEQ TAB 20 MEQ PO (08:13)
--- NOTE | 2024-11-06 10:10 | PC.NURSE ---
Patient ambulated [address], tolerated well
--- NOTE | 2024-11-06 10:26 | P.PN_ITS ---
Subjective *Date: 11/06/24 *Time: 10:26 Medical Exam Vital signs and Labs for Last 24 Hours: Vital Signs Temp Pulse Pulse Resp BP Pulse Ox O2 Del Method 11/06/24 09:15 Nasal Cannula 11/06/24 08:10 Nasal Cannula 11/06/24 08:00 97.9 F 100 H 22 107/87 L 90 L Nasal Cannula 11/06/24 06:26 93 H 11/06/24 06:26 101 H 11/06/24 06:26 92 L Nasal Cannula 11/06/24 06:18 Nasal Cannula 11/06/24 04:46 Nasal Cannula 11/06/24 04:00 84 11/06/24 04:00 98.1 F 90 22 119/63 90 L Nasal Cannula 11/06/24 03:00 Nasal Cannula 11/06/24 00:56 Nasal Cannula 11/06/24 00:00 94 H 11/06/24 00:00 97.7 F 90 19 109/70 L 90 L Nasal Cannula 11/05/24 23:41 92 L Nasal Cannula 11/05/24 23:16 83 11/05/24 23:16 87 11/05/24 22:40 Nasal Cannula 11/05/24 21:00 Nasal Cannula 11/05/24 20:00 96 H 11/05/24 20:00 97.9 F 94 H 24 103/51 L 91 L Nasal Cannula 11/05/24 20:00 Nasal Cannula 11/05/24 18:42 Nasal Cannula 11/05/24 18:18 91 H 11/05/24 18:18 96 H 11/05/24 18:18 91 L Nasal Cannula 11/05/24 17:00 Nasal Cannula 11/05/24 16:19 97.7 F 86 19 131/78 91 L Nasal Cannula 11/05/24 16:00 90 11/05/24 15:00 Nasal Cannula 11/05/24 13:00 Nasal Cannula 11/05/24 12:00 97.9 F 96 H 17 108/48 L 93 L Nasal Cannula 11/05/24 12:00 90 11/05/24 11:25 87 11/05/24 11:25 81 11/05/24 11:25 92 L Nasal Cannula 11/05/24 11:00 Nasal Cannula O2 Flow Rate 11/06/24 09:15 3 11/06/24 08:10 3 11/06/24 08:00 3 11/06/24 06:26 11/06/24 06:26 11/06/24 06:26 3 11/06/24 06:18 3 11/06/24 04:46 3 11/06/24 04:00 11/06/24 04:00 3 11/06/24 03:00 3 11/06/24 00:56 3 11/06/24 00:00 11/06/24 00:00 3 11/05/24 23:41 2.5 11/05/24 23:16 11/05/24 23:16 11/05/24 22:40 3 11/05/24 21:00 3 11/05/24 20:00 11/05/24 20:00 3 11/05/24 20:00 3 11/05/24 18:42 3 11/05/24 18:18 11/05/24 18:18 11/05/24 18:18 3 11/05/24 17:00 3 11/05/24 16:19 3 11/05/24 16:00 11/05/24 15:00 3 11/05/24 13:00 3 11/05/24 12:00 3 11/05/24 12:00 11/05/24 11:25 11/05/24 11:25 11/05/24 11:25 3 11/05/24 11:00 3 Intake and Output 11/05/24 11/06/24 11/06/24 23:59 07:59 15:59 Intake Total 310 / 1065 Output Total 1800 / 2250 1050 / 2250 1200 / 2250 Balance -1490 / -1185 -1050 / -2250 -1200 / -2250 Intake: Intake, Oral Amount 210 / 965 Intake, Total IV Amount 100 / 100 Ceftriaxone 1 gm 1 gm In 0.9 % 100 / 100 Sodium Chloride 50 ml @ 100 mls /hr IV Q24H [facility] Rx#:[id number] Output: Output, Urine Amount 1800 / 2250 1050 / 1050 Output, Urine Amount (Catheter) 1200 / 1200 [place] 1200 / 1200 Other: Number of Unmeasured Voids 0 0 0 Weight 73.119 kg Patient Weight 11/06/24 23:59 Weight 73.119 kg Laboratory Results - last 24 hr 11/03/24 05:40: Serum Osmolality 263 L 11/05/24 10:12: VBG pH 7.46 H, VBG pCO2 55.6 H, VBG pO2 94.7 H, VBG HCO3 38.3 H, VBG Total CO2 40.0 H, VBG O2 Saturation 97.9 H, VBG Base Excess 14.4 H, VBG Lactic Acid 1.6 11/05/24 11:01: POC Glucose 112 H 11/05/24 16:19: POC Glucose 144 H 11/05/24 20:56: POC Glucose 118 H 11/06/24 04:17: Urine Color Yellow, Urine Appearance Clear, Urine pH 6.0, Ur Specific [place] 1.015, Urine Protein Negative, Urine Glucose (UA) 1+, Urine Ketones Negative, Urine Blood 1+ A, Urine Nitrate Negative, Urine Bilirubin Negative, Urine Urobilinogen 0.2, Ur Leukocyte Esterase Negative, Urine RBC 5- 10, Urine WBC None, Ur Squamous Epith Cells Occasional, Urine Bacteria None 11/06/24 06:25: WBC 10.5, RBC 4.39, Hgb 12.0 L, Hct 37.7, MCV 85.9, MCH 27.3, MCHC 31.8, RDW 15.9, Plt Count 290, MPV 9.6, Neut % (Auto) 84.1 H, Lymph % (Auto) 9.4 L, [place] % (Auto) 5.5, Eos % (Auto) 0.0 L, Baso % (Auto) 0.1, Neut # (Auto) 8.8 H, Lymph # (Auto) 1.0, [place] # (Auto) 0.6, Eos # (Auto) 0.0, Baso # (Auto) 0.0, Sodium 132 L, Potassium 3.9, Chloride 85 L, Carbon Dioxide 40 H, Anion Gap 10.9, BUN 29 H, Creatinine 0.70 D, Estimated Creat Clear 100, Estimated GFR 86, Est GFR ( Amer) 104 D, Glucose 122 H, Calcium 8.3 L I & O for Labs for Last 24 Hours: Intake & Output 11/03/24 11/04/24 11/05/24 11/06/24 23:59 23:59 23:59 23:59 Intake Total 2049 / 2049 260 / 260 1065 / 1065 Output Total 1300 / 1450 1650 / 1850 2250 / 2250 2250 / 2250 Balance 750 / 600 -1390 / -1590 -1185 / -1185 -2250 / -2250 Weight 74 kg 70.942 kg 71.214 kg 73.119 kg Microbiology Reports for the Last 24 Hours: Microbiology 11/03/24 12:47 Sputum - Expectorated Sputum Gram Stain - Final 11/03/24 12:47 Sputum - Expectorated Sputum Sputum Culture - Final The patient's infection will respond to the chosen ABx?: Yes Is the patient receiving the right drug, dose, and route?: Yes Could a more targeted ABx be ordered?: No (WBC 10.5K, AFEBRILE, CONT. CURRENT ABX.)
[2024-11-06 11:25] LABS: POC Glucose,Bedside 145 (70-110)
--- NOTE | 2024-11-06 11:30 | P.DS_ITS ---
General Admission date:: 11/02/24 HPI HPI HPI: A 59-year-old female with a history of lung cancer (status post chemo and radiation, in remission since 2020), chronic obstructive pulmonary disease (COPD) on 2 L nasal cannula chronically, coronary artery disease (CAD), hypertension, hyperlipidemia, type 2 diabetes, and prior pericardial effusion presents to the emergency department for evaluation of cough, shortness of breath, nausea, vomiting, fatigue, and poor appetite. She reports symptoms began Friday with upper respiratory infection (URI)/cold-like symptoms, initially treated with [id number] medications. Her primary care physician (PCP) prescribed amoxicillin, but she continued to worsen, feeling fatigued, short of breath, and nauseated, with minimal eating or drinking. The history was obtained through interactive discussion with the patient, who is deemed reliable, and review of past medical records noting prior cardiology evaluations for CAD. On examination, the patient is in respiratory distress, ill-appearing, with accessory muscle use, tachypnea, and wheezing, saturating well on 4 L nasal cannula (vital signs not fully specified but stable for telemetry). Physical exam is otherwise unremarkable beyond respiratory findings. Bedside cardiac ultrasound performed by the ED provider shows a pericardial effusion without tamponade and global hypokinesis. Diagnostic workup includes labs, EKG, chest X-ray, and CTA chest (PE protocol). Labs show normal WBC (9.7), hemoglobin (12.5), creatinine (0.7), GFR (86), elevated glucose (182), low sodium (125), low potassium (3.3), low chloride (81), elevated CO2 (33), elevated troponin (0.57, later 0.60), elevated NT- proBNP (30849), elevated CRP (79.4), elevated AST (50), normal magnesium (2.1), and normal T4 (8.0). VBG shows pH 7.35, elevated pCO2 (58.7), elevated bicarbonate (31.4), and elevated lactate (3.7). Respiratory panel is negative for SARS-CoV-2, influenza A, and B. EKG, independently interpreted, shows sinus tachycardia (100 bpm), incomplete right bundle branch block, and no acute ST changes. Chest X-ray, independently interpreted, suggests developing right-sided pneumonia and cardiomegaly, pending radiology read. CTA chest, independently in terpreted, shows no pulmonary embolism but a 15 mm pericardial effusion and right upper lobe consolidation (5.8 x 2.6 cm), possibly pneumonia or malignancy, with radiology noting potential mass but favoring pneumonia clinically. Treatments implemented in the emergency department include albuterol-ipratropium (DuoNeb) nebulizers x3, intravenous magnesium, and steroids for suspected COPD exacerbation and increased work of breathing, a 500 cc normal saline bolus, and 10 mEq IV potassium for hypokalemia. No additional fluids were given due to concern for volume overload (NT-proBNP 12194). On reassessment, the patient initially improved but later developed worsening shortness of breath, remaining stable on telemetry without hypotension or hypoxia. The patient was admitted to the hospitalist service in stable condition for further management. Hospital Course Hospital Course Hospital Course: Cintia Buckley is a 59-year-old female who presents with respiratory failure concerning for pneumonia/COPD exacerbation. Echo showing new global reduction in EF. Left heart cath performed on 11/04. Nonocclusive disease. #COPD Exacerbation: #Acute on chronic hypoxic, hypercapnic respiratory failure #Right upper lobe pneumonia ? Gradually improved with BiPAP (weaned to 3 L), DuoNebs, Pulmicort, steroids, ceftriaxone, azithromycin. ? Will follow-up with PCP within 1 week. History of Lung Cancer in Remission: Remission since 2020, consolidation raises recurrence concern. ? Patient states she has been in remission since June 2024. ? CT imaging concerning for right sided spiculated mass, however likely stable as patient has had close follow-ups with oncology. ? Advised to follow-up with oncology within the next 2 weeks. Acute HFrEF Pericardial effusion CAD NSTEMI - BNP elevated to 20,000. Troponin plateaued 0.55. 15 mm effusion on CTA. - Diffuse moderate disease on left heart cath. No stents placed. Unchanged from July 12 cath. Does have concern for cardiomyopathy suggestive of Takotsubo. Ventriculogram showing EF of 35% during the procedure. - Formal echo obtained with moderate to severe reduction in LV function with EF of 30%. - Discussed case with cardiology, recommend medically management with therapeutic Lovenox. - Continue DAPT therapy, started metoprolol succinate 25 mg, Entresto. Hyperglycemia: Suspect diabetes. - A1c 6.2, prediabetic. Continue fingersticks ACHS with sliding scale insulin. Morning glucose 121 - Initiate Jardiance 10 mg daily Total time spent on discharge: 32 minutes on chart review, counseling, documentation, and direct care with patient. Exam Data for Last 24 hours Vital signs and Labs for Last 24 Hours: Temp Pulse Resp BP Pulse Ox O2 Del Method O2 Flow Rate 97.9 F 100 H 22 107/87 L 90 L Nasal Cannula 3 11/06/24 08:00 11/06/24 08:00 11/06/24 08:00 11/06/24 08:00 11/06/24 08:00 11/06/24 11:05 11/06/24 11:05 FiO2 35 11/04/24 08:00 Laboratory Results - last 24 hr 11/03/24 05:40: Serum Osmolality 263 L 11/05/24 16:19: POC Glucose 144 H 11/05/24 20:56: POC Glucose 118 H 11/06/24 04:17: Urine Color Yellow, Urine Appearance Clear, Urine pH 6.0, Ur Specific [place] 1.015, Urine Protein Negative, Urine Glucose (UA) 1+, Urine Ketones Negative, Urine Blood 1+ A, Urine Nitrate Negative, Urine Bilirubin Negative, Urine Urobilinogen 0.2, Ur Leukocyte Esterase Negative, Urine RBC 5- 10, Urine WBC None, Ur Squamous Epith Cells Occasional, Urine Bacteria None 11/06/24 06:25: WBC 10.5, RBC 4.39, Hgb 12.0 L, Hct 37.7, MCV 85.9, MCH 27.3, MCHC 31.8, RDW 15.9, Plt Count 290, MPV 9.6, Neut % (Auto) 84.1 H, Lymph % (Auto) 9.4 L, Person % (Auto) 5.5, Eos % (Auto) 0.0 L, Baso % (Auto) 0.1, Neut # (Auto) 8.8 H, Lymph # (Auto) 1.0, Person # (Auto) 0.6, Eos # (Auto) 0.0, Baso # (Auto) 0.0, Sodium 132 L, Potassium 3.9, Chloride 85 L, Carbon Dioxide 40 H, Anion Gap 10.9, BUN 29 H, Creatinine 0.70 D, Estimated Creat Clear 100, Estimated GFR 86, Est GFR ( Amer) 104 D, Glucose 122 H, Calcium 8.3 L 11/06/24 11:18: POC Glucose 145 H I & O for Last 24 hours: Intake & Output 11/03/24 11/04/24 11/05/24 11/06/24 23:59 23:59 23:59 23:59 Intake Total 2049 / 2049 260 / 260 1065 / 1065 240 / 240 Output Total 1300 / 1450 1650 / 1850 2250 / 2250 2250 / 2250 Balance 750 / 600 -1390 / -1590 -1185 / -1185 -2009 Weight 74 kg 70.942 kg 71.214 kg 73.119 kg Microbiology Reports for the Last 24 Hours: Microbiology 11/03/24 12:47 Sputum - Expectorated Sputum Gram Stain - Final 11/03/24 12:47 Sputum - Expectorated Sputum Sputum Culture - Final Constitutional Constitutional: no acute distress and cooperative *Routine HEENT Exam Eye: Present PERRL *Routine Respiratory Exam Respiratory: Present CTA bilaterally; Absent accessory muscle use, wheezes or crackles Comments: mild wheezing throughout *Routine Cardiovascular Exam Cardiovascular: Present RRR, Normal S1 and Normal S2; Absent murmur, gallop or rubs *Routine Abdominal Exam Abdominal: Present soft; Absent tenderness *Routine Extremities Exam Extremities: Present pulses intact; Absent cyanosis or edema *Routine Skin Exam Skin: Present intact; Absent erythema or wounds *Routine Neurological Exam Neurological: Present alert and oriented X3 Routine Psychiatric Exam Psychiatric: Present cooperative Results Data Completed and Pending Labs on day of discharge: Labs from last 24 hours 11/06/24 11/06/24 11/06/24 11:18 06:25 04:17 WBC 10.5 RBC 4.39 Hgb 12.0 L Hct 37.7 MCV 85.9 MCH 27.3 MCHC 31.8 RDW 15.9 Plt Count 290 MPV 9.6 Neut % (Auto) 84.1 H Lymph % (Auto) 9.4 L Person % (Auto) 5.5 Eos % (Auto) 0.0 L Baso % (Auto) 0.1 Neut # (Auto) 8.8 H Lymph # (Auto) 1.0 Person # (Auto) 0.6 Eos # (Auto) 0.0 Baso # (Auto) 0.0 Sodium 132 L Potassium 3.9 Chloride 85 L Carbon Dioxide 40 H Anion Gap 10.9 BUN 29 H Creatinine 0.70 D Estimated Creat Clear 100 Estimated GFR 86 Est GFR ( Amer) 104 D Glucose 122 H POC Glucose 145 H Serum Osmolality Calcium 8.3 L Urine Color Yellow Urine Appearance Clear Urine pH 6.0 Ur Specific [place] 1.015 Urine Protein Negative Urine Glucose (UA) 1+ Urine Ketones Negative Urine Blood 1+ A Urine Nitrate Negative Urine Bilirubin Negative Urine Urobilinogen 0.2 Ur Leukocyte Esterase Negative Urine RBC 5-10 Urine WBC None Ur Squamous Epith Cells Occasional Urine Bacteria None 11/05/24 11/05/24 11/03/24 20:56 16:19 05:40 WBC RBC Hgb Hct MCV MCH MCHC RDW Plt Count MPV Neut % (Auto) Lymph % (Auto) Person % (Auto) Eos % (Auto) Baso % (Auto) Neut # (Auto) Lymph # (Auto) Person # (Auto) Eos # (Auto) Baso # (Auto) Sodium Potassium Chloride Carbon Dioxide Anion Gap BUN Creatinine Estimated Creat Clear Estimated GFR Est GFR ( Amer) Glucose POC Glucose 118 H 144 H Serum Osmolality 263 L Calcium Urine Color Urine Appearance Urine pH Ur Specific [place] Urine Protein Urine Glucose (UA) Urine Ketones Urine Blood Urine Nitrate Urine Bilirubin Urine Urobilinogen Ur Leukocyte Esterase Urine RBC Urine WBC Ur Squamous Epith Cells Urine Bacteria Preliminary micro results at discharge 11/03/24 01:00 Blood Culture - Preliminary Blood NO GROWTH AFTER 48 HOURS 11/02/24 21:24 Blood Culture - Preliminary Blood NO GROWTH AFTER 48 HOURS DS: Diagnosis Discharge Diagnosis (1) Non-ST elevation [place] (NSTEMI): Status: Acute Code(s): I21.4 - Non-ST elevation (NSTEMI) myocardial infarction (2) Pneumonia: Status: Acute Code(s): J18.9 - Pneumonia, unspecified organism (3) Hypokalemia: Status: Acute Code(s): E87.6 - Hypokalemia (4) Hyponatremia: Status: Acute Code(s): E87.1 - Hypo-osmolality and hyponatremia (5) Acute exacerbation of CHF (congestive heart failure): Status: Acute Code(s): I50.9 - Heart failure, unspecified Qualifiers: Heart failure type: systolic Qualified Code(s): I50.23 - Acute on chronic systolic (congestive) heart failure (6) Acute exacerbation of chronic obstructive pulmonary disease: Status: Acute Code(s): J44.1 - Chronic obstructive pulmonary disease with (acute) exacerbation (7) Pericardial effusion: Status: Acute Code(s): I31.39 - Other pericardial effusion (noninflammatory) (8) Acute and chronic respiratory failure: Status: Acute Code(s): J96.20 - Acute and chronic respiratory failure, unspecified whether with hypoxia or hypercapnia (9) Diabetes mellitus: Status: Acute Code(s): E11.9 - Type 2 diabetes mellitus without complications Qualifiers: Diabetes mellitus complication status: with other specified complication Diabetes mellitus rodent exterminator insulin use: unspecified rodent exterminator insulin use status Diabetes mellitus type: type 2 Qualified Code(s): E11.69 - Type 2 diabetes mellitus with other specified complication (10) Tobacco use: Status: Acute Code(s): Z72.0 - Tobacco use (11) Hypertension: Status: Acute Code(s): I10 - Essential (primary) hypertension Qualifiers: Hypertension type: essential hypertension Qualified Code(s): I10 - Essential (primary) hypertension (12) Hyperlipidemia: Status: Acute Code(s): E78.5 - Hyperlipidemia, unspecified Qualifiers: Hyperlipidemia type: unspecified Qualified Code(s): E78.5 - Hyperlipidemia, unspecified (13) Coronary artery disease: Status: Chronic Code(s): I25.10 - Atherosclerotic heart disease of [place] coronary artery without angina pectoris Qualifiers: Associated angina: without angina Coronary Disease-Associated Artery/Lesion type: [place] artery [place] vs. transplanted heart: [place] heart Qualified Code(s): I25.10 - Atherosclerotic heart disease of [place] coronary artery without angina pectoris Meds Home Medications and Allergies Home Medications ?Medication ?Instructions ?Recorded ?Confirmed ?Type albuterol sulfate 90 mcg/actuation 2 puff inhalation Q6HP PRN 07/10/23 11/10/24 History aerosol inhaler Shortness Of Breath Or Wheezing metformin 500 mg tablet,extended 500 mg PO DAILY 07/10/23 11/10/24 History release 24 hr sertraline 25 mg tablet 25 mg PO DAILY MOOD 07/10/23 11/10/24 History sertraline 50 mg tablet 50 mg PO DAILY MOOD 07/10/23 11/10/24 History aspirin 81 mg tablet,delayed 81 mg PO DAILY 30 days #30 tabs 07/12/23 11/10/24 Rx release cyclobenzaprine 5 mg tablet 5 mg PO HS PRN muscle spasms 05/24/24 11/10/24 History clopidogrel 75 mg tablet 75 mg PO DAILY 11/03/24 11/10/24 History loratadine 10 mg tablet 10 mg PO DAILY Allergy Symptoms 11/03/24 11/10/24 History rosuvastatin 40 mg tablet 40 mg PO DAILY 11/03/24 11/10/24 History metoprolol succinate 25 mg 25 mg PO DAILY #30 tabs 11/06/24 11/10/24 Rx tablet,extended release 24 hr nicotine 21 mg/24 hr daily 21 mg transdermal DAILY #28 ea 11/06/24 11/10/24 Rx transdermal patch sacubitril 24 mg-valsartan 26 mg 1 tab PO BID 30 days #60 tabs 11/06/24 11/10/24 Rx tablet (Entresto) empagliflozin 10 mg tablet 10 mg PO DAILY #30 tabs 11/10/24 11/10/24 Rx (Jardiance) lisinopril 10 1 tab PO DAILY 11/10/24 11/10/24 History mg-hydrochlorothiazide 12.5 mg tablet spironolactone 25 mg tablet 25 mg PO DAILY #30 tabs 11/10/24 11/10/24 Rx New Prescriptions to Start Prescriptions: metoprolol succinate Britton Coronado nicotine Britton Coronadoubitril-valsartan [Entresto] Britton Coronado Allergies Allergy/AdvReac Type Severity Reaction Status Date / Time atorvastatin Allergy Mild shortness Verified 11/10/24 14:36 of breath Sulfa (Sulfonamide Allergy Mild Verified 11/10/24 14:36 Antibiotics) Discharge Plan Disposition Patient Disposition: Home Health Service Condition: Fair Discharge Order Discharge Orders: Discharge Order (Routine); Ordered 11/06/24 Ordered By: Britton Coronado Follow up Plan Follow up with: Bishop Aguilar APRN [Primary Care Provider] - 11/18/24 2:00 pm Zoltan Gordon MD [Staff Physician] - Enter time for follow up Rodo Day MD [Staff Physician] - 11/10/24 2:15 pm Prescriptions/Medication Reconciliation: New nicotine 21 mg/24 hr Patch 24 Hour 21 mg transdermal DAILY Qty: 28 0RF Entresto 24-26 mg Tablet 1 tab PO BID 30 Days Qty: 60 0RF metoprolol succinate 25 mg tablet extended release 24 hr 25 mg PO DAILY Qty: 30 0RF Continued cyclobenzaprine 5 mg tablet 5 mg PO HS PRN (Reason: muscle spasms) sertraline 25 mg tablet 25 mg PO DAILY Rx Instructions: TAKE ONE TABLET BY MOUTH ONCE A DAY WITH 50MG TABLET (TOTAL DOSE 75MG) albuterol sulfate 90 mcg/actuation HFA aerosol inhaler 2 puff inhalation Q6HP PRN (Reason: Shortness Of Breath Or Wheezing) metformin 500 mg tablet extended release 24 hr 500 mg PO DAILY sertraline 50 mg tablet 50 mg PO DAILY Rx Instructions: TAKE ONE TABLET BY MOUTH ONCE A DAY WITH 25MG (TOTAL DOSE 75MG) aspirin 81 mg Tablet,Delayed Release (Dr/Ec) 81 mg PO DAILY 30 Days Qty: 30 0RF rosuvastatin 40 mg tablet 40 mg PO DAILY Rx Instructions: TAKE ONE TABLET BY MOUTH ONCE A DAY clopidogrel 75 mg tablet 75 mg PO DAILY Rx Instructions: TAKE ONE TABLET BY MOUTH ONCE A DAY loratadine 10 mg tablet 10 mg PO DAILY Discontinued metoprolol tartrate 25 mg tablet 25 mg PO BID Qty: 60 5RF lisinopril-hydrochlorothiazide 20-25 mg tablet 1 tab PO DAILY No Action lisinopril-hydrochlorothiazide 10-12.5 mg tablet 1 tab PO DAILY spironolactone 25 mg tablet 25 mg PO DAILY Qty: 30 2RF Jardiance 10 mg tablet 10 mg PO DAILY Qty: 30 2RF Problem Reconciliation Problems Reviewed?: Yes Patient Discharge Instructions Patient Instructions: Cardiac Catheterization, DI for Chronic Obstructive Pulmonary Disease, DI for Pneumonia -- Adult, Surgical Site Infection, Moderate Sedation, DI for Post-Surgical Bleeding, Stop Light Pneumonia, Stop Light COPD Print Language: German Providers Primary Care Provider: Bishop Aguilar Admit Provider: Romero Perez Attending Provider: Romero Perez
[2024-11-06 12:00] VITALS: BP 143/79; PULSE 98; RESP 22; TEMP 36.9; O2SAT 91
[2024-11-06 12:02] VITALS: PULSE 97; PULSE 99
--- NOTE | 2024-11-06 12:55 | PC.NURSE ---
patient bladder scanned post void, 44 ml in bladder
--- NOTE | 2024-11-09 13:03 | SW/DCPLANNER ---
Phoned patient x2. Left name and call back number. Gil Schmitz
== END 2024-11-06 13:44 | disposition home health service (06) | DRG 280 ==
LOC: ER 22:58 → 2ND 11-03 06:05
PROVIDERS: Internal Medicine; Nurse Practitioner Acute Care; Nurse Practitioner Family; Admitting Provider Internal Medicine Adolescent Medicine; Emergency Provider Emergency Medicine; PCP Nurse Practitioner Family; Visit Provider Internal Medicine Adolescent Medicine
PROC: 4A023N7 Measurement of Cardiac Sampling and Pressure, Left Heart, Percutaneous Approach (ICD-10-PCS; principal; 2024-11-04 12:00)
DX: I21.4 Non-ST elevation (NSTEMI) myocardial infarction (principal); I50.23 Acute on chronic systolic (congestive) heart failure; J18.9 Pneumonia, unspecified organism; J96.21 Acute and chronic respiratory failure with hypoxia; J44.1 Chronic obstructive pulmonary disease with (acute) exacerbation; I31.39 Other pericardial effusion (noninflammatory); E22.2 Syndrome of inappropriate secretion of antidiuretic hormone; F17.210 Nicotine dependence, cigarettes, uncomplicated; E78.5 Hyperlipidemia, unspecified; M32.9 Systemic lupus erythematosus, unspecified; I25.10 Atherosclerotic heart disease of native coronary artery without angina pectoris; Z88.0 Allergy status to penicillin; Z88.1 Allergy status to other antibiotic agents; Z79.899 Other long term (current) drug therapy; Z79.84 Long term (current) use of oral hypoglycemic drugs; I11.0 Hypertensive heart disease with heart failure; Z99.81 Dependence on supplemental oxygen; Z85.118 Personal history of other malignant neoplasm of bronchus and lung; Z79.51 Long term (current) use of inhaled steroids
CPT/HCPCS: 36415; 71045; 71275; 80048; 80053; 80061; 81001; 82803; 82962; 83036; 83605; 83735; 83880; 83930; 83935; 84100; 84145; 84436; 84443; 84484; 84540; 85007; 85025; 85378; 86140; 86803; 87040; 87070; 87205; 87389; 87636; 93005; 93306; 93458; 94640; 94660; 94761; 97116; 97163; 97530; 99152; 99291; C1725; C1769; J0456; J0696; J1200; J1644; J1650; J1938; J2250; J2405; J2919; J3010; J3475; J3480; J7030; J7050; J7620; Q9967

== ENCOUNTER 2024-11-25 11:19 | Observation (INO) | payer OTHER, SELFPAY ==
--- NOTE | 2024-11-25 09:59 | XR_ITS ---
FINAL REPORT CLINICAL HISTORY: Shortness of breath, lung sounds diminished COMPARISON: 11/04/2024 FINDINGS: PA and lateral views of the chest are obtained. The patient is imaged in a cardiac vest. The heart is enlarged but stable. Abnormal appearance of the right hilum is unchanged. There is new right middle lobe and right lower lobe opacity. There has been interval increase in the right pleural effusion. There is no pneumothorax. IMPRESSION: New right basilar opacity and pleural effusion could represent pneumonia. Stable cardiomegaly and abnormal right hilar contour Reviewed, Interpreted and Dictated by Sandi Jimenez MD Transcribed by Marci Celestin Authenticated and [facility]
[2024-11-25 10:03] LABS: Basophils % 0.8 % (0.1-2.0); Hematocrit 32.2 % (37.0-47.0); Hemoglobin 10.2 g/dL (12.2-16.2); Immature Granulocytes # 0.01 10^3uL; Immature Granulocytes % 0.2 %; Lymphocytes # 0.8 K/mm3 (0.7-4.5); Lymphocytes % 14.7 % (10-50); Mean Corpuscular HGB Conc 31.7 g/dL (31.8-35.4); Mean Corpuscular Hemoglobin 27.1 pg (27.0-31.2); Mean Corpuscular Volume 85.4 fl (81-99); Mean Platelet Volume 10.2 fl (7.4-10.4); Monocytes # 0.3 K/mm3 (0.1-1.0); Monocytes % 5.6 % (1.7-9.3); Neutrophils # 4.1 K/mm3 (1.8-7.8); Neutrophils % 78.7 % (37.0-80.0); Nucleated Red Blood Cells # 0 10^3/uL; Nucleated Red Blood Cells % 0 %; Platelet Count 215 K/mm3 (142-424); Red Blood Count 3.77 M/mm3 (4.20-5.40); Red Cell Distribution Width 16.6 % (11.5-17.5); Red Cell Distribution Width-SD 52.1 fL; White Blood Count 5.2 K/mm3 (4.8-10.8)
[2024-11-25 10:09] LABS: Albumin Level 3.6 g/dl (3.5-5.0); Chloride 105 mmol/L (98-107); Sodium 142 mmol/L (136-145)
[2024-11-25 10:11] LABS: Blood Urea Nitrogen 11 mg/dl (7-17); Estimated Glomerular Filt Rate 51 ml/min (>60); GFR (African American) 62 ML/MIN (>60)
[2024-11-25 10:12] LABS: Alanine Aminotransferase 15 U/L (12-78); Alkaline Phosphatase 72 U/L (38-126); Anion Gap 4.5 mEq/L (5-15); Aspartate Amino Transferase 24 U/L (14-36); Bilirubin,Direct 0.2 mg/dl (0.0-0.4); Bilirubin,Indirect 0.2 mg/dL (0.0-0.9); Bilirubin,Total 0.4 mg/dl (0.2-1.3); Bilirubin,Unconjugated 0.2 mg/dL (0.0-1.1); Calcium 8.8 mg/dl (8.4-10.2); Carbon Dioxide 35 mmol/L (22.0-30.0); Cholesterol 98 mg/dl (140-200); Glucose 90 mg/dl (74-100); HDL Cholesterol 33 mg/dl (40-60); Total Protein,Serum 6.5 g/dl (6.3-8.2); Triglycerides 73 mg/dl (30-150); VLDL Cholesterol 15 mg/dL (0-40)
[2024-11-25 10:16] LABS: Potassium 2.5 mmoL/L (3.5-5.1)
[2024-11-25 10:23] LABS: Direct LDL Cholesterol 49.44 mg/dL (100-129); NT Pro Brain Natriuretic Pep. 23300 pg/mL (0-125)
[2024-11-25 11:39] VITALS: BP 133/92; PULSE 70; RESP 20; TEMP 36.8; O2SAT 99; BMI 30.4
[2024-11-25 12:00] VITALS: PULSE 98
--- NOTE | 2024-11-25 12:18 | HMH.PHAINT1 ---
Pharmacy Intervention Comments: HOME MEDICATION LIST VERIFIED USING LIST FROM OUTPATIENT PHARMACY AND PT INTERVIEW
[2024-11-25] MEDS: KCl 20mEq/100ml 100 ML 50 MEQ IV ×2 (14:29→16:41)
[2024-11-25] MEDS: POTASSIUM CHLORIDE 20MEQ TAB 40 MEQ PO (14:30)
--- NOTE | 2024-11-25 15:22 | EXP.HP ---
History of Present Illness *Admission Date: 11/25/24 *Reason for visit:: Shortness of breath *History of present illness: Cintia Buckley is a 59-year-old female with a medical history significant for HFrEF 30%, COPD on 3 L, history of lung cancer in remission since 09 July 2024, CAD, NSTEMI who presents with progressive shortness of breath over the past week. Patient was recently admitted to our facility for AECOPD, and HFrEF exacerbation. Discharged in stable condition and patient had been doing well up until this week. Increased shortness of breath especially with exertion, no fevers chest chills or productive cough. Presented to cardiology office today, found to have potassium 2.5, BNP 23,300, with CXR showing right lower lobe pneumonia with pleural effusion. Case discussed with cardiology provider and decision was made to direct admit patient for HFrEF exacerbation and hospital-acquired pneumonia. [facility] Disclaimer: The information contained in this section may have been updated after the patient was seen, as this information can be updated by other users. Medical History (Updated 11/25/24 @ 09:38 by Henry Gates RN) Weight gain Fatigue Decreased breath sounds of both lungs SOB (shortness of breath) Hypotension HFrEF (heart failure with reduced ejection fraction) Pericardial effusion Coronary artery disease History of lung cancer Non-ST elevation [place] (NSTEMI) Chest pain Abnormal electrocardiogram [ECG] [EKG] Dyspnea Atypical chest pain Family history of ischemic heart disease Acute bronchitis COVID-19 virus infection Acute exacerbation of chronic obstructive airways disease Pre-diabetes Diabetes mellitus Emphysema of lung COPD (chronic obstructive pulmonary disease) Non-small cell lung cancer Hyperlipidemia Hypertension SLE (systemic lupus erythematosus) Tobacco use Muscle strain of chest wall Vitamin D deficiency Rheumatoid arthritis Fibromyalgia Lupus Need for [id number] (Tdap) vaccine Tetanus Bilateral otitis media On methotrexate therapy Cough Surgical History Hx of cardiac cath Social History (Updated 11/25/24 @ 11:55 by Susana Thomson RN) Smoking Status: Heavy tobacco smoker tobacco type: cigarettes packs per day: 1 alcohol intake: never substance use type: denies use current occupational status: other Travel in the last 8 weeks?: None Have you lived/traveled outside [place] in past 30 days?: No Contact w/someone who lives/traveled outside [place] past 30 days?: No Exposure to someone with infectious disease in past 14 days?: No Do you have a fever (greater than 100.4 F or 38 C)?: No Have you tested positive for COVID-19?: No Exposed to someone with COVID-19 in past 14 days?: No Do you have a sore throat?: No Do you have a cough?: No Do you have any weakness?: No Are you experiencing any nausea/vomitting?: No Do you have any diarrhea?: No Are you experiencing any unusual bleeding?: No Do you have any muscle aches/pain?: No Do you have any abdominal pain?: No Are you experiencing loss of taste or smell?: No Other Medical History Have you received the Flu Vaccine for this season: No Have you received the Pneumonia Vaccine: No Meds Home Medications and Allergies Home Medications ?Medication ?Instructions ?Recorded ?Confirmed ?Type albuterol sulfate 90 mcg/actuation 2 puff inhalation Q6HP PRN 07/10/23 11/25/24 History aerosol inhaler Shortness Of Breath Or Wheezing metformin 500 mg tablet,extended 500 mg PO DAILY 07/10/23 11/25/24 History release 24 hr sertraline 25 mg tablet 25 mg PO DAILY 07/10/23 11/25/24 History sertraline 50 mg tablet 50 mg PO DAILY 07/10/23 11/25/24 History aspirin 81 mg tablet,delayed 81 mg PO DAILY 30 days #30 tabs 07/12/23 11/25/24 Rx release clopidogrel 75 mg tablet 75 mg PO DAILY 11/03/24 11/25/24 History loratadine 10 mg tablet 10 mg PO DAILY 11/03/24 11/25/24 History rosuvastatin 40 mg tablet 40 mg PO DAILY 11/03/24 11/25/24 History nicotine 21 mg/24 hr daily 21 mg transdermal DAILY #28 ea 11/06/24 11/25/24 Rx transdermal patch empagliflozin 10 mg tablet 10 mg PO DAILY #30 tabs 11/10/24 11/25/24 Rx (Jardiance) spironolactone 25 mg tablet 25 mg PO DAILY #30 tabs 11/10/24 11/25/24 Rx metoprolol succinate 25 mg 25 mg PO DAILY 11/25/24 11/25/24 History tablet,extended release 24 hr New Prescriptions to Start Prescriptions: Allergies Allergy/AdvReac Type Severity Reaction Status Date / Time atorvastatin Allergy Mild shortness Verified 11/25/24 09:11 of breath Sulfa (Sulfonamide Allergy Mild Verified 11/25/24 09:11 Antibiotics) Exam Data for Last 24 hours Vital signs and Labs for Last 24 Hours: Temp Pulse Resp BP Pulse Ox O2 Del Method O2 Flow Rate 98.3 F 70 20 133/92 H 99 Nasal Cannula 3 11/25/24 11:39 11/25/24 11:39 11/25/24 11:39 11/25/24 11:39 11/25/24 11:39 11/25/24 14:43 11/25/24 14:43 Laboratory Results - last 24 hr 11/25/24 09:51: WBC 5.2, RBC 3.77 L, Hgb 10.2 L, Hct 32.2 L, MCV 85.4, MCH 27.1, MCHC 31.7 L, RDW 16.6, Plt Count 215, MPV 10.2, Neut % (Auto) 78.7, Lymph % (Auto) 14.7, [place] % (Auto) 5.6, Eos % (Auto) 0.0 L, Baso % (Auto) 0.8, Neut # (Auto) 4.1, Lymph # (Auto) 0.8, [place] # (Auto) 0.3, Eos # (Auto) 0.0, Baso # (Auto) 0.0, Sodium 142, Potassium 2.5 L*, Chloride 105, Carbon Dioxide 35 H, Anion Gap 4.5 L, BUN 11, Creatinine 1.10 H, Estimated GFR 51 L, Est GFR ( Amer) 62, Glucose 90, Calcium 8.8, Total Bilirubin 0.4, Direct Bilirubin 0.2, Conjugated Bilirubin 0.0, Indirect Bilirubin 0.2, Unconjugated Bilirubin 0.2, AST 24, ALT 15, Alkaline Phosphatase 72, NT-Pro-B Natriuret Pep 78627 H, Total Protein 6.5, Albumin 3.6, Triglycerides 73, Cholesterol 98 L, LDL Cholesterol Direct 49.44 L, VLDL Cholesterol 15, HDL Cholesterol 33 L, Cholesterol/HDL Ratio 3.0 I & O for Last 24 hours: Intake & Output 05/05/25 05/06/25 05/07/25 05/08/25 23:59 23:59 23:59 23:59 Weight 75.551 kg Constitutional Constitutional: no acute distress *Routine HEENT Exam Head: Present normocephalic Eye: Present EOMI and PERRL ENT: Present mucous membranes moist *Routine Neck Exam Neck: Present supple; Absent lymphadenopathy *Routine Respiratory Exam Respiratory: Present wheezes, distant breath sounds and diminished air movement; Absent CTA bilaterally *Routine Cardiovascular Exam Cardiovascular: Present RRR *Routine Abdominal Exam Abdominal: Present soft and normoactive bowel sounds; Absent tenderness *Routine Rectal Exam Rectal:: deferred *Routine Genitalia Exam Genitalia:: deferred *Routine Extremities Exam Extremities: Present edema; Absent cyanosis or clubbing *Routine Skin Exam Skin: Present warm; Absent rash *Routine Neurological Exam Neurological: Present alert and oriented X3 Assessment and Plan *Assessment and plan (1) HFrEF (heart failure with reduced ejection fraction): Status: Acute Category: Medical Code(s): I50.20 - Unspecified systolic (congestive) heart failure Plan Cintia Buckley is a 59-year-old female with a medical history significant for HFrEF 30%, COPD on 3 L, history of lung cancer in remission since 09 July 2024, CAD, NSTEMI who presents with progressive shortness of breath over the past week. Patient was recently admitted to our facility for AECOPD, and HFrEF exacerbation. Discharged in stable condition and patient had been doing well up until this week. Increased shortness of breath especially with exertion, no fevers chest chills or productive cough. Presented to cardiology office today, found to have potassium 2.5, BNP 23,300, with CXR showing right lower lobe pneumonia with pleural effusion. Case discussed with cardiology provider and decision was made to direct admit patient for HFrEF exacerbation and hospital-acquired pneumonia. #HFrEF exacerbation ? Progressive shortness of breath, BNP 23,000, weight gain, peripheral edema. ? ECHO in October 2024 shows LVEF 30%. ? Lasix 40 mg twice daily, spironolactone 25 mg, metoprolol succinate 25 mg, Jardiance 10 mg. ? Follow-up urine output, renal function, electrolytes. ? Continuous cardiac telemetry. #Hospital-acquired pneumonia #Acute COPD exacerbation #Chronic hypoxic respiratory failure ? Persistent air movement, CXR shows RLL pneumonia with associated effusion. ? Recently at our facility for similar symptoms. ? WBC 5.2, no signs of sepsis at this time. ? Started vancomycin, cefepime for hospital-acquired pneumonia. ? Follow-up sputum, blood cultures. #Hyperkalemia ? Replating with IV and p.o. ? Continuous cardiac telemetry. #History of Lung Cancer in Remission ? Patient states she has been in remission since June 2024. ? CT imaging concerning for right sided spiculated mass, however likely stable as patient has had close follow-ups with oncology. ? Advised to follow-up with oncology within the next 2 weeks. #CAD - Diffuse moderate disease on left heart cath in October 2024. No stents placed. Unchanged from July 12 cath. Does have concern for cardiomyopathy suggestive of Takotsubo. - Formal echo obtained with moderate to severe reduction in LV function with EF of 30%. - Continue DAPT therapy, metoprolol succinate 25 mg. Full code DVT prophylaxis: Lovenox 40 mg
[2024-11-25 16:00] VITALS: BP 126/65; PULSE 82; PULSE 94; RESP 18; O2SAT 97
[2024-11-25] MEDS: FUROSEMIDE 40MG/4ML VIAL 40 MG IV (16:13)
[2024-11-25 16:15] LABS: POC Glucose,Bedside 116 (70-110)
[2024-11-25 17:21] LABS: Magnesium 1.8 mg/dl (1.6-2.3)
[2024-11-25] MEDS: METHYLPREDNISOLONE SOD SUCC 125MG VIAL 125 MG IV (18:09)
[2024-11-25] MEDS: BUDESONIDE 0.5MG/2ML NEB 0.5 MG IH (18:15)
[2024-11-25 18:16] VITALS: PULSE 87; PULSE 91; O2SAT 97
[2024-11-25] MEDS: IPRATROPIUM/ALBUTEROL 3 ML NEB IH ×2 (18:16→23:17)
[2024-11-25 18:42] LABS: Adenovirus,PCR Not Detected (NotDetected); Bordetella Pertussis Not Detected (NotDetected); Chlamydophila Pneumoniae, PCR Not Detected (NotDetected); Coronavirus 19, PCR Not Detected (NotDetected); Coronavirus 229E Not Detected (NotDetected); Coronavirus NL63 Not Detected (NotDetected); Coronavirus OC43 Not Detected (NotDetected); Coronovirus HKU1,PCR Not Detected (NotDetected); Human Metapneumovirus Not Detected (NotDetected); Influenza A, PCR Not Detected (NotDetected); Influenza AH1, 2009 Not Detected (NotDetected); Influenza AH1, PCR Not Detected (NotDetected); Influenza AH3,PCR Not Detected (NotDetected); Influenza B, PCR Not Detected (NotDetected); Mycoplasma Pneumoniae, PCR Not Detected (NotDetected); Parainfluenza 1, PCR Not Detected (NotDetected); Parainfluenza 2, PCR Not Detected (NotDetected); Parainfluenza 3, PCR Not Detected (NotDetected); Parainfluenza 4, PCR Not Detected (NotDetected); Respiratory Syncytial Virus Not Detected (NotDetected); Rhinovirus/Enterovirus Not Detected (NotDetected)
[2024-11-25] MEDS: CEFEPIME HCL 2 GM in 0.9 % SODIUM CHLORIDE 100 ML IV (19:58)
[2024-11-25] MEDS: ATORVASTATIN 40MG TABLET 80 MG PO (19:59)
[2024-11-25 20:00] VITALS: BP 162/89; PULSE 75; PULSE 80; PULSE 95; RESP 18; TEMP 36.4; O2SAT 97
[2024-11-25 20:32] LABS: POC Glucose,Bedside 130 (70-110)
[2024-11-25] MEDS: MAGNESIUM SULFATE IN WATER 2 GM/50 ML PIGGYBACK IV (20:39)
--- NOTE | 2024-11-25 21:19 | CT_ITS ---
PROCEDURE INFORMATION: Exam: CTA Chest With Contrast Exam date and time: 11/25/2024 9:35 PM Age: 59 years old Clinical indication: Other: Suspected pneumonia; Additional info: Suspect pneumonia, h/o lung cancer TECHNIQUE: Imaging protocol: Computed tomographic angiography of the chest with contrast. Exam focused on the arteries. 3D rendering (Not supervised by radiologist): MIP and/or 3D reconstructed images were created by the technologist. Radiation optimization: All CT scans at this facility use at least one of these dose optimization techniques: automated exposure control; mA and/or kV adjustment per patient size (includes targeted exams where dose is matched to clinical indication); or iterative reconstruction. Contrast material: ISOVUE; Contrast volume: 70 ml; Contrast route: INTRAVENOUS (IV); COMPARISON: CT ANGIO CHEST PE PROTOCOL 11/02/2024 8:34 PM FINDINGS: Pulmonary arteries: No CT angiography evidence of pulmonary embolism. Aorta: There is mild calcific atherosclerotic disease of the thoracic aorta without aneurysmal dilatation. Lungs: Right upper lobe mass unchanged from 11/02/2024 measuring 3.5 x 3.5 x 3.9 cm having mass effect on the right upper lobe bronchus and pulmonary vasculature. Pleural spaces: Interval worsening of adjacent consolidations and moderate volume right pleural effusion with compressive atelectasis, having lobular contours which may represent malignant effusion. Heart: Moderate pericardial effusion. Coronary arteries: Mild three-vessel calcific atherosclerotic disease of the coronary arteries is present. Lymph nodes: Subcarinal jacinta mass measures 3.2 x 3.3 x 2.3 cm unchanged from prior exam. Diaphragm: A small sliding hiatal hernia is present. Adrenal glands: Enhancing left adrenal nodule measures 15 mm unchanged from prior exam. Bones/joints: Unremarkable. No acute fracture. Soft tissues: Unremarkable. IMPRESSION: 1. Right upper lobe mass similar to 11/02/2024 exam measuring 3.5 x 3.5 x 3.9 cm having mass effect on the right upper lobe bronchus and pulmonary vasculature. Interval worsening of adjacent consolidations and moderate volume right pleural effusion with compressive atelectasis, which has lobular contours and may represent malignant effusion. 2. Moderate pericardial effusion. 3. No CT angiography evidence of pulmonary embolism.
[2024-11-25] MEDS: 0.9 % SODIUM CHLORIDE 50 ML VIAL IV (21:46)
[2024-11-25] MEDS: IOPAMIDOL-370 (76%);100ML BOTTLE 70 ML IV (21:46)
[2024-11-25] MEDS: SODIUM CHLORIDE 0.9% 10ML SYR (RAD ONLY) 10 ML IV (21:46)
[2024-11-25 23:17] VITALS: PULSE 81; PULSE 85; RESP 20
[2024-11-25] MEDS: SODIUM CHLORIDE 3% 15ML NEB 3 ML IH (23:17)
[2024-11-26] VITALS (8 sets, daily range): BP systolic 111–125; BP diastolic 66–82; PULSE 74–108; RESP 16–18; TEMP 36.6–36.7; O2SAT 2–98; BMI 30.8; BMI 26.3
[2024-11-26] MEDS: CEFEPIME HCL 2 GM in 0.9 % SODIUM CHLORIDE 100 ML IV ×2 (02:22→12:04)
--- NOTE | 2024-11-26 04:09 | PC.NURSE ---
Pt AOx4, pleasant. Continually denying pain or any additional needs. Received mg+ replacement and cefepime this shift. Respirations even and unlabored. Resting with eyes closed. Currently resting in low, locked bed with call light in reach.
[2024-11-26] MEDS: VANCOMYCIN CONSULT REQUEST 1 EACH NOTAPPLIC (04:25)
[2024-11-26] MEDS: VANCOMYCIN/WATER FOR INJ (PEG) 1.5 GM/300 ML PIGGYBACK IV (04:30)
[2024-11-26 05:18] LABS: POC Glucose,Bedside 145 (70-110)
[2024-11-26] MEDS: IPRATROPIUM/ALBUTEROL 3 ML NEB IH (06:07)
[2024-11-26] MEDS: BUDESONIDE 0.5MG/2ML NEB 0.5 MG IH (06:08)
[2024-11-26 06:18] LABS: Basophils % 0.3 % (0.1-2.0); Hematocrit 29.8 % (37.0-47.0); Hemoglobin 9.5 g/dL (12.2-16.2); Immature Granulocytes # 0.03 10^3uL; Immature Granulocytes % 0.8 %; Lymphocytes # 0.5 K/mm3 (0.7-4.5); Lymphocytes % 13.7 % (10-50); Mean Corpuscular HGB Conc 31.9 g/dL (31.8-35.4); Mean Corpuscular Hemoglobin 27.3 pg (27.0-31.2); Mean Corpuscular Volume 85.6 fl (81-99); Mean Platelet Volume 10.3 fl (7.4-10.4); Monocytes # 0.1 K/mm3 (0.1-1.0); Monocytes % 3.4 % (1.7-9.3); Neutrophils # 2.9 K/mm3 (1.8-7.8); Neutrophils % 81.8 % (37.0-80.0); Nucleated Red Blood Cells # 0 10^3/uL; Nucleated Red Blood Cells % 0 %; Platelet Count 192 K/mm3 (142-424); Red Blood Count 3.48 M/mm3 (4.20-5.40); Red Cell Distribution Width 16.8 % (11.5-17.5); Red Cell Distribution Width-SD 52.4 fL; White Blood Count 3.6 K/mm3 (4.8-10.8)
[2024-11-26 06:20] LABS: MANUAL DIFFERENTIAL MANUAL DIFFERENTIAL (MANUAL DIFF)
[2024-11-26 06:26] LABS: Alanine Aminotransferase 15 U/L (12-78); Albumin Level 3.5 g/dl (3.5-5.0); Albumin/Globulin Ratio 1.3 (1.1-1.8); Alkaline Phosphatase 76 U/L (38-126); Aspartate Amino Transferase 21 U/L (14-36); Bilirubin,Total 0.4 mg/dl (0.2-1.3); Blood Urea Nitrogen 10 mg/dl (7-17); Carbon Dioxide 32 mmol/L (22.0-30.0); Chloride 105 mmol/L (98-107); Creatinine Clearance Estimated 73 mL/min (50-200); Estimated Glomerular Filt Rate 57 ml/min (>60); GFR (African American) 69 ML/MIN (>60); Globulin 2.6 g/dL (1.3-3.2); Glucose 116 mg/dl (74-100); Magnesium 2.5 mg/dl (1.6-2.3); Sodium 140 mmol/L (136-145); Total Protein,Serum 6.1 g/dl (6.3-8.2)
[2024-11-26 06:28] LABS: Anion Gap 5.7 mEq/L (5-15)
[2024-11-26 06:49] LABS: Potassium 2.7 mmoL/L (3.5-5.1)
[2024-11-26] MEDS: KCl 20mEq/100ml 100 ML 50 MEQ IV ×2 (07:01→09:39)
[2024-11-26 07:08] LABS: Lymphocytes % 13 % (10-50); Neutrophils % 87 % (42-76); Total Cells Counted 100
[2024-11-26 07:09] LABS: Platelet Estimate Normal; RBC Morphology Normal
[2024-11-26 07:10] LABS: Alanine Aminotransferase 14 U/L (12-78); Albumin Level 3.3 g/dl (3.5-5.0); Alkaline Phosphatase 70 U/L (38-126); Aspartate Amino Transferase 20 U/L (14-36); Bilirubin,Direct 0.2 mg/dl (0.0-0.4); Bilirubin,Indirect 0.2 mg/dL (0.0-0.9); Bilirubin,Total 0.4 mg/dl (0.2-1.3); Bilirubin,Unconjugated 0.3 mg/dL (0.0-1.1); Total Protein,Serum 5.6 g/dl (6.3-8.2)
[2024-11-26 07:26] LABS: Procalcitonin 0.063 ng/mL (0.0-2.0)
--- NOTE | 2024-11-26 07:58 | EXP.CARD.CON ---
History of Present Illness History of Present Illness Consult date: 11/26/24 Requesting physician: Britton Coronado Consult reason: shortness of breath Chief complaint: SOA History of present illness: This is a 59-year-old white female who presented to cardiology clinic yesterday with increased shortness of breath and weight gain. She had outpatient labs which showed a BNP greater than 23,000 and a potassium of 2.5. Her chest x-ray was concerning for right lower lobe pneumonia and a pleural effusion. The patient was subsequently admitted to the hospital. She has a past medical history of HFrEF, coronary artery disease, hypertension, hyperlipidemia and a history of lung cancer in remission. She states that over the last week her shortness of breath had increasingly worsened. She states that this was severe. Her shortness of breath was occurring at rest. It was worse with exertion and improved with rest but did not resolve. She came to cardiology clinic and was subsequently admitted to the hospital. She was diuresed with IV Lasix overnight. She states that her shortness of breath today is much better. She states she still feels pretty short of breath but it is much better than it was. She denies any chest pain or pressure. She denies any fever, chills, nausea, vomiting, diarrhea. She does have orthopnea associated with her shortness of breath. She states she also had some lower extremity edema. [facility] Disclaimer: The information contained in this section may have been updated after the patient was seen, as this information can be updated by other users. Medical History (Updated 11/26/24 @ 08:15 by Rehana Laughlin APRN) Hypokalemia Diabetes mellitus Emphysema of lung History of lung cancer Lung mass Pleural effusion Weight gain Fatigue Decreased breath sounds of both lungs SOB (shortness of breath) Hypotension HFrEF (heart failure with reduced ejection fraction) Pericardial effusion Coronary artery disease Non-ST elevation [place] (NSTEMI) Chest pain Abnormal electrocardiogram [ECG] [EKG] Dyspnea Atypical chest pain Family history of ischemic heart disease Acute bronchitis COVID-19 virus infection Acute exacerbation of chronic obstructive airways disease Pre-diabetes COPD (chronic obstructive pulmonary disease) Non-small cell lung cancer Hyperlipidemia Hypertension SLE (systemic lupus erythematosus) Tobacco use Muscle strain of chest wall Vitamin D deficiency Rheumatoid arthritis Fibromyalgia Lupus Need for skpbjibjtp-dozlypp-kifmybbgp (Tdap) vaccine Tetanus Bilateral otitis media On methotrexate therapy Cough Surgical History Hx of cardiac cath Social History (Updated 11/25/24 @ 11:55 by Susana Thomson RN) Smoking Status: Heavy tobacco smoker tobacco type: cigarettes packs per day: 1 alcohol intake: never substance use type: denies use current occupational status: other Travel in the last 8 weeks?: None Have you lived/traveled outside US in past 30 days?: No Contact w/someone who lives/traveled outside US past 30 days?: No Exposure to someone with infectious disease in past 14 days?: No Do you have a fever (greater than 100.4 F or 38 C)?: No Have you tested positive for COVID-19?: No Exposed to someone with COVID-19 in past 14 days?: No Do you have a sore throat?: No Do you have a cough?: No Do you have any weakness?: No Are you experiencing any nausea/vomitting?: No Do you have any diarrhea?: No Are you experiencing any unusual bleeding?: No Do you have any muscle aches/pain?: No Do you have any abdominal pain?: No Are you experiencing loss of taste or smell?: No Review of Systems Review of Systems Review of systems:: pertinent systems reviewed and negative unless documented below Constitutional Constitutional: Reports system reviewed and no additional complaints, except as documented, Reports fatigue and Reports lethargy Eyes Eyes: Reports system reviewed and no additional complaints, except as documented ENT Ears, Nose, Mouth, and Throat: Reports system reviewed and no additional complaints, except as documented *Cardiovascular Cardiovascular: Reports system reviewed and no additional complaints, except as documented, Denies chest pain, Reports dyspnea, Reports dyspnea on exertion, Reports leg edema and Reports orthopnea *Respiratory Respiratory: Reports system reviewed and no additional complaints, except as documented, Reports cough, Reports dyspnea and Reports dyspnea on exertion *Gastrointestinal Gastrointestinal: Reports system reviewed and no additional complaints, except as documented *Genitourinary Genitourinary: Reports system reviewed and no additional complaints, except as documented *Musculoskeletal Musculoskeletal: Reports system reviewed and no additional complaints, except as documented Integumentary/Breasts Skin/Breast: Reports system reviewed and no additional complaints, except as documented *Neurologic Neurologic: Reports system reviewed and no additional complaints, except as documented Psychiatric Psychiatric: Reports system reviewed and no additional complaints, except as documented Endocrine Endocrine: Reports system reviewed and no additional complaints, except as documented and Reports fatigue Hematologic/Lymphatic Hematologic/Lymphatic: Reports system reviewed and no additional complaints, except as documented Allergic/Immunologic Allergic/Immunologic: Reports system reviewed and no additional complaints, except as documented Exam Data for Last 24 hours Vital signs and Labs for Last 24 Hours: Temp Pulse Resp BP Pulse Ox O2 Del Method O2 Flow Rate 98.1 F 108 H 16 111/66 96 Nasal Cannula 2 11/26/24 04:00 11/26/24 06:13 11/26/24 04:00 11/26/24 04:00 11/26/24 06:13 11/26/24 06:30 11/26/24 06:30 FiO2 3 11/25/24 20:00 Laboratory Results - last 24 hr 11/25/24 09:51: WBC 5.2, RBC 3.77 L, Hgb 10.2 L, Hct 32.2 L, MCV 85.4, MCH 27.1, MCHC 31.7 L, RDW 16.6, Plt Count 215, MPV 10.2, Neut % (Auto) 78.7, Lymph % (Auto) 14.7, [place] % (Auto) 5.6, Eos % (Auto) 0.0 L, Baso % (Auto) 0.8, Neut # (Auto) 4.1, Lymph # (Auto) 0.8, [place] # (Auto) 0.3, Eos # (Auto) 0.0, Baso # (Auto) 0.0, Sodium 142, Potassium 2.5 L*, Chloride 105, Carbon Dioxide 35 H, Anion Gap 4.5 L, BUN 11, Creatinine 1.10 H, Estimated GFR 51 L, Est GFR ( Amer) 62, Glucose 90, Calcium 8.8, Total Bilirubin 0.4, Direct Bilirubin 0.2, Conjugated Bilirubin 0.0, Indirect Bilirubin 0.2, Unconjugated Bilirubin 0.2, AST 24, ALT 15, Alkaline Phosphatase 72, NT-Pro-B Natriuret Pep 54998 H, Total Protein 6.5, Albumin 3.6, Triglycerides 73, Cholesterol 98 L, LDL Cholesterol Direct 49.44 L, VLDL Cholesterol 15, HDL Cholesterol 33 L, Cholesterol/HDL Ratio 3.0 11/25/24 10:00: Magnesium 1.8 11/25/24 16:08: POC Glucose 116 H 11/25/24 18:13: Chlamy pneumoniae PCR Not detected, Adenovirus (PCR) Not detected, B. pertussis DNA (PCR) Not detected, Coronavirus OC43 (PCR) Not detected, Coronavirus HKU1 (PCR) Not detected, Coronavirus 229E (PCR) Not detected, SARS-CoV-2 (PCR) Not detected, Coronavirus NL63 (PCR) Not detected, Human Metapneumovir PCR Not detected, Influenza A (H1) PCR Not detected, Influ A (H1N1/09) PCR Not detected, Influenza A (H3) PCR Not detected, Influenza Type A (PCR) Not detected, Influenza Type B (PCR) Not detected, M. pneumoniae (PCR) Not detected, Parainfluenza 1 (PCR) Not detected, Parainfluenza 2 (PCR) Not detected, Parainfluenza 3 (PCR) Not detected, Parainfluenza 4 (PCR) Not detected, RSV (PCR) Not detected, Entero/Rhino (PCR) Not detected 11/25/24 20:07: POC Glucose 130 H 11/26/24 05:00: POC Glucose 145 H 11/26/24 05:36: WBC 3.6 L D, RBC 3.48 L, Hgb 9.5 L, Hct 29.8 L, MCV 85.6, MCH 27.3, MCHC 31.9, RDW 16.8, Plt Count 192, MPV 10.3, Neut % (Auto) 81.8 H, Lymph % (Auto) 13.7, [place] % (Auto) 3.4, Eos % (Auto) 0.0 L, Baso % (Auto) 0.3, Neut # (Auto) 2.9, Lymph # (Auto) 0.5 L, [place] # (Auto) 0.1, Eos # (Auto) 0.0, Baso # (Auto) 0.0, Total Counted 100, Neutrophils % (Manual) 87 H, Lymphocytes % (Manual) 13, Platelet Estimate Normal, RBC Morphology Normal, Sodium 140, Potassium 2.7 L*, Chloride 105, Carbon Dioxide 32 H, Anion Gap 5.7, BUN 10, Creatinine 1.00, Estimated Creat Clear 73, Estimated GFR 57 L, Est GFR ( Amer) 69, Glucose 116 H D, Calcium 8.0 L, Magnesium 2.5 H D, Total Bilirubin 0.4 11/26/24 05:36: Total Bilirubin 0.4, Direct Bilirubin 0.2, Conjugated Bilirubin 0.0, Indirect Bilirubin 0.2, Unconjugated Bilirubin 0.3, AST 20 11/26/24 05:36: AST 21, ALT 14 11/26/24 05:36: ALT 15, Alkaline Phosphatase 70 11/26/24 05:36: Alkaline Phosphatase 76, Total Protein 5.6 L 11/26/24 05:36: Total Protein 6.1 L, Albumin 3.3 L 11/26/24 05:36: Albumin 3.5, Globulin 2.6, Albumin/Globulin Ratio 1.3, Procalcitonin 0.063 I & O for Last 24 hours: Intake & Output 11/23/24 11/24/24 11/25/24 11/26/24 23:59 23:59 23:59 23:59 Intake Total 200 / 200 250 / 250 Output Total 0 / 0 200 / 200 Balance 200 / 200 50 / 50 Weight 166 lb 9 oz 167 lb 11.2 oz Constitutional Constitutional: no acute distress and obese *Routine HEENT Exam Head: Present normocephalic and atraumatic ENT: Present mucous membranes moist *Routine Neck Exam Neck: Present supple, full ROM and normal carotid upstroke; Absent JVD, carotid bruit or lymphadenopathy *Routine Respiratory Exam Respiratory: Present rales, rhonchi, wheezes, diminished air movement and symmetric chest movement *Routine Cardiovascular Exam Cardiovascular: Present RRR, Normal S1 and Normal S2; Absent murmur or gallop *Routine Abdominal Exam Abdominal: Present soft and normoactive bowel sounds; Absent tenderness, distended or organomegaly *Routine Extremities Exam Extremities: Present full ROM, pulses intact and normal capillary refill; Absent cyanosis, clubbing or edema *Routine Skin Exam Skin: Present intact and warm; Absent erythema *Routine Neurological Exam Neurological: Present alert, oriented X3 and CN II-XII intact; Absent sensory deficit or motor deficit Routine Psychiatric Exam Psychiatric: Present normal affect Meds Home Medications and Allergies Home Medications ?Medication ?Instructions ?Recorded ?Confirmed ?Type albuterol sulfate 90 mcg/actuation 2 puff inhalation Q6HP PRN 07/10/23 11/25/24 History aerosol inhaler Shortness Of Breath Or Wheezing metformin 500 mg tablet,extended 500 mg PO DAILY 07/10/23 11/25/24 History release 24 hr sertraline 25 mg tablet 25 mg PO DAILY 07/10/23 11/25/24 History sertraline 50 mg tablet 50 mg PO DAILY 07/10/23 11/25/24 History aspirin 81 mg tablet,delayed 81 mg PO DAILY 30 days #30 tabs 07/12/23 11/25/24 Rx release clopidogrel 75 mg tablet 75 mg PO DAILY 11/03/24 11/25/24 History loratadine 10 mg tablet 10 mg PO DAILY 11/03/24 11/25/24 History rosuvastatin 40 mg tablet 40 mg PO DAILY 11/03/24 11/25/24 History nicotine 21 mg/24 hr daily 21 mg transdermal DAILY #28 ea 11/06/24 11/25/24 Rx transdermal patch empagliflozin 10 mg tablet 10 mg PO DAILY #30 tabs 11/10/24 11/25/24 Rx (Jardiance) spironolactone 25 mg tablet 25 mg PO DAILY #30 tabs 11/10/24 11/25/24 Rx metoprolol succinate 25 mg 25 mg PO DAILY 11/25/24 11/25/24 History tablet,extended release 24 hr New Prescriptions to Start Prescriptions: Allergies Allergy/AdvReac Type Severity Reaction Status Date / Time atorvastatin Allergy Mild shortness Verified 11/25/24 09:11 of breath Sulfa (Sulfonamide Allergy Mild Verified 11/25/24 09:11 Antibiotics) Assessment and Plan *Assessment and plan (1) SOB (shortness of breath): Status: Acute Category: Medical Code(s): R06.02 - Shortness of breath (2) HFrEF (heart failure with reduced ejection fraction): Status: Acute Category: Medical Code(s): I50.20 - Unspecified systolic (congestive) heart failure (3) Pericardial effusion: Status: Acute Category: Medical Code(s): I31.39 - Other pericardial effusion (noninflammatory) (4) Coronary artery disease: Status: Chronic Qualifiers: Associated angina: without angina Coronary Disease-Associated Artery/Lesion type: [place] artery [place] vs. transplanted heart: [place] heart Qualified Code(s): I25.10 - Atherosclerotic heart disease of [place] coronary artery without angina pectoris Category: Medical Code(s): I25.10 - Atherosclerotic heart disease of [place] coronary artery without angina pectoris (5) Hyperlipidemia: Status: Acute Qualifiers: Hyperlipidemia type: unspecified Qualified Code(s): E78.5 - Hyperlipidemia, unspecified Category: Medical Code(s): E78.5 - Hyperlipidemia, unspecified (6) Hypertension: Status: Acute Qualifiers: Hypertension type: essential hypertension Qualified Code(s): I10 - Essential (primary) hypertension Category: Medical Code(s): I10 - Essential (primary) hypertension (7) Pleural effusion: Status: Acute Category: Medical Code(s): J90 - Pleural effusion, not elsewhere classified (8) Lung mass: Status: Acute Category: Medical Code(s): R91.8 - Other nonspecific abnormal finding of lung field (9) History of lung cancer: Status: Acute Category: Medical Code(s): Z85.118 - Personal history of other malignant neoplasm of bronchus and lung (10) Diabetes mellitus: Status: Acute Qualifiers: Diabetes mellitus complication status: with other specified complication Diabetes mellitus supervisor intermediates insulin use: unspecified supervisor intermediates insulin use status Diabetes mellitus type: type 2 Qualified Code(s): E11.69 - Type 2 diabetes mellitus with other specified complication Category: Medical Code(s): E11.9 - Type 2 diabetes mellitus without complications (11) Emphysema of lung: Status: Acute Qualifiers: Emphysema type: unspecified Qualified Code(s): J43.9 - Emphysema, unspecified Category: Medical Code(s): J43.9 - Emphysema, unspecified (12) Acute on chronic hypoxic respiratory failure: Status: Acute Category: Medical Code(s): J96.21 - Acute and chronic respiratory failure with hypoxia (13) Hypokalemia: Status: Resolved Category: Medical Code(s): E87.6 - Hypokalemia Plan Plan: 1. The patient was admitted to the hospital for acute on chronic exacerbation of her HFrEF. She has been diuresed with IV Lasix. She is feeling much better today. Will continue IV diuretics at this time. 2. Continue Jardiance, metoprolol and spironolactone for her HFrEF. 3. The patient does have known coronary artery disease with recent cardiac catheterization in October 2024. She denies any chest pain or pressure. No plans for invasive left cardiac catheterization at this time. Continue Plavix and aspirin. 4. Her blood pressure is well-controlled. 5. Her LDL goal is less than 55. Her LDL is 49. She is on Crestor. 6. CT of her chest does show right upper lobe mass similar to the same size as October 2024. However it is causing a mass effect on the right upper lobe bronchus and pulmonary vasculature with increasing worsening of adjacent consolidations and a moderate right pleural effusion with compressive atelectasis. This effusion may represent a malignant effusion. Pulmonology has been consulted. Will defer. 7. CT also shows a moderate pericardial effusion. Echocardiogram has been obtained today. 8. The patient does have a history of lung cancer for which she was told she was in remission. She states that if her cancer has recurred she is very interested in seeing the oncologist here at [facility] instead of traveling back and forth to [place]. 9. The patient is diabetic. She will need aggressive control of her diabetes. Will defer to the hospitalist. 10. The patient remains hypokalemic today. Her potassium on admission was 2.5. She was given IV potassium yesterday. Her potassium is up to 2.7 today. She will need more IV potassium replacement. Will leave this up to the hospitalist. Her magnesium is normal today. 11. Further recommendations will be made pending the patient's response to treatment and the results of her echocardiogram today. The patient will need to be Over the weekend for diuresis. Will repeat a limited echocardiogram on Friday morning. Thank you for the opportunity to help participate in the care of this patient. All recommendations and orders are per Dr. Garcia.
--- NOTE | 2024-11-26 08:00 | P.CONPHA_ITS ---
Pharmacy Consult Date: 11/26/24 Time: 08:03 Referring provider: DR JENSEN Reason for Consult:: VANCOMYCIN DOSING CONSULT Allergies Allergy/AdvReac Type Severity Reaction Status Date / Time atorvastatin Allergy Mild shortness Verified 11/25/24 09:11 of breath Sulfa (Sulfonamide Allergy Mild Verified 11/25/24 09:11 Antibiotics) Home Medications ?Medication ?Instructions ?Recorded ?Confirmed ?Type albuterol sulfate 90 mcg/actuation 2 puff inhalation Q6HP PRN 07/10/23 11/25/24 History aerosol inhaler Shortness Of Breath Or Wheezing metformin 500 mg tablet,extended 500 mg PO DAILY 07/10/23 11/25/24 History release 24 hr sertraline 25 mg tablet 25 mg PO DAILY 07/10/23 11/25/24 History sertraline 50 mg tablet 50 mg PO DAILY 07/10/23 11/25/24 History aspirin 81 mg tablet,delayed 81 mg PO DAILY 30 days #30 tabs 07/12/23 11/25/24 Rx release clopidogrel 75 mg tablet 75 mg PO DAILY 11/03/24 11/25/24 History loratadine 10 mg tablet 10 mg PO DAILY 11/03/24 11/25/24 History rosuvastatin 40 mg tablet 40 mg PO DAILY 11/03/24 11/25/24 History nicotine 21 mg/24 hr daily 21 mg transdermal DAILY #28 ea 11/06/24 11/25/24 Rx transdermal patch empagliflozin 10 mg tablet 10 mg PO DAILY #30 tabs 11/10/24 11/25/24 Rx (Jardiance) spironolactone 25 mg tablet 25 mg PO DAILY #30 tabs 11/10/24 11/25/24 Rx metoprolol succinate 25 mg 25 mg PO DAILY 11/25/24 11/25/24 History tablet,extended release 24 hr New Prescriptions to Start Prescriptions: Height: 1.57 m Weight: 76.067 kg Laboratory Results:: Laboratory Results - last 24 hr 11/25/24 09:51: WBC 5.2, RBC 3.77 L, Hgb 10.2 L, Hct 32.2 L, MCV 85.4, MCH 27.1, MCHC 31.7 L, RDW 16.6, Plt Count 215, MPV 10.2, Neut % (Auto) 78.7, Lymph % (Auto) 14.7, [place] % (Auto) 5.6, Eos % (Auto) 0.0 L, Baso % (Auto) 0.8, Neut # (Auto) 4.1, Lymph # (Auto) 0.8, [place] # (Auto) 0.3, Eos # (Auto) 0.0, Baso # (Auto) 0.0, Sodium 142, Potassium 2.5 L*, Chloride 105, Carbon Dioxide 35 H, Anion Gap 4.5 L, BUN 11, Creatinine 1.10 H, Estimated GFR 51 L, Est GFR ( Amer) 62, Glucose 90, Calcium 8.8, Total Bilirubin 0.4, Direct Bilirubin 0.2, Conjugated Bilirubin 0.0, Indirect Bilirubin 0.2, Unconjugated Bilirubin 0.2, AST 24, ALT 15, Alkaline Phosphatase 72, NT-Pro-B Natriuret Pep 68511 H, Total Protein 6.5, Albumin 3.6, Triglycerides 73, Cholesterol 98 L, LDL Cholesterol Direct 49.44 L, VLDL Cholesterol 15, HDL Cholesterol 33 L, Cholesterol/HDL Ratio 3.0 11/25/24 10:00: Magnesium 1.8 11/25/24 16:08: POC Glucose 116 H 11/25/24 18:13: Chlamy pneumoniae PCR Not detected, Adenovirus (PCR) Not detected, B. pertussis DNA (PCR) Not detected, Coronavirus OC43 (PCR) Not detected, Coronavirus HKU1 (PCR) Not detected, Coronavirus 229E (PCR) Not detected, SARS-CoV-2 (PCR) Not detected, Coronavirus NL63 (PCR) Not detected, Human Metapneumovir PCR Not detected, Influenza A (H1) PCR Not detected, Influ A (H1N1/09) PCR Not detected, Influenza A (H3) PCR Not detected, Influenza Type A (PCR) Not detected, Influenza Type B (PCR) Not detected, M. pneumoniae (PCR) Not detected, Parainfluenza 1 (PCR) Not detected, Parainfluenza 2 (PCR) Not detected, Parainfluenza 3 (PCR) Not detected, Parainfluenza 4 (PCR) Not detected, RSV (PCR) Not detected, Entero/Rhino (PCR) Not detected 11/25/24 20:07: POC Glucose 130 H 11/26/24 05:00: POC Glucose 145 H 11/26/24 05:36: WBC 3.6 L D, RBC 3.48 L, Hgb 9.5 L, Hct 29.8 L, MCV 85.6, MCH 27.3, MCHC 31.9, RDW 16.8, Plt Count 192, MPV 10.3, Neut % (Auto) 81.8 H, Lymph % (Auto) 13.7, [place] % (Auto) 3.4, Eos % (Auto) 0.0 L, Baso % (Auto) 0.3, Neut # (Auto) 2.9, Lymph # (Auto) 0.5 L, [place] # (Auto) 0.1, Eos # (Auto) 0.0, Baso # (Auto) 0.0, Total Counted 100, Neutrophils % (Manual) 87 H, Lymphocytes % ( Manual) 13, Platelet Estimate Normal, RBC Morphology Normal, Sodium 140, Potassium 2.7 L*, Chloride 105, Carbon Dioxide 32 H, Anion Gap 5.7, BUN 10, Creatinine 1.00, Estimated Creat Clear 73, Estimated GFR 57 L, Est GFR ( Amer) 69, Glucose 116 H D, Calcium 8.0 L, Magnesium 2.5 H D, Total Bilirubin 0.4 11/26/24 05:36: Total Bilirubin 0.4, Direct Bilirubin 0.2, Conjugated Bilirubin 0.0, Indirect Bilirubin 0.2, Unconjugated Bilirubin 0.3, AST 20 11/26/24 05:36: AST 21, ALT 14 11/26/24 05:36: ALT 15, Alkaline Phosphatase 70 11/26/24 05:36: Alkaline Phosphatase 76, Total Protein 5.6 L 11/26/24 05:36: Total Protein 6.1 L, Albumin 3.3 L 11/26/24 05:36: Albumin 3.5, Globulin 2.6, Albumin/Globulin Ratio 1.3, Procalcitonin 0.063 Medical History: Medical History (Updated 11/25/24 @ 09:38 by Henry Gates RN) Weight gain Fatigue Decreased breath sounds of both lungs SOB (shortness of breath) Hypotension HFrEF (heart failure with reduced ejection fraction) Pericardial effusion Coronary artery disease History of lung cancer Non-ST elevation [place] (NSTEMI) Chest pain Abnormal electrocardiogram [ECG] [EKG] Dyspnea Atypical chest pain Family history of ischemic heart disease Acute bronchitis COVID-19 virus infection Acute exacerbation of chronic obstructive airways disease Pre-diabetes Diabetes mellitus Emphysema of lung COPD (chronic obstructive pulmonary disease) Non-small cell lung cancer Hyperlipidemia Hypertension SLE (systemic lupus erythematosus) Tobacco use Muscle strain of chest wall Vitamin D deficiency Rheumatoid arthritis Fibromyalgia Lupus Need for cqvybwwjik-gldbvxv-xlfywmeoe (Tdap) vaccine Tetanus Bilateral otitis media On methotrexate therapy Cough Assessment and Plan Assessment and plan all Dx Assessment and Plan for all problems:: Pharmacokinetic dosing service Objective: Age: 59 yo Serum creatinine: 1 mg/dL Height: 61.8 Inches Weight (kg): 76.067 Diagnosis: HEALTHCARE ACQUIRED PNEUMONIA Assessment: IBW (kg): 54.14 Dosing wt(kg): 76.067 Estimated Creatinine clearance (ml/min): 60.9 CRCL method: Cockcroft and Gault using ibw(default). Drug selected: Vancomycin Loading dose (mg): 1500 MG Vd (liters): 53.2 (factor used: 0.7 L/kg) Ward (hr-1): 0.055 Half life (hrs): 12.60 CLvanco=?? 2.926 L/hr Recommended dose: 1250 mg Interval: 18 hrs Infusion time (hrs): 2.0 Predicted peak (mcg/mL): 35.4 Predicted trough (mcg/mL): 14.68 Total body weight is being used for vancomycin dosing. Recommendations: Give Vancomycin 1250 mg q 18 hrs with an expected Cpeak of 35.4 mcg/ml and an expected Ctrough of 14.68 mcg/ml TO START 11/26/24 AT 22:30, LOADING DOSE OF VANCOMYCIN 1500 MG IV ONCE GIVEN IN ED 11/26/24 AT 0430. AUC 0-24 /DAVID Data: DAVID 0.5 mcg/mL:?? AUC/DAVID:? 1139.2 DAVID 1.0 mcg/mL:?? AUC/DAVID:? 569.6 --------- DAVID 1.5 mcg/mL:?? AUC/DAVID:? 379.7 DAVID 2.0 mcg/mL:?? AUC/DAVID:? 284.8 Thank you for the consult
[2024-11-26] MEDS: ENOXAPARIN 40MG/0.4ML SYRINGE 40 MG SUBCUT (09:29)
[2024-11-26] MEDS: CLOPIDOGREL 75MG TAB 75 MG PO (09:29)
[2024-11-26] MEDS: FUROSEMIDE 40MG/4ML VIAL 40 MG IV ×2 (09:29→16:04)
[2024-11-26] MEDS: SPIRONOLACTONE 25MG TABLET 25 MG PO (09:29)
[2024-11-26] MEDS: EMPAGLIFLOZIN 10MG TABLET 10 MG PO (09:29)
[2024-11-26] MEDS: ASPIRIN EC 81MG TABLET 81 MG PO (09:29)
[2024-11-26] MEDS: SERTRALINE 50MG TABLET 75 MG PO (09:30)
[2024-11-26] MEDS: METOPROLOL SUCCINATE XL 25MG TABLET 25 MG PO (09:30)
[2024-11-26] MEDS: predniSONE 20MG TAB 40 MG PO (09:30)
[2024-11-26] MEDS: NICOTINE 21MG/24HR PATCH 21 MG TD (09:39)
--- NOTE | 2024-11-26 09:42 | P.CONS_ITS ---
History of Present Illness History of present illness: Ms. Buckley is a 59-year-old female with a history of heart failure reduced EF 30% COPD chronic hypoxic respiratory failure history of lung cancer presented today with progressive worsening respiratory distress her pulmonary was called for further evaluation and management. [facility] Disclaimer: The information contained in this section may have been updated after the patient was seen, as this information can be updated by other users. Medical History (Updated 11/26/24 @ 12:29 by Melany Barrett MD) Acute on chronic respiratory failure with hypoxemia Pleural effusion on right Hypokalemia Diabetes mellitus Emphysema of lung History of lung cancer Lung mass Pleural effusion Weight gain Fatigue Decreased breath sounds of both lungs SOB (shortness of breath) Hypotension HFrEF (heart failure with reduced ejection fraction) Pericardial effusion Coronary artery disease Non-ST elevation MD (NSTEMI) Chest pain Abnormal electrocardiogram [ECG] [EKG] Dyspnea Atypical chest pain Family history of ischemic heart disease Acute bronchitis COVID-19 virus infection Acute exacerbation of chronic obstructive airways disease Pre-diabetes COPD (chronic obstructive pulmonary disease) Non-small cell lung cancer Hyperlipidemia Hypertension SLE (systemic lupus erythematosus) Tobacco use Muscle strain of chest wall Vitamin D deficiency Rheumatoid arthritis Fibromyalgia Lupus Need for [id number] (Tdap) vaccine Tetanus Bilateral otitis media On methotrexate therapy Cough Surgical History Hx of cardiac cath Social History (Updated 11/25/24 @ 11:55 by Susana Thomson RN) Smoking Status: Heavy tobacco smoker tobacco type: cigarettes packs per day: 1 alcohol intake: never substance use type: denies use current occupational status: other Travel in the last 8 weeks?: None Have you lived/traveled outside [place] in past 30 days?: No Contact w/someone who lives/traveled outside [place] past 30 days?: No Exposure to someone with infectious disease in past 14 days?: No Do you have a fever (greater than 100.4 F or 38 C)?: No Have you tested positive for COVID-19?: No Exposed to someone with COVID-19 in past 14 days?: No Do you have a sore throat?: No Do you have a cough?: No Do you have any weakness?: No Are you experiencing any nausea/vomitting?: No Do you have any diarrhea?: No Are you experiencing any unusual bleeding?: No Do you have any muscle aches/pain?: No Do you have any abdominal pain?: No Are you experiencing loss of taste or smell?: No Review of Systems Constitutional Constitutional: Reports anorexia, Reports body ache(s) and Reports fatigue Eyes Eyes: Denies eye discharge, Denies dry eyes, Denies irritation and Denies itchy eyes ENT Ears, Nose, Mouth, and Throat: Denies epistaxis, Denies facial pain, Denies lip swelling and Denies throat swelling *Cardiovascular Cardiovascular: Reports dyspnea, Reports dyspnea on exertion, Reports leg edema and Reports orthopnea *Respiratory Respiratory: Denies change in phlegm color, Reports chest congestion, Reports cough, Reports dyspnea, Reports dyspnea on exertion, Denies excessive phlegm production and Reports wheezing *Gastrointestinal Gastrointestinal: Denies abdominal pain, Denies belching and Denies cramping *Musculoskeletal Musculoskeletal: Reports back pain, Reports myalgias and Reports other (No small joint swelling or Pain) *Neurologic Neurologic: Reports system reviewed and no additional complaints, except as documented Psychiatric Psychiatric: Denies homicidal ideation and Denies suicidal ideation Endocrine Endocrine: Reports fatigue and Denies heat intolerance Hematologic/Lymphatic Hematologic/Lymphatic: Denies easy bleeding and Denies lymphadenopathy Allergic/Immunologic Allergic/Immunologic: Denies itchy eyes, Denies lip swelling, Denies throat swelling and Reports wheezing Pulmonology Exam Inpatient Vital signs and Labs for Last 24 Hours: Temp Pulse Resp BP Pulse Ox O2 Del Method O2 Flow Rate 98.1 F 108 H 16 111/66 96 Nasal Cannula 2 11/26/24 04:00 11/26/24 06:13 11/26/24 04:00 11/26/24 04:00 11/26/24 06:13 11/26/24 06:30 11/26/24 06:30 FiO2 3 11/25/24 20:00 Laboratory Results - last 24 hr 11/25/24 09:51: WBC 5.2, RBC 3.77 L, Hgb 10.2 L, Hct 32.2 L, MCV 85.4, MCH 27.1, MCHC 31.7 L, RDW 16.6, Plt Count 215, MPV 10.2, Neut % (Auto) 78.7, Lymph % (Auto) 14.7, [place] % (Auto) 5.6, Eos % (Auto) 0.0 L, Baso % (Auto) 0.8, Neut # (Auto) 4.1, Lymph # (Auto) 0.8, [place] # (Auto) 0.3, Eos # (Auto) 0.0, Baso # (Auto) 0.0, Sodium 142, Potassium 2.5 L*, Chloride 105, Carbon Dioxide 35 H, A nion Gap 4.5 L, BUN 11, Creatinine 1.10 H, Estimated GFR 51 L, Est GFR ( Amer) 62, Glucose 90, Calcium 8.8, Total Bilirubin 0.4, Direct Bilirubin 0.2, Conjugated Bilirubin 0.0, Indirect Bilirubin 0.2, Unconjugated Bilirubin 0.2, AST 24, ALT 15, Alkaline Phosphatase 72, NT-Pro-B Natriuret Pep 07348 H, Total Protein 6.5, Albumin 3.6, Triglycerides 73, Cholesterol 98 L, LDL Cholesterol Direct 49.44 L, VLDL Cholesterol 15, HDL Cholesterol 33 L, Cholesterol/HDL Ratio 3.0 11/25/24 10:00: Magnesium 1.8 11/25/24 16:08: POC Glucose 116 H 11/25/24 18:13: Chlamy pneumoniae PCR Not detected, Adenovirus (PCR) Not detected, B. pertussis DNA (PCR) Not detected, Coronavirus OC43 (PCR) Not detected, Coronavirus HKU1 (PCR) Not detected, Coronavirus 229E (PCR) Not detected, SARS-CoV-2 (PCR) Not detected, Coronavirus NL63 (PCR) Not detected, Human Metapneumovir PCR Not detected, Influenza A (H1) PCR Not detected, Influ A (H1N1/09) PCR Not detected, Influenza A (H3) PCR Not detected, Influenza Type A (PCR) Not detected, Influenza Type B (PCR) Not detected, M. pneumoniae (PCR) Not detected, Parainfluenza 1 (PCR) Not detected, Parainfluenza 2 (PCR) Not detected, Parainfluenza 3 (PCR) Not detected, Parainfluenza 4 (PCR) Not detected, RSV (PCR) Not detected, Entero/Rhino (PCR) Not detected 11/25/24 20:07: POC Glucose 130 H 11/26/24 05:00: POC Glucose 145 H 11/26/24 05:36: WBC 3.6 L D, RBC 3.48 L, Hgb 9.5 L, Hct 29.8 L, MCV 85.6, MCH 27.3, MCHC 31.9, RDW 16.8, Plt Count 192, MPV 10.3, Neut % (Auto) 81.8 H, Lymph % (Auto) 13.7, [place] % (Auto) 3.4, Eos % (Auto) 0.0 L, Baso % (Auto) 0.3, Neut # (Auto) 2.9, Lymph # (Auto) 0.5 L, [place] # (Auto) 0.1, Eos # (Auto) 0.0, Baso # (Auto) 0.0, Total Counted 100, Neutrophils % (Manual) 87 H, Lymphocytes % (Manual) 13, Platelet Estimate Normal, RBC Morphology Normal, Sodium 140, P otassium 2.7 L*, Chloride 105, Carbon Dioxide 32 H, Anion Gap 5.7, BUN 10, Creatinine 1.00, Estimated Creat Clear 73, Estimated GFR 57 L, Est GFR ( Amer) 69, Glucose 116 H D, Calcium 8.0 L, Magnesium 2.5 H D, Total Bilirubin 0.4 11/26/24 05:36: Total Bilirubin 0.4, Direct Bilirubin 0.2, Conjugated Bilirubin 0.0, Indirect Bilirubin 0.2, Unconjugated Bilirubin 0.3, AST 20 11/26/24 05:36: AST 21, ALT 14 11/26/24 05:36: ALT 15, Alkaline Phosphatase 70 11/26/24 05:36: Alkaline Phosphatase 76, Total Protein 5.6 L 11/26/24 05:36: Total Protein 6.1 L, Albumin 3.3 L 11/26/24 05:36: Albumin 3.5, Globulin 2.6, Albumin/Globulin Ratio 1.3, Procalcitonin 0.063 I & O for Labs for Last 24 Hours: Intake & Output 11/23/24 11/24/24 11/25/24 11/26/24 23:59 23:59 23:59 23:59 Intake Total 200 / 200 520 / 520 Output Total 0 / 0 200 / 200 Balance 200 / 200 320 / 320 Weight 166 lb 9 oz 167 lb 11.2 oz Constitutional: Present mild distress Head: Present normocephalic and atraumatic ENT: Present normal exam, normal oropharynx and mucous membranes moist Neck: Present normal inspection and full ROM Respiratory: Present respiratory distress, diminished air movement and able to speak in complete sentences; Absent prolonged expiratory phase or wheezes Cardiac: Present S1/S2, Tachycardia and radial pulses present GI: Present soft and distention; Absent tenderness or guarding Rectal (female): Present deferred (female): Present deferred Skin: Present intact; Absent cyanosis or jaundice Neuro: Present alert, awake and oriented x 3 Extremities: Present normal inspection; Absent clubbing or cyanosis Psychiatric: Present normal affect and cooperative Meds Home Medications and Allergies Home Medications ?Medication ?Instructions ?Recorded ?Confirmed ?Type albuterol sulfate 90 mcg/actuation 2 puff inhalation Q6HP PRN 07/10/23 11/25/24 History aerosol inhaler Shortness Of Breath Or Wheezing metformin 500 mg tablet,extended 500 mg PO DAILY 07/10/23 11/25/24 History release 24 hr sertraline 25 mg tablet 25 mg PO DAILY 07/10/23 11/25/24 History sertraline 50 mg tablet 50 mg PO DAILY 07/10/23 11/25/24 History aspirin 81 mg tablet,delayed 81 mg PO DAILY 30 days #30 tabs 07/12/23 11/25/24 Rx release clopidogrel 75 mg tablet 75 mg PO DAILY 11/03/24 11/25/24 History loratadine 10 mg tablet 10 mg PO DAILY 11/03/24 11/25/24 History rosuvastatin 40 mg tablet 40 mg PO DAILY 11/03/24 11/25/24 History nicotine 21 mg/24 hr daily 21 mg transdermal DAILY #28 ea 11/06/24 11/25/24 Rx transdermal patch empagliflozin 10 mg tablet 10 mg PO DAILY #30 tabs 11/10/24 11/25/24 Rx (Jardiance) spironolactone 25 mg tablet 25 mg PO DAILY #30 tabs 11/10/24 11/25/24 Rx metoprolol succinate 25 mg 25 mg PO DAILY 11/25/24 11/25/24 History tablet,extended release 24 hr New Prescriptions to Start Prescriptions: Allergies Allergy/AdvReac Type Severity Reaction Status Date / Time atorvastatin Allergy Mild shortness Verified 11/25/24 09:11 of breath Sulfa (Sulfonamide Allergy Mild Verified 11/25/24 09:11 Antibiotics) Results Laboratory Findings 11/26/24 05:36 11/26/24 05:36 Abnormal lab findings: Abnormal Labs 11/25/24 11/25/24 11/25/24 09:51 16:08 20:07 WBC RBC 3.77 L Hgb 10.2 L Hct 32.2 L MCHC 31.7 L Neut % (Auto) Eos % (Auto) 0.0 L Lymph # (Auto) Neutrophils % (Manual) Potassium 2.5 L* Carbon Dioxide 35 H Anion Gap 4.5 L Creatinine 1.10 H Estimated GFR 51 L Glucose POC Glucose 116 H 130 H Calcium Magnesium NT-Pro-B Natriuret Pep 66292 H Total Protein Albumin Cholesterol 98 L LDL Cholesterol Direct 49.44 L HDL Cholesterol 33 L 11/26/24 11/26/24 11/26/24 05:00 05:36 05:36 WBC 3.6 L D RBC 3.48 L Hgb 9.5 L Hct 29.8 L MCHC Neut % (Auto) 81.8 H Eos % (Auto) 0.0 L Lymph # (Auto) 0.5 L Neutrophils % (Manual) 87 H Potassium 2.7 L* Carbon Dioxide 32 H Anion Gap Creatinine Estimated GFR 57 L Glucose 116 H D POC Glucose 145 H Calcium 8.0 L Magnesium 2.5 H D NT-Pro-B Natriuret Pep Total Protein 5.6 L 6.1 L Albumin 3.3 L Cholesterol LDL Cholesterol Direct HDL Cholesterol Assessment and Plan *Assessment and plan (1) Pleural effusion on right: Status: Acute Category: Medical Code(s): J90 - Pleural effusion, not elsewhere classified (2) Acute on chronic respiratory failure with hypoxemia: Status: Acute Category: Medical Code(s): J96.21 - Acute and chronic respiratory failure with hypoxia Plan Ms. Buckley is a 59-year-old female with a history of heart failure reduced EF 30% COPD chronic hypoxic respiratory failure history of lung cancer presented today with progressive worsening respiratory distress her pulmonary was called for further evaluation and management. She was recently admitted to the hospital for COPD exacerbation and CHF exacerbation. Patient completed 5-day course of ceftriaxone azithromycin upon that admission. CTA upon admission small right pleural effusion, loculated and adjacent airspace disease / mass with narrowing right upper lobe bronchus. Station 7 lymphadenopathy. Tiny left pleural effusion also noted. Both effusions appear to be worsening from her most recent CT from October [address]24. CT scan from [facility] June 2024 reviewed, the noted scarring changes appear to be relatively stable with no worsening from June 2024 Afebrile. Hemodynamically stable. Leukopenia. Comprehensive respiratory viral PCR panel negative. Procalcitonin within normal limits. On examination mild respiratory distress. No significant wheezing noted on auscultation. Plan: Continue oxygen supplementation to maintain O2 saturation below 90% and above. Wean as tolerated. Saturating 98% on 2 L this morning Advair 250 along with Spiriva HandiHaler DuoNebs 4 times daily as needed No need for steroids or antibiotic at this point of time from pulmonary standpoint Status post thoracentesis, with removal of 220 cc straw-colored fluid. Follow- up pleural fluid study results. Will follow in the pulmonary clinic in 5 to 7 days postdischarge.
--- NOTE | 2024-11-26 09:54 | US_ITS ---
FINAL REPORT CLINICAL HISTORY: Pleural effusion -- thoracentesis -- 250ml -- Dr. Barrett COMPARISON: None FINDINGS: ULTRASOUND GUIDANCE FOR THORACENTESIS: Ultrasound guidance was performed prior to thoracentesis. A region of pleural fluid in the right posterior chest was localized under ultrasound guidance. The thoracentesis was performed by Dr. Barrett, and 220 cc of pleural fluid was withdrawn. IMPRESSION: Region of pleural fluid localized under ultrasound guidance for prior to Dr. Barrett performing thoracentesis. Reviewed, Interpreted and Dictated by Sandi Jimenez MD Transcribed by Enma Mcgowan Authenticated and [facility]
[2024-11-26 11:22] LABS: POC Glucose,Bedside 121 (70-110)
[2024-11-26] MEDS: POTASSIUM CHLORIDE 20MEQ TAB 40 MEQ PO ×2 (12:03→16:04)
--- NOTE | 2024-11-26 12:30 | XR_ITS ---
FINAL REPORT CLINICAL HISTORY: Postprocedure thoracentesis - pt has a cough COMPARISON: 11/25/2024 FINDINGS: A portable view of the chest was obtained. The heart is enlarged, stable. The mediastinum is unremarkable. Right paratracheal and right suprahilar opacity is unchanged. There has been interval improvement in right pleural effusion. There is no pneumothorax. IMPRESSION: No pneumothorax after thoracentesis. Improved right pleural effusion. Stable heart. Reviewed, Interpreted and Dictated by Sandi Jimenez MD Transcribed by Clau Tay Authenticated and [facility]
--- NOTE | 2024-11-26 12:41 | P.PCN_ITS ---
[facility] Procedure Note Date: 11/26/24 Time: 12:42 Procedure Note:: Procedure: Right Thoracentesis Indication for procedure: Pleural Effusion, Hypoxic Respiratory failure A time out was performed, and the chest x-ray was reviewed, the appropriate side was confirmed and marked. My hands were washed immediately prior to the procedure. I wore a surgical cap, mask with protective eyewear, sterile gown, and sterile gloves throughout the procedure. The patient was prepped and draped in a sterile manner using chlorhexidine scrub after the appropriate level was percussed and confirmed by ultrasound. 1% lidocaine was used to anesthetize the skin, subcutaneous tissue, superior aspect of the rib periosteum and parietal pleura.? A finder needle was then introduced at the seventh intercoastal space posteriorly?to locate the pleural fluid; straw colored fluid was aspirated. A 10-blade scalpel was used to cliff the skin at the insertion site. The [id number] needle was then introduced through the skin incision into the pleural space using negative aspiration pressure and the red colorimetric indicator to confirm appropriate positioning of the needle. The thoracentesis catheter was then threaded without difficulty.? 220 ml of straw-colored?fluid was removed without difficulty. The catheter was then removed. No immediate complications were noted during the procedure. A post-procedure chest X-ray is pending at the time of this note. The fluid will be sent for routine pleural studies, cultures along with cytopathology.? Patient tolerated the procedure well? Estimated blood loss is 2cc.
[2024-11-26 12:48] LABS: Lactate Dehydrogenase 317 U/L (313-618)
[2024-11-26 13:27] LABS: Appearance,Body Fld. Hazy; Mononuclear WBCs,Body Fluid 68 %; Polynuclear WBC,Body Fluid 32 %; RBC,Body Fluid 6000 cells/uL (< 10 X 10^3); Source, Body Fld. Pleural Fluid; TNC,Body Fluid 286 cells/uL (< 1000); Volume,Body Fld. 220 mL
--- NOTE | 2024-11-26 16:47 | P.DS_ITS ---
General Admission date:: 11/25/24 HPI HPI HPI: Cintia Buckley is a 59-year-old female with a medical history significant for HFrEF 30%, COPD on 3 L, history of lung cancer in remission since 09 July 2024, CAD, NSTEMI who presents with progressive shortness of breath over the past week. Patient was recently admitted to our facility for AECOPD, and HFrEF exacerbation. Discharged in stable condition and patient had been doing well up until this week. Increased shortness of breath especially with exertion, no fevers chest chills or productive cough. Presented to cardiology office today, found to have potassium 2.5, BNP 23,300, with CXR showing right lower lobe pneumonia with pleural effusion. Case discussed with cardiology provider and decision was made to direct admit patient for HFrEF exacerbation and hospital-acquired pneumonia. Hospital Course Hospital Course Hospital Course: Cintia Buckley is a 59-year-old female with a medical history significant for HFrEF 30%, COPD on 3 L, history of lung cancer in remission since 09 July 2024, CAD, NSTEMI who presents with progressive shortness of breath ove r the past week. Patient was recently admitted to our facility for AECOPD, and HFrEF exacerbation. Discharged in stable condition and patient had been doing well up until this week. Increased shortness of breath especially with exertion, no fevers chest chills or productive cough. Presented to cardiology office today, found to have potassium 2.5, BNP 23,300, with CXR showing right lower lobe pneumonia with pleural effusion. Case discussed with cardiology provider and decision was made to direct admit patient for HFrEF exacerbation and hospital-acquired pneumonia. #HFrEF exacerbation ? Progressive shortness of breath, BNP 23,000, weight gain, peripheral edema. ? ECHO in October 2024 shows LVEF 30%. ? Improved with IV Lasix diuresis. Patient feels significantly better, especially with treating COPD as below. ? Started Lasix 40 mg daily, increased to spironolactone 50 mg, continue metoprolol succinate 25 mg, Jardiance 10 mg. ? Follow-up with cardiology in 1 week. Stable on chronic 3 L. #Acute COPD exacerbation #Chronic hypoxic respiratory failure ? Initial restricted air movement, CTA chest showing new moderate pleural effusion. ? Initially thought to have hospital-acquired pneumonia, but pulmonology felt consolidations are more so related to chronic right-sided lung mass. Discontinued vancomycin, cefepime. ? Pulmonology consulted, s/p thoracentesis with 220 cc straw-colored output. Will follow-up on pleural studies. ? Improved with DuoNebs, Pulmicort, prednisone. No signs of sepsis. ? Discharged with prednisone 20 mg for 3 more days, started Spiriva and Advair. Stable on chronic 2 L. ? Will follow-up with pulmonology within 1 week. #Pericardial effusion ? Known pericardial effusion also noted on CTA chest. ? Follow-up limited ECHO. No tamponade physiology, vital signs stable. #Hypokalemia ? Replating with IV and p.o. ?Increase prolactin to 50 mg. #History of Lung Cancer in Remission ? Patient states she has been in remission since June 2024. ? CT imaging concerning for right sided spiculated mass, however likely stable as patient has had close follow-ups with oncology. ? Advised to follow-up with oncology within the next 2 weeks. #CAD - Diffuse moderate disease on left heart cath in October 2024. No stents placed. Unchanged from July 12 cath. Does have concern for cardiomyopathy suggestive of Takotsubo. - Formal echo obtained with moderate to severe reduction in LV function with EF of 30%. - Continue DAPT therapy, metoprolol succinate 25 mg. Total time spent on discharge: 33 minutes on chart review, counseling, documentation, and direct care with patient. Exam Data for Last 24 hours Vital signs and Labs for Last 24 Hours: Temp Pulse Resp BP Pulse Ox O2 Del Method O2 Flow Rate 98.0 F 90 18 123/73 95 Room Air 2 11/26/24 12:00 11/26/24 12:00 11/26/24 12:00 11/26/24 12:00 11/26/24 12:00 11/26/24 15:00 11/26/24 13:00 FiO2 3 11/25/24 20:00 Laboratory Results - last 24 hr 11/25/24 10:00: Magnesium 1.8 11/25/24 18:13: Chlamy pneumoniae PCR Not detected, Adenovirus (PCR) Not detected, B. pertussis DNA (PCR) Not detected, Coronavirus OC43 (PCR) Not detected, Coronavirus HKU1 (PCR) Not detected, Coronavirus 229E (PCR) Not detected, SARS-CoV-2 (PCR) Not detected, Coronavirus NL63 (PCR) Not detected, Human Metapneumovir PCR Not detected, Influenza A (H1) PCR Not detected, Influ A (H1N1/09) PCR Not detected, Influenza A (H3) PCR Not detected, Influenza Type A (PCR) Not detected, Influenza Type B (PCR) Not detected, M. pneumoniae (PCR) Not detected, Parainfluenza 1 (PCR) Not detected, Parainfluenza 2 (PCR) Not detected, Parainfluenza 3 (PCR) Not detected, Parainfluenza 4 (PCR) Not detected, RSV (PCR) Not detected, Entero/Rhino (PCR) Not detected 11/25/24 20:07: POC Glucose 130 H 11/26/24 05:00: POC Glucose 145 H 11/26/24 05:36: WBC 3.6 L D, RBC 3.48 L, Hgb 9.5 L, Hct 29.8 L, MCV 85.6, MCH 27.3, MCHC 31.9, RDW 16.8, Plt Count 192, MPV 10.3, Neut % (Auto) 81.8 H, Lymph % (Auto) 13.7, Lyman % (Auto) 3.4, Eos % (Auto) 0.0 L, Baso % (Auto) 0.3, Neut # (Auto) 2.9, Lymph # (Auto) 0.5 L, Lyman # (Auto) 0.1, Eos # (Auto) 0.0, Baso # (Auto) 0.0, Total Counted 100, Neutrophils % (Manual) 87 H, Lymphocytes % (Manual) 13, Platelet Estimate Normal, RBC Morphology Normal, Sodium 140, Potassium 2.7 L*, Chloride 105, Carbon Dioxide 32 H, Anion Gap 5.7, BUN 10, Creatinine 1.00, Estimated Creat Clear 73, Estimated GFR 57 L, Est GFR ( Amer) 69, Glucose 116 H D, Calcium 8.0 L, Magnesium 2.5 H D, Total Bilirubin 0.4 11/26/24 05:36: Total Bilirubin 0.4, Direct Bilirubin 0.2, Conjugated Bilirubin 0.0, Indirect Bilirubin 0.2, Unconjugated Bilirubin 0.3, AST 20 11/26/24 05:36: AST 21, ALT 14 11/26/24 05:36: ALT 15, Alkaline Phosphatase 70 11/26/24 05:36: Alkaline Phosphatase 76, Lactate Dehydrogenase 317, Total Protein 5.6 L 11/26/24 05:36: Total Protein 6.1 L, Albumin 3.3 L 11/26/24 05:36: Albumin 3.5, Globulin 2.6, Albumin/Globulin Ratio 1.3, Procalcitonin 0.063 11/26/24 11:06: POC Glucose 121 H 11/26/24 11:50: Fluid Source Pleural fluid, Fluid Volume 220, Fluid Appearance Hazy, Fluid RBC (Auto) 6000, Fld Tot Nucleated Cell 286, Fld Polynuclear WBCs % 32, Fld Mononuclear WBCs % 68 I & O for Last 24 hours: Intake & Output 11/23/24 11/24/24 11/25/24 11/26/24 23:59 23:59 23:59 23:59 Intake Total 200 / 200 880 / 880 Output Total 0 / 0 200 / 200 Balance 200 / 200 680 / 680 Weight 75.551 kg 76.07 kg Microbiology Reports for the Last 24 Hours: Microbiology 11/26/24 11:50 Thoracic Fluid Gram Stain - Final 11/26/24 10:15 Sputum - Expectorated Sputum Gram Stain - Final Constitutional Constitutional: no acute distress and cooperative *Routine HEENT Exam Eye: Present PERRL *Routine Respiratory Exam Respiratory: Present CTA bilaterally; Absent accessory muscle use, wheezes or crackles Comments: mild wheezing throughout *Routine Cardiovascular Exam Cardiovascular: Present RRR, Normal S1 and Normal S2; Absent murmur, gallop or rubs *Routine Abdominal Exam Abdominal: Present soft; Absent tenderness *Routine Extremities Exam Extremities: Present pulses intact; Absent cyanosis or edema *Routine Skin Exam Skin: Present intact; Absent erythema or wounds *Routine Neurological Exam Neurological: Present alert and oriented X3 Routine Psychiatric Exam Psychiatric: Present cooperative Results Data Completed and Pending Labs on day of discharge: Labs from last 24 hours 11/26/24 11/26/24 11/26/24 11:50 11:06 05:36 WBC RBC Hgb Hct MCV MCH MCHC RDW Plt Count MPV Neut % (Auto) Lymph % (Auto) Lyman % (Auto) Eos % (Auto) Baso % (Auto) Neut # (Auto) Lymph # (Auto) Lyman # (Auto) Eos # (Auto) Baso # (Auto) Total Counted Neutrophils % (Manual) Lymphocytes % (Manual) Platelet Estimate RBC Morphology Sodium Potassium Chloride Carbon Dioxide Anion Gap BUN Creatinine Estimated Creat Clear Estimated GFR Est GFR ( Amer) Glucose POC Glucose 121 H Calcium Magnesium Total Bilirubin Direct Bilirubin Conjugated Bilirubin Indirect Bilirubin Unconjugated Bilirubin AST ALT Alkaline Phosphatase Lactate Dehydrogenase Total Protein Albumin 3.5 Globulin 2.6 Albumin/Globulin Ratio 1.3 Procalcitonin 0.063 Fluid Source Pleural fluid Fluid Volume 220 Fluid Appearance Hazy Fluid RBC (Auto) 6000 Fld Tot Nucleated Cell 286 Fld Polynuclear WBCs % 32 Fld Mononuclear WBCs % 68 Chlamy pneumoniae PCR Adenovirus (PCR) B. pertussis DNA (PCR) Coronavirus OC43 (PCR) Coronavirus HKU1 (PCR) Coronavirus 229E (PCR) SARS-CoV-2 (PCR) Coronavirus NL63 (PCR) Human Metapneumovir PCR Influenza A (H1) PCR Influ A (H1N1/) PCR Influenza A (H3) PCR Influenza Type A (PCR) Influenza Type B (PCR) M. pneumoniae (PCR) Parainfluenza 1 (PCR) Parainfluenza 2 (PCR) Parainfluenza 3 (PCR) Parainfluenza 4 (PCR) RSV (PCR) Entero/Rhino (PCR) 11/26/24 11/26/24 11/26/24 05:36 05:36 05:36 WBC RBC Hgb Hct MCV MCH MCHC RDW Plt Count MPV Neut % (Auto) Lymph % (Auto) Lyman % (Auto) Eos % (Auto) Baso % (Auto) Neut # (Auto) Lymph # (Auto) Lyman # (Auto) Eos # (Auto) Baso # (Auto) Total Counted Neutrophils % (Manual) Lymphocytes % (Manual) Platelet Estimate RBC Morphology Sodium Potassium Chloride Carbon Dioxide Anion Gap BUN Creatinine Estimated Creat Clear Estimated GFR Est GFR ( Amer) Glucose POC Glucose Calcium Magnesium Total Bilirubin Direct Bilirubin Conjugated Bilirubin Indirect Bilirubin Unconjugated Bilirubin AST ALT 15 Alkaline Phosphatase 76 70 Lactate Dehydrogenase 317 Total Protein 6.1 L 5.6 L Albumin 3.3 L Globulin Albumin/Globulin Ratio Procalcitonin Fluid Source Fluid Volume Fluid Appearance Fluid RBC (Auto) Fld Tot Nucleated Cell Fld Polynuclear WBCs % Fld Mononuclear WBCs % Chlamy pneumoniae PCR Adenovirus (PCR) B. pertussis DNA (PCR) Coronavirus OC43 (PCR) Coronavirus HKU1 (PCR) Coronavirus 229E (PCR) SARS-CoV-2 (PCR) Coronavirus NL63 (PCR) Human Metapneumovir PCR Influenza A (H1) PCR Influ A (H1N1/09) PCR Influenza A (H3) PCR Influenza Type A (PCR) Influenza Type B (PCR) M. pneumoniae (PCR) Parainfluenza 1 (PCR) Parainfluenza 2 (PCR) Parainfluenza 3 (PCR) Parainfluenza 4 (PCR) RSV (PCR) Entero/Rhino (PCR) 11/26/24 11/26/24 11/26/24 05:36 05:36 05:36 WBC 3.6 L D RBC 3.48 L Hgb 9.5 L Hct 29.8 L MCV 85.6 MCH 27.3 MCHC 31.9 RDW 16.8 Plt Count 192 MPV 10.3 Neut % (Auto) 81.8 H Lymph % (Auto) 13.7 Lyman % (Auto) 3.4 Eos % (Auto) 0.0 L Baso % (Auto) 0.3 Neut # (Auto) 2.9 Lymph # (Auto) 0.5 L Lyman # (Auto) 0.1 Eos # (Auto) 0.0 Baso # (Auto) 0.0 Total Counted 100 Neutrophils % (Manual) 87 H Lymphocytes % (Manual) 13 Platelet Estimate Normal RBC Morphology Normal Sodium 140 Potassium 2.7 L* Chloride 105 Carbon Dioxide 32 H Anion Gap 5.7 BUN 10 Creatinine 1.00 Estimated Creat Clear 73 Estimated GFR 57 L Est GFR ( Amer) 69 Glucose 116 H D POC Glucose Calcium 8.0 L Magnesium 2.5 H D Total Bilirubin 0.4 0.4 Direct Bilirubin 0.2 Conjugated Bilirubin 0.0 Indirect Bilirubin 0.2 Unconjugated Bilirubin 0.3 AST 21 20 ALT 14 Alkaline Phosphatase Lactate Dehydrogenase Total Protein Albumin Globulin Albumin/Globulin Ratio Procalcitonin Fluid Source Fluid Volume Fluid Appearance Fluid RBC (Auto) Fld Tot Nucleated Cell Fld Polynuclear WBCs % Fld Mononuclear WBCs % Chlamy pneumoniae PCR Adenovirus (PCR) B. pertussis DNA (PCR) Coronavirus OC43 (PCR) Coronavirus HKU1 (PCR) Coronavirus 229E (PCR) SARS-CoV-2 (PCR) Coronavirus NL63 (PCR) Human Metapneumovir PCR Influenza A (H1) PCR Influ A (H1N1/09) PCR Influenza A (H3) PCR Influenza Type A (PCR) Influenza Type B (PCR) M. pneumoniae (PCR) Parainfluenza 1 (PCR) Parainfluenza 2 (PCR) Parainfluenza 3 (PCR) Parainfluenza 4 (PCR) RSV (PCR) Entero/Rhino (PCR) 11/26/24 11/25/24 11/25/24 05:00 20:07 18:13 WBC RBC Hgb Hct MCV MCH MCHC RDW Plt Count MPV Neut % (Auto) Lymph % (Auto) Lyman % (Auto) Eos % (Auto) Baso % (Auto) Neut # (Auto) Lymph # (Auto) Lyman # (Auto) Eos # (Auto) Baso # (Auto) Total Counted Neutrophils % (Manual) Lymphocytes % (Manual) Platelet Estimate RBC Morphology Sodium Potassium Chloride Carbon Dioxide Anion Gap BUN Creatinine Estimated Creat Clear Estimated GFR Est GFR ( Amer) Glucose POC Glucose 145 H 130 H Calcium Magnesium Total Bilirubin Direct Bilirubin Conjugated Bilirubin Indirect Bilirubin Unconjugated Bilirubin AST ALT Alkaline Phosphatase Lactate Dehydrogenase Total Protein Albumin Globulin Albumin/Globulin Ratio Procalcitonin Fluid Source Fluid Volume Fluid Appearance Fluid RBC (Auto) Fld Tot Nucleated Cell Fld Polynuclear WBCs % Fld Mononuclear WBCs % Chlamy pneumoniae PCR Not detected Adenovirus (PCR) Not detected B. pertussis DNA (PCR) Not detected Coronavirus OC43 (PCR) Not detected Coronavirus HKU1 (PCR) Not detected Coronavirus 229E (PCR) Not detected SARS-CoV-2 (PCR) Not detected Coronavirus NL63 (PCR) Not detected Human Metapneumovir PCR Not detected Influenza A (H1) PCR Not detected Influ A (H1N1/09) PCR Not detected Influenza A (H3) PCR Not detected Influenza Type A (PCR) Not detected Influenza Type B (PCR) Not detected M. pneumoniae (PCR) Not detected Parainfluenza 1 (PCR) Not detected Parainfluenza 2 (PCR) Not detected Parainfluenza 3 (PCR) Not detected Parainfluenza 4 (PCR) Not detected RSV (PCR) Not detected Entero/Rhino (PCR) Not detected 11/25/24 10:00 WBC RBC Hgb Hct MCV MCH MCHC RDW Plt Count MPV Neut % (Auto) Lymph % (Auto) Lyman % (Auto) Eos % (Auto) Baso % (Auto) Neut # (Auto) Lymph # (Auto) Lyman # (Auto) Eos # (Auto) Baso # (Auto) Total Counted Neutrophils % (Manual) Lymphocytes % (Manual) Platelet Estimate RBC Morphology Sodium Potassium Chloride Carbon Dioxide Anion Gap BUN Creatinine Estimated Creat Clear Estimated GFR Est GFR ( Amer) Glucose POC Glucose Calcium Magnesium 1.8 Total Bilirubin Direct Bilirubin Conjugated Bilirubin Indirect Bilirubin Unconjugated Bilirubin AST ALT Alkaline Phosphatase Lactate Dehydrogenase Total Protein Albumin Globulin Albumin/Globulin Ratio Procalcitonin Fluid Source Fluid Volume Fluid Appearance Fluid RBC (Auto) Fld Tot Nucleated Cell Fld Polynuclear WBCs % Fld Mononuclear WBCs % Chlamy pneumoniae PCR Adenovirus (PCR) B. pertussis DNA (PCR) Coronavirus OC43 (PCR) Coronavirus HKU1 (PCR) Coronavirus 229E (PCR) SARS-CoV-2 (PCR) Coronavirus NL63 (PCR) Human Metapneumovir PCR Influenza A (H1) PCR Influ A (H1N1/09) PCR Influenza A (H3) PCR Influenza Type A (PCR) Influenza Type B (PCR) M. pneumoniae (PCR) Parainfluenza 1 (PCR) Parainfluenza 2 (PCR) Parainfluenza 3 (PCR) Parainfluenza 4 (PCR) RSV (PCR) Entero/Rhino (PCR) DS: Diagnosis Discharge Diagnosis (1) Pleural effusion on right: Status: Acute Code(s): J90 - Pleural effusion, not elsewhere classified (2) Acute on chronic respiratory failure with hypoxemia: Status: Acute Code(s): J96.21 - Acute and chronic respiratory failure with hypoxia Meds Home Medications and Allergies Home Medications ?Medication ?Instructions ?Recorded ?Confirmed ?Type albuterol sulfate 90 mcg/actuation 2 puff inhalation Q6HP PRN 07/10/23 11/25/24 History aerosol inhaler Shortness Of Breath Or Wheezing metformin 500 mg tablet,extended 500 mg PO DAILY 07/10/23 11/25/24 History release 24 hr sertraline 25 mg tablet 25 mg PO DAILY 07/10/23 11/25/24 History sertraline 50 mg tablet 50 mg PO DAILY 07/10/23 11/25/24 History aspirin 81 mg tablet,delayed 81 mg PO DAILY 30 days #30 tabs 07/12/23 11/25/24 Rx release clopidogrel 75 mg tablet 75 mg PO DAILY 11/03/24 11/25/24 History loratadine 10 mg tablet 10 mg PO DAILY 11/03/24 11/25/24 History rosuvastatin 40 mg tablet 40 mg PO DAILY 11/03/24 11/25/24 History nicotine 21 mg/24 hr daily 21 mg transdermal DAILY #28 ea 11/06/24 11/25/24 Rx transdermal patch empagliflozin 10 mg tablet 10 mg PO DAILY #30 tabs 11/10/24 11/25/24 Rx (Jardiance) metoprolol succinate 25 mg 25 mg PO DAILY 11/25/24 11/25/24 History tablet,extended release 24 hr fluticasone 250 mcg-salmeterol 50 1 inh inhalation BIDRT 30 days #60 11/26/24 Rx mcg/dose blistr powdr for ea inhalation (Advair Diskus) furosemide 40 mg tablet (Lasix) 40 mg PO DAILY #30 tabs 11/26/24 Rx prednisone 20 mg tablet 20 mg PO DAILY 3 days #3 tabs 11/26/24 Rx spironolactone 25 mg tablet 50 mg (2 x 25 mg) PO DAILY #30 tabs 11/26/24 Rx tiotropium bromide 18 mcg capsule 1 cap inhalation DAILY 30 days #1 11/26/24 Rx with inhalation device (Spiriva puff with HandiHaler) New Prescriptions to Start Prescriptions: fluticasone propion-salmeterol [Advair Diskus] Britton Coronado furosemide [Lasix] Britton Coronado prednisone Britton Coronado spironolactone Britton Coronado tiotropium bromide [Spiriva with HandiHaler] Britton Coronado Allergies Allergy/AdvReac Type Severity Reaction Status Date / Time atorvastatin Allergy Mild shortness Verified 11/25/24 09:11 of breath Sulfa (Sulfonamide Allergy Mild Verified 11/25/24 09:11 Antibiotics) Discharge Plan Disposition Patient Disposition: Home, Self-Care Condition: Fair Discharge Order Discharge Orders: Discharge Order (Routine); Ordered 11/26/24 Ordered By: Britton Coronado Follow up Plan Follow up with: Isaiah Wood PA [Physician [employer]] - 12/02/24 2:30 pm Melany Barrett MD [Physician] - 12/02/24 1:00 pm Prescriptions/Medication Reconciliation: New fluticasone propion-salmeterol [Advair Diskus] 250-50 mcg/dose Blister With Device 1 inh inhalation BIDRT 30 Days Qty: 60 0RF prednisone 20 mg Tablet 20 mg PO DAILY 3 Days Qty: 3 0RF tiotropium bromide [Spiriva with HandiHaler] 18 mcg Capsule, W/Inhalation Device 1 cap inhalation DAILY 30 Days Qty: 1 0RF furosemide [Lasix] 40 mg tablet 40 mg PO DAILY Qty: 30 0RF Continued Jardiance 10 mg tablet 10 mg PO DAILY Qty: 30 2RF sertraline 25 mg tablet 25 mg PO DAILY Rx Instructions: TAKE ONE TABLET BY MOUTH ONCE A DAY WITH 50MG TABLET (TOTAL DOSE 75MG) albuterol sulfate 90 mcg/actuation HFA aerosol inhaler 2 puff inhalation Q6HP PRN (Reason: Shortness Of Breath Or Wheezing) metformin 500 mg tablet extended release 24 hr 500 mg PO DAILY sertraline 50 mg tablet 50 mg PO DAILY Rx Instructions: TAKE ONE TABLET BY MOUTH ONCE A DAY WITH 25MG (TOTAL DOSE 75MG) aspirin 81 mg Tablet,Delayed Release (Dr/Ec) 81 mg PO DAILY 30 Days Qty: 30 0RF rosuvastatin 40 mg tablet 40 mg PO DAILY clopidogrel 75 mg tablet 75 mg PO DAILY loratadine 10 mg tablet 10 mg PO DAILY nicotine 21 mg/24 hr Patch 24 Hour 21 mg transdermal DAILY Qty: 28 0RF metoprolol succinate 25 mg tablet extended release 24 hr 25 mg PO DAILY Changed spironolactone 25 mg tablet 50 mg PO DAILY Qty: 30 2RF Problem Reconciliation Problems Reviewed?: Yes Patient Discharge Instructions Print Language: Slovenian Providers Primary Care Provider: Margo Jordan Admit Provider: Britton Coronado Attending Provider: Britton Coronado
--- NOTE | 2024-11-26 22:16 | CA_ITS ---
APPROVED REPORT EXAM: Limited 2D Echocardiogram Nurse Sitter: Mary Mosley CRT Ht: 5 ft 2 in Wt: 166lbs BSA: 1.77 BP: 133/92 mmHg Indications: Pericardial Effusion I31.3 Other Information Study Quality: Fair Conclusion This is a limited TTE to evaluate for pericardial effusion. Limited windows are obtained. There is a moderate sized, circumferential pericardial effusion present. The largest pocket measures 1.2 cm in diastole. No evidence of chamber collapse. The IVC is of normal size and collapsibility. No echo indications of cardiac tamponade. Serial limited TTE evaluations are suggested. Clinical correlation is required. Electronically signed by : Kiara Garcia MD 11/28/2024 20:30:02
[2024-11-27 18:19] LABS: Albumin, Body Fluid 1.3 g/dL (Not Estab.); Glucose, Body Fluid 131 mg/dL (.); LD, Body Fluid 89 IU/L (.); Protein, Body Fluid 2.1 g/dL (.)
--- NOTE | 2024-11-29 11:38 | SW/DCPLANNER ---
Spoke with patient on the phone. Patient stated that she is doing well. Patient stated that she is aware of her upcoming appointments. Patient stated that she was able to get her medicine picked up today. Patient stated that she has stopped taking her jardance due to giving her yeast infection. Patient stated that she has no concerns or questions at this time. Gil Schmitz
[2024-11-30 15:29] LABS: POC Glucose,Bedside 136 (70-110)
== END 2024-11-26 17:45 | disposition home or self-care (01) ==
LOC: 2ND 11-26 05:57
PROVIDERS: Internal Medicine Pulmonary Disease; Nurse Practitioner Family; Admitting Provider Student in an Organized Health Care Education/Training Program; PCP Nurse Practitioner Family; Referring Provider Nurse Practitioner; Visit Provider Student in an Organized Health Care Education/Training Program
DX: I11.0 Hypertensive heart disease with heart failure (principal); I50.20 Unspecified systolic (congestive) heart failure; Z99.81 Dependence on supplemental oxygen; J96.21 Acute and chronic respiratory failure with hypoxia; I31.39 Other pericardial effusion (noninflammatory); I25.2 Old myocardial infarction; I25.10 Atherosclerotic heart disease of native coronary artery without angina pectoris; I95.9 Hypotension, unspecified; E78.5 Hyperlipidemia, unspecified; Z85.118 Personal history of other malignant neoplasm of bronchus and lung; E87.6 Hypokalemia; Z79.84 Long term (current) use of oral hypoglycemic drugs; Z79.82 Long term (current) use of aspirin; Z79.51 Long term (current) use of inhaled steroids; Z88.2 Allergy status to sulfonamides; Z88.8 Allergy status to other drugs, medicaments and biological substances; Z86.16 Personal history of COVID-19; F17.210 Nicotine dependence, cigarettes, uncomplicated; J44.1 Chronic obstructive pulmonary disease with (acute) exacerbation
CPT/HCPCS: 32555; 36415; 71045; 71046; 71275; 80048; 80053; 80061; 80076; 82042; 82945; 82962; 83615; 83735; 83880; 84145; 84155; 85007; 85025; 87040; 87070; 87205; 87633; 89051; 93308; 94640; 94761; G0378; J1650; J1938; J2919; J3372; J3475; J7620; Q9967

== ENCOUNTER 2024-12-01 13:04 | Outpatient (CLI) | payer OTHER, SELFPAY ==
[2024-12-01 17:11] LABS: Basophils % 0.5 % (0.1-2.0); Hematocrit 33.3 % (37.0-47.0); Hemoglobin 10.6 g/dL (12.2-16.2); Immature Granulocytes # 0.07 10^3uL; Immature Granulocytes % 1.1 %; Lymphocytes # 0.8 K/mm3 (0.7-4.5); Lymphocytes % 12.9 % (10-50); Mean Corpuscular HGB Conc 31.8 g/dL (31.8-35.4); Mean Corpuscular Hemoglobin 27.5 pg (27.0-31.2); Mean Corpuscular Volume 86.3 fl (81-99); Mean Platelet Volume 10.5 fl (7.4-10.4); Monocytes # 0.2 K/mm3 (0.1-1.0); Monocytes % 3.7 % (1.7-9.3); Neutrophils # 5.3 K/mm3 (1.8-7.8); Neutrophils % 81.8 % (37.0-80.0); Nucleated Red Blood Cells # 0 10^3/uL; Nucleated Red Blood Cells % 0 %; Platelet Count 286 K/mm3 (142-424); Red Blood Count 3.86 M/mm3 (4.20-5.40); Red Cell Distribution Width 17.4 % (11.5-17.5); Red Cell Distribution Width-SD 53.6 fL; White Blood Count 6.4 K/mm3 (4.8-10.8)
[2024-12-01 19:31] LABS: Alanine Aminotransferase 28 U/L (12-78); Albumin/Globulin Ratio 1.7 (1.1-1.8); Alkaline Phosphatase 64 U/L (38-126); Anion Gap 8.1 mEq/L (5-15); Aspartate Amino Transferase 24 U/L (14-36); Bilirubin,Total 0.3 mg/dl (0.2-1.3); Blood Urea Nitrogen 26 mg/dl (7-17); Calcium 9.5 mg/dl (8.4-10.2); Carbon Dioxide 38 mmol/L (22.0-30.0); Chloride 96 mmol/L (98-107); Estimated Glomerular Filt Rate 57 ml/min (>60); GFR (African American) 69 ML/MIN (>60); Globulin 2.4 g/dL (1.3-3.2); Glucose 126 mg/dl (74-100); Potassium 3.1 mmoL/L (3.5-5.1); Sodium 139 mmol/L (136-145); Total Protein,Serum 6.4 g/dl (6.3-8.2)
== END 2024-12-01 23:59 | disposition home or self-care (01) ==
LOC: LAB.DROPOF 12-03 13:04
PROVIDERS: PCP Nurse Practitioner Family; Visit Provider Nurse Practitioner Family
DX: E87.6 Hypokalemia (principal); E11.69 Type 2 diabetes mellitus with other specified complication; D64.9 Anemia, unspecified; Z79.84 Long term (current) use of oral hypoglycemic drugs
CPT/HCPCS: 80053; 85025

== ENCOUNTER 2024-12-20 09:24 | Outpatient (CLI) | payer OTHER, SELFPAY ==
--- NOTE | 2024-12-20 09:30 | CA_ITS ---
APPROVED REPORT EXAM: Limited 2D Echocardiogram Cobol Developer: Zully Lutz RT(R) Ht: 5 ft 2 in Wt: 166lbs BSA: 1.77 BP: 104/62 mmHg Indications: limited to reassess pericardial effusion, lung cancer, home O2, currently wearing lifevest 2D Dimensions EF AP4 71.80 % GL Strain -15.7 % M-Mode Dimensions RVDd 3.11 cm (0.9-2.6) LVDd 5.95 cm (3.5-5.7) LVDs 5.08 cm (3.5-5.7) IVSd 0.57 cm (0.6-1.1) PWd 0.83 cm (0.6-1.1) EF (Teich) 30.50% FS 14.60% EDV (Teich) 176.60 mL ESV (Teich) 122.70 mL Other Information Study Quality: Fair Conclusion This is a limited TTE to evaluate for pericardial effusion. Limited windows are obtained. There is a small sized, circumferential pericardial effusion present. The largest pocket measures approximately 0.6 cm in diastole. No clear evidence of chamber collapse. Transvalvular respirophasic variation is not evaluated in the study. The IVC is not well-visualized. Clinical correlation is required to evaluate for tamponade physiology. Compared to prior study from 11/26/2024, the size of the pericardial effusion is slightly improved. Electronically signed by : Kiara Garcia MD 12/20/2024 12:24:36
== END 2024-12-20 23:59 | disposition home or self-care (01) ==
LOC: RT 09:25
PROVIDERS: PCP Nurse Practitioner Family; Visit Provider Internal Medicine
DX: I31.39 Other pericardial effusion (noninflammatory) (principal); J90 Pleural effusion, not elsewhere classified; C34.90 Malignant neoplasm of unspecified part of unspecified bronchus or lung; Z99.81 Dependence on supplemental oxygen
CPT/HCPCS: 93308

== ENCOUNTER 2024-12-22 18:03 | Emergency (ER) | payer OTHER, SELFPAY ==
[2024-12-22 18:12] VITALS: BP 135/75; PULSE 88; RESP 20; TEMP 36.8; O2SAT 96; BMI 29.4
[2024-12-22] MEDS: FLUORESCEIN SODIUM 1MG STRIP 1 MG OP (18:24)
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
[2024-12-22 18:30] VITALS: BP 133/80; PULSE 88; RESP 20; TEMP 36.8; O2SAT 98
== END 2024-12-22 18:40 | disposition home or self-care (01) ==
PROVIDERS: Emergency Provider Student in an Organized Health Care Education/Training Program; PCP Nurse Practitioner Family
DX: T22.111A Burn of first degree of right forearm, initial encounter (principal); T20.10XA Burn of first degree of head, face, and neck, unspecified site, initial encounter; T26.11XA Burn of cornea and conjunctival sac, right eye, initial encounter; X15.3XXA Contact with hot saucepan or skillet, initial encounter; F17.210 Nicotine dependence, cigarettes, uncomplicated
CPT/HCPCS: 99283

== ENCOUNTER 2025-01-03 09:56 | Outpatient (CLI) | payer OTHER, SELFPAY ==
--- OUTSIDE RECORDS SUMMARY | 2025-01-03 10:03 | XMS_ITS | Encounter Summary ---
Author Organization [facility] Address [address] [place] [address] Care Team Providers Care Triage Specialist Name Role Phone Meera Baker Primary Care Provider [phone] Bishop Aguilar APRN Primary Care Provider [phone] Encounter Details Date Type Department Care Team (Late st Contact Info) Description 01/24/2020 Abstract [facility] [id number] [place] [id number] Radiation Oncology, Physician, [address] [place] [address] Social History Tobacco Use Types Packs/Day Years Used Date Smoking Tobacco: Never Assessed Comments Unknown Sex and Gender Information Value Date Recorded Sex Assigned at Female 12/03/2022 1:25 PM EDT Legal Sex Female 8:07 PM EDT Gender Identity Female 12/03/2022 1:25 PM EDT Sexual Orientation Straight 12/03/2022 1: 25 PM EDT documented as of this encounter Plan of Treatment Upcoming Encounters Date Type Department Care Team (Late st Contact Info) Description 04/15/2025 9:00 AM EDT Office Visit [facility] [address] [place] [address] Luz Elena Gonzalez, [employer] INSPECTOR [address] [facility] [address] [place] [address] 07/01/2025 11:30 AM EST Appointment [facility] [address] [place] [address] 07/01/2025 1:30 PM EST Clinical Support [facility] [address] [facility] [place] [address] 07/01/2025 1:40 PM EST Office Visit [facility] [address] [facility] [place] [address] Bryan Mccallum MD [address] [address] documented as of this encounter Visit Diagnoses Not on filedocumented in this encounter Care Teams Triage Specialist Relationship Specialty Start Date End Date Meera Baker PA [address] [place] [address] PCP - General 12/01/20 12/02/22 Bishop Aguilar APRN [address] [place] [address] PCP - General 12/03/22 documented as of this encounter
--- OUTSIDE RECORDS SUMMARY | 2025-01-03 10:03 | XMS_ITS ---
Author Organization [facility] Address [address] 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 Past Treatment and Therapy Plans No past plan information found. Lifetime Dose Tracking * Chemical Lifetime Dose Automatic Entry Manual Entr y Fluoro Time 1.8 minutes 1.8 minutes 0 minutes Air Kerma 6.6 mGy 6.6 mGy 0 mGy Resolved Problems Problem Noted Date Diagnosed Date Resolved Date History of miscarriage 09/24/201811/08
--- OUTSIDE RECORDS SUMMARY | 2025-01-03 10:03 | XMS_ITS | Clinical Summary ---
Author Organization [facility] Address [address] [place] [address] Care Team Providers Care Pulverizer Feeder Name Role Phone Bishop Aguilar TRELL Primary Care Provider [phone]- [phone] Allergies Active Allergy Reactions Criticality Noted Date Comments Atorvastatin Shortness of breath High 10/15/2022 Sulfa Drugs Hives Medium 10/15/2022 Medications albuterol 108 (90 Base) MCG/ACT inhaler 8 Active B Wcdjyxs-S-Rlpat Acid (B-Complex/Foli c Acid/Vitamin C) tablet controlled-rele ase 1 tab(s) orally once a day Active cetirizine (ZyrTEC) 10 MG tablet 1 tab(s) orally once a day (in the morning) Active cholecalciferol (Vitamin D3) 1.25 MG (88520 UT) capsule Active ergocalciferol 1.25 MG (47824 UT) capsule 1 Active Advair Diskus 100-50 MCG/DOSE diskus inhaler 1 Active lisinopril-hydr oCHLOROthiazide 20-25 MG tablet 1 Active Clay-3 Fatty Acids (Clay III EPA+DHA) 1000 MG capsule 1 cap(s) orally once a day Active sertraline (Zoloft) 50 MG tablet 9 Active sertraline (Zoloft) 25 MG tablet 1 Active polyethylene glycol (Golytely) 236 g solutionIndicat ions:Malignant neoplasm of lung, unspecified laterality, unspecified part of lung (CMS/HCC) Mix Golytley as directed on package (ok to mix ahead of time and refrigerate). Follow separate instructions given when to drink it. 236 mL 1 Active Additional Information Patient not taking.Reported on 06/25/2024 metFORMIN XR (Glucophage-XR) 500 MG 24 hr tablet 1 Active Spiriva Respimat 2.5 MCG/ACT inhaler 1 Active Blood Glucose Monitoring Suppl (True Metrix Meter) w/Device kit 3 Active GNP Vitamin D3 Extra Strength 25 MCG (1000 UT) tablet 3 Active True Metrix Blood Glucose Test test strip 3 Active TRUEplus Lancets 28G misc 3 Active simvastatin (Zocor) 5 MG tablet 3 Active ProAir Digihaler 108 (90 Base) MCG/ACT aerosol powder 3 Active cyclobenzaprine (Flexeril) 5 MG tablet 3 Active lisinopril-hydr oCHLOROthiazide 10-12.5 MG tablet 3 Active aspirin 81 MG EC tablet 1 tablet (81 mg). 3 Active isosorbide mononitrate ER (Imdur) 30 MG 24 hr tablet 1 tablet (30 mg). 3 Active metoprolol tartrate (Lopressor) 25 MG tablet 1 tablet (25 mg). 3 Active prasugrel (Effient) 10 MG tablet 1 tablet (10 mg). 3 Active pravastatin (Pravachol) 80 MG tablet 4 Active sulfamethoxazol e-trimethoprim (Bactrim DS) 800-160 MG tablet Take 1 tablet by mouth if needed. 3 Active guaiFENesin-cod eine (Robitussin-AC) 100-10 MG/5ML syrup Take 5 mL by mouth 4 (four) times a day if needed for cough. 500 mL 4 Active Additional Information Patient not taking.Reported on 06/25/2024 naloxone (Narcan) 4 mg/0.1 mL nasal spray 1. Give 1 spray in nostril for no/slow breathing or cannot wake after opioid use 2. Call 911 3. Repeat in other nostril if symptoms continue 1 each 4 Active Additional Information Patient not taking.Reported on 06/25/2024 clopidogrel (Plavix) 75 MG tablet 4 Active Active Problems Problem Noted Date Diagnosed Date Second hand smoke exposure 12/26/2023 Coronary artery disease invo lving ewiiaapaayp coronary artery of ewiiaapaayp heart without angina pectoris 11/09/2023 Shortness of breath 11/09/2023 Pericardial effusion 08/19/2023 Tobacco use disorder 08/21/2021 Metastatic lung cancer (metastasis from lung to other site) 05/24/2020 Overview (05/04/2021): Limited stage Anti-ewiiaapaayp DNA antibodies present 05/24/2020 Kidney stone 05/23/2020 SLE (systemic lupus erythematosus) 11/26/2018 Back pain 09/24/2018 Fibromyalgia 09/24/2018 Joint pain 09/24/2018 Resolved Problems Problem Noted Date Diagnosed Date Resolved Date History of miscarriage 09/24/201811/08 Encounters Date Type Department Care Team Description 10/15/2024 Orders Only [facility] [address] [place] [phone] Rosy Rivas Microalbuminuria (Primary Dx) from Last 3 Months Family History Medical History Relation Name Comments Hypotension Father Rheum arthritis Maternal Grandmother Diabetes Mother Hypertension Mother Conversions - Other Other 1 high blo od pressure Arthritis Other 2 FH: arthritis Diabetes Other 3 FH: diabetes me llitus Kidney disease Other 4 FH: kidney di sease Liver disease Other 5 FH: liver dise ase Tuberculosis Other 6 FH: tuberculosi s Hyperthyroidism Sister 1 Heart attack Sister 2 Relation Name Status Comments Father Maternal Grandmother Mother Other 1 Other 2 Other 3 Other 4 Other 5 Other 6 Sister 1 Sister 2 Social History Tobacco Use Types Packs/Day Years Used Date Smoking Tobacco: Every Day Cigarettes Smokeless Tobacco: Never Tobacco Cessation:Ready to Q uit: No; Counseling Given: Not Answered Alcohol Use Standard Drinks/Week Comments No 0 (1 standard drink = 0.6 oz pur e alcohol) PHQ-2 Answer Date Recorded Patient Health Questionnaire-2 Score 2 08/19/2023 Comments No Sex and Gender Information Value Date Recorded Sex Assigned at Female 12/03/2022 1:25 PM EDT Legal Sex Female 8:07 PM EDT Gender Identity Female 12/03/2022 1:25 PM EDT Sexual Orientation Straight 12/03/2022 1: 25 PM EDT Last Filed Vital Signs Vital Sign Reading Time Taken Comments Blood Pressure 104/75 06/25/2024 2:43 PM EST Pulse 76 06/25/2024 2:43 PM EST Temperature 36.7 C (98 F) 06/25/2024 2:43 PM EST Respiratory Rate 20 06/25/2024 2:43 PM EST Oxygen Saturation 91% 06/25/2024 2:43 PM EST Inhaled Oxygen Concentration - - Weight 73 kg (160 lb 15 oz) 06/25/2024 2:[address] Height 158 cm (5' 2.21 ) 06/25/2024 2:43 PM EST Body Mass Index 29.24 06/25/2024 2:43 PM EST Plan of Treatment Upcoming Encounters Date Type Department Care Team (Late st Contact Info) Description 04/15/2025 9:00 AM EDT Office Visit [facility] [address] [place] [phone] Luz Elena Gonzalez, TUBE BUILDER [employer]ANE [address] [phone] 07/01/2025 11:30 AM EST Appointment [facility] [address] [place] [phone] 07/01/2025 1:30 PM EST Clinical Support [facility] [address] [facility], 2nd [place] [phone] 07/01/2025 1:40 PM EST Office Visit [facility] [address] [facility], [address] [place] [phone] Bryan Mccallum MD [address] [address] Health Maintenance Due Date Last Done Comments [facility]-HIV Screening 1965 [facility]-/Child/Adol SDOH Screenings 1965 [facility]-Obesity Intervention 1971 [facility]- SDOH Screenings 1983 [facility]-Adult SDOH Screenings 1983 [facility]-Hepatitis B Vaccines (1 of 3 - 19+ 3-dose series) 1984 [facility]-Zoster Vaccines (1 of 2) 1984 CT Colonography 2010 FIT-DNA 2010 FIT 2010 FOBT 2010 Sigmoidoscopy 2010 [facility]-Breast Cancer Screening 2015 [facility]-Pap Smear 12/26/2022 12/27/2019 [id number] Vaccine ( season) 2024 07/17/2021, 12/30/2020, 12/09/2020 [facility]-Depression Screening 08/19/2024 08/19/2023, 02/0 07/2021 [facility]-Cervical Cancer Screening 12/26/2024 [facility]-HPV/Cotest 12/26/2024 12/27/2019 [facility]-Influenza Vaccine (Season Ended) 2025 05/06/2023, 05/30/2022, 07/06/2021, Additional history exists Colonoscopy 03/13/2026 03/14/2021 [facility]-Colorectal Cancer Screening 03/13/2026 [facility]-Pneumococcal Vaccine: 50+ Years (3 of 3 - PPSV23, PCV20 or PCV21) 07/06/2026 07/06/2021, 04/16/2017 [facility]-DTaP,Tdap,and Td Vaccines (2 - Td or Tdap) 03/10/2028 03/10/2018 [facility]-Hepatitis C Screening Completed 12/24/2019 HPV Vaccines Aged Out No longer eligi ble based on patient's age to complete this topic [facility]-HIB Vaccines Aged Out No longer e ligible based on patient's age to complete this topic [facility]-Hepatitis A Vaccines Aged Out No longer eligible based on patient's age to complete this topic [facility]-IPV Vaccines Aged Out No longer e ligible based on patient's age to complete this topic [facility]-Rotavirus Vaccines Aged Out No lo nger eligible based on patient's age to complete this topic Procedures Procedure Name Priority Date/Time Associated Diagnosis Comments COLONOSCOPY Routine 03/14/2021 3:54 PM EDT Neuroendocrine cancer (CMS/HCC) CYTO DATA CONVERSION Routine 12/27/2019 12:00 AM EDT HEPATITIS C ANTIBODY - ED W/REFLEX TO HCV QUANT PCR Routine 12/24/2019 10:11 AM EDT from Last 3 Months or Most Recently Relevant to Health Maintenance Results * Colonoscopy (03/14/2021 3:54 PM EDT) Anatomical Region Laterality Modality Endoscopy Narrative 03/14/2021 3:59 PM EDT Impression Overall Impression: Normal scope No lesion identified - specifically NO LESION noted in the cecum Recommendation Repeat screening colonoscopy in 5 years Indication Neuroendocrine cancer (CMS/HCC) Abnormal imaging of the GI tract Medications midazolam (Versed) injection 6 mg fentaNYL (Sublimaze) injection 175 mcg (Totals for administrations occurring from 1448 to 1554 on 03/14/21) Staff Staff Role Pau Dumas Endo Improvement Engineer Lelo Beltran MD Proceduralist Lino Salmeron MD Proceduralist Kim Bray, OCTAVIO Sedation Nurse Tuyet Bird, OCTAVIO Endo Nurse Preprocedure A history and physical has been performed, and patient medication allergies have been reviewed. The patient's tolerance of previous anesthesia has been reviewed. The risks and benefits of the procedure and the sedation options and risks were discussed with the patient. All questions were answered and informed consent obtained. Details of the Procedure The patient underwent moderate sedation, which was administered by a sedation nurse, the procedural nurse and the endoscopist. The patient's blood pressure, ECG, heart rate, level of consciousness, oxygen and respirations were monitored throughout the procedure. A digital rectal exam was performed. A perianal exam was performed. The scope was introduced through the anus and advanced to the terminal ileum.Retroflexion was performed in the rectum. The quality of bowel preparation was evaluated using the [place] Bowel Preparation Scale with scores of: right colon = 2, transverse colon = 2, left colon = 2. The total BBPS score was 6. Bowel prep was adequate. The patient experienced no blood loss. The procedure was difficult due to angulation, fixation, patient discomfort, poor preparation and tortuous colon. In response to procedure difficulty, counter pressure was applied, the observation site was flushed, the patient was repositioned and reduction was employed. The patient tolerated the procedure well. There were no apparent complications. Moderate (conscious) sedation was personally administered by the endoscopist. Multiple parameters were monitored as delineated in the procedural note. Total physician intraservice time and doses of the medications used are indicated on the nursing documentation. The Endo Nurse functioned as a trained, independent observer who was present and continuously monitored the patient. Attestation I was present for the entire procedure Events Procedure Events Event Event Time ENDO SCOPE IN TIME 03/14/2021 3:14 PM ENDO CECUM REACHED 03/14/2021 3:45 PM ENDO SCOPE OUT TIME 03/14/2021 3:50 PM ENDO SCOPE OUT TIME 03/14/2021 3:50 PM Specimens No specimens were documented in this log. Findings All observed locations appeared normal, including the terminal ileum, cecum and ascending colon. Lino Salmeron MD GI PROCEDURE ORDERABLES Final Result * (ABNORMAL) Cytology (12/27/2019 12:00 AM EDT) 12/27/2019 12/27/2019 3:2 8 PM EDT Narrative SUNQUEST - 12/29/2019 8:56 AM EDT [facility] MR #: [id number] [facility] [place] [address] 1965 (Age: 54) FW Collect Date: 12/27/2019 00:00 Receipt Date: 12/27/2019 15:28 Page 1 DEPARTMENT OF PATHOLOGY AND LABORATORY MEDICINE CYTOPATHOLOGY REPORT Email: [email or web address] ATTENDING MD/Practitioner: Suzie Núñez Service: [email or web address] Location: A11A Reported: 12/29/2019 08:56 Collected: 12/27/2019 00:00 DIAGNOSIS A. RIGHT UPPER LOBE LUNG MASS CT GUIDED CORE BIOPSY/TOUCH PREP: (SMEARS AND CORE CELL BLOCK) -SMALL CELL CARCINOMA (SEE COMMENT) COMMENT The following immunoprofile supports the diagnosis. Dr. Krause has reviewed the case and agrees with the diagnosis. SUMMARY OF IMMUNOHISTOCHEMICAL STAINS Synaptophysin: positive Chromogranin: positive CD56: positive All controls show appropriate reactivity. All immunohistochemistry, in situ hybridization, and histochemical tests were developed by and are performed at the [facility], [address] [place] [address]. All tests reported here, except those addressing HER2 (breast) and PD-L1 expression as predictive markers, have not been cleared by or approved by the US Food and Drug Administration (FDA). The FDA has determined that such clearance or approval is not necessary. The laboratory is regulated under CLIA as qualified to perform high-complexity testing. The tests are used for clinical purposes. They should not be regarded as investigational or for research. This assay has not been validated on decalcified tissues. Results should be interpreted with caution given the likelihood of false negativity on decalcified specimens. Electronically Signed Out JESSICA Sebastian [facility] Jame Skaggs MD PROCEDURES/ADDENDA GROSS DESCRIPTION: Multiple white tidwell cores of friable tissue, all measuring less than 0.1 cm in diameter and ranging from 0.3 cm to 1.0 cm in length, entirely submitted in biowrap and/or cassette. CLINICAL INFORMATION: CLINICAL DIAGNOSIS RUL mass, suspicious for malignancy Core biopsy performed by: Dr. Núñez Number of sticks: 5 Touch Prep performed by: Dr. Skaggs / LEIGHA Touch Prep # 1-2: Scant # 3: Scant lesional tissue # 4: Crushed lesional tissue # 5: Adequate, 2nd block not made due to clinical scenario Specimen was placed in formalin at 3:37 pm in cytology, and then taken to histology at 4:30 pm where it received an additional 3 hours of formalin fixation. This service has been rendered in part by a resident. A pathologist has personally reviewed the slides/tissue and has rendered and is responsible for the diagnosis that appears on the report. SPECIMEN DESCRIPTION: A: RIGHT UPPER LOBE LUNG MASS CT GUIDED CORE BIOPSY/TOUCH PREP CORE CELL BLOCK, CYTO CUT&MOUNT x 6, TOUCH PREP DIFF x 5, SYNAPTOPHYSIN 1ST, CHROMOGRANIN ADD, CD56 ADD, control label x 3 ICD: C34.11 Malignant neoplasm of upper lobe, right bronchus or lung F: A; C 60583, 75803, 57310, 45832, C 91217, 32331(3), [id number], 62095, [id number], 02762, [id number], 43185 SNOMED CODES: A; D60184 P1140 P5862 O02022 [id number] A resident has participated in this service. A pathologist has performed and is responsible for the reported pathologic evaluation. us Cata úNñez MD LAB PATHOLOGY ORDERABLES Final R esult SUNQUEST * [place] Hepatitis C Antibody (12/24/2019 10:11 AM EDT) [place] Hepatitis C Ab NEGATIVE Reference Range: Negative SUNQUEST 12/24/2019 10:1 1 AM EDT 12/24/2019 10:44 AM EDT us Alex Martins MD LAB BLOOD ORDERABLES Leila l Result SUNQUEST from Last 3 Months or Most Recently Relevant to Health Maintenance Insurance [place] [address] Care Teams Pulverizer Feeder Relationship Specialty Start Date End Date Bishop Aguilar APRN [address] [place] [id number] PCP - General 12/03/22
[2025-01-03 11:18] LABS: Chloride 101 mmol/L (98-107)
[2025-01-03 11:19] LABS: Potassium 3.9 mmoL/L (3.5-5.1); Sodium 140 mmol/L (136-145)
[2025-01-03 11:22] LABS: Anion Gap 9.9 mEq/L (5-15); Blood Urea Nitrogen 14 mg/dl (7-17); Calcium 9.5 mg/dl (8.4-10.2); Carbon Dioxide 33 mmol/L (22.0-30.0); Estimated Glomerular Filt Rate 86 ml/min (>60); GFR (African American) 104 ML/MIN (>60); Glucose 107 mg/dl (74-100)
== END 2025-01-03 23:59 | disposition home or self-care (01) ==
LOC: LAB 09:56
PROVIDERS: PCP Nurse Practitioner Family; Visit Provider Physician Assistant
DX: I51.81 Takotsubo syndrome (principal); I25.10 Atherosclerotic heart disease of native coronary artery without angina pectoris; I31.39 Other pericardial effusion (noninflammatory)
CPT/HCPCS: 36415; 80048

== ENCOUNTER 2025-02-02 10:50 | Outpatient (CLI) | payer OTHER, SELFPAY ==
--- OUTSIDE RECORDS SUMMARY | 2025-02-02 10:52 | XMS_ITS | Encounter Summary ---
Author Organization [facility] Address [address] [place] [address] Care Team Providers Care Advertising Solicitor Name Role Phone Bishop Aguilar TRELL Primary Care Provider [phone] Encounter Details Date Type Department Care Team (Late st Contact Info) Description 01/19/2025 Orders Only [facility] [address] [place] [address] Rosy Rivas Microalbuminuria (Primary Dx); Vitamin D insufficiency Social History Tobacco Use Types Packs/Day Years Used Date Smoking Tobacco: Every Day Cigarettes Smokeless Tobacco: Never Alcohol Use Standard Drinks/Week Comments No 0 [...] Description 04/15/2025 9:00 AM EDT Office Visit [facility] [address] [place] [address] Luz Elena Gonzalez, TRELL [address] [address] 07/01/2025 11:30 AM EST Appointment [facility] [address] [place] [address] 07/01/2025 1:30 PM EST Clinical Support [facility] [address] [facility], [address]nd [place] [address] 07/01/2025 1:40 PM EST Office Visit [facility] 800 [facility], [address] [place] [address] Bryan Mccallum MD [address] [address] Scheduled Orders Name Type Priority Associated Diagnoses Orde r Schedule Renal Function Panel, Plasma Lab Routine Microalbuminuria Expected: 01/19/2025 (Approximate), Expires: 07/22/2026 CBC and Differential Lab Routine Microalbuminuria Expected: 01/19/2025 (Approximate), Expires: 07/22/2026 Creatinine, Random, Urine Lab Routine Microalbuminuria Expected: 01/19/2025 (Approximate), Expires: 07/22/2026 Protein, Random, Urine with Creatinine Lab Routine Microalbuminuria Expected: 01/19/2025 (Approximate), Expires: 07/22/2026 Urinalysis with reflex microscopic (Culture NOT Included) Lab Routine Microalbuminuria Expected: 01/19/2025 (Approximate), Expires: 07/22/2026 PTH Intact Total Lab Routine Vitamin D insufficiency Microalbuminuria Expected: 01/19/2025 (Approximate), Expires: 07/22/2026 Vitamin D 25 Hydroxy Lab Routine Vitamin D insufficiency Microalbuminuria Expected: 01/19/2025 (Approximate), Expires: 07/22/2026 Albumin-creatinine ratio, urine, random Lab Routine Microalbuminuria Expected: 01/19/2025 (Approximate), Expires: 07/22/2026 documented as of this encounter Visit Diagnoses Diagnosis Microalbuminuria- Primary Proteinuria Vitamin D insufficiency documented in this encounter Additional Health Concerns Assessment Noted Time A fall risk assessment has been complete d for the patient 06/25/2024 2:44 PM EST documented as of this encounter Care Teams Advertising Solicitor Relationship Specialty Start Date End Date Bishop Aguilar APRN [address] [facility] [place] [address] PCP - General 12/03/22 documented as of this encounter
--- OUTSIDE RECORDS SUMMARY | 2025-02-02 10:52 | XMS_ITS | Encounter Summary ---
Author Organization [facility] Address [address] [place] [address] Care Team Providers Care Vessel Scrapper Name Role Phone Meera Baker Primary Care Provider [phone] Bishop Aguilar APRN Primary Care Provider [phone] Encounter Details Date Type Department Care Team (Late st Contact Info) Description 01/24/2020 Abstract [facility]iation [address] [place] [phone] Radiation Oncology, Physician, [address] [place] [address] Social History Tobacco Use Types Packs/Day Years [...] Description 04/15/2025 9:00 AM EDT Office Visit [facility] [address] [place] [address] Luz Elena Gonzalez, ASSOCIATE FACULTY [address] [facility] [address] [place] [address] 07/01/2025 11:30 AM EST Appointment [facility] [address] [place] [address] 07/01/2025 1:30 PM EST Clinical Support [facility] 800 [facility], 2nd [place] [address] 07/01/2025 1:40 PM EST Office Visit [facility] [address] [facility], [address] [place] [address] Bryan Mccallum MD [address] [address] documented as of this encounter Visit Diagnoses Not on filedocumented in this encounter Care Teams Vessel Scrapper Relationship Specialty Start Date End Date Meera Baker PA [address] [place] [address] PCP - General 12/01/20 12/02/22 Bishop Aguilar APRN [address] [place] [address] PCP - General 12/03/22 documented as of this encounter
--- OUTSIDE RECORDS SUMMARY | 2025-02-02 10:52 | XMS_ITS | Clinical Summary ---
Author Organization [facility] Address [address] [place] [address] Care Team Providers Care Parallel Computing Software Engineer Name Role Phone Bishop Aguilar TRELL Primary Care Provider [phone]- [phone] Allergies Active Allergy Reactions Criticality Noted Date Comments Atorvastatin Shortness of breath High 10/15/2022 Sulfa Drugs Hives Medium 10/15/2022 Medications albuterol 108 (90 Base) MCG/ACT inhaler 8 Active B Rfpwmbq-X-Kbgio Acid (B-Complex/Foli c Acid/Vitamin C) tablet controlled-rele ase 1 tab(s) orally once a day Active cetirizine (ZyrTEC) 10 MG tablet 1 tab(s) orally once a day (in the morning) Active cholecalciferol (Vitamin D3) 1.25 MG (64333 UT) capsule Active ergocalciferol 1.25 MG (39226 UT) capsule 1 Active Advair Diskus 100-50 MCG/DOSE diskus inhaler 1 Active lisinopril-hydr oCHLOROthiazide 20-25 MG tablet 1 Active [place]-3 Fatty Acids ([place] III EPA+DHA) 1000 MG capsule 1 cap(s) [...] exposure 12/26/2023 Coronary artery disease invo lving [place] coronary artery of [place] heart without angina pectoris 11/09/2023 Shortness of breath 11/09/2023 Pericardial effusion 08/19/2023 Tobacco use disorder 08/21/2021 Metastatic lung cancer (metastasis from lung to other site) 05/24/2020 Overview (05/04/2021): Limited stage Anti-[place] DNA antibodies present 05/24/2020 Kidney stone 05/23/2020 SLE (systemic lupus erythematosus) 11/26/2018 Back pain 09/24/2018 Fibromyalgia 09/24/2018 Joint pain 09/24/2018 Resolved Problems Problem Noted Date Diagnosed Date Resolved Date History of miscarriage 09/24/201811/08 Encounters Date Type Department Care Team Description 01/19/2025 Orders Only [facility] [address] [place] [phone] Rosy Rivas Microalbuminuria (Primary Dx); Vitamin D insufficiency from Last 3 Months Family History Medical [...] Description 04/15/2025 9:00 AM EDT Office Visit [facility] [address] [place] [phone] Luz Elena Gonzalez, CIRCULATION LIBRARIAN [address] [phone] 07/01/2025 11:30 AM EST Appointment [facility] [address] [place] [phone] 07/01/2025 1:30 PM EST Clinical Support [facility] [address] [facility] [place] [phone] 07/01/2025 1:40 PM EST Office Visit [facility] [address] [facility] [place] [phone] Bryan Mccallum MD [address] [phone] Health Maintenance Due Date Last Done Comments [facility]-HIV Screening 1965 [facility]-/Child/Adol SDOH Screenings 1965 [facility]-Obesity Intervention 1971 [facility]- SDOH Screenings 1983 [facility]-Adult SDOH Screenings 1983 [facility]-Hepatitis B Vaccines (1 of 3 - 19+ 3-dose series) 1984 [facility]-Zoster Vaccines (1 of 2) 1984 CT Colonography 2010 FIT-DNA 2010 FIT 2010 FOBT 2010 Sigmoidoscopy 2010 [facility]-Breast Cancer Screening 2015 [facility]-Pap Smear 12/26/2022 12/27/2019 CTH-DXHVJ-14 Vaccine ( season) 2024 07/17/2021, 12/30/2020, 12/09/2020 [facility]-Depression Screening 08/19/2024 08/19/2023, 02/0 07/2021 [facility]-Cervical Cancer Screening 12/26/2024 [facility]-HPV/Cotest 12/26/2024 12/27/2019 [facility]-Influenza Vaccine (#1) 03/21/202505/06, 05/30/2022, 07/06/2021, Additional history exists Colonoscopy 03/13/2026 [...] 03/14/21) Staff Staff Role Pau Dumas Endo Calender Inspector Lelo Beltran MD Proceduralist Lino Salmeron MD [...] of bowel preparation was evaluated using the [place] Bowel Preparation Scale with scores of: right [...] Narrative SUNQUEST - 12/29/2019 8:56 AM EDT [facility] MR #: [id number] [facility] [place], [place] [address] 1965 (Age: 54) FW Collect Date: 12/27/2019 00:00 Receipt Date: 12/27/2019 15:28 Page 1 DEPARTMENT OF PATHOLOGY AND LABORATORY MEDICINE CYTOPATHOLOGY REPORT Email: [email or web address] [phone] ATTENDING MD/Practitioner: Suzie Núñez Service: [email or web address] Location: [...] developed by and are performed at the [facility], [address] [place] [address]. All tests reported here, except those addressing [...] decalcified specimens. Electronically Signed Out JESSICA Sebastian [facility] Jame Skaggs MD PROCEDURES/ADDENDA GROSS DESCRIPTION: [...] right bronchus or lung F: A; C 12438, 98445, 78914, 45568, C 52138, 77556(3), [id number], 95035, [id number], 33414, [id number], 67048 SNOMED CODES: A; [id number] P1140 P5862 [id number] A resident has participated in this service. A pathologist has performed and is responsible for the reported pathologic evaluation. us Cata Núñez MD LAB PATHOLOGY ORDERABLES Final R esult SUNQUEST * [place] Hepatitis C Antibody (12/24/2019 10:11 AM EDT) [place] Hepatitis C Ab NEGATIVE Reference Range: Negative SUNQUEST 12/24/2019 10:1 1 AM EDT 12/24/2019 10:44 AM EDT us Alex Martins MD LAB BLOOD ORDERABLES Leila l Result SUNQUEST from Last 3 Months or Most Recently Relevant to Health Maintenance Insurance [facility] Care Teams Parallel Computing Software Engineer Relationship Specialty Start Date End Date Bishop Aguilar APRN [address] [place] [id number] PCP - General 12/03/22
--- OUTSIDE RECORDS SUMMARY | 2025-02-02 10:52 | XMS_ITS ---
Author Organization [facility] Address [address] 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
--- OUTSIDE RECORDS SUMMARY | 2025-02-02 10:53 | XMS_ITS | Data Portability ---
Author Organization [facility] Address [address] [place] [address] Care Team Providers Care Player Development Manager Name Role Phone GEOVANY JEAN Primary Care Provider Adolfo palmer [facility] Surgical Oncologist [phone] SASHA MATUTE Radiation Oncologist Assessment No assessment recorded. Plan of Treatment Reminders Order Date Submit Date Provider Last Modified By Organization Details Last Modified Time Details Appointments None recorded. Lab lipid panel, serum 2024 025 MARISABEL [facility], [address], Kris F, [place], [address], 5 08:11:51 HbA1c (hemoglobin A1c), blood 2024 025 MARISABEL [facility], [address], [place] [address], [place], [address], 5 08:11:52 CMP, serum or plasma 2024 025 MARISABEL [facility], [address], [place] [address], [place], [address], 5 08:11:51 CBC w/ auto diff 2024 025 MARISABEL [facility], [address], [place] [address], [place], [address], 5 08:11:50 albumin/cre atinine, mass ratio, urine 2024 025 MARIS[facility]EL [facility], [address], [place] [address], [place], [address], 5 08:11:51 TSH + free T4, serum 2024 025 MARISABEL [facility], [address], [place] [address], [place], [address], 5 08:11:50 vitamin D, 25-hydroxy, total, serum 2024 025 MARISABEL [facility], [address], [place] [address], [place], [address], 5 08:11:52 HbA1c (hemoglobin A1c), blood 2023 024 [facility], [address] [place] [address], [id number], 4 10:38:03 CMP, serum or plasma 2023 024 MARIS[facility]EL [facility], [address], Kris [address], [place], [address], 4 06:09:45 CBC w/ auto diff 2023 024 MARISABEL [facility], [address], [place] [address], [place], [address], 4 06:09:44 lipid panel, serum 2023 024 MARIS[facility]EL [facility], [address], [place] F, [place], [address], 4 06:09:45 vitamin D, 25-hydroxy, total, serum 2023 024 MARIS[facility]EL [facility], [address], Kris F, [place], [address], 4 06:09:47 HbA1c (hemoglobin A1c), blood 2023 024 MARISABEL [facility], [address], Kris [address], [place], [address], 4 06:09:46 TSH + free T4, serum 2023 024 MARISABEL [facility], [address], [place] F, [place], [address], 4 06:09:44 Referral orthopedic surgeon referral 2023 024 MARISABEL [facility], [address], [place], [address], 5 23:20:45 Procedures None recorded. Surgeries None recorded. Imaging None recorded. Medication Orders fluticasone propionate 50 mcg/actuati on nasal spray,suspe nsion 2024 025 [facility], [address] [place] [address], [id number], 5 09:52:36 Claritin 10 mg tablet 2024 025 [facility], [address] [place] [address], [id number], 5 09:52:33 isosorbide mononitrate ER 30 mg tablet,exte nded release 24 hr 2023 024 [facility], [address] [place] [address], [id number], 4 09:37:33 metoprolol tartrate 25 mg tablet 2023 024 [facility], [address] [place] [address], [id number], 4 10:08:14 pravastatin 80 mg tablet 2023 024 [facility], [address] [place], [place] [address], [place], [id number], 4 09:35:42 prasugrel HCl 10 mg tablet 2023 024 [facility], [address] [place] [address], [place], [id number], 4 09:36:19 metformin ER 500 mg tablet,exte nded release 24 hr 2023 024 [facility], [address] [place] [address], [place], [id number], 4 10:08:09 Proair Digihaler 90 mcg/actuati on aerosol powder breath act, sensor 2023 024 [facility], [address] [place] [address], [place], [id number], 4 10:08:12 lisinopril 10 mg-hydrochl orothiazide 12.5 mg tablet 2023 024 [facility], [address] [place] [address], [place], [id number], 4 10:07:54 cyclobenzap rine 5 mg tablet 2023 024 [facility], [address] [place] [address] [place], [id number], 4 10:08:20 cholecalcif arely (vitamin D3) 25 mcg (1,000 unit) tablet 2023 024 [facility], [address] [place] [address], [place], [place], [id number], 4 09:39:20 ergocalcife rol (vitamin D2) 1,250 mcg (50,000 unit) capsule 2023 024 [facility], [address] [place] [address], [place], [id number], 4 09:37:40 albuterol sulfate 2.5 mg/3 mL (0.083 %) solution for nebulizatio n 2023 024 [facility], [address] [place] [address], [place], [id number], 4 10:08:25 sertraline 25 mg tablet 2023 024 [facility], [address] [place] [address], [place], [id number], 4 10:08:23 sertraline 50 mg tablet 2023 024 [facility], [address] [place] [address], [place], [id number], 4 10:07:57 Patient TargetsNo targets recorded. Patient Instructions Encounter Date Encounter Id Patient Instructions Last Modified By Organization Details Last Modified Time 10/01/2024 [id number] body mass index: care instructions efryman Not available 10/01/2024 09:46:02 learning about healthy weight efryman Not available 10/01/2024 09:46:02 Reason for Referral Orthopedic Surgeon Referral for Bursitis of olecranon of right elbow Referring Physician: Geovany Jean, Family Medicine, Encounter Date: 07/09/2024 Results Created Date Observation Date Name Description Value Unit Range Abnormal Flag Note LastModifiedBy Organization Detail LastModifiedTime 11/04/19 24 11/05/2023 TSH+F REE T4 TSH 1.410 uIU/m L 0.450- 4.500 Not Available [facility] ([facility]) [address] [facility], [place], [address], 11/05/2023 06:09:43 11/04/19 24 11/05/2023 TSH+F REE T4 T4,free(dire ct) 1.35 NG/dL 0.82-1 .77 Not Available [facility] ([facility]) [address] [place], [address], 11/05/2023 06:09:43 11/04/19 24 11/05/2023 CBC WITH DIFFE RENTI AL/PL ATELE T WBC 5.3 x10e3 /uL 3.4-10 .8 Not Available [facility] ([facility]) [address] [place], [address], 11/05/2023 06:09:44 11/04/19 24 11/05/2023 CBC WITH DIFFE RENTI AL/PL ATELE T RBC 4.38 x10e6 /uL 3.77-5 .28 Not Available [facility] ([facility]) [address] [place], [address], 11/05/2023 06:09:44 11/04/19 24 11/05/2023 CBC WITH DIFFE RENTI AL/PL ATELE T hemoglobin 12.4 g/dL 11.1-1 5.9 Not Available [facility] ([facility]) [address] [place], [address], 11/05/2023 06:09:44 11/04/19 24 11/05/2023 CBC WITH DIFFE RENTI AL/PL ATELE T hematocrit 38.7 % 34.0-4 6.6 Not Available [facility] ([facility]) [address] [place], [address], 11/05/2023 06:09:44 11/04/19 24 11/05/2023 CBC WITH DIFFE RENTI AL/PL ATELE T MCV 88 fL 79-97 Not Available [facility] ([facility]) [address] [place], [address], 11/05/2023 06:09:44 11/04/19 24 11/05/2023 CBC WITH DIFFE RENTI AL/PL ATELE T MCH 28.3 pg 26.6-3 3.0 Not Available [facility] ([facility]) [address] [facility], [place], [address], 11/05/2023 06:09:44 11/04/19 24 11/05/2023 CBC WITH DIFFE RENTI AL/PL ATELE T MCHC 32.0 g/dL 31.5-3 5.7 Not Available [facility] ([facility]) [address] [facility], [place], [address], 11/05/2023 06:09:44 11/04/19 24 11/05/2023 CBC WITH DIFFE RENTI AL/PL ATELE T RDW 13.5 % 11.7-1 5.4 Not Available [facility] ([facility]) [address] [facility], [place], [address], 11/05/2023 06:09:44 11/04/19 24 11/05/2023 CBC WITH DIFFE RENTI AL/PL ATELE T platelets 224 x10e3 /uL 150-45 0 Not Available [facility] ([facility]) [address] [place], [address], 11/05/2023 06:09:44 11/04/19 24 11/05/2023 CBC WITH DIFFE RENTI AL/PL ATELE T neutrophils 75 % not estab. Not Available [facility] ([facility]) [address] [place], [address], 11/05/2023 06:09:44 11/04/19 24 11/05/2023 CBC WITH DIFFE RENTI AL/PL ATELE T lymphs 15 % not estab. Not Available [facility] ([facility]) [address] [place], [address], 11/05/2023 06:09:44 11/04/19 24 11/05/2023 CBC WITH DIFFE RENTI AL/PL ATELE T monocytes 6 % not estab. Not Available [facility] ([facility]) [address] [place], [address], 11/05/2023 06:09:44 11/04/19 24 11/05/2023 CBC WITH DIFFE RENTI AL/PL ATELE T eos 3 % not estab. Not Available [facility] ([facility]) [address] [facility], [place], [address], 11/05/2023 06:09:44 11/04/19 24 11/05/2023 CBC WITH DIFFE RENTI AL/PL ATELE T basos 1 % not estab. Not Available [facility] ([facility]) [address] [facility], [place], [address], 11/05/2023 06:09:44 11/04/19 24 11/05/2023 CBC WITH DIFFE RENTI AL/PL ATELE T immature cells PET STORE MERCHANDISER Not Available [facility] ([facility]) [address] [place], [address], 11/05/2023 06:09:44 11/04/19 24 11/05/2023 CBC WITH DIFFE RENTI AL/PL ATELE T neutrophils (absolute) 4.0 x10e3 /uL 1.4-7. 0 Not Available [facility] ([facility]) [address] [place], [address], 11/05/2023 06:09:44 11/04/19 24 11/05/2023 CBC WITH DIFFE RENTI AL/PL ATELE T lymphs (absolute) 0.8 x10e3 /uL 0.7-3. 1 Not Available [facility] ([facility]) [address] [place], [address], 11/05/2023 06:09:44 11/04/19 24 11/05/2023 CBC WITH DIFFE RENTI AL/PL ATELE T monocytes(ab solute) 0.3 x10e3 /uL 0.1-0. 9 Not Available [facility] ([facility]) [address] [facility], [place], [address], 11/05/2023 06:09:44 11/04/19 24 11/05/2023 CBC WITH DIFFE RENTI AL/PL ATELE T eos (absolute) 0.1 x10e3 /uL 0.0-0. 4 Not Available [facility] ([facility]) [address] [facility], [place], [address], 11/05/2023 06:09:44 11/04/19 24 11/05/2023 CBC WITH DIFFE RENTI AL/PL ATELE T baso (absolute) 0.0 x10e3 /uL 0.0-0. 2 Not Available [facility] ([facility]) [address] [facility], [place], [address], 11/05/2023 06:09:44 11/04/19 24 11/05/2023 CBC WITH DIFFE RENTI AL/PL ATELE T immature granulocytes 0 % not estab. Not Available [facility] ([facility]) [address] [facility], [place], [address], 11/05/2023 06:09:44 11/04/19 24 11/05/2023 CBC WITH DIFFE RENTI AL/PL ATELE T immature grans (abs) 0.0 x10e3 /uL 0.0-0. 1 Not Available [facility] ([facility]) [address] [facility], [place], [address], 11/05/2023 06:09:44 11/04/19 24 11/05/2023 CBC WITH DIFFE RENTI AL/PL ATELE T NRBC PET STORE MERCHANDISER Not Available [facility] ([facility]) [address] [facility], [place], [address], 11/05/2023 06:09:44 11/04/19 24 11/05/2023 CBC WITH DIFFE CODI AL/PL XIANGLE T hematology comments: PET STORE MERCHANDISER Not Available [facility] ([facility]) [address] [facility], [place], [address], 11/05/2023 06:09:44 11/04/19 24 11/05/2023 COMP. METAB OLIC PANEL (14) glucose 105 mg/dL 70-99 above high normal Not Available [facility] ([facility]) [address] [facility], [place], [address], 11/05/2023 06:09:45 11/04/19 24 11/05/2023 COMP. METAB OLIC PANEL (14) BUN 12 mg/dL 6-24 Not Available [facility] ([facility]) [address] [facility], [place], [address], 11/05/2023 06:09:45 11/04/19 24 11/05/2023 COMP. METAB OLIC PANEL (14) creatinine 0.64 mg/dL 0.57-1 .00 Not Available [facility] ([facility]) [address] [facility], [place], [address], 11/05/2023 06:09:45 11/04/19 24 11/05/2023 COMP. METAB OLIC PANEL (14) eGFR 102 mL/mi n/1.7 3 >59 Not Available [facility] ([facility]) [address] [place], [address], 11/05/2023 06:09:45 11/04/19 24 11/05/2023 COMP. METAB OLIC PANEL (14) BUN/creatini ne ratio 19 9-23 Not Available [facility] ([facility]) [address] [place], [address], 11/05/2023 06:09:45 11/04/19 24 11/05/2023 COMP. METAB OLIC PANEL (14) sodium 140 mmol/ L 134-14 4 Not Available [facility] ([facility]) [address] [place], [address], 11/05/2023 06:09:45 11/04/19 24 11/05/2023 COMP. METAB OLIC PANEL (14) potassium 3.7 mmol/ L 3.5-5. 2 Not Available [facility] ([facility]) [address] [place], [address], 11/05/2023 06:09:45 11/04/19 24 11/05/2023 COMP. METAB OLIC PANEL (14) chloride 97 mmol/ L 96-106 Not Available [facility] ([facility]) [address] [place], [address], 11/05/2023 06:09:45 11/04/19 24 11/05/2023 COMP. METAB OLIC PANEL (14) carbon dioxide, total 28 mmol/ L 20-29 Not Available [facility] ([facility]) [address] [place], [address], 11/05/2023 06:09:45 11/04/19 24 11/05/2023 COMP. METAB OLIC PANEL (14) calcium 9.0 mg/dL 8.7-10 .2 Not Available [facility] ([facility]) [address] [place], [address], 11/05/2023 06:09:45 11/04/19 24 11/05/2023 COMP. METAB OLIC PANEL (14) protein, total 6.5 g/dL 6.0-8. 5 Not Available [facility] ([facility]) [address] [place], [address], 11/05/2023 06:09:45 11/04/19 24 11/05/2023 COMP. METAB OLIC PANEL (14) albumin 4.1 g/dL 3.8-4. 9 Not Available [facility] ([facility]) [address] [place], [address], 11/05/2023 06:09:45 11/04/19 24 11/05/2023 COMP. METAB OLIC PANEL (14) globulin, total 2.4 g/dL 1.5-4. 5 Not Available [facility] ([facility]) [address] [place], [address], 11/05/2023 06:09:45 11/04/19 24 11/05/2023 COMP. METAB OLIC PANEL (14) A/G ratio 1.7 1.2-2. 2 Not Available [facility] ([facility]) [address] [place], [address], 11/05/2023 06:09:45 11/04/19 24 11/05/2023 COMP. METAB OLIC PANEL (14) bilirubin, total 0.3 mg/dL 0.0-1. 2 Not Available [facility] ([facility]) [address] [place], [address], 11/05/2023 06:09:45 11/04/19 24 11/05/2023 COMP. METAB OLIC PANEL (14) alkaline phosphatase 163 IU/L 44-121 above high normal Not Available [facility] ([facility]) [address] [place], [address], 11/05/2023 06:09:45 11/04/19 24 11/05/2023 COMP. METAB OLIC PANEL (14) AST (SGOT) 39 IU/L 0-40 Not Available [facility] ([facility]) [address] [place], [address], 11/05/2023 06:09:45 11/04/19 24 11/05/2023 COMP. METAB OLIC PANEL (14) ALT (SGPT) 69 IU/L 0-32 above high normal Not Available [facility] ([facility]) [address] [place], [address], 11/05/2023 06:09:45 11/04/19 24 11/05/2023 LIPID PANEL cholesterol, total 123 mg/dL 100-19 9 Not Available [facility] ([facility]) [address] [place], [address], 11/05/2023 06:09:45 11/04/19 24 11/05/2023 LIPID PANEL triglyceride s 73 mg/dL 0-149 Not Available [facility] ([facility]) [address] [place], [address], 11/05/2023 06:09:45 11/04/19 24 11/05/2023 LIPID PANEL HDL cholesterol 30 mg/dL >39 below low normal Not Available [facility] ([facility]) [address] [facility], [place], [address], 11/05/2023 06:09:45 11/04/19 24 11/05/2023 LIPID PANEL VLDL cholesterol north 15 mg/dL 5-40 Not Available [facility] ([facility]) [address] [place], [address], 11/05/2023 06:09:45 11/04/19 24 11/05/2023 LIPID PANEL LDL chol calc ([facility]) 78 mg/dL 0-99 Not Available [facility] ([facility]) [address] [place], [address], 11/05/2023 06:09:45 11/04/19 24 11/05/2023 LIPID PANEL comment: PET STORE MERCHANDISER Not Available [facility] ([facility]) [address] [place], [address], 11/05/2023 06:09:45 11/04/19 24 11/05/2023 HEMOG LOBIN A1C hemoglobin A1C 6.2 % 4.8-5. 6 above high normal Predi abete s: 5.7 - 6.4 Diabe akbar: >6.4 Glyce jose luis contr ol for adult s with diabe akbar: <7.0 Not Available [facility] ([facility]) [address] [facility], [place], [address], 11/05/2023 06:09:46 11/04/19 24 11/05/2023 VITAM IN D, 25-HY DROXY vitamin D, 25-hydroxy 103.0 NG/mL 30.0-1 00.0 above high normal Vitam in D defic iency has been defin ed by the Insti tute of Medic ine and an Endoc rine Socie ty pract ice guide line as a level of serum 25-OH vitam in D less than 20 ng/mL (1,2) . The Endoc rine Socie ty went on to furth er defin e vitam in D insuf ficie ncy as a level betwe en 21 and 29 ng/mL (2). 1. IOM (Inst itute of Medic ine). 2010. Dieta ry refer ence intcheryl es for calci um and D. Joanna tran [place]: [facility] . 2. Yessenia olvera MF, Vic palumbo [place], Octavia off-F errar i BLAIR, et al. Evalu ation , treat ment, and preve ntion of vitam in D defic iency : an Endoc rine Socie ty clini north pract ice guide line. JCEM. 2010; 96(7) :1911 -30. Not Available [facility] ([facility]) [address] [facility], [place], [address], 11/05/2023 06:09:47 03/11/20 24 03/11/2024 HbA1c (hemo globi n A1c), blood HbA1C 6.0 % Not Available [address], [place], [address], 03/11/2024 10:37:30 10/02/19 25 10/02/2024 TSH+F REE T4 TSH 1.520 uIU/m L 0.450- 4.500 normal Not Available [facility] ([facility]) [address] [facility], [place], [address], 10/02/2024 08:11:50 10/02/19 25 10/02/2024 TSH+F REE T4 T4,free(dire ct) 1.53 NG/dL 0.82-1 .77 normal Not Available [facility] ([facility]) [address] [place], [address], 10/02/2024 08:11:50 10/02/1910/02/2024 CBC WITH DIFFE RENTI AL/PL ATELE T WBC 6.7 x10e3 /uL 3.4-10 .8 normal Not Available [facility] ([facility]) [address] [place], [address], 10/02/2024 08:11:50 10/02/1910/02/2024 CBC WITH DIFFE RENTI AL/PL ATELE T RBC 4.41 x10e6 /uL 3.77-5 .28 normal Not Available [facility] ([facility]) [address] [place], [address], 10/02/2024 08:11:50 10/02/1910/02/2024 CBC WITH DIFFE RENTI AL/PL ATELE T hemoglobin 12.1 g/dL 11.1-1 5.9 normal Not Available [facility] ([facility]) [address] [place], [address], 10/02/2024 08:11:50 10/02/1910/02/2024 CBC WITH DIFFE RENTI AL/PL ATELE T hematocrit 39.3 % 34.0-4 6.6 normal Not Available [facility] ([facility]) [address] [place], [address], 10/02/2024 08:11:50 10/02/19 25 10/02/2024 CBC WITH DIFFE RENTI AL/PL ATELE T MCV 89 fL 79-97 normal Not Available [facility] ([facility]) [address] [place], [address], 10/02/2024 08:11:50 10/02/19 25 10/02/2024 CBC WITH DIFFE RENTI AL/PL ATELE T MCH 27.4 pg 26.6-3 3.0 normal Not Available [facility] ([facility]) [address] [place], [address], 10/02/2024 08:11:50 10/02/19 25 10/02/2024 CBC WITH DIFFE RENTI AL/PL ATELE T MCHC 30.8 g/dL 31.5-3 5.7 below low normal Not Available [facility] ([facility]) [address] [place], [address], 10/02/2024 08:11:50 10/02/19 25 10/02/2024 CBC WITH DIFFE RENTI AL/PL ATELE T RDW 15.9 % 11.7-1 5.4 above high normal Not Available [facility] ([facility]) [address] [place], [address], 10/02/2024 08:11:50 10/02/19 25 10/02/2024 CBC WITH DIFFE RENTI AL/PL ATELE T platelets 281 x10e3 /uL 150-45 0 normal Not Available [facility] ([facility]) [address] [place], [address], 10/02/2024 08:11:50 10/02/19 25 10/02/2024 CBC WITH DIFFE RENTI AL/PL ATELE T neutrophils 78 % not estab. normal Not Available [facility] ([facility]) [address] [place], [address], 10/02/2024 08:11:50 10/02/19 25 10/02/2024 CBC WITH DIFFE RENTI AL/PL ATELE T lymphs 15 % not estab. normal Not Available [facility] ([facility]) [address] [place], [address], 10/02/2024 08:11:50 10/02/19 25 10/02/2024 CBC WITH DIFFE RENTI AL/PL ATELE T monocytes 5 % not estab. normal Not Available [facility] ([facility]) [address] [facility], [place], [address], 10/02/2024 08:11:50 10/02/19 25 10/02/2024 CBC WITH DIFFE RENTI AL/PL ATELE T eos 1 % not estab. normal Not Available [facility] ([facility]) [address] [place], [address], 10/02/2024 08:11:50 10/02/19 25 10/02/2024 CBC WITH DIFFE RENTI AL/PL ATELE T basos 1 % not estab. normal Not Available [facility] ([facility]) [address] [place], [address], 10/02/2024 08:11:50 10/02/19 25 10/02/2024 CBC WITH DIFFE RENTI AL/PL ATELE T immature cells PET STORE MERCHANDISER Not Available [facility] ([facility]) [address] [place], [address], 10/02/2024 08:11:50 10/02/19 25 10/02/2024 CBC WITH DIFFE RENTI AL/PL ATELE T neutrophils (absolute) 5.2 x10e3 /uL 1.4-7. 0 normal Not Available [facility] ([facility]) [address] [place], [address], 10/02/2024 08:11:50 10/02/19 25 10/02/2024 CBC WITH DIFFE RENTI AL/PL ATELE T lymphs (absolute) 1.0 x10e3 /uL 0.7-3. 1 normal Not Available [facility] ([facility]) [address] [place], [address], 10/02/2024 08:11:50 03/14/20 25 10/02/2024 CBC WITH DIFFE RENTI AL/PL ATELE T monocytes(ab solute) 0.4 x10e3 /uL 0.1-0. 9 normal Not Available [facility] ([facility]) [address] [facility], [place], [address], 10/02/2024 08:11:50 10/02/19 25 10/02/2024 CBC WITH DIFFE RENTI AL/PL ATELE T eos (absolute) 0.1 x10e3 /uL 0.0-0. 4 normal Not Available [facility] ([facility]) [address] [place], [address], 10/02/2024 08:11:50 10/02/19 25 10/02/2024 CBC WITH DIFFE RENTI AL/PL ATELE T baso (absolute) 0.1 x10e3 /uL 0.0-0. 2 normal Not Available [facility] ([facility]) [address] [facility], [place], [address], 10/02/2024 08:11:50 10/02/19 25 10/02/2024 CBC WITH DIFFE RENTI AL/PL ATELE T immature granulocytes 0 % not estab. Not Available [facility] ([facility]) [address] [place], [address], 10/02/2024 08:11:50 10/02/19 25 10/02/2024 CBC WITH DIFFE RENTI AL/PL ATELE T immature grans (abs) 0.0 x10e3 /uL 0.0-0. 1 Not Available [facility] ([facility]) [address] [place], [address], 10/02/2024 08:11:50 10/02/19 25 10/02/2024 CBC WITH DIFFE RENTI AL/PL ATELE T NRBC PET STORE MERCHANDISER Not Available [facility] ([facility]) [address] [place], [address], 10/02/2024 08:11:50 10/02/19 25 10/02/2024 CBC WITH DIFFE CODI AL/PL WIN[place]RED [place] hematology comments: PET STORE MERCHANDISER Not Available [facility] ([facility]) [address] [facility], [place], [address], 10/02/2024 08:11:50 10/02/19 25 10/02/2024 COMP. METAB OLIC PANEL (14) glucose 100 mg/dL 70-99 above high normal Not Available [facility] ([facility]) [address] [facility], [place], [address], 10/02/2024 08:11:50 10/02/19 25 10/02/2024 COMP. METAB OLIC PANEL (14) BUN 10 mg/dL 6-24 normal Not Available [facility] ([facility]) [address] [facility], [place], [address], 10/02/2024 08:11:50 10/02/19 25 10/02/2024 COMP. METAB OLIC PANEL (14) creatinine 0.68 mg/dL 0.57-1 .00 normal Not Available [facility] ([facility]) [address] [facility], [place], [address], 10/02/2024 08:11:50 10/02/19 25 10/02/2024 COMP. METAB OLIC PANEL (14) eGFR 100 mL/mi n/1.7 3 >59 normal Not Available [facility] ([facility]) [address] [facility], [place], [address], 10/02/2024 08:11:50 10/02/19 25 10/02/2024 COMP. METAB OLIC PANEL (14) BUN/creatini ne ratio 15 9-23 normal Not Available [facility] ([facility]) [address] [facility], [place], [address], 10/02/2024 08:11:50 10/02/19 25 10/02/2024 COMP. METAB OLIC PANEL (14) sodium 137 mmol/ L 134-14 4 normal Not Available [facility] ([facility]) [address] [facility] [place], [address], 10/02/2024 08:11:50 10/02/19 25 10/02/2024 COMP. METAB OLIC PANEL (14) potassium 3.3 mmol/ L 3.5-5. 2 below low normal Not Available [facility] ([facility]) [address] [facility] [place], [address], 10/02/2024 08:11:50 10/02/19 25 10/02/2024 COMP. METAB OLIC PANEL (14) chloride 92 mmol/ L 96-106 below low normal Not Available [facility] [facility]) [address] [facility] [place], [address], 10/02/2024 08:11:50 10/02/19 25 10/02/2024 COMP. METAB OLIC PANEL (14) carbon dioxide, total 31 mmol/ L 20-29 above high normal Not Available [facility] ([facility]) [address] [facility] [place], [address], 10/02/2024 08:11:50 10/02/19 25 10/02/2024 COMP. METAB OLIC PANEL (14) calcium 9.5 mg/dL 8.7-10 .2 normal Not Available [facility] ([facility]) [address] [facility] [place], [address], 10/02/2024 08:11:50 10/02/19 25 10/02/2024 COMP. METAB OLIC PANEL (14) protein, total 6.6 g/dL 6.0-8. 5 normal Not Available [facility] ([facility]) [address] [facility] [place], [address], 10/02/2024 08:11:50 10/02/19 25 10/02/2024 COMP. METAB OLIC PANEL (14) albumin 4.2 g/dL 3.8-4. 9 normal Not Available [facility] ([facility]) [address] [facility] [place], [address], 10/02/2024 08:11:50 10/02/19 25 10/02/2024 COMP. METAB OLIC PANEL (14) globulin, total 2.4 g/dL 1.5-4. 5 Not Available [facility] ([facility]) [address] [facility] [place], [address], 10/02/2024 08:11:50 10/02/19 25 10/02/2024 COMP. METAB OLIC PANEL (14) bilirubin, total 0.3 mg/dL 0.0-1. 2 normal Not Available [facility] ([facility]) [address], [place], [address], 10/02/2024 08:11:50 10/02/19 25 10/02/2024 COMP. METAB OLIC PANEL (14) alkaline phosphatase 81 IU/L 44-121 normal Not Available [facility] ([facility]) [address] [facility] [place], [address], 10/02/2024 08:11:50 10/02/19 25 10/02/2024 COMP. METAB OLIC PANEL (14) AST (SGOT) 14 IU/L 0-40 normal Not Available [facility] ([facility]) [address] [facility], [place], [address], 10/02/2024 08:11:50 10/02/19 25 10/02/2024 COMP. METAB OLIC PANEL (14) ALT (SGPT) 13 IU/L 0-32 normal Not Available [facility] ([facility]) [address] [facility] [place], [address], 10/02/2024 08:11:50 10/02/19 25 10/02/2024 LIPID PANEL cholesterol, total 86 mg/dL 100-19 9 below low normal Not Available [facility] ([facility]) [address] [facility] [place], [address], 10/02/2024 08:11:51 10/02/19 25 10/02/2024 LIPID PANEL triglyceride s 78 mg/dL 0-149 normal Not Available [facility] ([facility]) [address] [facility] [place], [address], 10/02/2024 08:11:51 10/02/19 25 10/02/2024 LIPID PANEL HDL cholesterol 27 mg/dL >39 below low normal Not Available [facility] ([facility]) [address] [facility] [place], [address], 10/02/2024 08:11:51 10/02/19 25 10/02/2024 LIPID PANEL VLDL cholesterol north 16 mg/dL 5-40 Not Available [facility] ([facility]) [address] [facility], [place], [address], 10/02/2024 08:11:51 10/02/19 25 10/02/2024 LIPID PANEL LDL chol calc ([facility]) 43 mg/dL 0-99 Not Available [facility] ([facility]) [address] [place], [address], 10/02/2024 08:11:51 10/02/19 25 10/02/2024 LIPID PANEL LDL calc comment: [employer] [facility] Not Available [facility] ([facility]) [address] [place], [address], 10/02/2024 08:11:51 10/02/19 25 10/02/2024 ALBUM IN/CR EATIN INE RATIO ,URIN E creatinine, urine 36.7 mg/dL not estab. normal Not Available [facility] ([facility]) [address] [place], [address], 10/02/2024 08:11:51 10/02/19 25 10/02/2024 ALBUM IN/CR EATIN INE RATIO ,URIN E albumin, urine 172.9 ug/mL not estab. Not Available [facility] ([facility]) [address] [facility], [place], [address], 10/02/2024 08:11:51 10/02/1910/02/2024 ALBUM IN/CR EATIN INE RATIO ,URIN E alb/creat ratio 471 mg/g_ creat 0-29 above high normal [place] l: 0 - 29 Moder ately incre ased: 30 - 300 Sever samantha incre ased: >300 Not Available [facility] ([facility]) [address] [facility], [place], [address], 10/02/2024 08:11:51 10/02/1910/02/2024 HEMOG LOBIN A1C hemoglobin A1C 6.1 % 4.8-5. 6 above high normal Predi abete s: 5.7 - 6.4 Diabe akbar: >6.4 Glyce jose luis contr ol for adult s with diabe akbar: <7.0 Not Available [facility] ([facility]) [address] [facility], [place], [address], 10/02/2024 08:11:52 10/02/1910/02/2024 VITAM IN D, 25-HY DROXY vitamin D, 25-hydroxy 57.8 NG/mL 30.0-1 00.0 Vitam in D defic iency has been defin ed by the Insti tute of Medic ine and an Endoc rine Socie ty pract ice guide line as a level of serum 25-OH vitam in D less than 20 ng/mL (1,2) . The Endoc rine Socie ty went on to furth er defin e vitam in D insuf ficie ncy as a level betwe en 21 and 29 ng/mL (2). 1. IOM (Inst itute of Medic ine). 2009. Dieta ry refer ence intak es for calci um and D. Joanna tran [place]: [facility] . 2. Yessenia olvera MF, Vic palumbo [place], Octavia off-F errar i BLAIR, et al. Evalu ation , treat ment, and preve ntion of vitam in D defic iency : an Endoc rine Socie ty clini north pract ice guide line. JCEM. 2010; 96(7) :1911 -30. Not Available [facility] ([facility]) [address] [facility], [place], [address], 10/02/2024 08:11:52 07/09/20 23 07/09/2023 XR, chest No observ ation record ed. [facility] [address], [place], [address], 07/15/2023 10:11:20 07/10/20 23 07/10/2023 elect rocar diogr am No observ ation record ed. [facility] [address], [place], [address], 07/15/2023 10:11:20 07/10/20 23 07/09/2023 elect rocar diogr am No observ ation record ed. [facility] [address], [place], [address], 07/15/2023 10:11:21 07/10/20 23 07/09/2023 elect rocar diogr am No observ ation record ed. [facility] [address], [place], [address], 07/15/2023 10:11:21 07/10/20 23 07/09/2023 elect rocar diogr am No observ ation record ed. [facility] [address], [place], [address], 07/15/2023 10:11:22 07/14/20 23 07/10/2023 US, doppl er echoc ardio gram No observ ation record ed. [facility] [address], [place], [address], 07/15/2023 10:11:22 11/14/19 24 11/14/2023 US, liver No observ ation record ed. [facility] [address], [place], [address], 11/17/2023 11:53:08 08/12/19 25 08/12/2024 XR, elbow , 3 or more view [facility] observ [facility] [address], [place], [address], 08/13/2024 08:46:14 11/03/19 25 11/02/2024 XR, chest , 2 view No observ ation record ed. [facility] [address], [place], [address], 11/04/2024 08:28:17 11/03/19 25 11/02/2024 CT, angio gram, chest , w/ contr ast No observ ation record ed. [facility] [address], [place], [address], 11/04/2024 08:28:17 11/03/19 25 11/02/2024 elect yessica mckenzie am No observ ation record ed. [facility] [address], [place], [address], 11/04/2024 08:28:17 11/04/19 25 11/03/2024 US, doppl er echoc ardio gram, w/ color flow No observ ation record ed. [facility] [address], [place], [address], 11/04/2024 08:28:18 11/05/19 25 11/04/2024 XR, chest , 2 view No observ ation record ed. [facility] [address], [place], [place], [address], 11/04/2024 08:28:18 Result Notes None recorded. Problems Name Problem SNOMED Code Status Onset Date Resolution Date Notes Provider Name and Address Organization Details Recorded Time Primary malignant neoplasm of lung 22903776 Active 2021 Geovany Jean, NEONATAL NURSE [address], [place], [address], [place] - [facility] 16:12:10 Anxiety 96024432 Active 2021 Geovany Jean, NEONATAL NURSE [address], [place], [address], [place] [facility] 16:12:00 Depressive disorder 46648860 Active 2021 Geovany Jean APRN [address], [place], [address], [place] [facility] 16:12:02 Vitamin D deficiency 81594011 Active 2021 Geovany Jean APRN [address], [place], [address], [place] [facility] 16:12:23 Hypertensive disorder 92714810 Active 2021 Geovany Jean, NEONATAL NURSE [address], [place], [address], [place] [facility] 16:12:08 Diabetes mellitus 20630562 Active 2021 Geovany Jean, NEONATAL NURSE [address], [place], [address], [place] [facility] 16:12:05 Neuropathy 698522629 Active 2021 Geovany Jean, NEONATAL NURSE [address], [place], [address], [place] [facility] 16:12:36 Seasonal allergic rhinitis 674121770 Active 2021 Geovany Jean, NEONATAL NURSE [address], [place], [address], [place] [facility] 16:13:29 Herpes labialis 4428199 Active 2022 Bob Marie PA-C [address], [place], [address], [place] - [facility] 08:37:56 Herpes zoster 1473617 Active 2022 Bob Marie PA-C [address], [place], [address], [place] - [facility] 08:56:04 Lesion of genitalia 650279153 Active 2022 Bob Marie PA-C [address], [place], [address], [place] - [facility] 08:57:18 Acute bronchitis 73942368 Active 2022 Bob Marie PA-C [address], [place], [address], [place] - [facility] 09:40:11 Chronic obstructive pulmonary disease 46138922 Active 2022 Geovany Jean APRN [address], [place], [address], [place] - [facility] 10:20:58 Problem Notes None recorded. Procedures Surgical History Date Name Laterality Status Provider Name and Address Organization Details Recorded Time 03/14/20 21 Date of Last Colonoscopy completed Regina Pandya [place] - [facility] 05/07/2023 11:09:22 destruction of lesion of kidney completed Zainab Stears [place] - [facility] 02/04/2022 15:54:24 biopsy of lung completed [place]ainab [place] - [facility] 02/04/2022 15:54:40 Port, indwelling, imp completed Zainab Stears [place] - [facility] 02/04/2022 15:54:55 Tubal Ligation completed Zainab [place] - [facility] 02/04/2022 15:55:03 Tonsillectomy completed Zainab Stears [place] - [facility] 02/04/2022 15:55:08 Colonoscopy completed Zainab Stears [place] - [facility] 02/04/2022 15:55:18 procedure on elbow completed Zainab Stears [place] - [facility] 10/01/2024 09:22:07 Imaging Results None recorded. Procedure Notes None recorded. Medical Equipment None Reported. Allergies No known drug allergies Medications Name Sig Start Date Stop Date Status Note LastModified by Organization Details LastModified Time amoxicill in 500 mg capsule TAKE 1 CAPSULE BY MOUTH TWICE a DAY FOR TEN DAYS active Not Available Not Available No t Available furosemid e 40 mg tablet TAKE 1 TABLET BY MOUTH ONCE A DAY 2024 active Not Available Not Available Not Avai lable albuterol sulfate 2.5 mg/3 mL (0.083 %) solution for nebulizat ion INHALE CONTENTS OF 1 VIAL VIA NEBULIZE R 3 TIMES A DAY NEEDED FOR SHORTNES S OF BREATH active Not Available Not Available No t Available cetirizin e 10 mg tablet 1 tablet by mouth qd 08/04 completed Not Available Not Available Not Available azithromy audrey 250 mg tablet TAKE 2 TABLETS (500 MG) BY ORAL ROUTE ONCE DAILY FOR 1 DAY THEN 1 TABLET (250 MG) BY ORAL ROUTE ONCE DAILY FOR 4 DAYS 08/30 completed Not Available Not Available Not Available valacyclo vir 1 gram tablet Take 1 tablet 3 times a day by oral route for 7 days. 05/06 completed Not Available Not Available Not Available prednison e 20 mg tablet TAKE 1 TABLET BY MOUTH ONCE A DAY FOR 3 DAYS active Not Available Not Available No t Available isosorbid e mononitra te ER 30 mg tablet,ex tended release 24 hr TAKE ONE TABLET BY MOUTH ONCE A DAY 03/11 completed Not Available Not Available Not Available Advair Diskus 100 mcg-50 mcg/dose powder for inhalatio n Inhale 1 puff twice a day by inhalati on route. 05/30 completed Not Available Not Available Not Available clopidogr el 75 mg tablet TAKE ONE TABLET BY MOUTH ONCE A DAY active Not Available Not Available No t Available sulfameth oxazole 800 mg-trimet hoprim 160 mg tablet Take 1 tablet every 12 hours by oral route for 10 days, for abscess. 08/04 completed Not Available Not Available Not Available aspirin 81 mg tablet,de layed release TAKE ONE TABLET BY MOUTH EVERY DAY active Not Available Not Available No t Available spironola ctone 25 mg tablet TAKE 1 TABLET BY MOUTH ONCE A DAY active Not Available Not Available No t Available amoxicill in 500 mg tablet Take 1 tablet twice a day by oral route for 10 days. 2024 active Not Available Not Available Not Avai lable pravastat in 80 mg tablet TAKE ONE TABLET BY MOUTH ONCE A DAY 03/11 completed Not Available Not Available Not Available benzonata te 100 mg capsule 08/30 completed Not Available Not Available Not Available simvastat in 5 mg tablet TAKE ONE TABLET BY MOUTH ONCE A DAY 08/04 completed Not Available Not Available Not Available nicotine 21 mg/24 hr daily transderm al patch APPLY 1 PATCH TRANSDER KIM ONCE DAILY active Not Available Not Available No t Available sertralin e 25 mg tablet TAKE ONE TABLET BY MOUTH ONCE A DAY active Not Available Not Available No t Available lisinopri l 20 mg-hydroc hlorothia zide 25 mg tablet 1tablet by mouth qd active Not Available Not Available No t Available codeine 10 mg-guaife nesin 100 mg/5 mL oral liquid 03/11 completed Not Available Not Available Not Available metoprolo l succinate ER 25 mg tablet,ex tended release 24 hr TAKE ONE TABLET BY MOUTH EVERY DAY active Not Available Not Available No t Available ergocalci ferol (vitamin D2) 1,250 mcg (50,000 unit) capsule TAKE ONE CAPSULE BY MOUTH EVERY WEEK 03/11 completed Not Available Not Available Not Available dexametha sone sodium phosphate 4 mg/mL injection solution Inject 1 mL as needed by intramus cular route. 08/30 completed Not Available Not Available Not Available lisinopri l 10 mg-hydroc hlorothia zide 12.5 mg tablet TAKE ONE TABLET BY MOUTH ONCE A DAY active Not Available Not Available No t Available levofloxa audrey 750 mg tablet TAKE ONE TABLET BY MOUTH EVERY DAY FOR 3 DAYS -- FINISH ALL MEDICINE -- active Not Available Not Available No t Available albuterol sulfate HFA 90 mcg/actua tion aerosol inhaler Inhale 2 puffs every 4 hours by inhalati on route. 2023 active Not Available Not Available Not Avai lable fluticaso ne propionat e 50 mcg/actua tion nasal spray,ara pension Beatty 1 spray every day by intranas al route. active Not Available Not Available No t Available metformin ER 500 mg tablet,ex tended release 24 hr TAKE ONE TABLET BY MOUTH ONCE A DAY active Not Available Not Available No t Available sertralin e 50 mg tablet TAKE ONE TABLET BY MOUTH ONCE A DAY active Not Available Not Available No t Available doxycycli ne hyclate 100 mg tablet 02/04 completed Not Available Not Available Not Available loratadin e 10 mg tablet TAKE ONE TABLET BY MOUTH ONCE A DAY 2024 active Not Available Not Available Not Avai lable cyclobenz aprine 5 mg tablet TAKE ONE TABLET BY MOUTH ONCE A DAY NEEDED active Not Available Not Available No t Available rosuvasta tin 40 mg tablet TAKE ONE TABLET BY MOUTH ONCE A DAY active Not Available Not Available No t Available metoprolo l tartrate 25 mg tablet TAKE ONE TABLET BY MOUTH 2 TIMES A DAY active Not Available Not Available No t Available Spiriva with [employer] r 18 mcg and inhalatio n capsules INHALE 1 PUFF BY MOUTH ONCE A DAY active Not Available Not Available No t Available cyclobenz aprine 5mg 05/30 completed Not Available Not Available Not Available cholecalc iferol (vitamin D3) 25 mcg (1,000 unit) tablet TAKE ONE TABLET BY MOUTH ONCE A DAY 03/11 completed Not Available Not Available Not Available GaviLyte- G 236 gram-22.7 4 gram-6.74 gram-5.86 gram oral solution 02/04 completed Not Available Not Available Not Available prasugrel HCl 10 mg tablet TAKE ONE TABLET BY MOUTH ONCE A DAY 03/11 completed excessiv e bruising Not Available Not Available Not Available TRUEplus Lancets 28 gauge active Not Available Not Available Not Available potassium chloride ER 20 mEq tablet,ex tended release Take 1 tablet every day by oral route for 3 days. 2024 active Not Available Not Available Not Avsandra lable Jardiance 10 mg tablet TAKE 1 TABLET BY MOUTH ONCE A DAY active Not Available Not Available No t Available True Metrix Glucose Test Strip Take 1 strip twice a day by miscell. route. active Not Available Not Available No t Available True Metrix Glucose Meter active Not Available Not Available Not Available Spiriva Respimat 2.5 mcg/actua tion solution for inhalatio n 02/04 completed Not Available Not Available Not Available Entresto 24 mg-26 mg tablet TAKE ONE TABLET BY MOUTH TWICE DAILY active Not Available Not Available No t Available Proair Digihaler 90 mcg/actua tion aerosol powder breath act, sensor active Not Available Not Available Not Available Vitals Date Recorded Body height Body mass index (BMI) Body weight Heart rate Oxygen saturation Oxygen saturation in Arterial blood by Pulse oximetry Respiratory rate Systolic And Diastolic Provider Name and Address Organization Details Last Updated DateTime 4 157.48 cm 30.3 kg/m2 06480.5 4 g 72 /min 94 % 94 % 18 /min 132/84 mm[Hg] Regina Pandya [place] - [facility] 09:26:16 Date Recorded Body height Respiratory rate Body mass index (BMI) Body weight Body temperature Oxygen saturation Oxygen saturation in Arterial blood by Pulse oximetry Heart rate Systolic And Diastolic Provider Name and Address Organization Details Last Updated DateTime 5 157.48 cm 18 /min 29.4 kg/m2 87038.3 7 g 97.6 [degF] 90 % 90 % 68 /min 112/66 mm[Hg] Zainab Lind[place] - [facility] 5 09:20:17 Date Recorded Body height Body mass index (BMI) Body weight Heart rate Oxygen saturation Oxygen saturation in Arterial blood by Pulse oximetry Respiratory rate Systolic And Diastolic Provider Name and Address Organization Details Last Updated DateTime 4 157.48 cm 31.1 kg/m2 57179.7 g 79 /min 83 % 83 % 20 /min 138/80 mm[Hg] Regina Pandya [place] - [facility] 4 09:34:09 Date Recorded Body height Body mass index (BMI) Body weight Oxygen saturation Oxygen saturation in Arterial blood by Pulse oximetry Respiratory rate Heart rate Body temperature Systolic And Diastolic Provider Name and Address Organization Details Last Updated DateTime 4 157.48 cm 28.9 kg/m2 93613.5 9 g 92 % 92 % 20 /min 90 /min 97.8 [degF] 108/72 mm[Hg] Regina Pandya [place] - [facility] 4 09:32:48 Date Recorded Body height Body mass index (BMI) Body weight Body temperature Heart rate Oxygen saturation Oxygen saturation in Arterial blood by Pulse oximetry Respiratory rate Systolic And Diastolic Provider Name and Address Organization Details Last Updated DateTime 4 157.48 cm 29.3 kg/m2 76307.7 8 g 98 [degF] 65 /min 89 % 89 % 18 /min 118/70 mm[Hg] Regina Pandya [place] - [facility] 4 11:02:30 Social History Question Answer Notes LastModified by Organizat ion Details LastModified Time Tobacco Smoking Status Current Some Day Smoker Zainab [place], [place] - [facility] 02/04/2022 15:52:22 Do You Have An Advance Directive? Yes Information not available 02/04/2022 Are You Blind Or Do You Have Difficulty Seeing? No Reading Glasses Information not available 02/04/2022 What Is Your Level Of Caffeine Consumption? Occasional Information not available 02/04/2022 In The 14 Days Before Symptom Onset, Have You Had Close Contact With A Laboratory-confir med COVID-19 While That Case Was Ill? No Information not available 06/27/2023 In The 14 Days Before Symptom Onset, Have You Had Close Contact With A Person Who Is Under Investigation For COVID-19 While That Person Was Ill? No Information not available 06/27/2023 Have You Been To An Area Known To Be High Risk For COVID-19? No Information not available 06/27/2023 Are You Deaf Or Do You Have Serious Difficulty Hearing? No Information not available 02/04/2022 What Type Of Diet Are You Following? REGULAR Information not available 02/04/2022 Have You Processed Blood Or Body Fluids From An Ebola Virus Disease Patient Without Appropriate PPE? No Information not available 06/27/2023 Do You Reside In Or Have You Traveled To An Area Where Ebola Virus Transmission Is Active? No Information not available 06/27/2023 What Is The Highest Grade Or Level Of School You Have Completed Or The Highest Degree You Have Received? [id number] Information not available 02/04/2022 Have There Been Any Changes To Your Family Or Social Situation? No Information no t available 02/04/2022 What Is The Fluoride Status Of Your Home? Unknown Information not available 02/04/2022 Have You Recently Or Are You Planning To Travel To An Area With Zika Virus? No Information not available 06/27/2023 Do You Have A Medical Power Of Access Control Officer? No Information not available 02/04/2022 What Was The Date Of Your Most Recent Tobacco Screening? 10/01/2024 Information not available 10/01/2024 How Many Children Do You Have? 3 Information not available 02/04/2022 What Is Your Current Pack Years? 30ormorepacky ears Information not available 02/03/2023 What Is Your Relationship Status? Information not available 02/04/2022 Do You Have Smoke And Carbon Monoxide Detectors In Your Home? Yes Information not available 02/04/2022 At What Age Did You Start Smoking Tobacco? 16 Information not available 02/04/2022 Are You Passively Exposed To Smoke? Yes Information no t available 02/04/2022 Has Tobacco Cessation Counseling Been Provided? Yes Information not available 12/06/2022 On What Date Was Tobacco Cessation Counseling Provided? 11/04/2023 Information not available 11/04/2023 How Many Years Have You Smoked Tobacco? 40 Information not available 02/04/2022 Do You Have Difficulty Walking Or Climbing Stairs? No Information not available 02/04/2022 Sex: Female Functional Status Question Answer Note LastModified by Organizat ion Details LastModified Time Do you use any illicit or recreational drugs? No Information not available 02/04/2022 Do you or have you ever used any other forms of tobacco or nicotine? No Information not available 02/04/2022 What is your level of alcohol consumption? None Information not available 02/04/2022 Are you currently employed? No Information not available 02/04/2022 Do you have transportation difficulties? No Information not available 02/04/2022 Are you able to walk? YESWOREST Information not available 02/04/2022 Do you have difficulty doing errands alone? No Information not available 02/04/2022 Are you able to care for yourself? Yes Information not available 02/04/2022 Do you have difficulty dressing or bathing? No Information not available 02/04/2022 What is your exercise level? None Information not available 02/04/2022 Mental Status Question Answer Note LastModified by Organizat ion Details LastModified Time Do you feel stressed (tense, restless, nervous, or anxious, or unable to sleep at night)? [id number] Information not available 02/04/2022 Do you have difficulty concentrating, remembering or making decisions? No Information no t available 02/04/2022 Family History Relationship Description Onset Age of this Age Resolved Age Notes LastModified by Organization Details LastModified Time Brother Heart disease bstears Not available 2021 15:50:52 Sister Heart disease bstears Not available 2021 15:50:52 Mother Diabetes mellitus bstears Not available 2021 15:51:10 Medical History No medical history recorded. Gynecological History Statement/Question Response Date of Last Colonoscopy 03/14/2021 Date of Last Mammogram Most Recent Bone Density Menses Monthly N Date of Last Pap Smear LMP Unknown Obstetrics History GPAL:G 0 P 0 0 0 0 Immunizations Vaccine Type Date Status Note Provider Nam e and Address Organization Details Recorded Time Influenza, split virus, quadrivalent, preservative 2 completed Regina [place], [place] - [facility] 05/30/2022 12:52:53 Influenza, high-dose, quadrivalent, PF 3 completed Regina [place] - [facility] 05/06/2023 12:49:25 Influenza, split virus, quadrivalent, PF 1 completed [facility] [place] [facility] 05/30/2022 10:03:48 pneumococcal polysaccharide PPV23 1 completed Regina faarh [place] - [facility] 05/30/2022 10:03:48 COVID-19, mRNA, LNP-S, PF, 30 mcg/0.3 mL dose 1 completed Regina Pandya [place], [place] - [facility] 05/30/2022 10:03:48 Influenza, split virus, trivalent, preservative 7 completed Regina farah [place] - [facility] 05/30/2022 10:03:48 COVID-19, mRNA, LNP-S, PF, 30 mcg/0.3 mL dose 1 completed Regina Pandya null [place] - [facility] 05/30/2022 10:03:48 COVID-19, mRNA, LNP-S, PF, 30 mcg/0.3 mL dose 1 completed [place] Pand[place] null, [place] [facility] 05/30/2022 10:03:48 Influenza, split virus, quadrivalent, preservative 7 completed Reg[place] [facility] 05/30/2022 10:03:48 Pneumococcal conjugate PCV 13 7 completed Reg[place] Pand[place] [facility] 05/30/2022 10:03:48 Tdap 8 completed Regina Pandya null, [facility] 05/30/2022 10:03:48 Influenza, recombinant, quadrivalent, PF 0 completed Regina Pand[place] null, [place] - [facility] 05/30/2022 10:03:48 Influenza, split virus, quadrivalent, PF 8 completed Regina Pandya null, [facility] 05/30/2022 10:03:48 Past Encounters Encounter ID Performer Location Encounter Start Date Encounter Closed Date Diagnosis/Indication Diagnosis SNOMED-CT Code Diagnosis ICD10 Code Diagnosis [id number] [facility] [address] [address] 02/04/2022 14:53:48 02/04/2022 16:56:20 Anxiety 09762023 F41.9 Depressive disorder 3548 9007 F32.A Diabetes mellitus 832048 09 E11.9 Hypertensive disorder 38 544069 I10 Primary ma lignant neoplasm of lung 34858634 C34.90 keep follow up with annamaria Vitamin D deficiency 347 73484 E55.9 Seasonal a llergic rhinitis 553878219 J30.2 Chronic ob structive pulmonary disease 00835879 J44.9 Spasm of back muscles 20 5605355 M62.027 [id number] Geovany Jean [address] [address] 05/30/2022 09:55:03 05/30/2022 10:57:51 Diabetes mellitus 79031030 E11.9 Influenza vaccine needed 1850762434 106 Z23 Seasonal a llergic rhinitis 470695370 J30.2 Vitamin D deficiency 347 13888 E55.9 Spasm of back muscles 20 4401417 M62.830 Hypertensive disorder 38 303340 I10 Chronic ob structive pulmonary disease 25649430 J44.9 Depressive disorder 3548 9007 F32.A [id number] Geovany Jean [address] [address] 07/11/2022 10:32:09 07/11/2022 11:17:35 Acute bronchitis 62684240 J20.9 [id number] Geovany Jean [address] [address] 08/30/2022 10:04:45 08/30/2022 11:11:06 Diabetes mellitus 37758403 E11.9 labs - if stable she can go to labs every 6 months Seasonal a llergic rhinitis 868817315 J30.2 Spasm of back muscles 20 3108399 M62.830 Vitamin D deficiency 347 13659 E55.9 Hypertensive disorder 38 389984 I10 Chronic ob structive pulmonary disease 50488574 J44.9 Depressive disorder 3548 9007 F32.A [id number] Geovany Jean [address] [address] 09/16/2022 08:54:29 09/16/2022 09:41:05 Chest pain 58503946 R07.9 justo to see today but pt wants to wait till next friday due to ill family but will go to ed if pain returns or any concerns Hypotensive episode 6776 3001 I95.9 continue to monitor bp, will send half dose of bp med for 2 weeks [id number] Bob Marie PA-C [address] [address] 12/06/2022 08:05:47 12/06/2022 09:20:07 Diabetes mellitus 21017160 E11.9 PT instructed to watch for high and/or low blood sugars. Monitor fingerstic k BS at home and try to keep a log. Bring log of blood sugar readings to next appointmen t appointmen t if able. Any concerns please call. Cautioned symptoms of hypoglycem ia and advised to keep glucose on hand. Avoid excess carbs and sugary drinks. Attempt to get daily exercise or follow an exercise plan as discussed. Stressed the importance of taking medication s as prescribed . Acute bronchitis 7748619 2 J20.9 needing neb refill Body mass index 30+ - obesity 954409640 Z68.32 Obesity 527192542 E66.9 Herpes zoster 8615131 B0 2.9 valacyclov ir 1000 mg PO q8h x7 days (last kidney function WNL)provid ed care instructmariah mora. Discussed supportive care with patient. If patient should get worse call clinic or go to emergency room. Discussed expected course and cautioned signs and sxs to seek further treatment. check STIs (as below) given distributi on (genital involvemen t) Lesion of genitalia 7243 42906 N94.9 Likely shingles outbreak, check STI panel given genital lesions. Hypertensive disorder 38 845808 I10 Check BP at home. Try to keep daily diary. If SBP >170 or if DBP > 100 call clinic, MD, or seek help. Dangers of high BP discussed. I also recommende d to reduce dietary sodium intake to less than 100 mEq (2.3 g of sodium or 6 g of sodium chloride)/ day. Discussed weight loss, DASH diet and exercise program as lifestyle changes to help control BP. Cautioned to watch for sxs such as chest pain, vision changes, BLAIR, or SOA and alert clinic or ER if present. 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 keep follow up with annamaria Seasonal a llergic rhinitis 684085947 J30.2 Vitamin D deficiency 347 33914 E55.9 [id number] Geovany Jean [address] [address] 05/06/2023 08:58:59 05/06/2023 10:40:47 Influenza vaccine needed 4786937132 106 Z23 spoke with Sharifa with pharm she states pt does qualify for high dose flu vaccine Anxiety 62355447 F41.9 Depressive disorder 3548 9007 F32.A Diabetes mellitus 241638 09 E11.9 labs - if stable she can go to labs every 6 months Hypertensive disorder 38 110235 I10 Neuropathy 151048002 G62 .9 Seasonal a llergic rhinitis 592078925 J30.2 Primary ma lignant neoplasm of lung 24605674 C34.90 keep follow up with annamaria Vitamin D deficiency 347 46318 E55.9 Chronic ob structive pulmonary disease 25215926 J44.9 [id number] [facility] [address] 06/27/2023 08:49:01 06/27/2023 09:21:21 Abscess of skin and/or subcutaneous tissue 95325486 L02.91 [id number] Trungclint Jean[address] [address] 08/04/2023 09:10:27 08/04/2023 10:02:14 Vitamin D deficiency 18566965 E55.9 Spasm of back muscles 20 7742866 M62.830 Hypotensive episode 6776 3001 I95.9 Diabetes mellitus 102757 09 E11.9 labs - if stable she can go to labs every 6 months Chronic ob structive pulmonary disease 81266228 J44.9 Depressive disorder 3548 9007 F32.A Acute bronchitis 9250325 2 J20.9 Myocardial infarction [address]21[address] Day he states the 2 blood thinners she is on should suffice, call pt and asked her to double check with her oncology/h ematology on the of this month [id number] Geovany Jean [address] [address] 11/04/2023 09:24:12 11/04/2023 10:28:04 Chronic obstructive pulmonary disease 58514107 J44.9 Active or passive immunization 363300303 Z23 Anxiety 69362407 F41.9 Diabetes mellitus 633069 09 E11.9 Primary ma lignant neoplasm of lung 40496593 C34.90 keep follow up with annamaria Vitamin D deficiency 347 91414 E55.9 Neuropathy 503923869 G62 .9 Hypertensive disorder 38 421665 I10 [id number] Geovany Jean [address] [address] 03/11/2024 09:18:24 03/11/2024 10:51:36 Anxiety 86122094 F41.9 Chronic ob structive pulmonary disease 72974900 J44.9 Diabetes mellitus 136899 09 E11.9 Hypertensive disorder 38 468380 I10 Primary ma lignant neoplasm of lung 38601184 C34.90 keep follow up with annamaria [id number] Geovany Jean [address] [address] 07/09/2024 10:44:29 07/09/2024 11:37:05 Bursitis of olecranon of right elbow 8279516295 39202 M70.21 referral to orthospoke to Dr rivas office- recommend to hold plavix the day before appointmen t [id number] Geovany Jean[address] [address] 10/01/2024 08:54:22 10/01/2024 10:19:56 Diabetes mellitus 33314503 E11.9 Depressive disorder 3548 9007 F32.A Anxiety 85772297 F41.9 Body mass index 25-29 - overweight 157468845 Z68.29 29.4 Overweight 036834264 E66 .3 Mammogram declined 05556 5004 Z53.20 Colon canc er screening declined 8991572603 9109 Z53.20 Screening for malignant neoplasm of colon 916853059 Z12.11 Bone densi ty scan declined 557415690 Z53.20 Cervical c ancer Papanicolaou smear screening declined 7722018919 30540 Z53.20 Hypertensive disorder 38 008068 I10 Vitamin D deficiency 347 95435 E55.9 Seasonal a llergic rhinitis 991650653 J30.2 Health Concerns Section Related Observation LastModified by Organization Detsandra ls LastModified Time None Recorded Concern Status LastModified by Organization Details LastModified Time None Recorded Advance Directives Directive Y: Payers Insurance Date Sequence Insurance Name Policy Number Policy Michele Covered Member ID Michele Member ID Guarantor Name 11/30/2024 1 [facility] Karl L Marcio [id number] Cintia Buckley Notes Date Note Type Note Provider Name and Address Organization Details Recorded Time 08/04/2023 text/html Diabetes F/UReported bypatient.Labs:la st A1C result: 6.1 Context:normal range of home blood sugars (in the low 100s); seeing eye doctor regularly; checking feet regularly Associated Symptoms:no weight gain; no weight loss; no dizziness; no sweats; no headaches; no confusion; no increased thirst; no increased appetite; no increased urination; no blurred vision; no numbness of feet; no calluses on feet 58 yr old female presents to follow up on diabetes and needs refills on medicaton. She also had a [place] in Jun 2023 due to blood clots per pt. pt states she had a heart cath and stayed in [facility] for a few days. pt states she is doing well now Dimitrirowan Jean, NEONATAL NURSE [address], [place], [address], [place] - [facility] 08/04/2023 10:07:31 11/04/2023 text/html 58 yr old female presents for lab work, cardiology requesting LDL check. She is also requesting a shingles vaccination.hx of dm,anxiety,depres tre, lung ca,copd,neuropath y,htn Geovany Jean, NEONATAL NURSE [address], [place], [address], [place] - [facility] 11/04/2023 10:17:40 03/11/2024 text/html Diabetes F/UReported bypatient.Review finger sticks:fastin Labs:last A1C result: 6.2 Context:normal range of home blood sugars (in the low 100s); seeing eye doctor regularly; checking feet regularly Associated Symptoms:no weight gain; no weight loss; no dizziness; no sweats; no headaches; no confusion; no increased thirst; no increased appetite; no increased urination; no blurred vision; no numbness of feet; no calluses on feet 59 yr old female presents for a diabetic follow up. pt states she is doing well no issues at this time. pt states she has seen cardiology and oncology , per pt they went well had labs and doing well. Geovany Jean APRN [address], [place], [address], [place] - [facility] 03/11/2024 10:40:27 07/09/2024 text/html 59 yr old female presents for right elbow swelling. She had a fall in her garden a few months ago and ever since she has had some problem with the right elbow. The last 2 weeks it has been swollen and won't go down with home management. Geovany Jean APRN [address], [place], [address], [facility] - [facility] 07/09/2024 11:30:53 10/01/2024 text/html 59 year old female who presents to the office today for a follow up ondiabetes, anxiety, depression Geovany Jean APRN [address], [place], [address], [place] - [facility] 10/01/2024 09:51:13 OBGyn Episode No OBEpisode recorded.
--- NOTE | 2025-02-02 11:00 | CA_ITS ---
APPROVED REPORT EXAM: Comprehensive 2D, Doppler, and color-flow Echocardiogram Pin Cleaner: Melba Morales, RODNEY, RVS Ht: 5 ft 2 in Wt: 162lbs BSA: 1.75 BP: 158/74 mmHg Indications: Pericardial effusion, pleural effusion, Lupus, Abn EKG, Smoker, Lung CA, COPD, HTN, HLD, DM 2D Dimensions IVSd 0.88 cm F: 0.6-1.0 LVEF (Visual) 38.10 % PWd 0.91 cm F: 0.6 - 1.0 LVDd 3.37 cm F: 3.9 - 5.3 LVDs 2.88 cm F: 2.2 - 3.5 Left Atrium 3.72 cm F: 2.7 - 3.8 M-Mode Dimensions RVDd 1.18 cm (0.9-2.6) LA Diam 3.11 cm (1.9-4.0) LVDd 4.73 cm (3.5-5.7) LVDs 3.61 cm (3.5-5.7) IVSd 1.06 cm (0.6-1.1) PWd 1.24 cm (0.6-1.1) EF (Teich) 47.30% EPSs 1.45 cm FS 23.70% EDV (Teich) 103.90 mL TAPSE 0.99 (<1.7) ESV (Teich) 54.80 mL LV Diastology E Decel Time 157 (160-240 msec) E/A Ratio 0.85 MED A' 9.20 cm/s LAT A' 14.50 cm/s Aortic Valve STELLA Index 1.62 cm2/m2 AoV Peak Israel. 118.0 (50-130 cm/s) AO Peak GR. 5.60 mmHg AO Mean GR. 2.80 (<5 mmHg) AO VTI 23.6 (18-25 cm) STELLA (VTI) 2.90 (2.5-4.5 cm2) Mitral Valve MV A Velocity 92.0 (40-130 cm/s) E/A Ratio 0.85 Tricuspid Valve TR P. Velocity 212.00 cm/s RAP Estimate 10.00 mmHg RVSP 27.90 mmHg Left Ventricle The left ventricle is normal size. The left ventricular systolic function is mildly reduced. There is increased LV wall thickness. There is mild global hypokinesis present. Diastolic function is indeterminate. LVEF is 45%. Right Ventricle Right ventricle is mildly dilated. Right ventricle is mildly hypokinetic. Atria Left atrium is mildly dilated. Right atrium is mildly dilated. There is no Doppler evidence of interatrial shunt. Aortic Valve The aortic valve is mildly thickened. There is no aortic valvular stenosis. Trace aortic regurgitation. Mitral Valve The mitral valve is mildly thickened. Mild mitral regurgitation. Tricuspid Valve Tricuspid valve is grossly normal in structure and function. Mild tricuspid regurgitation. RVSP is 20-25 mmHg. Pulmonic Valve The pulmonary valve is normal in structure. Trace pulmonic regurgitation. Great Vessels The aortic root is normal in size. IVC is normal in size and collapses >50% with inspiration. Pericardium There is a small-sized, circumferential pericardial effusion present. The largest pocket measures approximately 0.6 cm in diastole and is noted anteriorly. The pericardial effusion is partially loculated. No echo indications of tamponade. Other Information Study Quality: Fair Conclusion Mildly reduced LV systolic function (LVEF 45%). Mild RV dilation with mild reduction in RV function. Mild biatrial dilation. Mild MR, mild TR. Small-sized, circumferential pericardial effusion present. The largest pocket measures approximately 0.6 cm in diastole and is noted anteriorly. The pericardial effusion is partially loculated. No echo indications of tamponade. Compared to prior study from 12/20/2024, the size and location of the pericardial effusion is unchanged. In the setting of pericardial effusion, serial limited TTEs are suggested to evaluate for resolution vs. progression. Clinical correlation is recommended. Electronically signed by : Kiara Garcia MD 02/05/2025 15:01:44
== END 2025-02-02 23:59 | disposition home or self-care (01) ==
LOC: RT 10:51
PROVIDERS: PCP Nurse Practitioner Family; Visit Provider Physician Assistant
DX: I08.1 Rheumatic disorders of both mitral and tricuspid valves (principal); I31.39 Other pericardial effusion (noninflammatory); I11.0 Hypertensive heart disease with heart failure; I50.20 Unspecified systolic (congestive) heart failure; I25.10 Atherosclerotic heart disease of native coronary artery without angina pectoris; J90 Pleural effusion, not elsewhere classified; F17.200 Nicotine dependence, unspecified, uncomplicated; C34.90 Malignant neoplasm of unspecified part of unspecified bronchus or lung; J44.9 Chronic obstructive pulmonary disease, unspecified; E78.5 Hyperlipidemia, unspecified; E11.9 Type 2 diabetes mellitus without complications; R93.1 Abnormal findings on diagnostic imaging of heart and coronary circulation; R94.31 Abnormal electrocardiogram [ECG] [EKG]
CPT/HCPCS: 93306

== ENCOUNTER 2025-03-04 09:46 | Outpatient (CLI) | payer OTHER, SELFPAY ==
--- OUTSIDE RECORDS SUMMARY | 2025-03-04 09:48 | XMS_ITS | Encounter Summary ---
Author Organization Address [address] [place] [address] Care Team Providers Care Outside Laborer Name Role Phone Meera Baker Primary Care Provider [phone] Bishop Aguilar APRN Primary Care Provider [phone] Encounter Details Date Type Department Care Team (Late st Contact Info) Description 01/24/2020 Abstract [facility] [address] [place] [phone] Radiation Oncology, Physician, [address] [place] [address] Social History Tobacco Use Types Packs/Day Years [...] Description 04/15/2025 9:00 AM EDT Office Visit [facility] [address] [place] [address] Luz Elena Gonzalez, DYE OPERATOR [address] [facility] [address] [place] [address] 07/01/2025 11:30 AM EST Appointment [facility] [address] [place] [address] 07/01/2025 1:30 PM EST Clinical Support [facility] [address] [facility], 2nd [place] [address] 07/01/2025 1:40 PM EST Office Visit [facility] [address] [facility], [address] [place] [address] Bryan Mccallum MD [address] [address] documented as of this encounter Visit Diagnoses Not on filedocumented in this encounter Care Teams Outside Laborer Relationship Specialty Start Date End Date Meera Baker PA [address] [place] [address] PCP - General 12/01/20 12/02/22 Bishop Aguilar APRN [address] [place] [address] PCP - General 12/03/22 documented as of this encounter
--- OUTSIDE RECORDS SUMMARY | 2025-03-04 09:48 | XMS_ITS | Encounter Summary ---
Author Organization [facility] Address [address] [place] [address] Care Team Providers Care Software Requirements Engineer Name Role Phone Bishop Aguilar TRELL Primary Care Provider [phone] Encounter Details Date Type Department Care Team (Late st Contact Info) Description 01/19/2025 Orders Only [facility] [address] [place] [address] [...] Description 04/15/2025 9:00 AM EDT Office Visit [facility] [address] [place] [address] Luz Elena Gonzalez, TRELL [address] [address] 07/01/2025 11:30 AM EST Appointment [facility] [address] [place] [address] 07/01/2025 1:30 PM EST Clinical Support [facility] [address] [facility], [address] [place] [address] 07/01/2025 1:40 PM EST Office Visit [facility] 800 [facility], [address] [place] [address] Bryan Mccallum MD [address] [address] Scheduled Orders Name Type Priority Associated Diagnoses [...] documented as of this encounter Care Teams Software Requirements Engineer Relationship Specialty Start Date End Date Bishop Aguilar APRN [address] [facility] [place] [address] PCP - General 12/03/22 documented as of this encounter
--- OUTSIDE RECORDS SUMMARY | 2025-03-04 09:48 | XMS_ITS | Clinical Summary ---
Author Organization [facility] Address [address] [place] [address] Care Team Providers Care Field Worker Name Role Phone Bishop Aguilar TRELL Primary Care Provider [phone] Allergies Active Allergy Reactions Criticality Noted Date Comments Atorvastatin Shortness of breath High 10/15/2022 Sulfa Drugs Hives Medium 10/15/2022 Medications albuterol 108 (90 Base) MCG/ACT inhaler 8 Active B Olkoddo-I-Oeaup Acid (B-Complex/Foli c Acid/Vitamin C) tablet controlled-rele ase 1 tab(s) orally once a day Active cetirizine (ZyrTEC) 10 MG tablet 1 tab(s) orally once a day (in the morning) Active cholecalciferol (Vitamin D3) 1.25 MG (22069 UT) capsule Active ergocalciferol 1.25 MG (68285 UT) capsule 1 Active Advair Diskus 100-50 MCG/DOSE diskus inhaler 1 Active lisinopril-hydr oCHLOROthiazide 20-25 MG tablet 1 Active Morton-3 Fatty Acids (Morton III EPA+DHA) 1000 MG capsule 1 cap(s) [...] exposure 12/26/2023 Coronary artery disease invo lving [place] coronary artery of [place] heart without angina pectoris 11/09/2023 Shortness of breath 11/09/2023 Pericardial effusion 08/19/2023 Tobacco use disorder 08/21/2021 Metastatic lung cancer (metastasis from lung to other site) 05/24/2020 Overview (05/04/2021): Limited stage Anti-[place] DNA antibodies present 05/24/2020 Kidney stone 05/23/2020 SLE (systemic lupus erythematosus) 11/26/2018 Back pain 09/24/2018 Fibromyalgia 09/24/2018 Joint pain 09/24/2018 Resolved Problems Problem Noted Date Diagnosed Date Resolved Date History of miscarriage 09/24/201811/08 Encounters Date Type Department Care Team Description 01/19/2025 Orders Only [facility] [address] [place] [phone] Rosy Rivas Microalbuminuria (Primary Dx); Vitamin D [...] Description 04/15/2025 9:00 AM EDT Office Visit [facility] [address] [place] [phone] Luz Elena Gonzalez, SALESPERSON MEATS [address] [phone] 07/01/2025 11:30 AM EST Appointment [facility] [address] [place] [address] 07/01/2025 1:30 PM EST Clinical Support [facility] [address] [facility], 2nd [place] [address] 07/01/2025 1:40 PM EST Office Visit [facility] [address] [facility], [address] [place] [address] Bryan Mccallum MD [address] [phone] Health Maintenance Due Date Last Done Comments [facility]-HIV Screening 1965 [facility]-/Child/Adol SDOH Screenings 1965 [facility]-Obesity Intervention 1971 [facility]- SDOH Screenings 1983 [facility]-Adult SDOH Screenings 1983 [facility]-Zoster Vaccines (1 of 2) 1984 CT Colonography 2010 FIT-DNA 2010 FIT 2010 FOBT 2010 Sigmoidoscopy 2010 [facility]-Breast Cancer Screening 2015 [facility]-Pap Smear 12/26/2022 12/27/2019 [id number] Vaccine ( season) 2024 07/17/2021, 12/30/2020, 12/09/2020 [facility]-Depression Screening 08/19/2024 08/19/2023, 02/0 07/2021 [facility]-Cervical Cancer Screening 12/26/2024 [facility]-HPV/Cotest 12/26/2024 12/27/2019 [facility]-Influenza Vaccine (#1) 03/21/202505/06, 05/30/2022, 07/06/2021, Additional history exists Colonoscopy 03/13/2026 03/14/2021 [facility]-Colorectal Cancer Screening 03/13/2026 [facility]-Pneumococcal Vaccine: 50+ Years (3 of 3 - PPSV23, PCV20 or PCV21) 07/06/2026 07/06/2021, 04/16/2017 [facility]-DTaP,Tdap,and Td Vaccines (2 - Td or Tdap) 03/10/2028 03/10/2018 [facility]-RSV Vaccine: 60+ Years or (1 - 1-dose 75+ series) 2040 [facility]-Hepatitis C Screening Completed 12/24/2019 HPV Vaccines [...] 03/14/21) Staff Staff Role Pau Dumas Endo Gettering Operator Lelo Beltran MD Proceduralist Lino Salmeron MD Proceduralist Kim Bray, RN Sedation Nurse Tuyet Bird, OCTAVIO Endo Nurse [...] of bowel preparation was evaluated using the [place] Bowel Preparation Scale with scores of: right [...] Narrative SUNQUEST - 12/29/2019 8:56 AM EDT [facility] MR #: [id number] [facility] [place] [address] 1965 (Age: 54) FW Collect Date: 12/27/2019 00:00 Receipt Date: 12/27/2019 15:28 Page 1 DEPARTMENT OF PATHOLOGY AND LABORATORY MEDICINE CYTOPATHOLOGY REPORT Email: [email or web address] ATTENDING MD/Practitioner: Suzie Núñez Service: [id number] Location: [...] developed by and are performed at the [facility], [address] [place] [address]. All tests reported here, except those addressing [...] decalcified specimens. Electronically Signed Out JESSICA Sebastian ([facility]) Jame Skaggs MD PROCEDURES/ADDENDA GROSS DESCRIPTION: Multiple [...] right bronchus or lung F: A; C 61276, 57087, 71525, 74704, C 38669, 44438(3), 99774092, 67019, 77910290, 23024, 77688882, 17997 SNOMED CODES: A; E83871 P1140 P5862 N00036 [id number] A resident has participated in this service. A pathologist has performed and is responsible for the reported pathologic evaluation. us Cata Núñez MD LAB PATHOLOGY ORDERABLES Final R esult SUNQUEST * [place] Hepatitis C Antibody (12/24/2019 10:11 AM EDT) [place] Hepatitis C Ab NEGATIVE Reference Range: Negative [facility] 12/24/2019 10:1 1 AM EDT 12/24/2019 10:44 AM EDT us Alex Martins MD LAB BLOOD ORDERABLES Leila l Result Performing Organization Address City/[facility] Co de Phone Number SUNQUEST from Last 3 Months or Most Recently Relevant to Health Maintenance Insurance [facility] Care Teams Field Worker Relationship Specialty Start Date End Date Bishop Aguilar APRN [address] [place] [address] PCP - General 12/03/22
--- OUTSIDE RECORDS SUMMARY | 2025-03-04 09:48 | XMS_ITS ---
Author Organization [facility] Address [address] [place] [address] Care Team Providers Care Acoustical Logging Engineer Name Role Phone Bishop Aguilar TRELL Primary Care Provider [phone] Active Problems Problem Noted Date Diagnosed Date Second hand smoke exposure 12/26/2023 Coronary artery disease invo lving samish coronary artery of samish heart without angina pectoris 11/09/2023 Shortness of breath 11/09/2023 Pericardial effusion 08/19/2023 Tobacco use disorder 08/21/2021 Metastatic lung cancer (metastasis from lung to other site) 05/24/2020 Overview (05/04/2021): Limited stage Anti-samish DNA antibodies present 05/24/2020 Kidney stone 05/23/2020 [...]
[2025-03-04] MEDS: ALBUTEROL 0.083% 2.5 MG/3 ML NEB IH (10:50)
[2025-03-04 10:54] VITALS: PULSE 85; PULSE 86
== END 2025-03-04 23:59 | disposition home or self-care (01) ==
LOC: RT 09:46
PROVIDERS: PCP Nurse Practitioner Family; Visit Provider Internal Medicine Pulmonary Disease
DX: J44.9 Chronic obstructive pulmonary disease, unspecified (principal); R94.2 Abnormal results of pulmonary function studies
CPT/HCPCS: 94060; 94618; 94640; 94726; 94729

== ENCOUNTER 2025-03-29 10:50 | Outpatient (CLI) | payer OTHER, SELFPAY ==
[2025-03-29 14:23] LABS: Hematocrit 36.8 % (37.0-47.0); Hemoglobin 11.7 g/dL (12.2-16.2); Immature Granulocytes % 0.2 %; Mean Corpuscular HGB Conc 31.8 g/dL (31.8-35.4); Mean Corpuscular Hemoglobin 27.5 pg (27.0-31.2); Mean Corpuscular Volume 86.6 fl (81-99); Nucleated Red Blood Cells % 0 %; Platelet Count 237 K/mm3 (142-424); Red Blood Count 4.25 M/mm3 (4.20-5.40); Red Cell Distribution Width-SD 46.4 fL; White Blood Count 5.4 K/mm3 (4.8-10.8)
[2025-03-29 15:00] LABS: Albumin Level 4.5 g/dl (3.5-5.0); Chloride 100 mmol/L (98-107); Potassium 4.2 mmoL/L (3.5-5.1); Sodium 138 mmol/L (136-145)
[2025-03-29 15:02] LABS: Blood Urea Nitrogen 14 mg/dl (7-17); Creatinine,Serum 1.00 mg/dl (0.52-1.04); Estimated Glomerular Filt Rate 57 ml/min (>60); GFR (African American) 68 ML/MIN (>60)
[2025-03-29 15:03] LABS: Alanine Aminotransferase 15 U/L (12-78); Albumin/Globulin Ratio 1.9 (1.1-1.8); Alkaline Phosphatase 79 U/L (38-126); Anion Gap 14.2 mEq/L (5-15); Aspartate Amino Transferase 29 U/L (14-36); Bilirubin,Total 0.3 mg/dl (0.2-1.3); Calcium 9.6 mg/dl (8.4-10.2); Carbon Dioxide 28 mmol/L (22.0-30.0); Cholesterol 120 mg/dl (140-200); Globulin 2.4 g/dL (1.3-3.2); Glucose 93 mg/dl (74-100); Magnesium 2.2 mg/dl (1.6-2.3); Total Protein,Serum 6.9 g/dl (6.3-8.2); Triglycerides 140 mg/dl (30-150)
[2025-03-29 15:04] LABS: HDL Cholesterol 26 mg/dl (40-60)
[2025-03-29 15:23] LABS: Hemoglobin A1C 6.1 % (4.0-6.0)
[2025-03-29 15:34] LABS: Thyroid Stimulating Hormone 2.16 uIU/mL (0.465-4.68)
[2025-03-29 15:38] LABS: Ferritin 235 ng/ml (11.1-264)
--- OUTSIDE RECORDS SUMMARY | 2025-03-30 09:51 | XMS_ITS ---
Author Organization [facility] Address [address] [place] [address] Care Team Providers Care Airline Captain Name Role Phone Bishop Aguilar TRELL Primary Care Provider [phone] Active Problems Problem Noted Date Diagnosed Date Second hand smoke exposure 12/26/2023 Coronary artery disease invo lving [place] coronary artery of [place] heart without angina pectoris 11/09/2023 Shortness of breath 11/09/2023 Pericardial effusion 08/19/2023 Tobacco use disorder 08/21/2021 Metastatic lung cancer (metastasis from lung to other site) 05/24/2020 Overview (05/04/2021): Limited stage Anti-[place] DNA antibodies present 05/24/2020 Kidney stone 05/23/2020 [...]
--- OUTSIDE RECORDS SUMMARY | 2025-03-30 09:51 | XMS_ITS | Clinical Summary ---
Author Organization [facility] Address [address] [place] [address] Care Team Providers Care Propellant Assembler Name Role Phone Bishop Aguilar TRELL Primary Care Provider [phone]- [phone] Allergies Active Allergy Reactions Criticality Noted Date Comments Atorvastatin Shortness of breath High 10/15/2022 Sulfa Drugs Hives Medium 10/15/2022 Medications albuterol 108 (90 Base) MCG/ACT inhaler 8 Active B Uikwzbm-M-Snhnm Acid (B-Complex/Foli c Acid/Vitamin C) tablet controlled-rele ase 1 tab(s) orally once a day Active cetirizine (ZyrTEC) 10 MG tablet 1 tab(s) orally once a day (in the morning) Active cholecalciferol (Vitamin D3) 1.25 MG (39611 UT) capsule Active ergocalciferol 1.25 MG (06718 UT) capsule 1 Active Advair Diskus 100-50 MCG/DOSE diskus inhaler 1 Active lisinopril-hydr oCHLOROthiazide 20-25 MG tablet 1 Active Bend-3 Fatty Acids (Bend III EPA+DHA) 1000 MG capsule 1 cap(s) [...] exposure 12/26/2023 Coronary artery disease invo lving [place] coronary artery of [place] heart without angina pectoris 11/09/2023 Shortness of breath 11/09/2023 Pericardial effusion 08/19/2023 Tobacco use disorder 08/21/2021 Metastatic lung cancer (metastasis from lung to other site) 05/24/2020 Overview (05/04/2021): Limited stage 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 05/24/2020 Kidney stone 05/23/2020 SLE (systemic lupus erythematosus) 11/26/2018 Back pain 09/24/2018 Fibromyalgia 09/24/2018 Joint pain 09/24/2018 Resolved Problems Problem Noted Date Diagnosed Date Resolved Date History of miscarriage 09/24/201811/08 Encounters Date Type Department Care Team Description 01/19/2025 Orders Only [facility] [address] [place] [phone] Rosy Rivas Microalbuminuria (Primary Dx); Vitamin D [...] Description 04/15/2025 9:00 AM EDT Office Visit [facility] [address] [place] [phone] Luz Elena Gonzalez, COSMETOLOGY TEACHER [address] [phone] 07/01/2025 11:30 AM EST Appointment [facility] [address] [place] [phone] 07/01/2025 1:30 PM EST Clinical Support [facility] [address] [facility], [address]nd [place] [phone] 07/01/2025 1:40 PM EST Office Visit [facility] [address] [facility], [address] [place] [phone] Bryan Mccallum MD [address] [phone] Health Maintenance Due Date Last Done Comments [facility]-HIV Screening 1965 [facility]-Infant/Child/Adol SDOH Screenings 1965 [facility]-Obesity Intervention 1971 [facility]- SDOH Screenings 1983 [facility]-Adult SDOH Screenings 1983 [facility]-Zoster Vaccines (1 of 2) 1984 CT Colonography 2010 FIT-DNA 2010 FIT 2010 FOBT 2010 Sigmoidoscopy 2010 [facility]-Breast Cancer Screening 2015 [facility]-Pap Smear 12/26/2022 12/27/2019 [facility]-Depression Screening 08/19/2024 08/19/2023, 02/0 07/2021 [facility]-Cervical Cancer Screening 12/26/2024 [facility]-HPV/Cotest 12/26/2024 12/27/2019 [id number] Vaccine ( season) 2025 07/17/2021, 12/30/2020, 12/09/2020 [facility]-Influenza Vaccine (#1) 03/21/202505/06, 05/30/2022, 07/06/2021, Additional [...] 03/14/21) Staff Staff Role Pau Dumas Endo Manager Transportation Lelo Beltran MD Proceduralist Lino Salmeron MD [...] of bowel preparation was evaluated using the [place] Bowel Preparation Scale with scores of: right [...] Narrative SUNQUEST - 12/29/2019 8:56 AM EDT [facility] MR #: [id number] [facility] [place], [place] [address] 1965 (Age: 54) FW Collect Date: 12/27/2019 00:00 Receipt Date: 12/27/2019 15:28 Page 1 DEPARTMENT OF PATHOLOGY AND LABORATORY MEDICINE CYTOPATHOLOGY REPORT Email: [email or web address] ATTENDING MD/Practitioner: Suzie Núñez Service: [email or web address] Location: [...] at the [facility], [address] [place] [address]. All tests reported here, except those addressing [...] decalcified specimens. Electronically Signed Out JESSICA Sebastian ([facility]) Jame Skaggs MD PROCEDURES/ADDENDA GROSS DESCRIPTION: Multiple [...] right bronchus or lung F: A; C 18719, 37416, 72864, 78449, C 53318, 37440(3), [id number], 41897, [id number], 82823, [id number], 12163 SNOMED CODES: A; [id number] P1140 P5862 [id number] A resident has participated in this service. A pathologist has performed and is responsible for the reported pathologic evaluation. us Cata Núñez MD LAB PATHOLOGY ORDERABLES Final R esult SUNQUEST * [place] Hepatitis C Antibody (12/24/2019 10:11 AM EDT) [place] Hepatitis C Ab NEGATIVE Reference Range: Negative SUNQUEST 12/24/2019 10:1 1 AM EDT 12/24/2019 10:44 AM EDT us Alex Martins MD LAB BLOOD ORDERABLES Leila l Result Performing Organization Address City/[facility] Co de Phone Number SUNQUEST from Last 3 Months or Most Recently Relevant to Health Maintenance Insurance [facility] [place] [address] Care Teams Propellant Assembler Relationship Specialty Start Date End Date Bisohp Aguilar APRN [address] [place] [id number] PCP - General 12/03/22
--- OUTSIDE RECORDS SUMMARY | 2025-03-30 09:51 | XMS_ITS | Encounter Summary ---
Author Organization [facility] Address [address] [place] [address] Care Team Providers Care Care Process Manager Name Role Phone Meera Baker Primary Care Provider [phone] Bishop Aguilar APRN Primary Care Provider [phone] Encounter Details Date Type Department Care Team (Late st Contact Info) Description 01/24/2020 Abstract [facility] [id number] [place] [phone] Radiation Oncology, Physician, [address] [place] [address] Social History Tobacco Use Types Packs/Day Years [...] Description 04/15/2025 9:00 AM EDT Office Visit [facility] [address] [place] [address] Luz Elena Gonzalez, CIRCLE SAW OPERATOR [address] [facility] [address] [place] [address] 07/01/2025 11:30 AM EST Appointment [facility] [address] [place] [address] 07/01/2025 1:30 PM EST Clinical Support [facility] [address] [facility], [address]nd [place] [address] 07/01/2025 1:40 PM EST Office Visit [facility] [address] [facility], [address] [place] [address] Bryan Mccallum MD [address] [phone] documented as of this encounter Visit Diagnoses Not on filedocumented in this encounter Care Teams Care Process Manager Relationship Specialty Start Date End Date Meera Baker PA [address] [place] [address] PCP - General 12/01/20 12/02/22 Bishop Aguilar APRN [address] [place] [address] PCP - General 12/03/22 documented as of this encounter
== END 2025-03-29 23:59 ==
LOC: LAB.DROPOF 03-30 09:44
PROVIDERS: PCP Nurse Practitioner Family; Visit Provider Nurse Practitioner Family
DX: D64.9 Anemia, unspecified (principal); I10 Essential (primary) hypertension; E78.5 Hyperlipidemia, unspecified; E11.9 Type 2 diabetes mellitus without complications
CPT/HCPCS: 80053; 80061; 82728; 83036; 83735; 84443; 85025